=== PATIENT | male | born 1950 | race Caucasian/White ===

== ENCOUNTER 2021-06-16 17:54 | Outpatient (CLI) | payer MEDICARE | END 2021-06-16 17:55 | disposition EMS.NT | LOC: EMS 17:54 | DX: Z03.89 Encounter for observation for other suspected diseases and conditions ruled out (principal) ==

== ENCOUNTER 2021-06-17 11:49 | Outpatient (CLI) | payer MEDICARE | END 2021-06-17 11:50 | disposition critical access hospital (66) | LOC: EMS 11:49 | DX: R29.898 Other symptoms and signs involving the musculoskeletal system (principal); R60.0 Localized edema | CPT/HCPCS: A0425; A0429 ==

== ENCOUNTER 2021-06-17 12:15 | Inpatient (IN) | payer MEDICARE ==
--- NOTE | 2021-06-17 12:27 | ED Physician Documentation ---
History of Present Illness - Stated complaint Stated Complaint: UNABLE TO WALK/WEAKNESS - History obtained from History obtained from: Patient, EMS - History of Present Illness Timing: Today - Additonal information Additional information: Patient is a 70-year-old male who presents to the emergency department with EMS. He reportedly lives at home and was unable to get up off the toilet for the last 15 hours. Has chronic deformities to both of his feet and ankles. Chronic swelling and skin changes to both of his lower legs. No fevers. Has not seen a doctor for the last 17 years. He states he has no medical problems and no medical history. Does not take any medications at home. Nothing makes it better or worse. He normally walks with a cane. No recent cough, congestion, fevers, chills, nausea, vomiting. No chest pain. Review of Systems Constitutional: denies: Fever, Chills GI: denies: Vomiting, Diarrhea Skin: denies: Rash Musculoskeletal: denies: Neck pain, Back pain Neurologic: denies: Headache PD PAST MEDICAL HISTORY - Past Medical History Past Medical History: No - Past Surgical History Past Surgical History: No - Present Medications Home Medications: Ambulatory Orders Medication Instructions Recorded Confirmed Aspirin [Analilia] PRN PRN 06/17/21 - Allergies Allergies/Adverse Reactions: Allergies Allergy/AdvReac Type Severity Reaction Status Date / Time No Known Drug Allergies Allergy Verified 06/17/21 13:22 - Living Situation Living Arrangement: reports: At home - Social History Does the pt have substance abuse?: No - Family History Family history: reports: Non contributory PD ED PE NORMAL - Vitals Vital signs reviewed: Yes - General General: Alert and oriented X 3, No acute distress, Well developed/nourished - HEENT HEENT: Moist mucous membranes, Pharynx benign - Neck Neck: Supple, no meningeal sign - Cardiac Cardiac: Other (Tachycardic) - Respiratory Respiratory: No respiratory distress, Clear bilaterally - Abdomen Abdomen: Soft, Non tender, Non distended - Derm Derm: Warm and dry - Extremities Extremities: Other - Neuro Neuro: Alert and oriented X 3 - Psych Psych: Normal mood, Normal affect - Free text exam Free text exam: Diffuse swelling of the left lower extremity and right lower extremity. Left lower extremity is more swollen than the right. Patient states this is chronic. Has chronic appearing skin changes to both lower legs. There are some open sores on the right lower leg. Both ankles are deformed. He appears to walk on the medial aspect of a severely deformed left foot and ankle. Also has curling of the bilateral toenails. Results - Vitals Vitals: Vital Signs - 24 hr 06/17/21 06/17/21 06/17/21 12:28 12:33 14:00 Temperature 36.6 C Heart Rate 152 H 153 H 151 H Respiratory 20 22 20 Rate Blood Pressure 129/84 H 112/84 H 152/126 H O2 Saturation 100 100 98 06/17/21 06/17/21 06/17/21 14:09 15:16 15:40 Temperature Heart Rate 130 H 147 H 121 H Respiratory 20 20 22 Rate Blood Pressure 111/89 H 111/89 H O2 Saturation 100 100 99 Oxygen O2 Source Room air - EKG (time done) 1254 Rate: Rate (enter#) (152) Rhythm: Other (Tachycardia, unclear underlying rhythm) Trion: Normal Intervals: Wide QRS QRS: Normal Ischemia: Normal ST segments - Labs Labs: Laboratory Tests 06/17/21 06/17/21 06/17/21 12:42 12:42 12:42 WBC 7.9 RBC 5.04 Hgb 13.6 L Hct 42.0 MCV 83.3 MCH 27.0 MCHC 32.4 RDW 15.8 H Plt Count 244 MPV 10.6 Neut # (Auto) 6.7 H Lymph # (Auto) 0.6 L Benzie # (Auto) 0.5 Eos # (Auto) 0.0 Baso # (Auto) 0.0 Absolute Nucleated RBC 0.00 Nucleated RBC % 0.0 VBG pH VBG pCO2 VBG pO2 VBG HCO3 VBG Total CO2 VBG O2 Saturation VBG Base Excess Sodium 143 Potassium 3.5 Chloride 100 L Carbon Dioxide 24 Anion Gap 19.0 H BUN 24 H Creatinine 0.7 Estimated GFR (MDRD) 111 Glucose 94 Lactic Acid Calcium 8.9 Total Bilirubin 1.2 H AST 75 H ALT 56 Alkaline Phosphatase 58 Troponin I High Sens B-Natriuretic Peptide 308 H Total Protein 7.3 Albumin 2.8 L Globulin 4.5 H Albumin/Globulin Ratio 0.6 L Lipase 31 TSH Nasal Adenovirus (PCR) Nasal B. parapertussis DNA (PCR) Nasal Coronavir 229E PCR Nasal Coronavir HKU1 PCR Nasal Coronavir NL63 PCR Nasal Coronavir OC43 PCR Nasal Enterovir/Rhinovir PCR Nasal Influenza B PCR Nasal Influenza A PCR Nasal Parainfluen 1 PCR Nasal Parainfluen 2 PCR Nasal Parainfluen 3 PCR Nasal Parainfluen 4 PCR Nasal RSV (PCR) Nasal B.pertussis DNA PCR Nasal C.pneumoniae (PCR) Tony Human Metapneumo PCR Nasal M.pneumoniae (PCR) Nasal SARS-CoV-2 (PCR) Salicylates Acetaminophen 06/17/21 06/17/21 06/17/21 12:42 13:50 13:50 WBC RBC Hgb Hct MCV MCH MCHC RDW Plt Count MPV Neut # (Auto) Lymph # (Auto) Benzie # (Auto) Eos # (Auto) Baso # (Auto) Absolute Nucleated RBC Nucleated RBC % VBG pH 7.453 H VBG pCO2 36.2 L VBG pO2 29.3 VBG HCO3 24.8 VBG Total CO2 25.9 VBG O2 Saturation 59.8 L VBG Base Excess 1.1 Sodium Potassium Chloride Carbon Dioxide Anion Gap BUN Creatinine Estimated GFR (MDRD) Glucose Lactic Acid Calcium Total Bilirubin AST ALT Alkaline Phosphatase Troponin I High Sens 22.7 H* B-Natriuretic Peptide Total Protein Albumin Globulin Albumin/Globulin Ratio Lipase TSH Nasal Adenovirus (PCR) Nasal B. parapertussis DNA (PCR) Nasal Coronavir 229E PCR Nasal Coronavir HKU1 PCR Nasal Coronavir NL63 PCR Nasal Coronavir OC43 PCR Nasal Enterovir/Rhinovir PCR Nasal Influenza B PCR Nasal Influenza A PCR Nasal Parainfluen 1 PCR Nasal Parainfluen 2 PCR Nasal Parainfluen 3 PCR Nasal Parainfluen 4 PCR Nasal RSV (PCR) Nasal B.pertussis DNA PCR Nasal C.pneumoniae (PCR) Tony Human Metapneumo PCR Nasal M.pneumoniae (PCR) Nasal SARS-CoV-2 (PCR) Salicylates < 6.0 Acetaminophen < 10 L 06/17/21 06/17/21 06/17/21 13:51 14:40 15:38 WBC RBC Hgb Hct MCV MCH MCHC RDW Plt Count MPV Neut # (Auto) Lymph # (Auto) Benzie # (Auto) Eos # (Auto) Baso # (Auto) Absolute Nucleated RBC Nucleated RBC % VBG pH VBG pCO2 VBG pO2 VBG HCO3 VBG Total CO2 VBG O2 Saturation VBG Base Excess Sodium Potassium Chloride Carbon Dioxide Anion Gap BUN Creatinine Estimated GFR (MDRD) Glucose Lactic Acid 2.8 H Calcium Total Bilirubin AST ALT Alkaline Phosphatase Troponin I High Sens 23.1 H* B-Natriuretic Peptide Total Protein Albumin Globulin Albumin/Globulin Ratio Lipase TSH Nasal Adenovirus (PCR) NOT DETECTED Nasal B. parapertussis DNA (PCR) NOT DETECTED Nasal Coronavir 229E PCR NOT DETECTED Nasal Coronavir HKU1 PCR NOT DETECTED Nasal Coronavir NL63 PCR NOT DETECTED Nasal Coronavir OC43 PCR NOT DETECTED Nasal Enterovir/Rhinovir PCR NOT DETECTED Nasal Influenza B PCR NOT DETECTED Nasal Influenza A PCR NOT DETECTED Nasal Parainfluen 1 PCR NOT DETECTED Nasal Parainfluen 2 PCR NOT DETECTED Nasal Parainfluen 3 PCR NOT DETECTED Nasal Parainfluen 4 PCR NOT DETECTED Nasal RSV (PCR) NOT DETECTED Nasal B.pertussis DNA PCR NOT DETECTED Nasal C.pneumoniae (PCR) NOT DETECTED Tony Human Metapneumo PCR NOT DETECTED Nasal M.pneumoniae (PCR) NOT DETECTED Nasal SARS-CoV-2 (PCR) NOT DETECTED Salicylates Acetaminophen 06/17/21 15:38 WBC RBC Hgb Hct MCV MCH MCHC RDW Plt Count MPV Neut # (Auto) Lymph # (Auto) Benzie # (Auto) Eos # (Auto) Baso # (Auto) Absolute Nucleated RBC Nucleated RBC % VBG pH VBG pCO2 VBG pO2 VBG HCO3 VBG Total CO2 VBG O2 Saturation VBG Base Excess Sodium Potassium Chloride Carbon Dioxide Anion Gap BUN Creatinine Estimated GFR (MDRD) Glucose Lactic Acid Calcium Total Bilirubin AST ALT Alkaline Phosphatase Troponin I High Sens B-Natriuretic Peptide Total Protein Albumin Globulin Albumin/Globulin Ratio Lipase TSH 1.27 Nasal Adenovirus (PCR) Nasal B. parapertussis DNA (PCR) Nasal Coronavir 229E PCR Nasal Coronavir HKU1 PCR Nasal Coronavir NL63 PCR Nasal Coronavir OC43 PCR Nasal Enterovir/Rhinovir PCR Nasal Influenza B PCR Nasal Influenza A PCR Nasal Parainfluen 1 PCR Nasal Parainfluen 2 PCR Nasal Parainfluen 3 PCR Nasal Parainfluen 4 PCR Nasal RSV (PCR) Nasal B.pertussis DNA PCR Nasal C.pneumoniae (PCR) Tony Human Metapneumo PCR Nasal M.pneumoniae (PCR) Nasal SARS-CoV-2 (PCR) Salicylates Acetaminophen - Rads (name of study) B ankle xray Radiology: Final report received, EMP read contemporaneously, See rad report (Deformities of the ankles, left greater than right, may be congenital in nature versus Charcot joints. Severe degenerative changes marked soft tissue swelling) chest xray Radiology: Final report received, EMP read contemporaneously, See rad report (no acute abnormality) ct angio chest Radiology: Final report received, EMP read contemporaneously, See rad report (No acute PE) PD MEDICAL DECISION MAKING - ED course Complexity details: reviewed results, re-evaluated patient, considered differential, d/w patient ED course: 70-year-old male presents to the emergency department found to be in atrial fibrillation with rapid ventricular response. This is new for him. 20 mg of diltiazem did not change his heart rate. 5 mg of metoprolol did decrease his heart rate for about 30 seconds. Started on esmolol drip. No chest pain. No shortness of breath. Has severe swelling to the bilateral lower extremities, the right lower extremity has open wounds and does appear cellulitic. Has some mild elevation of his lactic acid. This could be secondary to his high-dose aspirin use daily. He states that he uses up to 10 tablets of 325 mg aspirin daily. Patient will need to be admitted for his new onset atrial fibrillation with rapid ventricular response. We will also start him on antibiotics for the cellulitis. Discussed the case with Dr. Hernandez, hospitalist who accepts This document was made in part using voice recognition software. While efforts are made to proofread this document, sound alike and grammatical errors may o ccur. Departure - Departure Disposition: 66 [facility] DC/Xfer Clinical Impression: New onset a-fib, Elephantiasis, Charcot's joint, Elevated brain natriuretic peptide (BNP) level Cellulitis Qualifiers: Site of cellulitis: extremity Site of cellulitis of extremity: lower extremity Laterality: right Qualified Code(s): L03.115 - Cellulitis of right lower limb Condition: Stable Discharge Date/Time: 06/17/21 17:34
[2021-06-17 13:09] LABS: BASOPHILS % (AUTO) 0.3 %; HGB - HEMOGLOBIN 13.6 g/dL (14.0-18.0); LYMPHOCYTES # (AUTO) 0.6 10^3/uL (1.5-3.5); LYMPHOCYTES % (AUTO) 7.8 %; MEAN CORPUSCULAR HGB CONC 32.4 g/dL (32.0-36.0); MEAN CORPUSCULAR VOLUME 83.3 fL (80.0-94.0); MEAN PLATELET VOLUME 10.6 fL (7.4-11.4); MONOCYTES # (AUTO) 0.5 10^3/uL (0.0-1.0); MONOCYTES % (AUTO) 6.6 %; NEUTROPHILS # (AUTO) 6.7 10^3/uL (1.5-6.6); NEUTROPHILS % (AUTO) 84.7 %; PLT - PLATELET COUNT 244 10^3/uL (130-450); RED BLOOD COUNT 5.04 10^6/uL (4.70-6.10); RED CELL DISTRIBUTION WIDTH 15.8 % (12.0-15.0); WHITE BLOOD COUNT 7.9 x10^3/uL (4.8-10.8)
[2021-06-17] MEDS ORDERED: diltiaZEM INJ 5 MG/ML VIAL IVP STA (13:12)
--- NOTE | 2021-06-17 13:16 | XRAY Report ---
PROCEDURE: Chest 1 View X-Ray INDICATIONS: Chest Pain TECHNIQUE: One view of the chest was acquired. COMPARISON: None FINDINGS: Surgical changes and devices: None. Lungs and pleura: Elevation of the hemidiaphragms. There is bowel noted underneath the right abdomen as well stomach underneath the left abdomen. There is likely adjacent atelectasis. No focal consolida tion, pneumothorax, or pleural effusion. Mediastinum: Mediastinal contours appear normal. Heart size is normal. Bones and chest wall: No suspicious bony lesions. Overlying soft tissues appear unremarkable. IMPRESSION: Elevation of the hemidiaphragms with basilar volume loss. Otherwise no evidence of an acute cardiopul monary abnormality. Reviewed by: Jean Paul Pandya DO on 06/17/2021 12:15 PM [facility] Approved by: Jean Paul Pandya DO on 06/17/2021 12:15 PM [facility] Station ID: [id number]
--- NOTE | 2021-06-17 13:23 | XRAY Report ---
PROCEDURE: Ankle 3 View BILAT INDICATIONS: B ankle deformity, swelling, chronic TECHNIQUE: 8) of the ankles were acquired. COMPARISON: None FINDINGS: Bones: Right ankle there is no acute fracture or dislocation. There is asymmetry of the ankle mortise, likel y chronic given other findings. There is severe pes planus with severe degenerative changes of the an kle and osseous remodeling. The left ankle is diffusely irregular in appearance with a hypoplastic appearance of the calcaneus an d inversion of the ankle. There is severe degenerative changes of the ankle. There is marked pes plan us. Soft tissues: There is diffuse soft tissue swelling/edema noted throughout the lower legs and ankles. Mild vascular calcifications are noted. IMPRESSION: Severe deformities of the ankles, left greater than right which may be congenital in nature versus Ch arcot joints. There is severe degenerative changes. Marked soft tissue swelling of the lower extremities/ankles. Reviewed by: Jean Paul Pandya DO on 06/17/2021 12:22 PM [facility] Approved by: Jean Paul Pandya DO on 06/17/2021 12:22 PM [facility] Station ID: [id number]
[2021-06-17 13:26] LABS: ALBUMIN 2.8 g/dL (3.2-5.5); ALBUMIN/GLOBULIN RATIO 0.6 (1.0-2.2); BILIRUBIN,TOTAL 1.2 mg/dL (0.2-1.0); CALCIUM 8.9 mg/dL (8.5-10.3); CREATININE 0.7 mg/dL (0.6-1.2); POTASSIUM 3.5 mmol/L (3.5-5.0); TOTAL PROTEIN 7.3 g/dL (6.7-8.2)
[2021-06-17] MEDS ORDERED: METOPROLOL 5 MG/5 ML VIAL IVP STA ×2 (13:40→20:33)
[2021-06-17 13:53] LABS: VBG BASE EXCESS 1.1 mmol/L (-2 - +2); VBG HCO3 24.8 mmol/L (23-28); VBG PCO2 36.2 mmHg (41-51); VBG PH 7.453 (7.31-7.41); VBG PO2 29.3 mmHg (25-47); VBG TOTAL CO2 25.9 mmol/L (24-29)
[2021-06-17 13:54] LABS: VBG OXYGEN SATURATION 59.8 % (60-80)
[2021-06-17 14:06] LABS: ACETAMINOPHEN < 10 ug/mL (10-30); SALICYLATE < 6.0 mg/dL
[2021-06-17] MEDS ORDERED: ESMOLOL 2.5 GM/250 ML BAG IV STA (14:10)
[2021-06-17] MEDS ORDERED: PIPERACILLIN/TAZOBACTAM 3.375 GM in SODIUM CHLORIDE 0.9% MINIBAG 100 ML IV STA (14:28)
[2021-06-17] MEDS ORDERED: VANCOMYCIN 1 GM VIAL ONE (14:42)
[2021-06-17] MEDS ORDERED: VANCOMYCIN INJ 1.75 GM in SODIUM CHLORIDE 0.9% 500 ML IV SCH (15:00)
[2021-06-17] MEDS ORDERED: oxyCODONE 5 MG TABLET PO PRN (15:15)
[2021-06-17] MEDS ORDERED: ONDANSETRON 4 MG/2 ML VIAL IVP PRN (15:15)
[2021-06-17] MEDS ORDERED: ONDANSETRON ODT 4 MG TABLET TL PRN (15:15)
[2021-06-17] MEDS ORDERED: MORPHINE 2 MG/ML CARPUJECT IVP PRN (15:15)
[2021-06-17] MEDS ORDERED: iohexoL-300 100 ML VIAL ONE (15:23)
[2021-06-17 15:42] LABS: B. PARAPERTUSSIS- RESP PCR PAN NOT DETECTED; B. PERTUSSIS- RESP PCR PANEL NOT DETECTED; C. PNEUMONIAE- RESP PCR PANEL NOT DETECTED; CORONAVIRUS 229E-RESP PCR NOT DETECTED; CORONAVIRUS HKU1-RESP PCR NOT DETECTED; CORONAVIRUS NL63-RESP PCR NOT DETECTED; CORONAVIRUS OC43-RESP PCR NOT DETECTED; HUMAN METAPNEUMOVIRUS NOT DETECTED; INFLUENZA A- RESP PCR PANEL NOT DETECTED; INFLUENZA B - RESP PCR PANEL NOT DETECTED; M. PNEUMONIAE- RESP PCR PANEL NOT DETECTED; PARAINFLUENZA VIRUS 1 NOT DETECTED; PARAINFLUENZA VIRUS 2 NOT DETECTED; PARAINFLUENZA VIRUS 3 NOT DETECTED; PARAINFLUENZA VIRUS 4 NOT DETECTED; RHINOVIRUS/ENTEROVIRUS NOT DETECTED; RSV- RESP PCR PANEL NOT DETECTED; SARS-CoV-2 -RESP PCR PANEL NOT DETECTED
[2021-06-17] MEDS ORDERED: iohexoL-300 100 ML VIAL IVP ONE (17:13)
[2021-06-17] MEDS: ESMOLOL 2.5 GM/250 ML BAG IV SCH (17:30)
--- NOTE | 2021-06-17 17:40 | CT Report ---
PROCEDURE: ANGIO CHEST W/WO INDICATIONS: tachycardia, new onset afib CONTRAST: IV CONTRAST: Isovue 300 ml: 80 PO CONTRAST: *NO PO CONTRAST TECHNIQUE: After the administration of intravenous contrast, 2 mm axial images were acquired from the pulmonary apices to the posterior costophrenic angles during the arterial phase. In addition, 1 mm lung kernel and 5 mm soft tissue kernel reconstructions were performed. 3-dimensional coronal oblique maximum int ensity projection (MIP) reformats, 8 mm axial MIP, and 5 mm coronal and sagittal MPR reformats were t hen performed through the thorax. For radiation dose reduction, the following was used: automated exp osure control, adjustment of mA and/or kV according to patient size. COMPARISON: Same day chest radiographs. FINDINGS: Image quality: Limited evaluation given patient's inability to appropriately position and arms by his side which causes diffuse beam hardening artifact.. Pulmonary arteries: Pulmonary arteries are normal in size, and demonstrate no intraluminal filling d efects to suggest central pulmonary embolism. There is however some peripheral irregularity of multi ple left lower lobe subsegmental pulmonary vessels which may represent chronic pulmonary embolus. Thi s is adjacent to the volume loss. Lungs and pleura: There is a somewhat hypoplastic appearance of the left lung. There is elevation of the left greater than right hemidiaphragms. There is volume loss of the left lung base as well as wit hin the lingula. Mild volume loss within the right lung base. No focal consolidation or pneumothorax. No large volume pleural effusion. Central and peripheral airways are patent. Mediastinum: Heart size is normal, without pericardial effusion. No mediastinal or hilar adenopathy . Thoracic aorta is normal in caliber and enhancement. Esophagus is normal in caliber, without hiat al hernia. Bones and chest wall: No suspicious bony lesions. Ribs and thoracic spine appear intact throughout. No axillary or supraclavicular adenopathy. Thyroid gland is unremarkable. Abdomen: Visualized upper abdominal solid organs appear normal in the early arterial phase of enhanc ement. Limited evaluation demonstrates colon interposed between the liver and right hemidiaphragm. IMPRESSION: Limited study. No acute pulmonary embolus within the limits of this examination.. Subtle peripheral i rregularities of a few left lower lobe subsegmental vessels adjacent to the volume loss may represent chronic pulmonary embolus. Likely chronic elevation of the left hemidiaphragm with volume loss of the left lower lobe and lingul a greater than the right lower lobe. No focal consolidation. Reviewed by: Jean Paul Pandya DO on 06/17/2021 4:39 PM [facility] Approved by: Jean Paul Pandya DO on 06/17/2021 4:39 PM [facility] Station ID: [id number]
[2021-06-17] MEDS: ceFAZolin 1 GM VIAL IVP SCH ×2 (18:01→20:55)
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
[2021-06-17] MEDS: PANTOPRAZOLE 40 MG TABLET PO SCH (18:56)
[2021-06-17] MEDS: DIGOXIN 500 MCG/2 ML AMP IVP SCH (18:58)
[2021-06-17] MEDS: SODIUM CHLORIDE FLUSH 0.9% 10 ML SYRINGE IVP SCH (20:55)
[2021-06-18] MEDS ORDERED: METOPROLOL 5 MG/5 ML VIAL IVP PRN (01:05)
[2021-06-18] MEDS: ESMOLOL 2.5 GM/250 ML BAG IV SCH ×4 (01:21→20:28)
[2021-06-18] MEDS: SODIUM CHLORIDE FLUSH 0.9% 10 ML SYRINGE IVP SCH ×3 (01:27→17:29)
[2021-06-18] MEDS ORDERED: METOPROLOL SUCCINATE 25 MG TABLET PO SCH (02:00)
[2021-06-18 05:21] LABS: BASOPHILS % (AUTO) 0.3 %; EOSINOPHILS # (AUTO) 0.1 10^3/uL (0.0-0.7); EOSINOPHILS % (AUTO) 1.1 %; HCT - HEMATOCRIT 34.7 % (42.0-52.0); HGB - HEMOGLOBIN 11.1 g/dL (14.0-18.0); LYMPHOCYTES # (AUTO) 1.2 10^3/uL (1.5-3.5); LYMPHOCYTES % (AUTO) 18.9 %; MEAN CORPUSCULAR HEMOGLOBIN 26.8 pg (27.0-31.0); MEAN CORPUSCULAR VOLUME 83.8 fL (80.0-94.0); MEAN PLATELET VOLUME 10.2 fL (7.4-11.4); MONOCYTES # (AUTO) 0.5 10^3/uL (0.0-1.0); MONOCYTES % (AUTO) 8.4 %; NEUTROPHILS # (AUTO) 4.4 10^3/uL (1.5-6.6); NEUTROPHILS % (AUTO) 70.8 %; PLT - PLATELET COUNT 220 10^3/uL (130-450); RED BLOOD COUNT 4.14 10^6/uL (4.70-6.10); RED CELL DISTRIBUTION WIDTH 15.7 % (12.0-15.0); WHITE BLOOD COUNT 6.2 x10^3/uL (4.8-10.8)
[2021-06-18 05:26] LABS: CALCIUM 7.7 mg/dL (8.5-10.3); CREATININE 0.7 mg/dL (0.6-1.2); POTASSIUM 3.2 mmol/L (3.5-5.0)
[2021-06-18 05:30] LABS: CALCIUM, IONIZED 1.08 mmol/L (1.15-1.33); VBG PH 7.411 (7.31-7.41)
[2021-06-18 06:20] LABS: MAGNESIUM 1.8 mg/dL (1.7-2.8); PHOSPHORUS 3.3 mg/dL (2.5-4.6)
[2021-06-18] MEDS: SODIUM CHLORIDE FLUSH 0.9% 10 ML SYRINGE IVP PRN ×2 (06:28→14:49)
[2021-06-18] MEDS: PANTOPRAZOLE 40 MG TABLET PO SCH (06:28)
[2021-06-18] MEDS: ZINC OXIDE 20% OINT 30 GM TUBE TOP PRN (06:35)
[2021-06-18] MEDS: CALCIUM CARBONATE CHEW 500 MG TABLET PO SCH ×4 (06:42→20:37)
[2021-06-18] MEDS: POTASSIUM CHLORIDE 20 MEQ TABLET PO SCH ×2 (08:14→12:31)
[2021-06-18] MEDS: MAGNESIUM OXIDE 400 MG TABLET PO SCH ×2 (08:14→14:43)
[2021-06-18] MEDS: METOPROLOL SUCCINATE 50 MG TABLET PO SCH ×2 (08:15→08:23)
[2021-06-18] MEDS: ceFAZolin 1 GM VIAL IVP SCH (08:54)
[2021-06-18] MEDS: DIGOXIN 500 MCG/2 ML AMP IVP SCH ×3 (09:16→17:25)
[2021-06-18] MEDS ORDERED: VANCOMYCIN INJ 1.75 GM in SODIUM CHLORIDE 0.9% 500 ML IV SCH (12:00)
[2021-06-18] MEDS: VANCOMYCIN INJ 1 GM in SODIUM CHLORIDE 0.9% 250 ML IV SCH ×2 (12:19→15:09)
--- NOTE | 2021-06-18 12:44 | PHARMACY PROGRESS NOTE ---
- Best Possible Medication History Admit Date and Time: 06/17/21 1557 Processed by: Pharmacy Medication History completed: Yes Patient Interview: Completed As the person ultimately responsible for medication therapy, providers are able to order a medication from an existing home medication list in [facility] via the "Reconcile Routine" prior to Confirmation of that medication by operations support manager. Such practice is discouraged except when the physician, in their clinical deisy gment, deems that a medical need exists for a medication without regard to previous use.
[2021-06-18 13:11] LABS: BUN - BLOOD UREA NITROGEN 20 mg/dL (6-20); CALCIUM 7.9 mg/dL (8.5-10.3); CARBON DIOXIDE - CO2 29 mmol/L (21-32); CHLORIDE 99 mmol/L (101-111); CREATININE 0.6 mg/dL (0.6-1.2); GFR - MDRD 133 (>89); GLUCOSE 129 mg/dL (70-100); IONIZED CALCIUM IF INDICATED YES; MAGNESIUM 1.9 mg/dL (1.7-2.8); POTASSIUM 3.7 mmol/L (3.5-5.0); SODIUM 136 mmol/L (135-145)
[2021-06-18 13:20] LABS: CALCIUM, IONIZED 1.08 mmol/L (1.15-1.33); VBG PH 7.425 (7.31-7.41)
[2021-06-18 14:18] LABS: BILIRUBIN,URINE NEGATIVE (NEGATIVE); GLUCOSE, URINE (UA) NEGATIVE (NEGATIVE); KETONES,URINE (UA) NEGATIVE (NEGATIVE); LEUKOCYTE ESTERASE, URINE SMALL (NEGATIVE); NITRITE,URINE NEGATIVE (NEGATIVE); OCCULT BLOOD,URINE NEGATIVE (NEGATIVE); PH,URINE 6.5 PH (5.0-7.5); PROTEIN,URINE NEGATIVE (NEGATIVE); UROBILINOGEN,URINE 2 E.U./dL (NORMAL)
[2021-06-18 14:24] LABS: CLARITY,URINE HAZY (CLEAR)
[2021-06-18 14:31] LABS: BACTERIA,URINE Moderate /HPF (None Seen); RBC,URINE 0-5 /HPF (0-5); SQUAMOUS EPITHELIAL CELL,UR NONE SEEN (<= Few)
[2021-06-18] MEDS: MIN OIL/DIMETHICON/COCONUT OIL 92 GM TUBE TOP PRN ×2 (14:45→21:30)
[2021-06-18] MEDS: MULTIVITAMIN W/MINERALS TABLET PO SCH (14:53)
[2021-06-18] MEDS ORDERED: POTASSIUM CHLORIDE 20 MEQ TABLET PO ONE (15:07)
[2021-06-18 19:11] LABS: MUDS CUTOFF CONCENTRATIONS CUTOFF CONC BELOW:
[2021-06-18 19:25] LABS: AMPHETAMINE SCREEN,URINE NEGATIVE (NEGATIVE); BARBITURATE SCREEN,UR NEGATIVE (NEGATIVE); BENZODIAZEPINES SCREEN, URINE NEGATIVE (NEGATIVE); COCAINE SCREEN URINE NEGATIVE (NEGATIVE); METHADONE SCREEN, URINE NEGATIVE (NEGATIVE); METHAMPHETAMINES SCREEN, URINE NEGATIVE (NEGATIVE); OPIATE SCREEN, URINE NEGATIVE (NEGATIVE); OXYCODONE SCREEN, URINE NEGATIVE (NEGATIVE); PROPOXYPHENE SCREEN, URINE NEGATIVE (NEGATIVE); THC CANNABINOID SCREEN, URINE NEGATIVE (NEGATIVE); TRICYCLIC ANTIDEPRESSANT,URINE NEGATIVE (NEGATIVE)
--- NOTE | 2021-06-18 19:53 | PROVIDER PROGRESS NOTE ---
Progress Note June 18, 2021 6 PM Patient is spent most the day with rapid A. fib. He has not really responded to my measures. We have gone on and off the esmolol but he drops his pressure. By late afternoon he is finally dropped to the low 100s. By 430 he is 105. He is asymptomatic with this. He denies chest pain, palpitations, shortness of breath . When social work sees him he is very evasive about his history and minimizes any problems with depression. Medications: Tylenol, Eliquis, calcium, metoprolol XL 50 daily, off esmolol, metoprolol 5 mg IV push as needed, morphine, zinc oxide, multivitamin, Zofran, Roxicodone as needed, Protonix p.o., vancomycin Temperature 36.5 heart rate is 105 blood pressure 95/73 respirations 23 and he is 96% saturated on 2 L. Today's weight is 111 kg. He continues to be a disheveled, tall, lanky man jet is very malodorous due to his legs. Continues to have halitosis, poor dentition. Love is matted with old food. Neck continues to have shotty adenopathy but no bruits or goiter Lungs are clear to auscultation and percussion diminished at the bases. No respiratory distress, no increased respiratory effort Cardiac exam has a irregular irregular rhythm that is still tachycardic but less in the 140s or 150 that he was last night Abdomen is soft, slightly distended, hypoactive bowel sounds, nontender The legs continue to have the horrendous hyperkeratosis, crusting cracked areas, foul-smelling, but no worse today than they were yesterday. Sodium 138, potassium 3.2, BUN 21, creatinine 0.7. Troponin #1 yesterday was 22.7, and #2 was 23.1 TSH 1.27 CBC with white cell count 6.2, hemoglobin 11.1, hematocrit 34.7, platelets 220 Urine tox screen negative for all substances. Assessment/plan 1. New onset atrial fibrillation. Rate slowly coming down with Toprol and digoxin. Plan on getting a limited echocardiogram tonight with the hospitalist on-call who does echoes. This will help evaluate his ejection fraction and let us know if I need to start diuresing 2. Lactic acidosis. Repeat lactic acid level today. Again I suspect it is from malnutrition, dehydration and not true infection or sepsis. He is not on metformin. 3. Bilateral elephantiasis and cellulitis of the legs with Charcot Jane disease of the ankles. Order wound consult, get nursing to soak his legs and start peeling off the disease, and he still declines orthopedic evaluation. 4. Probable major depressive disorder. I have ordered a telepsych consult. That may take 1 to 2 days to get.
[2021-06-18] MEDS: APIXABAN 5 MG TABLET PO SCH (20:37)
[2021-06-18] MEDS: ACETAMINOPHEN 325 MG TABLET PO PRN (20:42)
[2021-06-19] MEDS: VANCOMYCIN INJ 1.75 GM in SODIUM CHLORIDE 0.9% 500 ML IV SCH ×2 (00:09→12:32)
[2021-06-19] MEDS: SODIUM CHLORIDE FLUSH 0.9% 10 ML SYRINGE IVP SCH ×3 (00:10→20:37)
[2021-06-19 01:19] LABS: CALCIUM, IONIZED 1.07 mmol/L (1.15-1.33); VBG PH 7.419 (7.31-7.41)
[2021-06-19 01:28] LABS: MAGNESIUM 1.8 mg/dL (1.7-2.8); POTASSIUM 3.7 mmol/L (3.5-5.0)
[2021-06-19] MEDS ORDERED: MAGNESIUM SULFATE 2 GRAM 2 GM/50 ML BAG IV ONE (01:30)
[2021-06-19] MEDS ORDERED: CALCIUM GLUCONATE 1,000 MG in SODIUM CHLORIDE 0.9% 50 ML IV ONE ×2 (01:30→08:00)
[2021-06-19] MEDS ORDERED: SODIUM CHLORIDE 0.9% 500 ML IV ONE (01:55)
[2021-06-19] MEDS ORDERED: SODIUM CHLORIDE 0.9% 500 ML IV PRN (02:12)
[2021-06-19] MEDS: POTASSIUM CHLOR 10 MEQ/100 ML 10 MEQ/100 ML BAG IV SCH ×2 (02:24→04:28)
[2021-06-19] MEDS: ESMOLOL 2.5 GM/250 ML BAG IV SCH (02:25)
[2021-06-19 06:05] LABS: BASOPHILS % (AUTO) 0.5 %; EOSINOPHILS # (AUTO) 0.1 10^3/uL (0.0-0.7); EOSINOPHILS % (AUTO) 1.7 %; HGB - HEMOGLOBIN 11.5 g/dL (14.0-18.0); LYMPHOCYTES # (AUTO) 1.2 10^3/uL (1.5-3.5); LYMPHOCYTES % (AUTO) 18.7 %; MEAN CORPUSCULAR HEMOGLOBIN 26.9 pg (27.0-31.0); MEAN CORPUSCULAR HGB CONC 31.9 g/dL (32.0-36.0); MEAN CORPUSCULAR VOLUME 84.1 fL (80.0-94.0); MEAN PLATELET VOLUME 9.7 fL (7.4-11.4); MONOCYTES # (AUTO) 0.6 10^3/uL (0.0-1.0); MONOCYTES % (AUTO) 9.7 %; NEUTROPHILS # (AUTO) 4.4 10^3/uL (1.5-6.6); NEUTROPHILS % (AUTO) 68.2 %; PLT - PLATELET COUNT 179 10^3/uL (130-450); RED BLOOD COUNT 4.28 10^6/uL (4.70-6.10); RED CELL DISTRIBUTION WIDTH 15.5 % (12.0-15.0); WHITE BLOOD COUNT 6.5 x10^3/uL (4.8-10.8)
[2021-06-19 06:07] LABS: CALCIUM, IONIZED 1.1 mmol/L (1.15-1.33); VBG PH 7.425 (7.31-7.41)
[2021-06-19 06:17] LABS: CALCIUM 7.7 mg/dL (8.5-10.3); CREATININE 0.5 mg/dL (0.6-1.2); POTASSIUM 3.9 mmol/L (3.5-5.0)
[2021-06-19] MEDS: PANTOPRAZOLE 40 MG TABLET PO SCH (06:26)
[2021-06-19] MEDS: APIXABAN 5 MG TABLET PO SCH ×2 (08:14→20:38)
[2021-06-19] MEDS: DIGOXIN 125 MCG TABLET PO SCH (08:14)
[2021-06-19] MEDS: MULTIVITAMIN W/MINERALS TABLET PO SCH (08:14)
--- NOTE | 2021-06-19 08:22 | PROVIDER PROGRESS NOTE ---
Assessment/Plan - Problem List (1) New onset a-fib Assessment/Plan: On metoprolol succinate 50 mg p.o. daily and digoxin 125 mcg p.o. daily. Will check digoxin level in the morning. On Eliquis 5 mg p.o. twice daily. Will obtain a 2D echocardiogram when available (2) Cellulitis Qualifiers: Site of cellulitis: extremity Site of cellulitis of extremity: lower extremity Laterality: right Qualified Code(s): L03.115 - Cellulitis of right lower limb Assessment/Plan: Bilateral lower extremities. On vancomycin. Zosyn added today. White blood cell count normal. Patient afebrile. Blood cultures no growth to date. Wound care consult in place. Plan to be taken to the [place] care clinic at the [facility] [place]21 at 8:30 AM for treatment. In the meantime we will apply Xeroform, ABD and Kerlix. Will also elevate extremities. (3) Charcot's joint Assessment/Plan: Patient declined orthopedic consult/ evaluation. (4) Elephantiasis (nonfilarial) Assessment/Plan: On vancomycin. Zosyn added today. White blood cell count normal. Patient afebrile. Blood cultures no growth to date. Wound care consult in place. Plan to be taken to the wound care clinic at the [facility] [place] on 06/20/2021 at 8:30 AM for treatment. In the meantime we will apply Xeroform, ABD and Kerlix. Will also elevate extremities. (5) Major depressive disorder Qualifiers: Major depression recurrence: unspecified whether recurrent Active/Remission status: currently active Major depression episode severity: moderate Qualified Code(s): F32.1 - Major depressive disorder, single episode, moderate Assessment/Plan: Patient declined telepsych consult. - Current Meds Current Meds: Current Medications Generic Name Dose Route Start Last Admin Trade Name Freq PRN Reason Stop Dose Admin Acetaminophen 650 mg 06/17/21 15:15 06/18/21 20:42 Acetaminophen 325 Mg Tablet PO 650 mg Q4HR PRN Administration Pain 1 to 4 Apixaban 5 mg 06/18/21 21:00 06/19/21 08:14 Apixaban 5 Mg Tablet PO 5 mg BID KODY Administration Digoxin 125 mcg 06/19/21 09:00 06/19/21 08:14 Digoxin 125 Mcg Tablet PO 125 mcg DAILY KODY Administration Vancomycin HCl 1.75 gm/ Sodium 500 mls @ 250 mls/hr 06/19/21 00:00 06/19/21 02:30 Chloride IV Infused Q12H KODY Infusion Sodium Chloride 500 mls @ 20 mls/hr 06/19/21 02:12 06/19/21 02:14 Normal Saline 0.9% IV 20 mls/hr Q24H PRN Administration TKO RATE Metoprolol Succinate 50 mg 06/18/21 09:00 06/18/21 08:23 Metoprolol Succinate 50 Mg Tablet PO 50 mg DAILY KODY Administration Mineral Oil 1 applic 06/18/21 01:49 06/18/21 21:30 Min Oil/Dimethicon/Coconut Oil 92 Gm Tube TOP 1 applic PRN PRN Administration Skin Care Multi-Ingredient Ointment 1 applic 06/18/21 01:49 06/18/21 06:35 Zinc Oxide 20% Oint 30 Gm Tube TOP 1 applic PRN PRN Administration Skin Care Multivitamins/Minerals 1 tab 06/18/21 14:00 06/19/21 08:14 Multivitamin W/Minerals Tablet PO 1 tab DAILYWM KODY Administration Pantoprazole Sodium 40 mg 06/17/21 16:00 06/19/21 06:26 Pantoprazole 40 Mg Tablet PO 40 mg QDAC KODY Administration Sodium Chloride 10 ml 06/17/21 17:00 06/19/21 08:15 Sodium Chloride Flush 0.9% 10 Ml Syringe IVP 10 ml 0100,0900,1700 KODY Administration Sodium Chloride 10 ml 06/17/21 15:15 06/18/21 14:49 Sodium Chloride Flush 0.9% 10 Ml Syringe IVP 10 ml PRN PRN Administration NEEDED PER PROVIDER ORDERS - Lab Result Fish Bone Diagrams: 06/19/21 06:02 06/19/21 06:02 - Additional Planning My Orders: My Active Orders 06/18/21 09:00 Metoprolol Succinate [Toprol Xl] 50 mg PO DAILY 06/19/21 09:00 Piperacillin/Tazobactam [Zosyn] 3.375 gm Sodium Chloride 0.9% Minibag [Normal Saline 0.9% Minibag] 100 ml IV Q6H Subjective - Subjective Patient Reports: Other (Patient was resting comfortably in bed at time of exam. He reported not sleeping very well last night. Lower extremities are edematous with chronic skin changes (hardened skin), excuriations, malodorous, weeping.) Objective Vital Signs: Vital Signs - 24 hr 06/18/21 06/18/21 06/18/21 16:23 17:00 17:01 Temperature 36.5 C Heart Rate 107 H 83 Heart Rate [ 105 H Monitoring electrodes] Respiratory 23 19 21 Rate Blood Pressure 107/66 Blood Pressure 95/73 [Right Brachial artery] O2 Saturation 96 06/18/21 06/18/21 06/18/21 17:05 17:10 17:15 Temperature Heart Rate 115 H 117 H 118 H Heart Rate [ Monitoring electrodes] Respiratory 25 H 25 H 24 Rate Blood Pressure Blood Pressure [Right Brachial artery] O2 Saturation 06/18/21 06/18/21 06/18/21 17:20 17:25 17:30 Temperature Heart Rate 120 H 120 H 114 H Heart Rate [ Monitoring electrodes] Respiratory 24 23 23 Rate Blood Pressure Blood Pressure [Right Brachial artery] O2 Saturation 06/18/21 06/18/21 06/18/21 17:35 17:40 17:45 Temperature Heart Rate 119 H 120 H 114 H Heart Rate [ Monitoring electrodes] Respiratory 21 24 26 H Rate Blood Pressure Blood Pressure [Right Brachial artery] O2 Saturation 06/18/21 06/18/21 06/18/21 17:50 17:55 18:00 Temperature Heart Rate 113 H 119 H 113 H Heart Rate [ Monitoring electrodes] Respiratory 27 H 34 H 27 H Rate Blood Pressure Blood Pressure [Right Brachial artery] O2 Saturation 06/18/21 06/18/21 06/18/21 18:01 18:05 18:10 Temperature Heart Rate 112 H 113 H 107 H Heart Rate [ Monitoring electrodes] Respiratory 25 H 28 H 24 Rate Blood Pressure 101/77 Blood Pressure [Right Brachial artery] O2 Saturation 06/18/21 06/18/21 06/18/21 18:15 18:20 18:25 Temperature Heart Rate 108 H 103 H 112 H Heart Rate [ Monitoring electrodes] Respiratory 26 H 24 25 H Rate Blood Pressure Blood Pressure [Right Brachial artery] O2 Saturation 06/18/21 06/18/21 06/18/21 18:30 18:35 18:40 Temperature Heart Rate 106 H 94 99 Heart Rate [ Monitoring electrodes] Respiratory 24 26 H 23 Rate Blood Pressure Blood Pressure [Right Brachial artery] O2 Saturation 06/18/21 06/18/21 06/18/21 18:45 18:50 18:55 Temperature Heart Rate 102 H 103 H 107 H Heart Rate [ Monitoring electrodes] Respiratory 27 H 16 Rate Blood Pressure Blood Pressure [Right Brachial artery] O2 Saturation 06/18/21 06/18/21 06/18/21 19:00 19:01 19:05 Temperature Heart Rate 103 H 104 H 100 Heart Rate [ Monitoring electrodes] Respiratory 30 H 28 H 27 H Rate Blood Pressure 102/61 Blood Pressure [Right Brachial artery] O2 Saturation 06/18/21 06/18/21 06/18/21 19:10 19:15 19:20 Temperature Heart Rate 98 101 H 105 H Heart Rate [ Monitoring electrodes] Respiratory 24 22 Rate Blood Pressure Blood Pressure [Right Brachial artery] O2 Saturation 06/18/21 06/18/21 06/18/21 19:25 19:29 19:30 Temperature 36.6 C Heart Rate 99 96 Heart Rate [ 88 Monitoring electrodes] Respiratory 51 H 23 22 Rate Blood Pressure Blood Pressure 102/61 [Right Brachial artery] O2 Saturation 95 06/18/21 06/18/21 06/18/21 19:35 19:40 19:45 Temperature Heart Rate 106 H 97 105 H Heart Rate [ Monitoring electrodes] Respiratory 20 22 23 Rate Blood Pressure Blood Pressure [Right Brachial artery] O2 Saturation 06/18/21 06/18/21 06/18/21 19:50 19:55 20:00 Temperature Heart Rate 98 98 97 Heart Rate [ Monitoring electrodes] Respiratory 21 21 23 Rate Blood Pressure Blood Pressure [Right Brachial artery] O2 Saturation 06/18/21 06/18/21 06/18/21 20:01 20:05 20:10 Temperature Heart Rate 98 97 107 H Heart Rate [ Monitoring electrodes] Respiratory 21 21 22 Rate Blood Pressure 104/63 Blood Pressure [Right Brachial artery] O2 Saturation 06/18/21 06/18/21 06/18/21 20:15 20:20 20:25 Temperature Heart Rate 101 H 101 H 104 H Heart Rate [ Monitoring electrodes] Respiratory 21 19 22 Rate Blood Pressure Blood Pressure [Right Brachial artery] O2 Saturation 06/18/21 06/18/21 06/18/21 20:30 20:35 20:40 Temperature Heart Rate 114 H 99 111 H Heart Rate [ Monitoring electrodes] Respiratory 23 18 23 Rate Blood Pressure Blood Pressure [Right Brachial artery] O2 Saturation 06/18/21 06/18/21 06/18/21 20:45 20:50 20:55 Temperature Heart Rate 104 H 99 105 H Heart Rate [ Monitoring electrodes] Respiratory 27 H 24 21 Rate Blood Pressure Blood Pressure [Right Brachial artery] O2 Saturation 06/18/21 06/18/21 06/18/21 21:00 21:01 21:05 Temperature Heart Rate 102 H 106 H 99 Heart Rate [ Monitoring electrodes] Respiratory 22 23 23 Rate Blood Pressure 107/71 Blood Pressure [Right Brachial artery] O2 Saturation 06/18/21 06/18/21 06/18/21 21:10 21:15 21:20 Temperature Heart Rate 106 H 102 H 88 Heart Rate [ Monitoring electrodes] Respiratory 24 22 19 Rate Blood Pressure Blood Pressure [Right Brachial artery] O2 Saturation 06/18/21 06/18/21 06/18/21 21:25 21:30 21:35 Temperature Heart Rate 105 H 102 H 108 H Heart Rate [ Monitoring electrodes] Respiratory 22 21 27 H Rate Blood Pressure Blood Pressure [Right Brachial artery] O2 Saturation 06/18/21 06/18/21 06/18/21 21:42 21:45 21:50 Temperature Heart Rate 101 H 96 89 Heart Rate [ Monitoring electrodes] Respiratory 26 H 27 H 24 Rate Blood Pressure Blood Pressure [Right Brachial artery] O2 Saturation 06/18/21 06/18/21 06/18/21 21:55 22:00 22:01 Temperature Heart Rate 98 100 93 Heart Rate [ Monitoring electrodes] Respiratory 23 24 22 Rate Blood Pressure 89/67 L Blood Pressure [Right Brachial artery] O2 Saturation 06/18/21 06/18/21 06/18/21 22:05 22:10 22:15 Temperature Heart Rate 93 96 96 Heart Rate [ Monitoring electrodes] Respiratory 23 25 H 23 Rate Blood Pressure Blood Pressure [Right Brachial artery] O2 Saturation 06/18/21 06/18/21 06/18/21 22:20 22:25 22:27 Temperature Heart Rate 101 H 104 H 87 Heart Rate [ Monitoring electrodes] Respiratory 24 25 H 21 Rate Blood Pressure Blood Pressure [Right Brachial artery] O2 Saturation 06/18/21 06/18/21 06/18/21 22:30 22:35 22:40 Temperature Heart Rate 101 H 93 105 H Heart Rate [ Monitoring electrodes] Respiratory 25 H 23 22 Rate Blood Pressure Blood Pressure [Right Brachial artery] O2 Saturation 06/18/21 06/18/21 06/18/21 22:45 22:50 22:55 Temperature Heart Rate 95 93 94 Heart Rate [ Monitoring electrodes] Respiratory 22 21 19 Rate Blood Pressure Blood Pressure [Right Brachial artery] O2 Saturation 06/18/21 06/18/21 06/18/21 23:00 23:01 23:05 Temperature Heart Rate 86 89 87 Heart Rate [ Monitoring electrodes] Respiratory 22 20 20 Rate Blood Pressure 96/59 L Blood Pressure [Right Brachial artery] O2 Saturation 06/18/21 06/18/21 06/18/21 23:10 23:15 23:20 Temperature Heart Rate 89 95 84 Heart Rate [ Monitoring electrodes] Respiratory 23 20 21 Rate Blood Pressure Blood Pressure [Right Brachial artery] O2 Saturation 06/18/21 06/18/21 06/18/21 23:25 23:30 23:35 Temperature Heart Rate 88 91 97 Heart Rate [ Monitoring electrodes] Respiratory 21 21 21 Rate Blood Pressure Blood Pressure [Right Brachial artery] O2 Saturation 06/18/21 06/18/21 06/18/21 23:40 23:45 23:50 Temperature Heart Rate 86 95 93 Heart Rate [ Monitoring electrodes] Respiratory 23 24 20 Rate Blood Pressure Blood Pressure [Right Brachial artery] O2 Saturation 06/18/21 06/19/21 06/19/21 23:55 00:00 00:01 Temperature Heart Rate 84 76 87 Heart Rate [ 91 Monitoring electrodes] Respiratory 21 23 26 H Rate Blood Pressure 93/72 Blood Pressure 93/72 [Right Brachial artery] O2 Saturation 96 06/19/21 06/19/21 06/19/21 00:05 00:10 00:15 Temperature Heart Rate 91 100 88 Heart Rate [ Monitoring electrodes] Respiratory 21 20 19 Rate Blood Pressure Blood Pressure [Right Brachial artery] O2 Saturation 06/19/21 06/19/21 06/19/21 00:20 00:25 00:30 Temperature Heart Rate 96 95 93 Heart Rate [ Monitoring electrodes] Respiratory 18 21 22 Rate Blood Pressure Blood Pressure [Right Brachial artery] O2 Saturation 06/19/21 06/19/21 06/19/21 00:35 00:40 00:45 Temperature Heart Rate 98 84 87 Heart Rate [ Monitoring electrodes] Respiratory 23 21 19 Rate Blood Pressure Blood Pressure [Right Brachial artery] O2 Saturation 06/19/21 06/19/21 06/19/21 00:50 00:55 01:00 Temperature Heart Rate 86 105 H 86 Heart Rate [ Monitoring electrodes] Respiratory 18 19 19 Rate Blood Pressure Blood Pressure [Right Brachial artery] O2 Saturation 06/19/21 06/19/21 06/19/21 01:01 01:05 01:10 Temperature Heart Rate 91 92 96 Heart Rate [ Monitoring electrodes] Respiratory 20 21 22 Rate Blood Pressure 94/63 Blood Pressure [Right Brachial artery] O2 Saturation 06/19/21 06/19/21 06/19/21 02:00 02:01 02:05 Temperature Heart Rate 88 73 82 Heart Rate [ Monitoring electrodes] Respiratory 20 18 18 Rate Blood Pressure 95/77 Blood Pressure [Right Brachial artery] O2 Saturation 06/19/21 06/19/21 06/19/21 02:10 02:15 02:20 Temperature Heart Rate 99 103 H 92 Heart Rate [ Monitoring electrodes] Respiratory 19 20 23 Rate Blood Pressure Blood Pressure [Right Brachial artery] O2 Saturation 06/19/21 06/19/21 06/19/21 02:25 02:30 02:35 Temperature Heart Rate 96 99 90 Heart Rate [ Monitoring electrodes] Respiratory 22 22 17 Rate Blood Pressure Blood Pressure [Right Brachial artery] O2 Saturation 06/19/21 06/19/21 06/19/21 02:40 02:45 02:50 Temperature Heart Rate 90 96 85 Heart Rate [ Monitoring electrodes] Respiratory 22 22 21 Rate Blood Pressure Blood Pressure [Right Brachial artery] O2 Saturation 06/19/21 06/19/21 06/19/21 02:55 03:00 03:01 Temperature Heart Rate 79 92 81 Heart Rate [ Monitoring electrodes] Respiratory 20 19 20 Rate Blood Pressure 90/57 L Blood Pressure [Right Brachial artery] O2 Saturation 06/19/21 06/19/21 06/19/21 03:05 03:10 03:15 Temperature Heart Rate 82 87 77 Heart Rate [ Monitoring electrodes] Respiratory 21 19 17 Rate Blood Pressure Blood Pressure [Right Brachial artery] O2 Saturation 06/19/21 06/19/21 06/19/21 03:20 03:25 03:30 Temperature Heart Rate 89 87 103 H Heart Rate [ Monitoring electrodes] Respiratory 20 22 21 Rate Blood Pressure Blood Pressure [Right Brachial artery] O2 Saturation 06/19/21 06/19/21 06/19/21 03:35 03:40 03:45 Temperature Heart Rate 91 97 96 Heart Rate [ Monitoring electrodes] Respiratory 21 20 20 Rate Blood Pressure Blood Pressure [Right Brachial artery] O2 Saturation 06/19/21 06/19/21 06/19/21 03:50 03:55 04:00 Temperature Heart Rate 95 87 86 Heart Rate [ 90 Monitoring electrodes] Respiratory 20 19 21 Rate Blood Pressure Blood Pressure 98/69 [Right Brachial artery] O2 Saturation 95 06/19/21 06/19/21 06/19/21 04:01 04:05 04:10 Temperature Heart Rate 90 89 107 H Heart Rate [ Monitoring electrodes] Respiratory 21 22 24 Rate Blood Pressure 98/69 Blood Pressure [Right Brachial artery] O2 Saturation 06/19/21 06/19/21 06/19/21 04:15 04:20 04:25 Temperature Heart Rate 96 93 104 H Heart Rate [ Monitoring electrodes] Respiratory 23 24 24 Rate Blood Pressure Blood Pressure [Right Brachial artery] O2 Saturation 06/19/21 06/19/21 06/19/21 04:30 04:35 04:40 Temperature Heart Rate 93 97 91 Heart Rate [ Monitoring electrodes] Respiratory 20 20 21 Rate Blood Pressure Blood Pressure [Right Brachial artery] O2 Saturation 06/19/21 06/19/21 06/19/21 04:45 04:50 04:55 Temperature Heart Rate 83 92 98 Heart Rate [ Monitoring electrodes] Respiratory 19 19 22 Rate Blood Pressure Blood Pressure [Right Brachial artery] O2 Saturation 06/19/21 06/19/21 06/19/21 05:00 05:01 05:05 Temperature Heart Rate 106 H 105 H 95 Heart Rate [ Monitoring electrodes] Respiratory 20 18 21 Rate Blood Pressure 97/62 Blood Pressure [Right Brachial artery] O2 Saturation 06/19/21 06/19/21 06/19/21 05:10 05:15 05:20 Temperature Heart Rate 89 91 87 Heart Rate [ Monitoring electrodes] Respiratory 17 20 20 Rate Blood Pressure Blood Pressure [Right Brachial artery] O2 Saturation 06/19/21 06/19/21 06/19/21 05:25 05:30 05:35 Temperature Heart Rate 89 91 102 H Heart Rate [ Monitoring electrodes] Respiratory 20 19 22 Rate Blood Pressure Blood Pressure [Right Brachial artery] O2 Saturation 06/19/21 06/19/21 06/19/21 05:40 05:45 08:00 Temperature 36.6 C Heart Rate 73 93 Heart Rate [ 91 Monitoring electrodes] Respiratory 19 17 20 Rate Blood Pressure Blood Pressure 101/62 [Right Brachial artery] O2 Saturation 94 Oxygen O2 Source Nasal cannula I&O (Last 24 Hrs): Intake and Output Totals x24h 06/17/21 06/18/21 06/19/21 23:59 23:59 23:59 Intake Total 2406.925 3040 1110 Output Total 0 845 2800 Balance 2406.925 2195 -1690 General: Alert, Oriented x3, Mild distress, Moderate distress, Other (disheveled) HEENT: PERRLA, EOMI Neck: Supple, No JVD Neuro: Alert, Oriented Times 3 Cardiovascular: Other (Irregularly irregular heart rate, mild tachycardia) Respiratory: Chest non-tender, No respiratory distress, Breath sounds nml Abdomen: Normal bowel sounds, Soft, No tenderness, No masses Extremities: Other (bilateral lower extremities: malodorous, weeping,hardened, peeling, excuriations/wounds.) - Results Results: Laboratory Results WBC 6.5 x10^3/uL (4.8-10.8) 06/19/21 06:02 RBC 4.28 10^6/uL (4.70-6.10) L 06/19/21 06:02 Hgb 11.5 g/dL (14.0-18.0) L 06/19/21 06:02 Hct 36.0 % (42.0-52.0) L 06/19/21 06:02 MCV 84.1 fL (80.0-94.0) 06/19/21 06:02 MCH 26.9 pg (27.0-31.0) L 06/19/21 06:02 MCHC 31.9 g/dL (32.0-36.0) L 06/19/21 06:02 RDW 15.5 % (12.0-15.0) H 06/19/21 06:02 Plt Count 179 10^3/uL (130-450) 06/19/21 06:02 MPV 9.7 fL (7.4-11.4) 06/19/21 06:02 Neut # (Auto) 4.4 10^3/uL (1.5-6.6) 06/19/21 06:02 Lymph # (Auto) 1.2 10^3/uL (1.5-3.5) L 06/19/21 06:02 [place] # (Auto) 0.6 10^3/uL (0.0-1.0) 06/19/21 06:02 Eos # (Auto) 0.1 10^3/uL (0.0-0.7) 06/19/21 06:02 Baso # (Auto) 0.0 10^3/uL (0.0-0.1) 06/19/21 06:02 Absolute Nucleated RBC 0.00 x10^3/uL 06/19/21 06:02 Nucleated RBC % 0.0 /100WBC 06/19/21 06:02 VBG pH 7.425 (7.31-7.41) H 06/19/21 06:02 VBG pCO2 36.2 mmHg (41-51) L 06/17/21 13:50 VBG pO2 29.3 mmHg (25-47) 06/17/21 13:50 VBG HCO3 24.8 mmol/L (23-28) 06/17/21 13:50 VBG Total CO2 25.9 mmol/L (24-29) 06/17/21 13:50 VBG O2 Saturation 59.8 % (60-80) L 06/17/21 13:50 VBG Base Excess 1.1 mmol/L (-2 - +2) 06/17/21 13:50 Ionized Calcium 1.10 mmol/L (1.15-1.33) L 06/19/21 06:02 Sodium 134 mmol/L (135-145) L 06/19/21 06:02 Potassium 3.9 mmol/L (3.5-5.0) 06/19/21 06:02 Chloride 98 mmol/L (101-111) L 06/19/21 06:02 Carbon Dioxide 28 mmol/L (21-32) 06/19/21 06:02 Anion Gap 8.0 (6-13) 06/19/21 06:02 BUN 15 mg/dL (6-20) 06/19/21 06:02 Creatinine 0.5 mg/dL (0.6-1.2) L 06/19/21 06:02 Estimated GFR (MDRD) 164 (>89) 06/19/21 06:02 Glucose 99 mg/dL (70-100) 06/19/21 06:02 Lactic Acid 2.2 mmol/L (0.5-2.2) 06/18/21 20:14 Calcium 7.7 mg/dL (8.5-10.3) L 06/19/21 06:02 Ionized Calcium YES 06/18/21 12:45 Phosphorus 3.3 mg/dL (2.5-4.6) 06/18/21 04:35 Magnesium 1.8 mg/dL (1.7-2.8) 06/19/21 01:04 Total Bilirubin 1.2 mg/dL (0.2-1.0) H 06/17/21 12:42 AST 75 IU/L (10-42) H 06/17/21 12:42 ALT 56 IU/L (10-60) 06/17/21 12:42 Alkaline Phosphatase 58 IU/L (42-121) 06/17/21 12:42 Troponin I High Sens 23.1 ng/L (2.3-19.7) H* 06/17/21 15:38 B-Natriuretic Peptide 308 pg/mL (5-100) H 06/17/21 12:42 Total Protein 7.3 g/dL (6.7-8.2) 06/17/21 12:42 Albumin 2.8 g/dL (3.2-5.5) L 06/17/21 12:42 Globulin 4.5 g/dL (2.1-4.2) H 06/17/21 12:42 Albumin/Globulin Ratio 0.6 (1.0-2.2) L 06/17/21 12:42 Lipase 31 U/L (22-51) 06/17/21 12:42 TSH 1.27 uIU/mL (0.34-5.60) 06/17/21 15:38 Urine Color DARK YELLOW 06/18/21 13:50 Urine Clarity HAZY (CLEAR) 06/18/21 13:50 Urine pH 6.5 PH (5.0-7.5) 06/18/21 13:50 Ur Specific [place] 1.020 (1.002-1.030) 06/18/21 13:50 Urine Protein NEGATIVE mg/dL (NEGATIVE) 06/18/21 13:50 Urine Glucose (UA) NEGATIVE mg/dL (NEGATIVE) 06/18/21 13:50 Urine Ketones NEGATIVE mg/dL (NEGATIVE) 06/18/21 13:50 Urine Occult Blood NEGATIVE (NEGATIVE) 06/18/21 13:50 Urine Nitrite NEGATIVE (NEGATIVE) 06/18/21 13:50 Urine Bilirubin NEGATIVE (NEGATIVE) 06/18/21 13:50 Urine Urobilinogen 2 E.U./dL (NORMAL) H 06/18/21 13:50 Ur Leukocyte Esterase SMALL (NEGATIVE) H 06/18/21 13:50 Urine RBC 0-5 /HPF (0-5) 06/18/21 13:50 Urine WBC 11-25 /HPF (0-3) H 06/18/21 13:50 Ur Squamous Epith Cells NONE SEEN (<= Few) 06/18/21 13:50 Urine Bacteria Moderate /HPF (None Seen) H 06/18/21 13:50 Ur Microscopic Review INDICATED 06/18/21 13:50 Urine Culture Comments INDICATED 06/18/21 13:50 Nasal Adenovirus (PCR) NOT DETECTED 06/17/21 14:40 Nasal B. parapertussis DNA (PCR) NOT DETECTED 06/17/21 14:40 Nasal Coronavir 229E PCR NOT DETECTED 06/17/21 14:40 Nasal Coronavir HKU1 PCR NOT DETECTED 06/17/21 14:40 Nasal Coronavir NL63 PCR NOT DETECTED 06/17/21 14:40 Nasal Coronavir OC43 PCR NOT DETECTED 06/17/21 14:40 Nasal Enterovir/Rhinovir PCR NOT DETECTED 06/17/21 14:40 Nasal Influenza B PCR NOT DETECTED 06/17/21 14:40 Nasal Influenza A PCR NOT DETECTED 06/17/21 14:40 Nasal Parainfluen 1 PCR NOT DETECTED 06/17/21 14:40 Nasal Parainfluen 2 PCR NOT DETECTED 06/17/21 14:40 Nasal Parainfluen 3 PCR NOT DETECTED 06/17/21 14:40 Nasal Parainfluen 4 PCR NOT DETECTED 06/17/21 14:40 Nasal RSV (PCR) NOT DETECTED 06/17/21 14:40 Nasal Screen MRSA (PCR) NEGATIVE (NEGATIVE) 06/17/21 17:15 Nasal B.pertussis DNA PCR NOT DETECTED 06/17/21 14:40 Nasal C.pneumoniae (PCR) NOT DETECTED 06/17/21 14:40 Tony Human Metapneumo PCR NOT DETECTED 06/17/21 14:40 Nasal M.pneumoniae (PCR) NOT DETECTED 06/17/21 14:40 Nasal SARS-CoV-2 (PCR) NOT DETECTED 06/17/21 14:40 Salicylates < 6.0 mg/dL 06/17/21 13:50 Urine Opiates Screen NEGATIVE (NEGATIVE) 06/18/21 17:25 Ur Oxycodone Screen NEGATIVE (NEGATIVE) 06/18/21 17:25 Urine Methadone Screen NEGATIVE (NEGATIVE) 06/18/21 17:25 Ur Propoxyphene Screen NEGATIVE (NEGATIVE) 06/18/21 17:25 Acetaminophen < 10 ug/mL (10-30) L 06/17/21 13:50 Ur Barbiturates Screen NEGATIVE (NEGATIVE) 06/18/21 17:25 Ur Tricyclics Screen NEGATIVE (NEGATIVE) 06/18/21 17:25 Ur Phencyclidine Scrn NEGATIVE (NEGATIVE) 06/18/21 17:25 Ur Amphetamine Screen NEGATIVE (NEGATIVE) 06/18/21 17:25 U Methamphetamines Scrn NEGATIVE (NEGATIVE) 06/18/21 17:25 U Benzodiazepines Scrn NEGATIVE (NEGATIVE) 06/18/21 17:25 Urine Cocaine Screen NEGATIVE (NEGATIVE) 06/18/21 17:25 U Cannabinoids Screen NEGATIVE (NEGATIVE) 06/18/21 17:25 ABX Reporting Has patient been on IV antibiotics over the past 48 hours?: Yes
[2021-06-19] MEDS: METOPROLOL SUCCINATE 50 MG TABLET PO SCH (08:46)
[2021-06-19] MEDS: PIPERACILLIN/TAZOBACTAM 3.375 GM in SODIUM CHLORIDE 0.9% MINIBAG 100 ML IV SCH ×3 (11:28→20:38)
--- NOTE | 2021-06-19 12:54 | PHARMACY PROGRESS NOTE ---
- Therapy Status Vancomycin regimen day #: 2 Therapy status: Awaiting steady state Basis for treatment: Empirical Treatment indication: CELLULITIS Trough goal: 10-15 - NICOL Risk Risk level for Acute Kidney Injury: Moderate Acute Kidney Injury risk factors: Piperacillin/Tozobactam, IV contrast within 72 hrs, Admission to ICU - Monitoring and Recommendation Clinical response to treatment: I&O Previous 24 hours 06/17/21 06/18/21 06/19/21 23:59 23:59 23:59 Intake Total 2406.925 3040 2770 Output Total 0 845 3700 Balance 2406.925 2195 -930 Lab Results 06/19/21 06/18/21 06/18/21 06:02 12:45 04:35 BUN 15 20 21 H Creatinine 0.5 L 0.6 0.7 Estimated GFR (MDRD) 164 133 111 06/17/21 12:42 BUN 24 H Creatinine 0.7 Estimated GFR (MDRD) 111 Cultures 06/18/21 13:50 Urine,Random Urine Culture - Final No growth 06/17/21 15:27 Blood - Right Arm Blood Culture - Preliminary 06/17/21 14:56 Blood - Right Arm Blood Culture - Preliminary NO GROWTH AFTER 1 DAY 06/17/21 15:27 Blood - Right Arm Blood Culture (PCR) - Final Monitoring plan: Daily serum creatinine Next trough due prior to maintenance dose #: 4 Next trough due (date/time): 06/20 @ 1130 Areas for additional monitoring: IV to PO when appropriate, Therapy de- escalation based on culture results
--- NOTE | 2021-06-19 17:57 | TELEPSYCH PHYS NOTE ---
Telepsych Consultation Note Consult: Name: Moe Lopez : 1950 Date: 06/19/2021 Time: 8:30pm EST Location of patient: [facility] Location of doctor: [place] Spoke with: oleg Christine RN HPI: 70 year old male, noted to be out of medical care for many years, current admitted to inpatient medicine for stabilization. Pt refused to be seen by tele psych. No notes mentioning any SI/HI or suicidal actions. Plan: -Can reconsult tele psych if patient is interested List names and roles of persons who participated in consult: Himanshu Carrillo MD
[2021-06-19] MEDS: ACETAMINOPHEN 325 MG TABLET PO PRN (20:37)
[2021-06-20] MEDS: VANCOMYCIN INJ 1.75 GM in SODIUM CHLORIDE 0.9% 500 ML IV SCH ×2 (01:04→13:00)
[2021-06-20] MEDS: SODIUM CHLORIDE FLUSH 0.9% 10 ML SYRINGE IVP SCH ×3 (01:05→16:32)
[2021-06-20] MEDS: PIPERACILLIN/TAZOBACTAM 3.375 GM in SODIUM CHLORIDE 0.9% MINIBAG 100 ML IV SCH ×2 (03:16→09:37)
[2021-06-20] MEDS: ACETAMINOPHEN 325 MG TABLET PO PRN (03:34)
[2021-06-20 05:35] LABS: BASOPHILS % (AUTO) 0.5 %; EOSINOPHILS # (AUTO) 0.1 10^3/uL (0.0-0.7); EOSINOPHILS % (AUTO) 2.3 %; HCT - HEMATOCRIT 36.3 % (42.0-52.0); HGB - HEMOGLOBIN 11.5 g/dL (14.0-18.0); LYMPHOCYTES # (AUTO) 1.3 10^3/uL (1.5-3.5); LYMPHOCYTES % (AUTO) 21.8 %; MEAN CORPUSCULAR HEMOGLOBIN 27.1 pg (27.0-31.0); MEAN CORPUSCULAR HGB CONC 31.7 g/dL (32.0-36.0); MEAN CORPUSCULAR VOLUME 85.4 fL (80.0-94.0); MEAN PLATELET VOLUME 10.2 fL (7.4-11.4); MONOCYTES # (AUTO) 0.5 10^3/uL (0.0-1.0); MONOCYTES % (AUTO) 8.7 %; NEUTROPHILS # (AUTO) 3.8 10^3/uL (1.5-6.6); NEUTROPHILS % (AUTO) 65.1 %; PLT - PLATELET COUNT 160 10^3/uL (130-450); RED BLOOD COUNT 4.25 10^6/uL (4.70-6.10); RED CELL DISTRIBUTION WIDTH 15.4 % (12.0-15.0); WHITE BLOOD COUNT 5.8 x10^3/uL (4.8-10.8)
[2021-06-20 05:42] LABS: CALCIUM, IONIZED 1.07 mmol/L (1.15-1.33); VBG PH 7.456 (7.31-7.41)
[2021-06-20 05:47] LABS: CALCIUM 7.7 mg/dL (8.5-10.3); CREATININE 0.6 mg/dL (0.6-1.2); MAGNESIUM 2.1 mg/dL (1.7-2.8); POTASSIUM 3.8 mmol/L (3.5-5.0)
[2021-06-20 05:51] LABS: DIGOXIN 0.6 ng/mL
--- NOTE | 2021-06-20 07:30 | PROVIDER PROGRESS NOTE ---
Assessment/Plan - Problem List (1) New onset a-fib Assessment/Plan: On metoprolol succinate 50 mg p.o. daily and digoxin 125 mcg p.o. daily. Digoxin level on 05/30 was 0.6. On Eliquis 5 mg p.o. twice daily. Will obtain a 2D echocardiogram when available (2) Cellulitis Qualifiers: Site of cellulitis: extremity Site of cellulitis of extremity: lower extremity Laterality: right Qualified Code(s): L03.115 - Cellulitis of right lower limb Assessment/Plan: Bilateral lower extremities. On vancomycin and Zosyn. Will deescalate accordingly White blood cell count normal. Patient afebrile. Blood cultures grew Staph simulans. Patient could not be seen by wound care at the [facility] [place] 06/20/2021 due to staffing issues. Will consult general surgery regarding patient's lower extremity wounds. In the meantime we will continue with Xeroform, ABD and Kerlix. As well as keep extremities elevated. (3) Charcot's joint Assessment/Plan: Patient reconsidered decision on orthopedic consult/ evaluation. We will consult orthopedic surgery (4) Elephantiasis (nonfilarial) Assessment/Plan: On vancomycin and Zosyn. Will deescalate accordingly White blood cell count normal. Patient afebrile. Blood cultures grew Staph simulans. Patient could not be seen by wound care at the [facility] today 06/20/2021 due to staffing issues. Will consult general surgery regarding patient's lower extremity wounds. In the meantime we will continue with Xeroform, ABD and Kerlix. As well as keep extremities elevated. (5) Major depressive disorder Qualifiers: Major depression recurrence: unspecified whether recurrent Active/Remission status: currently active Major depression episode severity: moderate Qualified Code(s): F32.1 - Major depressive disorder, single episode, moderate Assessment/Plan: Patient declined telepsych consult. - Current Meds Current Meds: Current Medications Generic Name Dose Route Start Last Admin Trade Name Freq PRN Reason Stop Dose Admin Acetaminophen 650 mg 06/17/21 15:15 06/20/21 03:34 Acetaminophen 325 Mg Tablet PO 650 mg Q4HR PRN Administration Pain 1 to 4 Apixaban 5 mg 06/18/21 21:00 06/19/21 20:38 Apixaban 5 Mg Tablet PO 5 mg BID KODY Administration Digoxin 125 mcg 06/19/21 09:00 06/19/21 08:14 Digoxin 125 Mcg Tablet PO 125 mcg DAILY KODY Administration Vancomycin HCl 1.75 gm/ Sodium 500 mls @ 250 mls/hr 06/19/21 00:00 06/20/21 03:57 Chloride IV Infused Q12H KODY Infusion Sodium Chloride 500 mls @ 20 mls/hr 06/19/21 02:12 06/19/21 17:59 Normal Saline 0.9% IV Infused Q24H PRN Infusion TKO RATE Piperacillin Sod/Tazobactam 100 mls @ 200 mls/hr 06/19/21 09:00 06/20/21 03:56 Sod 3.375 gm/ Sodium Chloride IV Infused Q6H KODY Infusion Metoprolol Succinate 50 mg 06/18/21 09:00 06/19/21 08:46 Metoprolol Succinate 50 Mg Tablet PO 50 mg DAILY KODY Administration Mineral Oil 1 applic 06/18/21 01:49 06/18/21 21:30 Min Oil/Dimethicon/Coconut Oil 92 Gm Tube TOP 1 applic PRN PRN Administration Skin Care Multi-Ingredient Ointment 1 applic 06/18/21 01:49 06/18/21 06:35 Zinc Oxide 20% Oint 30 Gm Tube TOP 1 applic PRN PRN Administration Skin Care Multivitamins/Minerals 1 tab 06/18/21 14:00 06/19/21 08:14 Multivitamin W/Minerals Tablet PO 1 tab DAILYWM KODY Administration Pantoprazole Sodium 40 mg 06/17/21 16:00 06/19/21 06:26 Pantoprazole 40 Mg Tablet PO 40 mg QDAC KODY Administration Sodium Chloride 10 ml 06/17/21 17:00 06/20/21 01:05 Sodium Chloride Flush 0.9% 10 Ml Syringe IVP 10 ml 0100,0900,1700 KODY Administration Sodium Chloride 10 ml 06/17/21 15:15 06/18/21 14:49 Sodium Chloride Flush 0.9% 10 Ml Syringe IVP 10 ml PRN PRN Administration NEEDED PER PROVIDER ORDERS - Lab Result Fish Bone Diagrams: 06/21/21 05:48 06/21/21 05:48 - Additional Planning My Orders: My Active Orders 06/19/21 09:00 Piperacillin/Tazobactam [Zosyn] 3.375 gm Sodium Chloride 0.9% Minibag [Normal Saline 0.9% Minibag] 100 ml IV Q6H 06/19/21 11:47 Inpatient - Telepsych Set-up [RC] ONCE Subjective - Subjective Patient Reports: Other (Patient complains of lower back pain.) Objective Vital Signs: Vital Signs - 24 hr 06/19/21 06/19/21 06/19/21 07:30 07:35 07:40 Temperature Heart Rate 101 H 90 98 Heart Rate [ Monitoring electrodes] Respiratory 20 22 23 Rate Blood Pressure Blood Pressure [Right Brachial artery] O2 Saturation 06/19/21 06/19/21 06/19/21 07:45 07:50 07:55 Temperature Heart Rate 98 96 106 H Heart Rate [ Monitoring electrodes] Respiratory 21 23 18 Rate Blood Pressure Blood Pressure [Right Brachial artery] O2 Saturation 06/19/21 06/19/21 06/19/21 08:00 08:01 08:05 Temperature 36.6 C Heart Rate 90 92 98 Heart Rate [ 91 Monitoring electrodes] Respiratory 20 20 19 Rate Blood Pressure 101/62 Blood Pressure 101/62 [Right Brachial artery] O2 Saturation 94 06/19/21 06/19/21 06/19/21 08:10 08:12 08:13 Temperature Heart Rate 103 H 102 H 95 Heart Rate [ Monitoring electrodes] Respiratory 23 15 20 Rate Blood Pressure 102/67 Blood Pressure [Right Brachial artery] O2 Saturation 06/19/21 06/19/21 06/19/21 08:15 08:20 08:25 Temperature Heart Rate 112 H 95 103 H Heart Rate [ Monitoring electrodes] Respiratory 17 23 15 Rate Blood Pressure Blood Pressure [Right Brachial artery] O2 Saturation 06/19/21 06/19/21 06/19/21 08:30 08:35 08:40 Temperature Heart Rate 107 H 100 90 Heart Rate [ Monitoring electrodes] Respiratory 24 23 17 Rate Blood Pressure Blood Pressure [Right Brachial artery] O2 Saturation 06/19/21 06/19/21 06/19/21 08:43 08:44 08:45 Temperature Heart Rate 111 H 94 101 H Heart Rate [ Monitoring electrodes] Respiratory 18 15 18 Rate Blood Pressure 101/68 Blood Pressure [Right Brachial artery] O2 Saturation 06/19/21 06/19/21 06/19/21 08:50 08:55 09:00 Temperature Heart Rate 112 H 108 H 104 H Heart Rate [ Monitoring electrodes] Respiratory 26 H 21 23 Rate Blood Pressure Blood Pressure [Right Brachial artery] O2 Saturation 06/19/21 06/19/21 06/19/21 09:01 09:05 09:10 Temperature Heart Rate 98 107 H 100 Heart Rate [ Monitoring electrodes] Respiratory 20 22 18 Rate Blood Pressure 98/67 Blood Pressure [Right Brachial artery] O2 Saturation 06/19/21 06/19/21 06/19/21 09:15 09:20 09:25 Temperature Heart Rate 98 96 97 Heart Rate [ Monitoring electrodes] Respiratory 22 20 22 Rate Blood Pressure Blood Pressure [Right Brachial artery] O2 Saturation 06/19/21 06/19/21 06/19/21 09:30 09:35 09:40 Temperature Heart Rate 97 107 H 101 H Heart Rate [ Monitoring electrodes] Respiratory 22 23 21 Rate Blood Pressure Blood Pressure [Right Brachial artery] O2 Saturation 06/19/21 06/19/21 06/19/21 09:45 09:50 09:55 Temperature Heart Rate 95 90 107 H Heart Rate [ Monitoring electrodes] Respiratory 20 21 21 Rate Blood Pressure Blood Pressure [Right Brachial artery] O2 Saturation 06/19/21 06/19/21 06/19/21 10:00 10:01 10:05 Temperature Heart Rate 97 86 92 Heart Rate [ Monitoring electrodes] Respiratory 22 23 22 Rate Blood Pressure 96/60 Blood Pressure [Right Brachial artery] O2 Saturation 06/19/21 06/19/21 06/19/21 10:10 10:15 10:20 Temperature Heart Rate 91 92 99 Heart Rate [ Monitoring electrodes] Respiratory 22 22 20 Rate Blood Pressure Blood Pressure [Right Brachial artery] O2 Saturation 06/19/21 06/19/21 06/19/21 10:25 10:30 10:35 Temperature Heart Rate 88 98 89 Heart Rate [ Monitoring electrodes] Respiratory 23 16 17 Rate Blood Pressure Blood Pressure [Right Brachial artery] O2 Saturation 06/19/21 06/19/21 06/19/21 11:01 11:05 11:10 Temperature Heart Rate 87 95 88 Heart Rate [ Monitoring electrodes] Respiratory 23 21 21 Rate Blood Pressure 92/79 Blood Pressure [Right Brachial artery] O2 Saturation 06/19/21 06/19/21 06/19/21 11:15 11:20 11:25 Temperature Heart Rate 83 94 92 Heart Rate [ Monitoring electrodes] Respiratory 21 18 19 Rate Blood Pressure Blood Pressure [Right Brachial artery] O2 Saturation 06/19/21 06/19/21 06/19/21 11:30 11:34 11:35 Temperature Heart Rate 90 78 Heart Rate [ 89 Monitoring electrodes] Respiratory 18 20 21 Rate Blood Pressure Blood Pressure 92/79 [Right Brachial artery] O2 Saturation 95 06/19/21 06/19/21 06/19/21 11:40 11:45 11:50 Temperature Heart Rate 90 90 86 Heart Rate [ Monitoring electrodes] Respiratory 20 21 17 Rate Blood Pressure Blood Pressure [Right Brachial artery] O2 Saturation 06/19/21 06/19/21 06/19/21 11:55 12:00 12:01 Temperature Heart Rate 94 86 86 Heart Rate [ Monitoring electrodes] Respiratory 18 20 21 Rate Blood Pressure 95/72 Blood Pressure [Right Brachial artery] O2 Saturation 06/19/21 06/19/21 06/19/21 12:05 12:10 12:15 Temperature Heart Rate 100 94 100 Heart Rate [ Monitoring electrodes] Respiratory 24 17 25 H Rate Blood Pressure Blood Pressure [Right Brachial artery] O2 Saturation 06/19/21 06/19/21 06/19/21 12:20 12:25 12:30 Temperature Heart Rate 102 H 102 H 102 H Heart Rate [ Monitoring electrodes] Respiratory 22 22 18 Rate Blood Pressure Blood Pressure [Right Brachial artery] O2 Saturation 06/19/21 06/19/21 06/19/21 12:35 12:40 12:45 Temperature Heart Rate 96 106 H 106 H Heart Rate [ Monitoring electrodes] Respiratory 22 26 H 13 Rate Blood Pressure Blood Pressure [Right Brachial artery] O2 Saturation 06/19/21 06/19/21 06/19/21 12:50 12:55 13:00 Temperature Heart Rate 112 H 103 H 94 Heart Rate [ Monitoring electrodes] Respiratory 18 19 22 Rate Blood Pressure Blood Pressure [Right Brachial artery] O2 Saturation 06/19/21 06/19/21 06/19/21 13:01 13:05 13:10 Temperature Heart Rate 99 92 94 Heart Rate [ Monitoring electrodes] Respiratory 21 24 26 H Rate Blood Pressure 108/69 Blood Pressure [Right Brachial artery] O2 Saturation 06/19/21 06/19/21 06/19/21 13:15 13:20 13:25 Temperature Heart Rate 90 83 89 Heart Rate [ Monitoring electrodes] Respiratory 24 22 22 Rate Blood Pressure Blood Pressure [Right Brachial artery] O2 Saturation 06/19/21 06/19/2106/19/22 13:30 13:35 13:40 Temperature Heart Rate 97 92 105 H Heart Rate [ Monitoring electrodes] Respiratory 24 21 27 H Rate Blood Pressure Blood Pressure [Right Brachial artery] O2 Saturation 06/19/21 06/19/21 06/19/21 13:45 13:50 13:55 Temperature Heart Rate 90 97 96 Heart Rate [ Monitoring electrodes] Respiratory 22 22 24 Rate Blood Pressure Blood Pressure [Right Brachial artery] O2 Saturation 06/19/21 06/19/21 06/19/21 14:00 14:01 14:05 Temperature Heart Rate 91 102 H 98 Heart Rate [ Monitoring electrodes] Respiratory 21 23 25 H Rate Blood Pressure 108/67 Blood Pressure [Right Brachial artery] O2 Saturation 06/19/21 06/19/21 06/19/21 14:10 14:15 14:20 Temperature Heart Rate 79 84 88 Heart Rate [ Monitoring electrodes] Respiratory 19 21 17 Rate Blood Pressure Blood Pressure [Right Brachial artery] O2 Saturation 06/19/21 06/19/21 06/19/21 14:25 14:30 14:35 Temperature Heart Rate 77 104 H 94 Heart Rate [ Monitoring electrodes] Respiratory 18 22 24 Rate Blood Pressure Blood Pressure [Right Brachial artery] O2 Saturation 06/19/21 06/19/21 06/19/21 14:40 14:45 14:50 Temperature Heart Rate 96 110 H 107 H Heart Rate [ Monitoring electrodes] Respiratory 23 21 25 H Rate Blood Pressure Blood Pressure [Right Brachial artery] O2 Saturation 06/19/21 06/19/21 06/20/21 16:00 20:00 00:25 Temperature 36.9 C 36.8 C 36.3 C L Heart Rate Heart Rate [ 92 107 H 92 Monitoring electrodes] Respiratory 23 18 20 Rate Blood Pressure Blood Pressure 102/68 102/59 L 103/60 [Right Brachial artery] O2 Saturation 95 96 96 06/20/21 03:43 Temperature 36.5 C Heart Rate Heart Rate [ 97 Monitoring electrodes] Respiratory 18 Rate Blood Pressure Blood Pressure 102/62 [Right Brachial artery] O2 Saturation 95 Oxygen O2 Source Nasal cannula I&O (Last 24 Hrs): Intake and Output Totals x24h 06/18/21 06/19/21 06/20/21 23:59 23:59 23:59 Intake Total 3040 6199.667 1400 Output Total 845 6075 2900 Balance 2195 124.667 -1500 Comments/Notes: General: Alert, Oriented x3, Mild distress, Moderate distress, Other (disheveled) HEENT: PERRLA, EOMI Neck: Supple, No JVD Neuro: Alert, Oriented Times 3 Cardiovascular: Other (Irregularly irregular heart rate, mild tachycardia) Respiratory: Chest non-tender, No respiratory distress, Breath sounds nml Abdomen: Normal bowel sounds, Soft, No tenderness, No masses Extremities: Other (bilateral lower extremities: malodorous, weeping,hardened, peeling, excuriations/wounds.) - Results Results: Laboratory Results WBC 5.8 x10^3/uL (4.8-10.8) 06/20/21 04:55 RBC 4.25 10^6/uL (4.70-6.10) L 06/20/21 04:55 Hgb 11.5 g/dL (14.0-18.0) L 06/20/21 04:55 Hct 36.3 % (42.0-52.0) L 06/20/21 04:55 MCV 85.4 fL (80.0-94.0) 06/20/21 04:55 MCH 27.1 pg (27.0-31.0) 06/20/21 04:55 MCHC 31.7 g/dL (32.0-36.0) L 06/20/21 04:55 RDW 15.4 % (12.0-15.0) H 06/20/21 04:55 Plt Count 160 10^3/uL (130-450) 06/20/21 04:55 MPV 10.2 fL (7.4-11.4) 06/20/21 04:55 Neut # (Auto) 3.8 10^3/uL (1.5-6.6) 06/20/21 04:55 Lymph # (Auto) 1.3 10^3/uL (1.5-3.5) L 06/20/21 04:55 Lamar # (Auto) 0.5 10^3/uL (0.0-1.0) 06/20/21 04:55 Eos # (Auto) 0.1 10^3/uL (0.0-0.7) 06/20/21 04:55 Baso # (Auto) 0.0 10^3/uL (0.0-0.1) 06/20/21 04:55 Absolute Nucleated RBC 0.00 x10^3/uL 06/20/21 04:55 Nucleated RBC % 0.0 /100WBC 06/20/21 04:55 VBG pH 7.456 (7.31-7.41) H 06/20/21 04:55 VBG pCO2 36.2 mmHg (41-51) L 06/17/21 13:50 VBG pO2 29.3 mmHg (25-47) 06/17/21 13:50 VBG HCO3 24.8 mmol/L (23-28) 06/17/21 13:50 VBG Total CO2 25.9 mmol/L (24-29) 06/17/21 13:50 VBG O2 Saturation 59.8 % (60-80) L 06/17/21 13:50 VBG Base Excess 1.1 mmol/L (-2 - +2) 06/17/21 13:50 Ionized Calcium 1.07 mmol/L (1.15-1.33) L 06/20/21 04:55 Sodium 136 mmol/L (135-145) 06/20/21 04:55 Potassium 3.8 mmol/L (3.5-5.0) 06/20/21 04:55 Chloride 97 mmol/L (101-111) L 06/20/21 04:55 Carbon Dioxide 31 mmol/L (21-32) 06/20/21 04:55 Anion Gap 8.0 (6-13) 06/20/21 04:55 BUN 12 mg/dL (6-20) 06/20/21 04:55 Creatinine 0.6 mg/dL (0.6-1.2) 06/20/21 04:55 Estimated GFR (MDRD) 133 (>89) 06/20/21 04:55 Glucose 98 mg/dL (70-100) 06/20/21 04:55 Lactic Acid 2.2 mmol/L (0.5-2.2) 06/18/21 20:14 Calcium 7.7 mg/dL (8.5-10.3) L 06/20/21 04:55 Ionized Calcium YES 06/18/21 12:45 Phosphorus 3.0 mg/dL (2.5-4.6) 06/20/21 04:55 Magnesium 2.1 mg/dL (1.7-2.8) 06/20/21 04:55 Total Bilirubin 1.2 mg/dL (0.2-1.0) H 06/17/21 12:42 AST 75 IU/L (10-42) H 06/17/21 12:42 ALT 56 IU/L (10-60) 06/17/21 12:42 Alkaline Phosphatase 58 IU/L (42-121) 06/17/21 12:42 Troponin I High Sens 23.1 ng/L (2.3-19.7) H* 06/17/21 15:38 B-Natriuretic Peptide 308 pg/mL (5-100) H 06/17/21 12:42 Total Protein 7.3 g/dL (6.7-8.2) 06/17/21 12:42 Albumin 2.8 g/dL (3.2-5.5) L 06/17/21 12:42 Globulin 4.5 g/dL (2.1-4.2) H 06/17/21 12:42 Albumin/Globulin Ratio 0.6 (1.0-2.2) L 06/17/21 12:42 Lipase 31 U/L (22-51) 06/17/21 12:42 TSH 1.27 uIU/mL (0.34-5.60) 06/17/21 15:38 Urine Color DARK YELLOW 06/18/21 13:50 Urine Clarity HAZY (CLEAR) 06/18/21 13:50 Urine pH 6.5 PH (5.0-7.5) 06/18/21 13:50 Ur Specific Godwin 1.020 (1.002-1.030) 06/18/21 13:50 Urine Protein NEGATIVE mg/dL (NEGATIVE) 06/18/21 13:50 Urine Glucose (UA) NEGATIVE mg/dL (NEGATIVE) 06/18/21 13:50 Urine Ketones NEGATIVE mg/dL (NEGATIVE) 06/18/21 13:50 Urine Occult Blood NEGATIVE (NEGATIVE) 06/18/21 13:50 Urine Nitrite NEGATIVE (NEGATIVE) 06/18/21 13:50 Urine Bilirubin NEGATIVE (NEGATIVE) 06/18/21 13:50 Urine Urobilinogen 2 E.U./dL (NORMAL) H 06/18/21 13:50 Ur Leukocyte Esterase SMALL (NEGATIVE) H 06/18/21 13:50 Urine RBC 0-5 /HPF (0-5) 06/18/21 13:50 Urine WBC 11-25 /HPF (0-3) H 06/18/21 13:50 Ur Squamous Epith Cells NONE SEEN (<= Few) 06/18/21 13:50 Urine Bacteria Moderate /HPF (None Seen) H 06/18/21 13:50 Ur Microscopic Review INDICATED 06/18/21 13:50 Urine Culture Comments INDICATED 06/18/21 13:50 Nasal Adenovirus (PCR) NOT DETECTED 06/17/21 14:40 Nasal B. parapertussis DNA (PCR) NOT DETECTED 06/17/21 14:40 Nasal Coronavir 229E PCR NOT DETECTED 06/17/21 14:40 Nasal Coronavir HKU1 PCR NOT DETECTED 06/17/21 14:40 Nasal Coronavir NL63 PCR NOT DETECTED 06/17/21 14:40 Nasal Coronavir OC43 PCR NOT DETECTED 06/17/21 14:40 Nasal Enterovir/Rhinovir PCR NOT DETECTED 06/17/21 14:40 Nasal Influenza B PCR NOT DETECTED 06/17/21 14:40 Nasal Influenza A PCR NOT DETECTED 06/17/21 14:40 Nasal Parainfluen 1 PCR NOT DETECTED 06/17/21 14:40 Nasal Parainfluen 2 PCR NOT DETECTED 06/17/21 14:40 Nasal Parainfluen 3 PCR NOT DETECTED 06/17/21 14:40 Nasal Parainfluen 4 PCR NOT DETECTED 06/17/21 14:40 Nasal RSV (PCR) NOT DETECTED 06/17/21 14:40 Nasal Screen MRSA (PCR) NEGATIVE (NEGATIVE) 06/17/21 17:15 Nasal B.pertussis DNA PCR NOT DETECTED 06/17/21 14:40 Nasal C.pneumoniae (PCR) NOT DETECTED 06/17/21 14:40 Tony Human Metapneumo PCR NOT DETECTED 06/17/21 14:40 Nasal M.pneumoniae (PCR) NOT DETECTED 06/17/21 14:40 Nasal SARS-CoV-2 (PCR) NOT DETECTED 06/17/21 14:40 Last Dose Date 06/30/21 06/20/21 04:55 Last Dose Time 0900 06/20/21 04:55 Digoxin 0.6 ng/mL 06/20/21 04:55 Salicylates < 6.0 mg/dL 06/17/21 13:50 Urine Opiates Screen NEGATIVE (NEGATIVE) 06/18/21 17:25 Ur Oxycodone Screen NEGATIVE (NEGATIVE) 06/18/21 17:25 Urine Methadone Screen NEGATIVE (NEGATIVE) 06/18/21 17:25 Ur Propoxyphene Screen NEGATIVE (NEGATIVE) 06/18/21 17:25 Acetaminophen < 10 ug/mL (10-30) L 06/17/21 13:50 Ur Barbiturates Screen NEGATIVE (NEGATIVE) 06/18/21 17:25 Ur Tricyclics Screen NEGATIVE (NEGATIVE) 06/18/21 17:25 Ur Phencyclidine Scrn NEGATIVE (NEGATIVE) 06/18/21 17:25 Ur Amphetamine Screen NEGATIVE (NEGATIVE) 06/18/21 17:25 U Methamphetamines Scrn NEGATIVE (NEGATIVE) 06/18/21 17:25 U Benzodiazepines Scrn NEGATIVE (NEGATIVE) 06/18/21 17:25 Urine Cocaine Screen NEGATIVE (NEGATIVE) 06/18/21 17:25 U Cannabinoids Screen NEGATIVE (NEGATIVE) 06/18/21 17:25 ABX Reporting Has patient been on IV antibiotics over the past 48 hours?: Yes
[2021-06-20] MEDS: MULTIVITAMIN W/MINERALS TABLET PO SCH (09:37)
[2021-06-20] MEDS: PANTOPRAZOLE 40 MG TABLET PO SCH (09:37)
[2021-06-20] MEDS: DIGOXIN 125 MCG TABLET PO SCH (09:37)
[2021-06-20] MEDS: APIXABAN 5 MG TABLET PO SCH ×2 (09:38→22:05)
[2021-06-20] MEDS: METOPROLOL SUCCINATE 50 MG TABLET PO SCH (09:38)
[2021-06-20 11:48] LABS: VANCOMYCIN,TROUGH 17.9 ug/mL (10.0-20.0)
[2021-06-20] MEDS ORDERED: AMOXICILLIN 250 MG CAPSULE PO SCH (17:00)
[2021-06-20] MEDS: metroNIDAZOLE 250 MG TABLET PO SCH (17:23)
[2021-06-20] MEDS: FLUCONAZOLE 100 MG TABLET PO SCH (17:24)
[2021-06-20] MEDS: CIPROFLOXACIN 250 MG TABLET PO SCH (22:05)
[2021-06-21] MEDS: SODIUM CHLORIDE FLUSH 0.9% 10 ML SYRINGE IVP SCH ×3 (01:03→18:29)
[2021-06-21 06:00] LABS: BASOPHILS % (AUTO) 0.5 %; EOSINOPHILS # (AUTO) 0.1 10^3/uL (0.0-0.7); HCT - HEMATOCRIT 36.5 % (42.0-52.0); HGB - HEMOGLOBIN 11.5 g/dL (14.0-18.0); LYMPHOCYTES # (AUTO) 1.1 10^3/uL (1.5-3.5); LYMPHOCYTES % (AUTO) 17.9 %; MEAN CORPUSCULAR HEMOGLOBIN 26.7 pg (27.0-31.0); MEAN CORPUSCULAR HGB CONC 31.5 g/dL (32.0-36.0); MEAN CORPUSCULAR VOLUME 84.7 fL (80.0-94.0); MEAN PLATELET VOLUME 9.9 fL (7.4-11.4); MONOCYTES # (AUTO) 0.6 10^3/uL (0.0-1.0); MONOCYTES % (AUTO) 10.3 %; NEUTROPHILS # (AUTO) 4.3 10^3/uL (1.5-6.6); PLT - PLATELET COUNT 156 10^3/uL (130-450); RED BLOOD COUNT 4.31 10^6/uL (4.70-6.10); RED CELL DISTRIBUTION WIDTH 15.5 % (12.0-15.0); WHITE BLOOD COUNT 6.2 x10^3/uL (4.8-10.8)
[2021-06-21 06:09] LABS: CREATININE 0.6 mg/dL (0.6-1.2); PHOSPHORUS 3.1 mg/dL (2.5-4.6); POTASSIUM 4.1 mmol/L (3.5-5.0)
[2021-06-21] MEDS: PANTOPRAZOLE 40 MG TABLET PO SCH (06:19)
--- NOTE | 2021-06-21 07:10 | PROVIDER PROGRESS NOTE ---
Assessment/Plan - Problem List (1) New onset a-fib Assessment/Plan: On metoprolol succinate 50 mg p.o. daily and digoxin 125 mcg p.o. daily. Digoxin level on 05/30 was 0.6. On Eliquis 5 mg p.o. twice daily. Will obtain a 2D echocardiogram when available (2) Cellulitis Qualifiers: Site of cellulitis: extremity Site of cellulitis of extremity: lower extremity Laterality: right Qualified Code(s): L03.115 - Cellulitis of right lower limb Assessment/Plan: 06/21/21 IV antibiotics discontinued. Patient is currently on amoxicillin, Flagyl, Cipro and Diflucan. MetroGel also ordered. Patient was seen by Dr. Morenita Monahan with general surgery. She agreed with Xeroform, ABD, Kerlix and keeping extremities elevated. She recommended podiatry consult however this can only be done in the outpatient setting. She also recommended orthopedic input regarding Charcot joint for stabilization versus mobility equipment versus shoes. Further that once cellulitis is improved there could be some benefit to benzyl pyrone's which can help with chronic changes by helping decrease the amount of protein deposited within the abnormal lymphatics I spoke with Dr. David Land (orthopedics) who stated that cellulitis or wounds on the lower extremity would be contraindication to brace or prosthesis. 06/20/21 Bilateral lower extremities. On vancomycin and Zosyn. Will deescalate accordingly White blood cell count normal. Patient afebrile. Blood cultures grew Staph simulans. Patient could not be seen by wound care at the [facility] clinic today 06/20/2021 due to staffing issues. Will consult general surgery regarding patient's lower extremity wounds. In the meantime we will continue with Xeroform, ABD and Kerlix. As well as keep extremities elevated. (3) Charcot's joint Assessment/Plan: IV antibiotics discontinued. Patient is currently on amoxicillin, Flagyl, Cipro and Diflucan. MetroGel also ordered. Patient was seen by Dr. Morenita Monahan with general surgery. She agreed with Xeroform, ABD, Kerlix and keeping extremities elevated. She recommended podiatry consult however this can only be done in the outpatient setting. She also recommended orthopedic input regarding Charcot joint for stabilization versus mobility equipment versus shoes. Further that once cellulitis is improved there could be some benefit to benzyl pyrone's which can help with chronic changes by helping decrease the amount of protein deposited within the abnormal lymphatics I spoke with Dr. David Land (orthopedics) who stated that cellulitis or wounds on the lower extremity would be contraindication to brace or prosthesis. (4) Elephantiasis (nonfilarial) Assessment/Plan: IV antibiotics discontinued. Patient is currently on amoxicillin, Flagyl, Cipro and Diflucan. MetroGel also ordered. Patient was seen by Dr. Morenita Monahan with general surgery. She agreed with Xeroform, ABD, Kerlix and keeping extremities elevated. She recommended podiatry consult however this can only be done in the outpatient setting. She also recommended orthopedic input regarding Charcot joint for stabilization versus mobility equipment versus shoes. Further that once cellulitis is improved there could be some benefit to benzyl pyrone's which can help with chronic changes by helping decrease the amount of protein deposited within the abnormal lymphatics I spoke with Dr. David Land (orthopedics) who stated that cellulitis or wounds on the lower extremity would be contraindication to brace or prosthesis. (5) Major depressive disorder Qualifiers: Major depression recurrence: unspecified whether recurrent Active/Remission status: currently active Major depression episode severity: moderate Qualifi ed Code(s): F32.1 - Major depressive disorder, single episode, moderate Assessment/Plan: Patient declined telepsych consult. - Current Meds Current Meds: Current Medications Generic Name Dose Route Start Last Admin Trade Name Freq PRN Reason Stop Dose Admin Acetaminophen 650 mg 06/17/21 15:15 06/20/21 03:34 Acetaminophen 325 Mg Tablet PO 650 mg Q4HR PRN Administration Pain 1 to 4 Apixaban 5 mg 06/18/21 21:00 06/20/21 22:05 Apixaban 5 Mg Tablet PO 5 mg BID KODY Administration Ciprofloxacin 500 mg 06/20/21 21:00 06/20/21 22:05 Ciprofloxacin 250 Mg Tablet PO 500 mg BID KODY Administration Digoxin 125 mcg 06/19/21 09:00 06/20/21 09:37 Digoxin 125 Mcg Tablet PO 125 mcg DAILY KODY Administration Fluconazole 100 mg 06/20/21 18:00 06/20/21 17:24 Fluconazole 100 Mg Tablet PO 06/26/21 09:01 100 mg DAILY KODY Administration Sodium Chloride 500 mls @ 20 mls/hr 06/19/21 02:12 06/19/21 17:59 Normal Saline 0.9% IV Infused Q24H PRN Infusion TKO RATE Metoprolol Succinate 50 mg 06/18/21 09:00 06/20/21 09:38 Metoprolol Succinate 50 Mg Tablet PO 50 mg DAILY KODY Administration Metronidazole 500 mg 06/20/21 17:00 06/20/21 17:23 Metronidazole 250 Mg Tablet PO 500 mg TIDWM KODY Administration Mineral Oil 1 applic 06/18/21 01:49 06/18/21 21:30 Min Oil/Dimethicon/Coconut Oil 92 Gm Tube TOP 1 applic PRN PRN Administration Skin Care Multi-Ingredient Ointment 1 applic 06/18/21 01:49 06/18/21 06:35 Zinc Oxide 20% Oint 30 Gm Tube TOP 1 applic PRN PRN Administration Skin Care Multivitamins/Minerals 1 tab 06/18/21 14:00 06/20/21 09:37 Multivitamin W/Minerals Tablet PO 1 tab DAILYWM KODY Administration Pantoprazole Sodium 40 mg 06/17/21 16:00 06/21/21 06:19 Pantoprazole 40 Mg Tablet PO 40 mg QDAC KODY Administration Sodium Chloride 10 ml 06/17/21 17:00 06/21/21 01:03 Sodium Chloride Flush 0.9% 10 Ml Syringe IVP 10 ml 0100,0900,1700 KODY Administration Sodium Chloride 10 ml 06/17/21 15:15 06/18/21 14:49 Sodium Chloride Flush 0.9% 10 Ml Syringe IVP 10 ml PRN PRN Administration NEEDED PER PROVIDER ORDERS - Lab Result Fish Bone Diagrams: 06/21/21 05:48 06/21/21 05:48 - Additional Planning My Orders: My Active Orders 06/20/21 14:27 Consult [General Surgery Consult] [CONS] Routine 06/20/21 17:00 metroNIDAZOLE [Flagyl] 500 mg PO TIDWM 06/20/21 18:00 Fluconazole [Diflucan] 100 mg PO DAILY 06/20/21 21:00 Ciprofloxacin [Cipro] 500 mg PO BID 06/21/21 11:00 metroNIDAZOLE 0.75% GEL [Flagyl Gel] 1 applic TOP BID Subjective - Subjective Patient Reports: Other (Complained of headache.) Objective Vital Signs: Vital Signs - 24 hr 06/20/21 06/20/21 06/20/21 08:43 13:40 16:21 Temperature 36.4 C L 36.5 C 36.6 C Heart Rate [ 92 Brachial] Heart Rate [ 101 H 91 Monitoring electrodes] Respiratory 18 18 18 Rate Blood Pressure 112/61 111/57 L 107/70 [Right Brachial artery] O2 Saturation 95 95 94 06/20/21 06/20/21 06/21/21 21:00 23:50 03:15 Temperature 36.7 C 36.6 C 36.7 C Heart Rate [ 101 H 90 98 Brachial] Heart Rate [ Monitoring electrodes] Respiratory 18 18 20 Rate Blood Pressure 124/81 H 111/73 109/80 [Right Brachial artery] O2 Saturation 95 93 92 Oxygen O2 Source Nasal cannula I&O (Last 24 Hrs): Intake and Output Totals x24h 06/19/21 06/20/21 06/21/21 23:59 23:59 23:59 Intake Total 6199.667 4220 950 Output Total 6086 5022 8875 Balance 870.026 -9514 -9605 Comments/Notes: General: Alert, Oriented x3, Mild distress, Moderate distress, Other (disheveled) HEENT: PERRLA, EOMI Neck: Supple, No JVD Neuro: Alert, Oriented Times 3 Cardiovascular: Other (Irregularly irregular rhythm, regular rate) Respiratory: Chest non-tender, No respiratory distress, Breath sounds nml Abdomen: Normal bowel sounds, Soft, No tenderness, No masses Extremities: Other (bilateral lower extremities: malodorous, weeping,hardened, peeling, excuriations/wounds.) - Results Results: Laboratory Results WBC 6.2 x10^3/uL (4.8-10.8) 06/21/21 05:48 RBC 4.31 10^6/uL (4.70-6.10) L 06/21/21 05:48 Hgb 11.5 g/dL (14.0-18.0) L 06/21/21 05:48 Hct 36.5 % (42.0-52.0) L 06/21/21 05:48 MCV 84.7 fL (80.0-94.0) 06/21/21 05:48 MCH 26.7 pg (27.0-31.0) L 06/21/21 05:48 MCHC 31.5 g/dL (32.0-36.0) L 06/21/21 05:48 RDW 15.5 % (12.0-15.0) H 06/21/21 05:48 Plt Count 156 10^3/uL (130-450) 06/21/21 05:48 MPV 9.9 fL (7.4-11.4) 06/21/21 05:48 Neut # (Auto) 4.3 10^3/uL (1.5-6.6) 06/21/21 05:48 Lymph # (Auto) 1.1 10^3/uL (1.5-3.5) L 06/21/21 05:48 [place] # (Auto) 0.6 10^3/uL (0.0-1.0) 06/21/21 05:48 Eos # (Auto) 0.1 10^3/uL (0.0-0.7) 06/21/21 05:48 Baso # (Auto) 0.0 10^3/uL (0.0-0.1) 06/21/21 05:48 Absolute Nucleated RBC 0.00 x10^3/uL 06/21/21 05:48 Nucleated RBC % 0.0 /100WBC 06/21/21 05:48 VBG pH 7.456 (7.31-7.41) H 06/20/21 04:55 VBG pCO2 36.2 mmHg (41-51) L 06/17/21 13:50 VBG pO2 29.3 mmHg (25-47) 06/17/21 13:50 VBG HCO3 24.8 mmol/L (23-28) 06/17/21 13:50 VBG Total CO2 25.9 mmol/L (24-29) 06/17/21 13:50 VBG O2 Saturation 59.8 % (60-80) L 06/17/21 13:50 VBG Base Excess 1.1 mmol/L (-2 - +2) 06/17/21 13:50 Ionized Calcium 1.07 mmol/L (1.15-1.33) L 06/20/21 04:55 Sodium 137 mmol/L (135-145) 06/21/21 05:48 Potassium 4.1 mmol/L (3.5-5.0) 06/21/21 05:48 Chloride 97 mmol/L (101-111) L 06/21/21 05:48 Carbon Dioxide 33 mmol/L (21-32) H 06/21/21 05:48 Anion Gap 7.0 (6-13) 06/21/21 05:48 BUN 13 mg/dL (6-20) 06/21/21 05:48 Creatinine 0.6 mg/dL (0.6-1.2) 06/21/21 05:48 Estimated GFR (MDRD) 133 (>89) 06/21/21 05:48 Glucose 102 mg/dL (70-100) H 06/21/21 05:48 Lactic Acid 2.2 mmol/L (0.5-2.2) 06/18/21 20:14 Calcium 8.0 mg/dL (8.5-10.3) L 06/21/21 05:48 Ionized Calcium YES 06/18/21 12:45 Phosphorus 3.1 mg/dL (2.5-4.6) 06/21/21 05:48 Magnesium 2.0 mg/dL (1.7-2.8) 06/21/21 05:48 Total Bilirubin 1.2 mg/dL (0.2-1.0) H 06/17/21 12:42 AST 75 IU/L (10-42) H 06/17/21 12:42 ALT 56 IU/L (10-60) 06/17/21 12:42 Alkaline Phosphatase 58 IU/L (42-121) 06/17/21 12:42 Troponin I High Sens 23.1 ng/L (2.3-19.7) H* 06/17/21 15:38 B-Natriuretic Peptide 308 pg/mL (5-100) H 06/17/21 12:42 Total Protein 7.3 g/dL (6.7-8.2) 06/17/21 12:42 Albumin 2.8 g/dL (3.2-5.5) L 06/17/21 12:42 Globulin 4.5 g/dL (2.1-4.2) H 06/17/21 12:42 Albumin/Globulin Ratio 0.6 (1.0-2.2) L 06/17/21 12:42 Lipase 31 U/L (22-51) 06/17/21 12:42 TSH 1.27 uIU/mL (0.34-5.60) 06/17/21 15:38 Urine Color DARK YELLOW 06/18/21 13:50 Urine Clarity HAZY (CLEAR) 06/18/21 13:50 Urine pH 6.5 PH (5.0-7.5) 06/18/21 13:50 Ur Specific [place] 1.020 (1.002-1.030) 06/18/21 13:50 Urine Protein NEGATIVE mg/dL (NEGATIVE) 06/18/21 13:50 Urine Glucose (UA) NEGATIVE mg/dL (NEGATIVE) 06/18/21 13:50 Urine Ketones NEGATIVE mg/dL (NEGATIVE) 06/18/21 13:50 Urine Occult Blood NEGATIVE (NEGATIVE) 06/18/21 13:50 Urine Nitrite NEGATIVE (NEGATIVE) 06/18/21 13:50 Urine Bilirubin NEGATIVE (NEGATIVE) 06/18/21 13:50 Urine Urobilinogen 2 E.U./dL (NORMAL) H 06/18/21 13:50 Ur Leukocyte Esterase SMALL (NEGATIVE) H 06/18/21 13:50 Urine RBC 0-5 /HPF (0-5) 06/18/21 13:50 Urine WBC 11-25 /HPF (0-3) H 06/18/21 13:50 Ur Squamous Epith Cells NONE SEEN (<= Few) 06/18/21 13:50 Urine Bacteria Moderate /HPF (None Seen) H 06/18/21 13:50 Ur Microscopic Review INDICATED 06/18/21 13:50 Urine Culture Comments INDICATED 06/18/21 13:50 Nasal Adenovirus (PCR) NOT DETECTED 06/17/21 14:40 Nasal B. parapertussis DNA (PCR) NOT DETECTED 06/17/21 14:40 Nasal Coronavir 229E PCR NOT DETECTED 06/17/21 14:40 Nasal Coronavir HKU1 PCR NOT DETECTED 06/17/21 14:40 Nasal Coronavir NL63 PCR NOT DETECTED 06/17/21 14:40 Nasal Coronavir OC43 PCR NOT DETECTED 06/17/21 14:40 Nasal Enterovir/Rhinovir PCR NOT DETECTED 06/17/21 14:40 Nasal Influenza B PCR NOT DETECTED 06/17/21 14:40 Nasal Influenza A PCR NOT DETECTED 06/17/21 14:40 Nasal Parainfluen 1 PCR NOT DETECTED 06/17/21 14:40 Nasal Parainfluen 2 PCR NOT DETECTED 06/17/21 14:40 Nasal Parainfluen 3 PCR NOT DETECTED 06/17/21 14:40 Nasal Parainfluen 4 PCR NOT DETECTED 06/17/21 14:40 Nasal RSV (PCR) NOT DETECTED 06/17/21 14:40 Nasal Screen MRSA (PCR) NEGATIVE (NEGATIVE) 06/17/21 17:15 Nasal B.pertussis DNA PCR NOT DETECTED 06/17/21 14:40 Nasal C.pneumoniae (PCR) NOT DETECTED 06/17/21 14:40 Tony Human Metapneumo PCR NOT DETECTED 06/17/21 14:40 Nasal M.pneumoniae (PCR) NOT DETECTED 06/17/21 14:40 Nasal SARS-CoV-2 (PCR) NOT DETECTED 06/17/21 14:40 Last Dose Date 06/20/21 06/20/21 11:34 Last Dose Time 03506/20/21 11:34 Vancomycin Trough 17.9 ug/mL (10.0-20.0) 06/20/21 11:34 Digoxin 0.6 ng/mL 06/20/21 04:55 Salicylates < 6.0 mg/dL 06/17/21 13:50 Urine Opiates Screen NEGATIVE (NEGATIVE) 06/18/21 17:25 Ur Oxycodone Screen NEGATIVE (NEGATIVE) 06/18/21 17:25 Urine Methadone Screen NEGATIVE (NEGATIVE) 06/18/21 17:25 Ur Propoxyphene Screen NEGATIVE (NEGATIVE) 06/18/21 17:25 Acetaminophen < 10 ug/mL (10-30) L 06/17/21 13:50 Ur Barbiturates Screen NEGATIVE (NEGATIVE) 06/18/21 17:25 Ur Tricyclics Screen NEGATIVE (NEGATIVE) 06/18/21 17:25 Ur Phencyclidine Scrn NEGATIVE (NEGATIVE) 06/18/21 17:25 Ur Amphetamine Screen NEGATIVE (NEGATIVE) 06/18/21 17:25 U Methamphetamines Scrn NEGATIVE (NEGATIVE) 06/18/21 17:25 U Benzodiazepines Scrn NEGATIVE (NEGATIVE) 06/18/21 17:25 Urine Cocaine Screen NEGATIVE (NEGATIVE) 06/18/21 17:25 U Cannabinoids Screen NEGATIVE (NEGATIVE) 06/18/21 17:25 ABX Reporting Has patient been on IV antibiotics over the past 48 hours?: No
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
[2021-06-21] MEDS: APIXABAN 5 MG TABLET PO SCH ×2 (08:27→20:08)
[2021-06-21] MEDS: CIPROFLOXACIN 250 MG TABLET PO SCH ×2 (08:27→20:08)
[2021-06-21] MEDS: FLUCONAZOLE 100 MG TABLET PO SCH (08:27)
[2021-06-21] MEDS: MULTIVITAMIN W/MINERALS TABLET PO SCH (08:27)
[2021-06-21] MEDS: METOPROLOL SUCCINATE 50 MG TABLET PO SCH (08:27)
[2021-06-21] MEDS: DIGOXIN 125 MCG TABLET PO SCH (08:27)
[2021-06-21] MEDS: metroNIDAZOLE 250 MG TABLET PO SCH ×3 (08:28→18:29)
[2021-06-21] MEDS: ACETAMINOPHEN 325 MG TABLET PO PRN (19:27)
[2021-06-22] MEDS: SODIUM CHLORIDE FLUSH 0.9% 10 ML SYRINGE IVP SCH ×3 (01:13→17:13)
[2021-06-22] MEDS: PANTOPRAZOLE 40 MG TABLET PO SCH (06:23)
[2021-06-22 06:30] LABS: BASOPHILS % (AUTO) 0.5 %; EOSINOPHILS # (AUTO) 0.1 10^3/uL (0.0-0.7); EOSINOPHILS % (AUTO) 2.4 %; HCT - HEMATOCRIT 35.6 % (42.0-52.0); HGB - HEMOGLOBIN 11.3 g/dL (14.0-18.0); LYMPHOCYTES # (AUTO) 1.2 10^3/uL (1.5-3.5); LYMPHOCYTES % (AUTO) 20.2 %; MEAN CORPUSCULAR HGB CONC 31.7 g/dL (32.0-36.0); MEAN CORPUSCULAR VOLUME 85.2 fL (80.0-94.0); MEAN PLATELET VOLUME 10.3 fL (7.4-11.4); MONOCYTES # (AUTO) 0.7 10^3/uL (0.0-1.0); MONOCYTES % (AUTO) 12.4 %; NEUTROPHILS # (AUTO) 3.7 10^3/uL (1.5-6.6); NEUTROPHILS % (AUTO) 63.6 %; PLT - PLATELET COUNT 150 10^3/uL (130-450); RED BLOOD COUNT 4.18 10^6/uL (4.70-6.10); RED CELL DISTRIBUTION WIDTH 15.8 % (12.0-15.0); WHITE BLOOD COUNT 5.8 x10^3/uL (4.8-10.8)
[2021-06-22 06:38] LABS: CALCIUM 8.4 mg/dL (8.5-10.3); CREATININE 0.6 mg/dL (0.6-1.2); MAGNESIUM 2.2 mg/dL (1.7-2.8); PHOSPHORUS 3.7 mg/dL (2.5-4.6); POTASSIUM 4.2 mmol/L (3.5-5.0)
--- NOTE | 2021-06-22 08:02 | PROVIDER PROGRESS NOTE ---
Assessment/Plan - Problem List (1) New onset a-fib Assessment/Plan: On metoprolol succinate 50 mg p.o. daily and digoxin 125 mcg p.o. daily. Digoxin level on 05/30 was 0.6. On Eliquis 5 mg p.o. twice daily. Will obtain a 2D echocardiogram when available (2) Cellulitis Qualifiers: Site of cellulitis: extremity Site of cellulitis of extremity: lower extremity Laterality: right Qualified Code(s): L03.115 - Cellulitis of right lower limb Assessment/Plan: Patient is currently on amoxicillin, Flagyl, Cipro and Diflucan. MetroGel also ordered. Wound care continued on lower extremities with Xeroform, ABD, Kerlix and keeping extremities elevated. Dr. David Land stated that patient deformities in the lower extremity/arches of feet are fixed. Patient would not be able to walk on his feet and will need a wheelchair. He may be a candidate for lower extremity amputations in the future He would not be a candidate for a brace (3) Charcot's joint Assessment/Plan: Patient is currently on amoxicillin, Flagyl, Cipro and Diflucan. MetroGel also ordered. Wound care continued on lower extremities with Xeroform, ABD, Kerlix and keeping extremities elevated. Dr. David Land stated that patient deformities in the lower extremity/arches of feet are fixed. Patient would not be able to walk on his feet and will need a wheelchair. He may be a candidate for lower extremity amputations in the future He would not be a candidate for a brace (4) Elephantiasis (nonfilarial) Assessment/Plan: Patient is currently on amoxicillin, Flagyl, Cipro and Diflucan. MetroGel also ordered. Wound care continued on lower extremities with Xeroform, ABD, Kerlix and keeping extremities elevated. Dr. David Land stated that patient deformities in the lower extremity/arches of feet are fixed. Patient would not be able to walk on his feet and will need a wheelchair. He may be a candidate for lower extremity amputations in the future He would not be a candidate for a brace (5) Major depressive disorder Qualifiers: Major depression recurrence: unspecified whether recurrent Active/Remission status: currently active Major depression episode severity: moderate Herminio lified Code(s): F32.1 - Major depressive disorder, single episode, moderate Assessment/Plan: Patient declined telepsych consult. (6) Increased urine output Assessment/Plan: Patient has a net negative balance of 10 L over the course of his 5-day hospital stay He has significant chronic lymphedema. Diuresis was achieved simply by raising his lower extremities above the level of his heart by altering the settings on his bed. Edema in lower extremities has improved appreciably.We will continue to monitor patient's vitals - Current Meds Current Meds: Current Medications Generic Name Dose Route Start Last Admin Trade Name Freq PRN Reason Stop Dose Admin Acetaminophen 650 mg 06/17/21 15:15 06/21/21 19:27 Acetaminophen 325 Mg Tablet PO 650 mg Q4HR PRN Administration Pain 1 to 4 Apixaban 5 mg 06/18/21 21:00 06/21/21 20:08 Apixaban 5 Mg Tablet PO 5 mg BID KODY Administration Ciprofloxacin 500 mg 06/20/21 21:00 06/21/21 20:08 Ciprofloxacin 250 Mg Tablet PO 500 mg BID KODY Administration Digoxin 125 mcg 06/19/21 09:00 06/21/21 08:27 Digoxin 125 Mcg Tablet PO 125 mcg DAILY KODY Administration Fluconazole 100 mg 06/20/21 18:00 06/21/21 08:27 Fluconazole 100 Mg Tablet PO 06/26/21 09:01 100 mg DAILY KODY Administration Sodium Chloride 500 mls @ 20 mls/hr 06/19/21 02:12 06/19/21 17:59 Normal Saline 0.9% IV Infused Q24H PRN Infusion TKO RATE Metoprolol Succinate 50 mg 06/18/21 09:00 06/21/21 08:27 Metoprolol Succinate 50 Mg Tablet PO 50 mg DAILY KODY Administration Metronidazole 500 mg 06/20/21 17:00 06/21/21 18:29 Metronidazole 250 Mg Tablet PO 500 mg TIDWM KODY Administration Metronidazole 1 applic 06/21/21 11:00 06/21/21 20:08 Metronidazole 0.75% Gel 45 Gm Tube TOP 1 applic BID KODY Administration Mineral Oil 1 applic 06/18/21 01:49 06/18/21 21:30 Min Oil/Dimethicon/Coconut Oil 92 Gm Tube TOP 1 applic PRN PRN Administration Skin Care Multi-Ingredient Ointment 1 applic 06/18/21 01:49 06/18/21 06:35 Zinc Oxide 20% Oint 30 Gm Tube TOP 1 applic PRN PRN Administration Skin Care Multivitamins/Minerals 1 tab 06/18/21 14:00 06/21/21 08:27 Multivitamin W/Minerals Tablet PO 1 tab DAILYWM KODY Administration Pantoprazole Sodium 40 mg 06/17/21 16:00 06/22/21 06:23 Pantoprazole 40 Mg Tablet PO 40 mg QDAC KODY Administration Sodium Chloride 10 ml 06/17/21 17:00 06/22/21 01:13 Sodium Chloride Flush 0.9% 10 Ml Syringe IVP 10 ml 0100,0900,1700 KODY Administration Sodium Chloride 10 ml 06/17/21 15:15 06/18/21 14:49 Sodium Chloride Flush 0.9% 10 Ml Syringe IVP 10 ml PRN PRN Administration NEEDED PER PROVIDER ORDERS - Lab Result Fish Bone Diagrams: 06/22/21 05:06 06/22/21 05:06 - Additional Planning My Orders: My Active Orders 06/21/21 11:00 metroNIDAZOLE 0.75% GEL [Flagyl Gel] 1 applic TOP BID Subjective - Subjective Patient Reports: Other (Resting comfortably in bed. Denied any complaints. Patient has had significant urine output daily for the past 3 days. Has a negative balance of 10 L since admission.) Objective Vital Signs: Vital Signs - 24 hr 06/21/21 06/21/21 06/21/21 08:22 12:00 16:00 Temperature 36.6 C 36.3 C L 36.5 C Heart Rate [ 97 80 Brachial] Heart Rate [ 100 Monitoring electrodes] Respiratory 20 22 22 Rate Blood Pressure 113/68 97/62 132/57 H [Right Brachial artery] O2 Saturation 94 93 96 06/21/21 06/22/21 06/22/21 19:42 00:00 04:00 Temperature 36.7 C 36.7 C Heart Rate [ 89 79 82 Brachial] Heart Rate [ Monitoring electrodes] Respiratory 18 18 18 Rate Blood Pressure 112/69 104/72 116/74 [Right Brachial artery] O2 Saturation 91 L 92 91 L 06/22/21 07:52 Temperature 36.6 C Heart Rate [ 78 Brachial] Heart Rate [ Monitoring electrodes] Respiratory 16 Rate Blood Pressure 114/67 [Right Brachial artery] O2 Saturation 94 Oxygen O2 Source Nasal cannula I&O (Last 24 Hrs): Intake and Output Totals x24h 06/20/21 06/21/21 06/22/21 23:59 23:59 23:59 Intake Total 4220 3630 300 Output Total 8320 9401 3300 Balance -0513 -7520 -1768 General: Alert, Oriented x3, No acute distress HEENT: PERRLA, EOMI Neck: Supple, No JVD Neuro: Alert Cardiovascular: Regular rate, No murmurs Respiratory: Chest non-tender, No respiratory distress, Breath sounds nml Abdomen: Normal bowel sounds, Soft, No tenderness, No masses Extremities: Other (bilateral lower extremities: edema improved, odor reduced. chron lymphedema skin changes noted, weeping, peeling, excuriations/wounds) - Results Results: Laboratory Results WBC 5.8 x10^3/uL (4.8-10.8) 06/22/21 05:06 RBC 4.18 10^6/uL (4.70-6.10) L 06/22/21 05:06 Hgb 11.3 g/dL (14.0-18.0) L 06/22/21 05:06 Hct 35.6 % (42.0-52.0) L 06/22/21 05:06 MCV 85.2 fL (80.0-94.0) 06/22/21 05:06 MCH 27.0 pg (27.0-31.0) 06/22/21 05:06 MCHC 31.7 g/dL (32.0-36.0) L 06/22/21 05:06 RDW 15.8 % (12.0-15.0) H 06/22/21 05:06 Plt Count 150 10^3/uL (130-450) 06/22/21 05:06 MPV 10.3 fL (7.4-11.4) 06/22/21 05:06 Neut # (Auto) 3.7 10^3/uL (1.5-6.6) 06/22/21 05:06 Lymph # (Auto) 1.2 10^3/uL (1.5-3.5) L 06/22/21 05:06 [place] # (Auto) 0.7 10^3/uL (0.0-1.0) 06/22/21 05:06 Eos # (Auto) 0.1 10^3/uL (0.0-0.7) 06/22/21 05:06 Baso # (Auto) 0.0 10^3/uL (0.0-0.1) 06/22/21 05:06 Absolute Nucleated RBC 0.00 x10^3/uL 06/22/21 05:06 Nucleated RBC % 0.0 /100WBC 06/22/21 05:06 VBG pH 7.456 (7.31-7.41) H 06/20/21 04:55 VBG pCO2 36.2 mmHg (41-51) L 06/17/21 13:50 VBG pO2 29.3 mmHg (25-47) 06/17/21 13:50 VBG HCO3 24.8 mmol/L (23-28) 06/17/21 13:50 VBG Total CO2 25.9 mmol/L (24-29) 06/17/21 13:50 VBG O2 Saturation 59.8 % (60-80) L 06/17/21 13:50 VBG Base Excess 1.1 mmol/L (-2 - +2) 06/17/21 13:50 Ionized Calcium 1.07 mmol/L (1.15-1.33) L 06/20/21 04:55 Sodium 138 mmol/L (135-145) 06/22/21 05:06 Potassium 4.2 mmol/L (3.5-5.0) 06/22/21 05:06 Chloride 97 mmol/L (101-111) L 06/22/21 05:06 Carbon Dioxide 35 mmol/L (21-32) H 06/22/21 05:06 Anion Gap 6.0 (6-13) 06/22/21 05:06 BUN 12 mg/dL (6-20) 06/22/21 05:06 Creatinine 0.6 mg/dL (0.6-1.2) 06/22/21 05:06 Estimated GFR (MDRD) 133 (>89) 06/22/21 05:06 Glucose 99 mg/dL (70-100) 06/22/21 05:06 Lactic Acid 2.2 mmol/L (0.5-2.2) 06/18/21 20:14 Calcium 8.4 mg/dL (8.5-10.3) L 06/22/21 05:06 Ionized Calcium YES 06/18/21 12:45 Phosphorus 3.7 mg/dL (2.5-4.6) 06/22/21 05:06 Magnesium 2.2 mg/dL (1.7-2.8) 06/22/21 05:06 Total Bilirubin 1.2 mg/dL (0.2-1.0) H 06/17/21 12:42 AST 75 IU/L (10-42) H 06/17/21 12:42 ALT 56 IU/L (10-60) 06/17/21 12:42 Alkaline Phosphatase 58 IU/L (42-121) 06/17/21 12:42 Troponin I High Sens 23.1 ng/L (2.3-19.7) H* 06/17/21 15:38 B-Natriuretic Peptide 308 pg/mL (5-100) H 06/17/21 12:42 Total Protein 7.3 g/dL (6.7-8.2) 06/17/21 12:42 Albumin 2.2 g/dL (3.2-5.5) L 06/22/21 05:06 Globulin 4.5 g/dL (2.1-4.2) H 06/17/21 12:42 Albumin/Globulin Ratio 0.6 (1.0-2.2) L 06/17/21 12:42 Lipase 31 U/L (22-51) 06/17/21 12:42 TSH 1.27 uIU/mL (0.34-5.60) 06/17/21 15:38 Urine Color DARK YELLOW 06/18/21 13:50 Urine Clarity HAZY (CLEAR) 06/18/21 13:50 Urine pH 6.5 PH (5.0-7.5) 06/18/21 13:50 Ur Specific [place] 1.020 (1.002-1.030) 06/18/21 13:50 Urine Protein NEGATIVE mg/dL (NEGATIVE) 06/18/21 13:50 Urine Glucose (UA) NEGATIVE mg/dL (NEGATIVE) 06/18/21 13:50 Urine Ketones NEGATIVE mg/dL (NEGATIVE) 06/18/21 13:50 Urine Occult Blood NEGATIVE (NEGATIVE) 06/18/21 13:50 Urine Nitrite NEGATIVE (NEGATIVE) 06/18/21 13:50 Urine Bilirubin NEGATIVE (NEGATIVE) 06/18/21 13:50 Urine Urobilinogen 2 E.U./dL (NORMAL) H 06/18/21 13:50 Ur Leukocyte Esterase SMALL (NEGATIVE) H 06/18/21 13:50 Urine RBC 0-5 /HPF (0-5) 06/18/21 13:50 Urine WBC 11-25 /HPF (0-3) H 06/18/21 13:50 Ur Squamous Epith Cells NONE SEEN (<= Few) 06/18/21 13:50 Urine Bacteria Moderate /HPF (None Seen) H 06/18/21 13:50 Ur Microscopic Review INDICATED 06/18/21 13:50 Urine Culture Comments INDICATED 06/18/21 13:50 Nasal Adenovirus (PCR) NOT DETECTED 06/17/21 14:40 Nasal B. parapertussis DNA (PCR) NOT DETECTED 06/17/21 14:40 Nasal Coronavir 229E PCR NOT DETECTED 06/17/21 14:40 Nasal Coronavir HKU1 PCR NOT DETECTED 06/17/21 14:40 Nasal Coronavir NL63 PCR NOT DETECTED 06/17/21 14:40 Nasal Coronavir OC43 PCR NOT DETECTED 06/17/21 14:40 Nasal Enterovir/Rhinovir PCR NOT DETECTED 06/17/21 14:40 Nasal Influenza B PCR NOT DETECTED 06/17/21 14:40 Nasal Influenza A PCR NOT DETECTED 06/17/21 14:40 Nasal Parainfluen 1 PCR NOT DETECTED 06/17/21 14:40 Nasal Parainfluen 2 PCR NOT DETECTED 06/17/21 14:40 Nasal Parainfluen 3 PCR NOT DETECTED 06/17/21 14:40 Nasal Parainfluen 4 PCR NOT DETECTED 06/17/21 14:40 Nasal RSV (PCR) NOT DETECTED 06/17/21 14:40 Nasal Screen MRSA (PCR) NEGATIVE (NEGATIVE) 06/17/21 17:15 Nasal B.pertussis DNA PCR NOT DETECTED 06/17/21 14:40 Nasal C.pneumoniae (PCR) NOT DETECTED 06/17/21 14:40 Tony Human Metapneumo PCR NOT DETECTED 06/17/21 14:40 Nasal M.pneumoniae (PCR) NOT DETECTED 06/17/21 14:40 Nasal SARS-CoV-2 (PCR) NOT DETECTED 06/17/21 14:40 Last Dose Date 06/20/21 06/20/21 11:34 Last Dose Time 0357 12/22 11:34 Vancomycin Trough 17.9 ug/mL (10.0-20.0) 06/20/21 11:34 Digoxin 0.6 ng/mL 06/20/21 04:55 Salicylates < 6.0 mg/dL 06/17/21 13:50 Urine Opiates Screen NEGATIVE (NEGATIVE) 06/18/21 17:25 Ur Oxycodone Screen NEGATIVE (NEGATIVE) 06/18/21 17:25 Urine Methadone Screen NEGATIVE (NEGATIVE) 06/18/21 17:25 Ur Propoxyphene Screen NEGATIVE (NEGATIVE) 06/18/21 17:25 Acetaminophen < 10 ug/mL (10-30) L 06/17/21 13:50 Ur Barbiturates Screen NEGATIVE (NEGATIVE) 06/18/21 17:25 Ur Tricyclics Screen NEGATIVE (NEGATIVE) 06/18/21 17:25 Ur Phencyclidine Scrn NEGATIVE (NEGATIVE) 06/18/21 17:25 Ur Amphetamine Screen NEGATIVE (NEGATIVE) 06/18/21 17:25 U Methamphetamines Scrn NEGATIVE (NEGATIVE) 06/18/21 17:25 U Benzodiazepines Scrn NEGATIVE (NEGATIVE) 06/18/21 17:25 Urine Cocaine Screen NEGATIVE (NEGATIVE) 06/18/21 17:25 U Cannabinoids Screen NEGATIVE (NEGATIVE) 06/18/21 17:25 ABX Reporting Has patient been on IV antibiotics over the past 48 hours?: No
[2021-06-22] MEDS: FLUCONAZOLE 100 MG TABLET PO SCH (08:29)
[2021-06-22] MEDS: CIPROFLOXACIN 250 MG TABLET PO SCH ×2 (08:29→20:36)
[2021-06-22] MEDS: metroNIDAZOLE 250 MG TABLET PO SCH ×3 (08:30→17:11)
[2021-06-22] MEDS: DIGOXIN 125 MCG TABLET PO SCH (08:30)
[2021-06-22] MEDS: MULTIVITAMIN W/MINERALS TABLET PO SCH (08:30)
[2021-06-22] MEDS: APIXABAN 5 MG TABLET PO SCH ×2 (08:30→20:36)
[2021-06-22] MEDS: METOPROLOL SUCCINATE 50 MG TABLET PO SCH (08:30)
--- NOTE | 2021-06-22 16:26 | PROVIDER PROGRESS NOTE ---
Subjective - Subjective Pt reports feeling: Improved (states swelling much improved and he has sensation in his feet) Objective - Vital Signs/Intake & Output Reviewed Vital Signs: Yes Vital Signs: Vital Signs x48h Temp Pulse Pulse Pulse Resp BP BP 06/22/21 16:09 36.6 C 105 H 22 106/75 06/22/21 13:50 84 79 119/76 06/22/21 13:05 36.5 C 81 14 111/60 BP Pulse Ox 06/22/21 16:09 94 06/22/21 13:50 130/70 06/22/21 13:05 94 Intake & Output: Intake & Output 06/19/21 06/20/21 06/21/21 06/22/21 23:59 23:59 23:59 23:59 Intake Total 6199.667 4220 3630 2230 Output Total 6075 8300 9475 6991 Balance 124.667 -4080 -5845 -4695 - Objective General Appearance: positive: Alert Eyes Bilateral: positive: PERRL, EOMI Respiratory: positive: No respiratory distress, Other (he is tachypnic) Abdomen: positive: Non-tender, No distention Extremities: positive: Other (edema much improved superficial epidermolysis right anterior lower leg) - Lab Results Fish Bones: 06/22/21 05:06 06/22/21 05:06 Other Labs: Lab Results x24hrs 06/22/21 06/22/21 06/22/21 Range/Units 05:06 05:06 05:06 WBC 5.8 (4.8-10.8) x10^3/uL RBC 4.18 L (4.70-6.10) 10^6/uL Hgb 11.3 L (14.0-18.0) g/dL Hct 35.6 L (42.0-52.0) % MCV 85.2 (80.0-94.0) fL MCH 27.0 (27.0-31.0) pg MCHC 31.7 L (32.0-36.0) g/dL RDW 15.8 H (12.0-15.0) % Plt Count 150 (130-450) 10^3/uL MPV 10.3 (7.4-11.4) fL Neut # (Auto) 3.7 (1.5-6.6) 10^3/uL Lymph # (Auto) 1.2 L (1.5-3.5) 10^3/uL [place] # (Auto) 0.7 (0.0-1.0) 10^3/uL Eos # (Auto) 0.1 (0.0-0.7) 10^3/uL Baso # (Auto) 0.0 (0.0-0.1) 10^3/uL Absolute Nucleated RBC 0.00 x10^3/uL Nucleated RBC % 0.0 /100WBC Sodium 138 (135-145) mmol/L Potassium 4.2 (3.5-5.0) mmol/L Chloride 97 L (101-111) mmol/L Carbon Dioxide 35 H (21-32) mmol/L Anion Gap 6.0 (6-13) BUN 12 (6-20) mg/dL Creatinine 0.6 (0.6-1.2) mg/dL Estimated GFR (MDRD) 133 (>89) Glucose 99 (70-100) mg/dL Calcium 8.4 L (8.5-10.3) mg/dL Phosphorus 3.7 (2.5-4.6) mg/dL Magnesium 2.2 (1.7-2.8) mg/dL Albumin 2.2 L (3.2-5.5) g/dL Assessment/Plan - Problem List (1) Bilateral cellulitis of lower leg Impression: much improved swelling superficial epidermolysis anterior right lower leg. no tissue to debride no abscess to drain agree with current care
[2021-06-23] MEDS: SODIUM CHLORIDE FLUSH 0.9% 10 ML SYRINGE IVP SCH ×3 (03:15→17:24)
[2021-06-23 05:35] LABS: BASOPHILS % (AUTO) 0.6 %; EOSINOPHILS # (AUTO) 0.1 10^3/uL (0.0-0.7); EOSINOPHILS % (AUTO) 1.8 %; HCT - HEMATOCRIT 40.3 % (42.0-52.0); HGB - HEMOGLOBIN 12.4 g/dL (14.0-18.0); LYMPHOCYTES # (AUTO) 1.6 10^3/uL (1.5-3.5); LYMPHOCYTES % (AUTO) 24.3 %; MEAN CORPUSCULAR HEMOGLOBIN 26.8 pg (27.0-31.0); MEAN CORPUSCULAR HGB CONC 30.8 g/dL (32.0-36.0); MEAN CORPUSCULAR VOLUME 87.2 fL (80.0-94.0); MEAN PLATELET VOLUME 10.3 fL (7.4-11.4); MONOCYTES # (AUTO) 0.7 10^3/uL (0.0-1.0); MONOCYTES % (AUTO) 10.6 %; NEUTROPHILS # (AUTO) 4.1 10^3/uL (1.5-6.6); NEUTROPHILS % (AUTO) 61.9 %; PLT - PLATELET COUNT 161 10^3/uL (130-450); RED BLOOD COUNT 4.62 10^6/uL (4.70-6.10); RED CELL DISTRIBUTION WIDTH 15.9 % (12.0-15.0); WHITE BLOOD COUNT 6.6 x10^3/uL (4.8-10.8)
[2021-06-23 05:45] LABS: CALCIUM 8.3 mg/dL (8.5-10.3); CREATININE 0.6 mg/dL (0.6-1.2); POTASSIUM 4.5 mmol/L (3.5-5.0)
[2021-06-23] MEDS: ACETAMINOPHEN 325 MG TABLET PO PRN ×2 (05:52→11:56)
[2021-06-23] MEDS: PANTOPRAZOLE 40 MG TABLET PO SCH (05:52)
--- NOTE | 2021-06-23 08:09 | PROVIDER PROGRESS NOTE ---
Assessment/Plan - Problem List (1) New onset a-fib Assessment/Plan: On metoprolol succinate 50 mg p.o. daily and digoxin 125 mcg p.o. daily. Digoxin level on 05/30 was 0.6. On Eliquis 5 mg p.o. twice daily. Will obtain a 2D echocardiogram when available (2) Cellulitis Qualifiers: Site of cellulitis: extremity Site of cellulitis of extremity: lower extremity Laterality: right Qualified Code(s): L03.115 - Cellulitis of right lower limb Assessment/Plan: Patient is currently on amoxicillin, Flagyl, Cipro and Diflucan. MetroGel also ordered. Wound care continued on lower extremities with Xeroform, ABD, Kerlix and keeping extremities elevated. Dr. David Land stated that patient deformities in the lower extremity/arches of feet are fixed. Patient would not be able to walk on his feet and will need a wheelchair. He may be a candidate for lower extremity amputations in the future He would not be a candidate for a brace (3) Charcot's joint Assessment/Plan: Patient is currently on amoxicillin, Flagyl, Cipro and Diflucan. MetroGel also ordered. Wound care continued on lower extremities with Xeroform, ABD, Kerlix and keeping extremities elevated. Dr. David Land stated that patient deformities in the lower extremity/arches of feet are fixed. Patient would not be able to walk on his feet and will need a wheelchair. He may be a candidate for lower extremity amputations in the future He would not be a candidate for a brace (4) Elephantiasis (nonfilarial) Assessment/Plan: Patient is currently on amoxicillin, Flagyl, Cipro and Diflucan. MetroGel also ordered. Wound care continued on lower extremities with Xeroform, ABD, Kerlix and keeping extremities elevated. Dr. David Land stated that patient deformities in the lower extremity/arches of feet are fixed. Patient would not be able to walk on his feet and will need a wheelchair. He may be a candidate for lower extremity amputations in the future He would not be a candidate for a brace (5) Major depressive disorder Qualifiers: Major depression recurrence: unspecified whether recurrent Active/Remission status: currently active Major depression episode severity: moderate Herminio lified Code(s): F32.1 - Major depressive disorder, single episode, moderate Assessment/Plan: Patient declined telepsych consult. (6) Increased urine output Assessment/Plan: Patient has a net negative balance of 11 L over the course of his 6-days He has significant chronic lymphedema. Diuresis was achieved simply by raising his lower extremities above the level of his heart by altering the settings on his bed. Edema in lower extremities continues to improve appreciably.We will continue to monitor patient's vitals (2) Cellulitis Qualifiers: Site of cellulitis: extremity Site of cellulitis of extremity: lower extremity Laterality: right Qualified Code(s): L03.115 - Cellulitis of right lower limb (5) Major depressive disorder Qualifiers: Major depression recurrence: unspecified whether recurrent Active/Remission status: currently active Major depression episode severity: moderate Qualified Code(s): F32.1 - Major depressive disorder, single episode, moderate - Current Meds Current Meds: Current Medications Generic Name Dose Route Start Last Admin Trade Name Freq PRN Reason Stop Dose Admin Acetaminophen 650 mg 06/17/21 15:15 06/23/21 05:52 Acetaminophen 325 Mg Tablet PO 650 mg Q4HR PRN Administration Pain 1 to 4 Apixaban 5 mg 06/18/21 21:00 06/22/21 20:36 Apixaban 5 Mg Tablet PO 5 mg BID KODY Administration Ciprofloxacin 500 mg 06/20/21 21:00 06/22/21 20:36 Ciprofloxacin 250 Mg Tablet PO 500 mg BID KODY Administration Digoxin 125 mcg 06/19/21 09:00 06/22/21 08:30 Digoxin 125 Mcg Tablet PO 125 mcg DAILY KODY Administration Fluconazole 100 mg 06/20/21 18:00 06/22/21 08:29 Fluconazole 100 Mg Tablet PO 06/26/21 09:01 100 mg DAILY KODY Administration Sodium Chloride 500 mls @ 20 mls/hr 06/19/21 02:12 06/19/21 17:59 Normal Saline 0.9% IV Infused Q24H PRN Infusion TKO RATE Metoprolol Succinate 50 mg 06/18/21 09:00 06/22/21 08:30 Metoprolol Succinate 50 Mg Tablet PO 50 mg DAILY KODY Administration Metronidazole 500 mg 06/20/21 17:00 06/22/21 17:11 Metronidazole 250 Mg Tablet PO 500 mg TIDWM KODY Administration Metronidazole 1 applic 06/21/21 11:00 06/22/21 20:37 Metronidazole 0.75% Gel 45 Gm Tube TOP 1 applic BID KODY Administration Mineral Oil 1 applic 06/18/21 01:49 06/18/21 21:30 Min Oil/Dimethicon/Coconut Oil 92 Gm Tube TOP 1 applic PRN PRN Administration Skin Care Multi-Ingredient Ointment 1 applic 06/18/21 01:49 06/18/21 06:35 Zinc Oxide 20% Oint 30 Gm Tube TOP 1 applic PRN PRN Administration Skin Care Multivitamins/Minerals 1 tab 06/18/21 14:00 06/22/21 08:30 Multivitamin W/Minerals Tablet PO 1 tab DAILYWM KODY Administration Pantoprazole Sodium 40 mg 06/17/21 16:00 06/23/21 05:52 Pantoprazole 40 Mg Tablet PO 40 mg QDAC KODY Administration Sodium Chloride 10 ml 06/17/21 17:00 06/23/21 03:15 Sodium Chloride Flush 0.9% 10 Ml Syringe IVP 10 ml 0100,0900,1700 KODY Administration Sodium Chloride 10 ml 06/17/21 15:15 06/18/21 14:49 Sodium Chloride Flush 0.9% 10 Ml Syringe IVP 10 ml PRN PRN Administration NEEDED PER PROVIDER ORDERS - Lab Result Fish Bone Diagrams: 06/23/21 04:56 06/23/21 04:56 - Additional Planning My Orders: My Active Orders 06/22/21 Dinner Regular Diet [DIET] 06/24/21 05:00 BMP - BASIC METABOLIC PANEL [CHEM] DAILYLAB CBC - COMP BLD CT W/AUTO DIFF [HEME] DAILYLAB 06/25/21 05:00 BMP - BASIC METABOLIC PANEL [CHEM] DAILYLAB CBC - COMP BLD CT W/AUTO DIFF [HEME] DAILYLAB 06/26/21 05:00 BMP - BASIC METABOLIC PANEL [CHEM] DAILYLAB CBC - COMP BLD CT W/AUTO DIFF [HEME] DAILYLAB 06/27/21 05:00 BMP - BASIC METABOLIC PANEL [CHEM] DAILYLAB CBC - COMP BLD CT W/AUTO DIFF [HEME] DAILYLAB Subjective - Subjective Patient Reports: Other (Resting comfortably in bed. Complains of feeling cold reported a mild headache.) Objective Vital Signs: Vital Signs - 24 hr 06/22/21 06/22/21 06/22/21 13:05 13:50 16:09 Temperature 36.5 C 36.6 C Heart Rate [ 84 Activity] Heart Rate [ 81 105 H Brachial] Heart Rate [ Monitoring electrodes] Heart Rate [ 79 Supine] Respiratory 14 22 Rate Blood Pressure 119/76 [Activity] Blood Pressure 111/60 106/75 [Right Brachial artery] Blood Pressure 130/70 [Supine] O2 Saturation 94 94 06/22/21 06/22/21 06/23/21 20:36 23:59 05:00 Temperature 36.7 C 36.4 C L 36.3 C L Heart Rate [ Activity] Heart Rate [ 80 86 70 Brachial] Heart Rate [ 20 L Monitoring electrodes] Heart Rate [ Supine] Respiratory 20 20 96 H Rate Blood Pressure [Activity] Blood Pressure 123/69 129/76 126/76 [Right Brachial artery] Blood Pressure [Supine] O2 Saturation 90 L 90 L 2 L Oxygen O2 Source Nasal cannula I&O (Last 24 Hrs): Intake and Output Totals x24h 06/21/21 06/22/21 06/23/21 23:59 23:59 23:59 Intake Total 3630 3020 Output Total 9475 8275 1500 [id number] [phone] Comments/Notes: General: Alert, Oriented x3, No acute distress HEENT: PERRLA, EOMI Neck: Supple, No JVD Neuro: Alert Cardiovascular: Regular rate, No murmurs Respiratory: Chest non-tender, No respiratory distress, Breath sounds nml Abdomen: Normal bowel sounds, Soft, No tenderness, No masses Extremities: Other (bilateral lower extremities: edema improved, odor reduced. chron lymphedema skin changes noted, weeping, peeling, excuriations/wounds) - Results Results: Laboratory Results WBC 6.6 x10^3/uL (4.8-10.8) 06/23/21 04:56 RBC 4.62 10^6/uL (4.70-6.10) L 06/23/21 04:56 Hgb 12.4 g/dL (14.0-18.0) L 06/23/21 04:56 Hct 40.3 % (42.0-52.0) L 06/23/21 04:56 MCV 87.2 fL (80.0-94.0) 06/23/21 04:56 MCH 26.8 pg (27.0-31.0) L 06/23/21 04:56 MCHC 30.8 g/dL (32.0-36.0) L 06/23/21 04:56 RDW 15.9 % (12.0-15.0) H 06/23/21 04:56 Plt Count 161 10^3/uL (130-450) 06/23/21 04:56 MPV 10.3 fL (7.4-11.4) 06/23/21 04:56 Neut # (Auto) 4.1 10^3/uL (1.5-6.6) 06/23/21 04:56 Lymph # (Auto) 1.6 10^3/uL (1.5-3.5) 06/23/21 04:56 [place] # (Auto) 0.7 10^3/uL (0.0-1.0) 06/23/21 04:56 Eos # (Auto) 0.1 10^3/uL (0.0-0.7) 06/23/21 04:56 Baso # (Auto) 0.0 10^3/uL (0.0-0.1) 06/23/21 04:56 Absolute Nucleated RBC 0.00 x10^3/uL 06/23/21 04:56 Nucleated RBC % 0.0 /100WBC 06/23/21 04:56 VBG pH 7.456 (7.31-7.41) H 06/20/21 04:55 VBG pCO2 36.2 mmHg (41-51) L 06/17/21 13:50 VBG pO2 29.3 mmHg (25-47) 06/17/21 13:50 VBG HCO3 24.8 mmol/L (23-28) 06/17/21 13:50 VBG Total CO2 25.9 mmol/L (24-29) 06/17/21 13:50 VBG O2 Saturation 59.8 % (60-80) L 06/17/21 13:50 VBG Base Excess 1.1 mmol/L (-2 - +2) 06/17/21 13:50 Ionized Calcium 1.07 mmol/L (1.15-1.33) L 06/20/21 04:55 Sodium 136 mmol/L (135-145) 06/23/21 04:56 Potassium 4.5 mmol/L (3.5-5.0) 06/23/21 04:56 Chloride 94 mmol/L (101-111) L 06/23/21 04:56 Carbon Dioxide 36 mmol/L (21-32) H 06/23/21 04:56 Anion Gap 6.0 (6-13) 06/23/21 04:56 BUN 15 mg/dL (6-20) 06/23/21 04:56 Creatinine 0.6 mg/dL (0.6-1.2) 06/23/21 04:56 Estimated GFR (MDRD) 133 (>89) 06/23/21 04:56 Glucose 104 mg/dL (70-100) H 06/23/21 04:56 Lactic Acid 2.2 mmol/L (0.5-2.2) 06/18/21 20:14 Calcium 8.3 mg/dL (8.5-10.3) L 06/23/21 04:56 Ionized Calcium YES 06/18/21 12:45 Phosphorus 3.7 mg/dL (2.5-4.6) 06/22/21 05:06 Magnesium 2.2 mg/dL (1.7-2.8) 06/22/21 05:06 Total Bilirubin 1.2 mg/dL (0.2-1.0) H 06/17/21 12:42 AST 75 IU/L (10-42) H 06/17/21 12:42 ALT 56 IU/L (10-60) 06/17/21 12:42 Alkaline Phosphatase 58 IU/L (42-121) 06/17/21 12:42 Troponin I High Sens 23.1 ng/L (2.3-19.7) H* 06/17/21 15:38 B-Natriuretic Peptide 308 pg/mL (5-100) H 06/17/21 12:42 Total Protein 7.3 g/dL (6.7-8.2) 06/17/21 12:42 Albumin 2.2 g/dL (3.2-5.5) L 06/22/21 05:06 Globulin 4.5 g/dL (2.1-4.2) H 06/17/21 12:42 Albumin/Globulin Ratio 0.6 (1.0-2.2) L 06/17/21 12:42 Lipase 31 U/L (22-51) 06/17/21 12:42 TSH 1.27 uIU/mL (0.34-5.60) 06/17/21 15:38 Urine Color DARK YELLOW 06/18/21 13:50 Urine Clarity HAZY (CLEAR) 06/18/21 13:50 Urine pH 6.5 PH (5.0-7.5) 06/18/21 13:50 Ur Specific [place] 1.020 (1.002-1.030) 06/18/21 13:50 Urine Protein NEGATIVE mg/dL (NEGATIVE) 06/18/21 13:50 Urine Glucose (UA) NEGATIVE mg/dL (NEGATIVE) 06/18/21 13:50 Urine Ketones NEGATIVE mg/dL (NEGATIVE) 06/18/21 13:50 Urine Occult Blood NEGATIVE (NEGATIVE) 06/18/21 13:50 Urine Nitrite NEGATIVE (NEGATIVE) 06/18/21 13:50 Urine Bilirubin NEGATIVE (NEGATIVE) 06/18/21 13:50 Urine Urobilinogen 2 E.U./dL (NORMAL) H 06/18/21 13:50 Ur Leukocyte Esterase SMALL (NEGATIVE) H 06/18/21 13:50 Urine RBC 0-5 /HPF (0-5) 06/18/21 13:50 Urine WBC 11-25 /HPF (0-3) H 06/18/21 13:50 Ur Squamous Epith Cells NONE SEEN (<= Few) 06/18/21 13:50 Urine Bacteria Moderate /HPF (None Seen) H 06/18/21 13:50 Ur Microscopic Review INDICATED 06/18/21 13:50 Urine Culture Comments INDICATED 06/18/21 13:50 Nasal Adenovirus (PCR) NOT DETECTED 06/17/21 14:40 Nasal B. parapertussis DNA (PCR) NOT DETECTED 06/17/21 14:40 Nasal Coronavir 229E PCR NOT DETECTED 06/17/21 14:40 Nasal Coronavir HKU1 PCR NOT DETECTED 06/17/21 14:40 Nasal Coronavir NL63 PCR NOT DETECTED 06/17/21 14:40 Nasal Coronavir OC43 PCR NOT DETECTED 06/17/21 14:40 Nasal Enterovir/Rhinovir PCR NOT DETECTED 06/17/21 14:40 Nasal Influenza B PCR NOT DETECTED 06/17/21 14:40 Nasal Influenza A PCR NOT DETECTED 06/17/21 14:40 Nasal Parainfluen 1 PCR NOT DETECTED 06/17/21 14:40 Nasal Parainfluen 2 PCR NOT DETECTED 06/17/21 14:40 Nasal Parainfluen 3 PCR NOT DETECTED 06/17/21 14:40 Nasal Parainfluen 4 PCR NOT DETECTED 06/17/21 14:40 Nasal RSV (PCR) NOT DETECTED 06/17/21 14:40 Nasal Screen MRSA (PCR) NEGATIVE (NEGATIVE) 06/17/21 17:15 Nasal B.pertussis DNA PCR NOT DETECTED 06/17/21 14:40 Nasal C.pneumoniae (PCR) NOT DETECTED 06/17/21 14:40 Tony Human Metapneumo PCR NOT DETECTED 06/17/21 14:40 Nasal M.pneumoniae (PCR) NOT DETECTED 06/17/21 14:40 Nasal SARS-CoV-2 (PCR) NOT DETECTED 06/17/21 14:40 Last Dose Date 06/20/21 06/20/21 11:34 Last Dose Time 03506/20/21 11:34 Vancomycin Trough 17.9 ug/mL (10.0-20.0) 06/20/21 11:34 Digoxin 0.6 ng/mL 06/20/21 04:55 Salicylates < 6.0 mg/dL 06/17/21 13:50 Urine Opiates Screen NEGATIVE (NEGATIVE) 06/18/21 17:25 Ur Oxycodone Screen NEGATIVE (NEGATIVE) 06/18/21 17:25 Urine Methadone Screen NEGATIVE (NEGATIVE) 06/18/21 17:25 Ur Propoxyphene Screen NEGATIVE (NEGATIVE) 06/18/21 17:25 Acetaminophen < 10 ug/mL (10-30) L 06/17/21 13:50 Ur Barbiturates Screen NEGATIVE (NEGATIVE) 06/18/21 17:25 Ur Tricyclics Screen NEGATIVE (NEGATIVE) 06/18/21 17:25 Ur Phencyclidine Scrn NEGATIVE (NEGATIVE) 06/18/21 17:25 Ur Amphetamine Screen NEGATIVE (NEGATIVE) 06/18/21 17:25 U Methamphetamines Scrn NEGATIVE (NEGATIVE) 06/18/21 17:25 U Benzodiazepines Scrn NEGATIVE (NEGATIVE) 06/18/21 17:25 Urine Cocaine Screen NEGATIVE (NEGATIVE) 06/18/21 17:25 U Cannabinoids Screen NEGATIVE (NEGATIVE) 06/18/21 17:25 ABX Reporting Has patient been on IV antibiotics over the past 48 hours?: No
[2021-06-23] MEDS: CIPROFLOXACIN 250 MG TABLET PO SCH ×2 (09:31→20:22)
[2021-06-23] MEDS: metroNIDAZOLE 250 MG TABLET PO SCH ×3 (09:31→17:24)
[2021-06-23] MEDS: FLUCONAZOLE 100 MG TABLET PO SCH (09:32)
[2021-06-23] MEDS: MULTIVITAMIN W/MINERALS TABLET PO SCH (09:32)
[2021-06-23] MEDS: DIGOXIN 125 MCG TABLET PO SCH (09:32)
[2021-06-23] MEDS: METOPROLOL SUCCINATE 50 MG TABLET PO SCH (09:32)
[2021-06-23] MEDS: APIXABAN 5 MG TABLET PO SCH ×2 (09:32→20:22)
--- NOTE | 2021-06-23 13:06 | PROVIDER PROGRESS NOTE ---
Subjective - General Admit Date: 06/17/21 - Other Other Information/Narrative: Spirits improved and he is talking about his family and experiences. Has many questions about amputation and the need for a wheel chair. Pain is minimal. Objective - Patient Data Vital Signs: Vital Signs x48h Temp Pulse Resp BP Pulse Ox 06/23/21 08:30 36.3 C L 59 L 16 110/61 90 L Weight: Weight 06/21/21 06/22/21 06/23/21 23:59 23:59 23:59 Weight (kg) 115 kg 99.5 kg 100 kg Intake & Output: Intake and Output Totals x24h 06/21/21 06/22/21 06/23/21 23:59 23:59 23:59 Intake Total 3630 3020 320 Output Total 0989 8270 1500 Balance -5845 -5255 -1180 - Lab Results Lab Results: 06/23/21 04:56 06/23/21 04:56 Other Lab Results: Lab Results x24hrs 06/23/21 06/23/21 Range/Units 04:56 04:56 WBC 6.6 (4.8-10.8) x10^3/uL RBC 4.62 L (4.70-6.10) 10^6/uL Hgb 12.4 L (14.0-18.0) g/dL Hct 40.3 L (42.0-52.0) % MCV 87.2 (80.0-94.0) fL MCH 26.8 L (27.0-31.0) pg MCHC 30.8 L (32.0-36.0) g/dL RDW 15.9 H (12.0-15.0) % Plt Count 161 (130-450) 10^3/uL MPV 10.3 (7.4-11.4) fL Neut # (Auto) 4.1 (1.5-6.6) 10^3/uL Lymph # (Auto) 1.6 (1.5-3.5) 10^3/uL [place] # (Auto) 0.7 (0.0-1.0) 10^3/uL Eos # (Auto) 0.1 (0.0-0.7) 10^3/uL Baso # (Auto) 0.0 (0.0-0.1) 10^3/uL Absolute Nucleated RBC 0.00 x10^3/uL Nucleated RBC % 0.0 /100WBC Sodium 136 (135-145) mmol/L Potassium 4.5 (3.5-5.0) mmol/L Chloride 94 L (101-111) mmol/L Carbon Dioxide 36 H (21-32) mmol/L Anion Gap 6.0 (6-13) BUN 15 (6-20) mg/dL Creatinine 0.6 (0.6-1.2) mg/dL Estimated GFR (MDRD) 133 (>89) Glucose 104 H (70-100) mg/dL Calcium 8.3 L (8.5-10.3) mg/dL - Current Medications Current Medications: Current Medications Generic Name Dose Route Start Last Admin Trade Name Freq PRN Reason Stop Dose Admin Acetaminophen 650 mg 06/17/21 15:15 06/23/21 11:56 Acetaminophen 325 Mg Tablet PO 650 mg Q4HR PRN Administration Pain 1 to 4 Apixaban 5 mg 06/18/21 21:00 06/23/21 09:32 Apixaban 5 Mg Tablet PO 5 mg BID KODY Administration Ciprofloxacin 500 mg 06/20/21 21:00 06/23/21 09:31 Ciprofloxacin 250 Mg Tablet PO 500 mg BID KODY Administration Digoxin 125 mcg 06/19/21 09:00 06/23/21 09:32 Digoxin 125 Mcg Tablet PO 125 mcg DAILY KODY Administration Fluconazole 100 mg 06/20/21 18:00 06/23/21 09:32 Fluconazole 100 Mg Tablet PO 06/26/21 09:01 100 mg DAILY KODY Administration Sodium Chloride 500 mls @ 20 mls/hr 06/19/21 02:12 06/19/21 17:59 Normal Saline 0.9% IV Infused Q24H PRN Infusion TKO RATE Metoprolol Succinate 50 mg 06/18/21 09:00 06/23/21 09:32 Metoprolol Succinate 50 Mg Tablet PO 50 mg DAILY KODY Administration Metronidazole 500 mg 06/20/21 17:00 06/23/21 11:56 Metronidazole 250 Mg Tablet PO 500 mg TIDWM KODY Administration Metronidazole 1 applic 06/21/21 11:00 06/23/21 09:32 Metronidazole 0.75% Gel 45 Gm Tube TOP 1 applic BID KODY Administration Mineral Oil 1 applic 06/18/21 01:49 06/18/21 21:30 Min Oil/Dimethicon/Coconut Oil 92 Gm Tube TOP 1 applic PRN PRN Administration Skin Care Multi-Ingredient Ointment 1 applic 06/18/21 01:49 06/18/21 06:35 Zinc Oxide 20% Oint 30 Gm Tube TOP 1 applic PRN PRN Administration Skin Care Multivitamins/Minerals 1 tab 06/18/21 14:00 06/23/21 09:32 Multivitamin W/Minerals Tablet PO 1 tab DAILYWM KODY Administration Pantoprazole Sodium 40 mg 06/17/21 16:00 06/23/21 05:52 Pantoprazole 40 Mg Tablet PO 40 mg QDAC KODY Administration Sodium Chloride 10 ml 06/17/21 17:00 06/23/21 09:33 Sodium Chloride Flush 0.9% 10 Ml Syringe IVP 10 ml 0100,0900,1700 KODY Administration Sodium Chloride 10 ml 06/17/21 15:15 06/18/21 14:49 Sodium Chloride Flush 0.9% 10 Ml Syringe IVP 10 ml PRN PRN Administration NEEDED PER PROVIDER ORDERS - Physical Exam Comments/Other: Left leg edema is much improved. Chronic changes are stable. No evidence of cellulites on the left now. Right leg edema is greatly improved. Cellulitis is resolving and odor is much better. ABX Reporting Has patient been on IV antibiotics over the past 48 hours?: Yes Impression/Plan - Problem List Problem List: 1. Chronic changes of charcot joint on the left. The foot no longer articulates with the heel and it is not passively correctable, ie a fixed defect. We will not be able to brace this leg and he should not bear weight on it. Amputation is possible but high risk and would only be beneficial if he were interested in a prosthesis for walking. Very poor prognosis for both of these options. At present, it is not infected and does not require treatment beyond skin care, elevation and protection. 2. Right leg is improving and edema is much better. It is possible that this leg and foot could be fitted for a supportive brace to allow for transfer and pivot. That could be evaluated after skin improved. Would be and outpatient evaluation with the rate reviewer and a custom made brace. Should be seen by orthopedics in the outpatient setting for recommendations 3. Outpatient referral to podiatry for management of nails and help with prosthesis. 4. Stable to go to group home with continued skin care, oral antibiotic, and elevation
[2021-06-24] MEDS: SODIUM CHLORIDE FLUSH 0.9% 10 ML SYRINGE IVP SCH ×3 (02:21→17:23)
[2021-06-24 05:18] LABS: BASOPHILS # (AUTO) 0.1 10^3/uL (0.0-0.1); BASOPHILS % (AUTO) 0.8 %; EOSINOPHILS # (AUTO) 0.2 10^3/uL (0.0-0.7); EOSINOPHILS % (AUTO) 2.5 %; HCT - HEMATOCRIT 40.5 % (42.0-52.0); HGB - HEMOGLOBIN 12.4 g/dL (14.0-18.0); LYMPHOCYTES # (AUTO) 1.6 10^3/uL (1.5-3.5); LYMPHOCYTES % (AUTO) 24.5 %; MEAN CORPUSCULAR HGB CONC 30.6 g/dL (32.0-36.0); MEAN CORPUSCULAR VOLUME 88.2 fL (80.0-94.0); MEAN PLATELET VOLUME 10.2 fL (7.4-11.4); MONOCYTES # (AUTO) 0.8 10^3/uL (0.0-1.0); MONOCYTES % (AUTO) 12.4 %; NEUTROPHILS # (AUTO) 3.8 10^3/uL (1.5-6.6); PLT - PLATELET COUNT 161 10^3/uL (130-450); RED BLOOD COUNT 4.59 10^6/uL (4.70-6.10); RED CELL DISTRIBUTION WIDTH 15.9 % (12.0-15.0); WHITE BLOOD COUNT 6.4 x10^3/uL (4.8-10.8)
[2021-06-24 05:24] LABS: CREATININE 0.7 mg/dL (0.6-1.2); POTASSIUM 4.3 mmol/L (3.5-5.0)
[2021-06-24] MEDS: PANTOPRAZOLE 40 MG TABLET PO SCH (06:09)
--- NOTE | 2021-06-24 07:55 | PROVIDER PROGRESS NOTE ---
Assessment/Plan - Problem List (1) New onset a-fib Assessment/Plan: Patient is currently on amoxicillin, Flagyl, Cipro and Diflucan. MetroGel also ordered. Wound care continued on lower extremities with Xeroform, ABD, Kerlix and keeping extremities elevated. Dr. David Land stated that patient deformities in the lower extremity/arches of feet are fixed. Patient would not be able to walk on his feet and will need a wheelchair. He may be a candidate for lower extremity amputations in the future He would not be a candidate for a brace (3) Charcot's joint Assessment/Plan: Patient is currently on amoxicillin, Flagyl, Cipro and Diflucan. MetroGel also ordered. Wound care continued on lower extremities with Xeroform, ABD, Kerlix and keeping extremities elevated. Dr. David Land stated that patient deformities in the lower extremity/arches of feet are fixed. Patient would not be able to walk on his feet and will need a wheelchair. He may be a candidate for lower extremity amputations in the future He would not be a candidate for a brace (4) Elephantiasis (nonfilarial) Assessment/Plan: Patient is currently on amoxicillin, Flagyl, Cipro and Diflucan. MetroGel also ordered. Wound care continued on lower extremities with Xeroform, ABD, Kerlix and keeping extremities elevated. Dr. David Land stated that patient deformities in the lower extremity/arches of feet are fixed. Patient would not be able to walk on his feet and will need a wheelchair. He may be a candidate for lower extremity amputations in the future He would not be a candidate for a brace (5) Major depressive disorder Qualifiers: Major depression recurrence: unspecified whether recurrent Active/Remission status: currently active Major depression episode severity: moderate Qualified Code(s): F32.1 - Major depressive disorder, single episode, moderate Assessment/Plan: Patient declined telepsych consult. (6) Increased urine output Assessment/Plan: Patient has a net negative balance of 11 L over the course of his 6-days He has significant chronic lymphedema. Diuresis was achieved simply by raising his lower extremities above the level of his heart by altering the settings on his bed. Edema in lower extremities continues to improve appreciably.We will continue to monitor patient's vitals (2) Cellulitis Qualifiers: Site of cellulitis: extremity Site of cellulitis of extremity: lower extremity Laterality: right Qualified Code(s): L03.115 - Cellulitis of right lower limb (5) Major depressive disorder Qualifiers: Major depression recurrence: unspecified whether recurrent Active/Remission status: currently active Major depression episode severity: moderate Qualified Code(s): F32.1 - Major depressive disorder, single episode, moderate - Current Meds Current Meds: Current Medications Generic Name Dose Route Start Last Admin Trade Name Freq PRN Reason Stop Dose Admin Acetaminophen 650 mg 06/17/21 15:15 06/23/21 11:56 Acetaminophen 325 Mg Tablet PO 650 mg Q4HR PRN Administration Pain 1 to 4 Apixaban 5 mg 06/18/21 21:00 06/23/21 20:22 Apixaban 5 Mg Tablet PO 5 mg BID KODY Administration Ciprofloxacin 500 mg 06/20/21 21:00 06/23/21 20:22 Ciprofloxacin 250 Mg Tablet PO 500 mg BID KODY Administration Digoxin 125 mcg 06/19/21 09:00 06/23/21 09:32 Digoxin 125 Mcg Tablet PO 125 mcg DAILY KODY Administration Fluconazole 100 mg 06/20/21 18:00 06/23/21 09:32 Fluconazole 100 Mg Tablet PO 06/26/21 09:01 100 mg DAILY KODY Administration Sodium Chloride 500 mls @ 20 mls/hr 06/19/21 02:12 06/19/21 17:59 Normal Saline 0.9% IV Infused Q24H PRN Infusion TKO RATE Metoprolol Succinate 50 mg 06/18/21 09:00 06/23/21 09:32 Metoprolol Succinate 50 Mg Tablet PO 50 mg DAILY KODY Administration Metronidazole 500 mg 06/20/21 17:00 06/23/21 17:24 Metronidazole 250 Mg Tablet PO 500 mg TIDWM KODY Administration Metronidazole 1 applic 06/21/21 11:00 06/23/21 20:22 Metronidazole 0.75% Gel 45 Gm Tube TOP 1 applic BID KODY Administration Mineral Oil 1 applic 06/18/21 01:49 06/18/21 21:30 Min Oil/Dimethicon/Coconut Oil 92 Gm Tube TOP 1 applic PRN PRN Administration Skin Care Multi-Ingredient Ointment 1 applic 06/18/21 01:49 06/18/21 06:35 Zinc Oxide 20% Oint 30 Gm Tube TOP 1 applic PRN PRN Administration Skin Care Multivitamins/Minerals 1 tab 06/18/21 14:00 06/23/21 09:32 Multivitamin W/Minerals Tablet PO 1 tab DAILYWM KODY Administration Pantoprazole Sodium 40 mg 06/17/21 16:00 06/24/21 06:09 Pantoprazole 40 Mg Tablet PO 40 mg QDAC KODY Administration Sodium Chloride 10 ml 06/17/21 17:00 06/24/21 02:21 Sodium Chloride Flush 0.9% 10 Ml Syringe IVP Not Given 0100,0900,1700 KODY Sodium Chloride 10 ml 06/17/21 15:15 06/18/21 14:49 Sodium Chloride Flush 0.9% 10 Ml Syringe IVP 10 ml PRN PRN Administration NEEDED PER PROVIDER ORDERS - Lab Result Fish Bone Diagrams: 06/24/21 04:30 06/24/21 04:30 - Additional Planning My Orders: My Active Orders 06/23/21 15:44 Telemetry-Discontinue [RC] .ONCE 06/25/21 05:00 BMP - BASIC METABOLIC PANEL [CHEM] DAILYLAB CBC - COMP BLD CT W/AUTO DIFF [HEME] DAILYLAB 06/26/21 05:00 BMP - BASIC METABOLIC PANEL [CHEM] DAILYLAB CBC - COMP BLD CT W/AUTO DIFF [HEME] DAILYLAB 06/27/21 05:00 BMP - BASIC METABOLIC PANEL [CHEM] DAILYLAB CBC - COMP BLD CT W/AUTO DIFF [HEME] DAILYLAB Subjective - Subjective Patient Reports: Other (Resting comfortably in bed.) Objective Vital Signs: Vital Signs - 24 hr 06/23/21 06/23/21 06/23/21 08:30 13:17 16:32 Temperature 36.3 C L 36.9 C 36.4 C L Heart Rate [ 59 L 145 H 93 Brachial] Heart Rate [ 125 H Monitoring electrodes] Respiratory 16 24 24 Rate Blood Pressure 110/61 116/69 107/60 [Right Brachial artery] O2 Saturation 90 L 95 97 06/23/21 06/24/21 06/24/21 21:00 00:50 06:48 Temperature 36.2 C L 36.3 C L 36.3 C L Heart Rate [ 80 77 69 Brachial] Heart Rate [ Monitoring electrodes] Respiratory 18 24 22 Rate Blood Pressure 93/60 99/58 L 111/65 [Right Brachial artery] O2 Saturation 98 97 94 Oxygen O2 Source Room air I&O (Last 24 Hrs): Intake and Output Totals x24h 06/22/21 06/23/21 06/24/21 23:59 23:59 23:59 Intake Total 3020 2560 500 Output Total 8223 2520 1300 [facility]5255 -790 [phone] Comments/Notes: General: Alert, Oriented x3, No acute distress HEENT: PERRLA, EOMI Neck: Supple, No JVD Neuro: Alert Cardiovascular: Regular rate, No murmurs Respiratory: Chest non-tender, No respiratory distress, Breath sounds nml Abdomen: Normal bowel sounds, Soft, No tenderness, No masses Extremities: Other (bilateral lower extremities: edema improved, odor reduced. chron lymphedema skin changes noted, weeping, peeling, excuriations/wounds) - Results Results: Laboratory Results WBC 6.4 x10^3/uL (4.8-10.8) 06/24/21 04:30 RBC 4.59 10^6/uL (4.70-6.10) L 06/24/21 04:30 Hgb 12.4 g/dL (14.0-18.0) L 06/24/21 04:30 Hct 40.5 % (42.0-52.0) L 06/24/21 04:30 MCV 88.2 fL (80.0-94.0) 06/24/21 04:30 MCH 27.0 pg (27.0-31.0) 06/24/21 04:30 MCHC 30.6 g/dL (32.0-36.0) L 06/24/21 04:30 RDW 15.9 % (12.0-15.0) H 06/24/21 04:30 Plt Count 161 10^3/uL (130-450) 06/24/21 04:30 MPV 10.2 fL (7.4-11.4) 06/24/21 04:30 Neut # (Auto) 3.8 10^3/uL (1.5-6.6) 06/24/21 04:30 Lymph # (Auto) 1.6 10^3/uL (1.5-3.5) 06/24/21 04:30 [place] # (Auto) 0.8 10^3/uL (0.0-1.0) 06/24/21 04:30 Eos # (Auto) 0.2 10^3/uL (0.0-0.7) 06/24/21 04:30 Baso # (Auto) 0.1 10^3/uL (0.0-0.1) 06/24/21 04:30 Absolute Nucleated RBC 0.00 x10^3/uL 06/24/21 04:30 Nucleated RBC % 0.0 /100WBC 06/24/21 04:30 VBG pH 7.456 (7.31-7.41) H 06/20/21 04:55 VBG pCO2 36.2 mmHg (41-51) L 06/17/21 13:50 VBG pO2 29.3 mmHg (25-47) 06/17/21 13:50 VBG HCO3 24.8 mmol/L (23-28) 06/17/21 13:50 VBG Total CO2 25.9 mmol/L (24-29) 06/17/21 13:50 VBG O2 Saturation 59.8 % (60-80) L 06/17/21 13:50 VBG Base Excess 1.1 mmol/L (-2 - +2) 06/17/21 13:50 Ionized Calcium 1.07 mmol/L (1.15-1.33) L 06/20/21 04:55 Sodium 134 mmol/L (135-145) L 06/24/21 04:30 Potassium 4.3 mmol/L (3.5-5.0) 06/24/21 04:30 Chloride 92 mmol/L (101-111) L 06/24/21 04:30 Carbon Dioxide 36 mmol/L (21-32) H 06/24/21 04:30 Anion Gap 6.0 (6-13) 06/24/21 04:30 BUN 17 mg/dL (6-20) 06/24/21 04:30 Creatinine 0.7 mg/dL (0.6-1.2) 06/24/21 04:30 Estimated GFR (MDRD) 111 (>89) 06/24/21 04:30 Glucose 101 mg/dL (70-100) H 06/24/21 04:30 Lactic Acid 2.2 mmol/L (0.5-2.2) 06/18/21 20:14 Calcium 8.0 mg/dL (8.5-10.3) L 06/24/21 04:30 Ionized Calcium YES 06/18/21 12:45 Phosphorus 3.7 mg/dL (2.5-4.6) 06/22/21 05:06 Magnesium 2.2 mg/dL (1.7-2.8) 06/22/21 05:06 Total Bilirubin 1.2 mg/dL (0.2-1.0) H 06/17/21 12:42 AST 75 IU/L (10-42) H 06/17/21 12:42 ALT 56 IU/L (10-60) 06/17/21 12:42 Alkaline Phosphatase 58 IU/L (42-121) 06/17/21 12:42 Troponin I High Sens 23.1 ng/L (2.3-19.7) H* 06/17/21 15:38 B-Natriuretic Peptide 308 pg/mL (5-100) H 06/17/21 12:42 Total Protein 7.3 g/dL (6.7-8.2) 06/17/21 12:42 Albumin 2.2 g/dL (3.2-5.5) L 06/22/21 05:06 Globulin 4.5 g/dL (2.1-4.2) H 06/17/21 12:42 Albumin/Globulin Ratio 0.6 (1.0-2.2) L 06/17/21 12:42 Lipase 31 U/L (22-51) 06/17/21 12:42 TSH 1.27 uIU/mL (0.34-5.60) 06/17/21 15:38 Urine Color DARK YELLOW 06/18/21 13:50 Urine Clarity HAZY (CLEAR) 06/18/21 13:50 Urine pH 6.5 PH (5.0-7.5) 06/18/21 13:50 Ur Specific [place] 1.020 (1.002-1.030) 06/18/21 13:50 Urine Protein NEGATIVE mg/dL (NEGATIVE) 06/18/21 13:50 Urine Glucose (UA) NEGATIVE mg/dL (NEGATIVE) 06/18/21 13:50 Urine Ketones NEGATIVE mg/dL (NEGATIVE) 06/18/21 13:50 Urine Occult Blood NEGATIVE (NEGATIVE) 06/18/21 13:50 Urine Nitrite NEGATIVE (NEGATIVE) 06/18/21 13:50 Urine Bilirubin NEGATIVE (NEGATIVE) 06/18/21 13:50 Urine Urobilinogen 2 E.U./dL (NORMAL) H 06/18/21 13:50 Ur Leukocyte Esterase SMALL (NEGATIVE) H 06/18/21 13:50 Urine RBC 0-5 /HPF (0-5) 06/18/21 13:50 Urine WBC 11-25 /HPF (0-3) H 06/18/21 13:50 Ur Squamous Epith Cells NONE SEEN (<= Few) 06/18/21 13:50 Urine Bacteria Moderate /HPF (None Seen) H 06/18/21 13:50 Ur Microscopic Review INDICATED 06/18/21 13:50 Urine Culture Comments INDICATED 06/18/21 13:50 Nasal Adenovirus (PCR) NOT DETECTED 06/17/21 14:40 Nasal B. parapertussis DNA (PCR) NOT DETECTED 06/17/21 14:40 Nasal Coronavir 229E PCR NOT DETECTED 06/17/21 14:40 Nasal Coronavir HKU1 PCR NOT DETECTED 06/17/21 14:40 Nasal Coronavir NL63 PCR NOT DETECTED 06/17/21 14:40 Nasal Coronavir OC43 PCR NOT DETECTED 06/17/21 14:40 Nasal Enterovir/Rhinovir PCR NOT DETECTED 06/17/21 14:40 Nasal Influenza B PCR NOT DETECTED 06/17/21 14:40 Nasal Influenza A PCR NOT DETECTED 06/17/21 14:40 Nasal Parainfluen 1 PCR NOT DETECTED 06/17/21 14:40 Nasal Parainfluen 2 PCR NOT DETECTED 06/17/21 14:40 Nasal Parainfluen 3 PCR NOT DETECTED 06/17/21 14:40 Nasal Parainfluen 4 PCR NOT DETECTED 06/17/21 14:40 Nasal RSV (PCR) NOT DETECTED 06/17/21 14:40 Nasal Screen MRSA (PCR) NEGATIVE (NEGATIVE) 06/17/21 17:15 Nasal B.pertussis DNA PCR NOT DETECTED 06/17/21 14:40 Nasal C.pneumoniae (PCR) NOT DETECTED 06/17/21 14:40 Tony Human Metapneumo PCR NOT DETECTED 06/17/21 14:40 Nasal M.pneumoniae (PCR) NOT DETECTED 06/17/21 14:40 Nasal SARS-CoV-2 (PCR) NOT DETECTED 06/17/21 14:40 Last Dose Date 06/20/21 06/20/21 11:34 Last Dose Time 03506/20/21 11:34 Vancomycin Trough 17.9 ug/mL (10.0-20.0) 06/20/21 11:34 Digoxin 0.6 ng/mL 06/20/21 04:55 Salicylates < 6.0 mg/dL 06/17/21 13:50 Urine Opiates Screen NEGATIVE (NEGATIVE) 06/18/21 17:25 Ur Oxycodone Screen NEGATIVE (NEGATIVE) 06/18/21 17:25 Urine Methadone Screen NEGATIVE (NEGATIVE) 06/18/21 17:25 Ur Propoxyphene Screen NEGATIVE (NEGATIVE) 06/18/21 17:25 Acetaminophen < 10 ug/mL (10-30) L 06/17/21 13:50 Ur Barbiturates Screen NEGATIVE (NEGATIVE) 06/18/21 17:25 Ur Tricyclics Screen NEGATIVE (NEGATIVE) 06/18/21 17:25 Ur Phencyclidine Scrn NEGATIVE (NEGATIVE) 06/18/21 17:25 Ur Amphetamine Screen NEGATIVE (NEGATIVE) 06/18/21 17:25 U Methamphetamines Scrn NEGATIVE (NEGATIVE) 06/18/21 17:25 U Benzodiazepines Scrn NEGATIVE (NEGATIVE) 06/18/21 17:25 Urine Cocaine Screen NEGATIVE (NEGATIVE) 06/18/21 17:25 U Cannabinoids Screen NEGATIVE (NEGATIVE) 06/18/21 17:25 ABX Reporting Has patient been on IV antibiotics over the past 48 hours?: No
[2021-06-24] MEDS: metroNIDAZOLE 250 MG TABLET PO SCH ×3 (08:47→17:23)
[2021-06-24] MEDS: CIPROFLOXACIN 250 MG TABLET PO SCH ×2 (08:47→21:36)
[2021-06-24] MEDS: METOPROLOL SUCCINATE 50 MG TABLET PO SCH (08:48)
[2021-06-24] MEDS: MULTIVITAMIN W/MINERALS TABLET PO SCH (08:48)
[2021-06-24] MEDS: DIGOXIN 125 MCG TABLET PO SCH (08:48)
[2021-06-24] MEDS: FLUCONAZOLE 100 MG TABLET PO SCH (08:48)
[2021-06-24] MEDS: APIXABAN 5 MG TABLET PO SCH ×2 (08:48→21:36)
[2021-06-25 05:39] LABS: BASOPHILS # (AUTO) 0.1 10^3/uL (0.0-0.1); BASOPHILS % (AUTO) 0.7 %; EOSINOPHILS # (AUTO) 0.2 10^3/uL (0.0-0.7); HCT - HEMATOCRIT 37.7 % (42.0-52.0); HGB - HEMOGLOBIN 11.4 g/dL (14.0-18.0); LYMPHOCYTES # (AUTO) 1.6 10^3/uL (1.5-3.5); LYMPHOCYTES % (AUTO) 21.9 %; MEAN CORPUSCULAR HEMOGLOBIN 26.3 pg (27.0-31.0); MEAN CORPUSCULAR HGB CONC 30.2 g/dL (32.0-36.0); MEAN CORPUSCULAR VOLUME 87.1 fL (80.0-94.0); MEAN PLATELET VOLUME 10.2 fL (7.4-11.4); MONOCYTES # (AUTO) 0.8 10^3/uL (0.0-1.0); MONOCYTES % (AUTO) 10.4 %; NEUTROPHILS # (AUTO) 4.8 10^3/uL (1.5-6.6); NEUTROPHILS % (AUTO) 64.6 %; PLT - PLATELET COUNT 169 10^3/uL (130-450); RED BLOOD COUNT 4.33 10^6/uL (4.70-6.10); WHITE BLOOD COUNT 7.4 x10^3/uL (4.8-10.8)
[2021-06-25 05:45] LABS: CALCIUM 8.2 mg/dL (8.5-10.3); CREATININE 0.7 mg/dL (0.6-1.2); POTASSIUM 4.1 mmol/L (3.5-5.0)
--- NOTE | 2021-06-25 05:46 | PROVIDER PROGRESS NOTE ---
Assessment/Plan - Problem List (1) Bilateral cellulitis of lower leg Assessment/Plan: Patient is currently on amoxicillin, Flagyl, Cipro and Diflucan, all are oral. MetroGel also ordered. Wound care continued on lower extremities with Xeroform, ABD, Kerlix and keeping extremities elevated. He cannot perform PT, is bedbound (2) New onset a-fib Assessment/Plan: He has been in and out of Afib this admission. A limited bedside Echo showed normal chamber sizes and normal LV and RV function, done several days ago. Continue w/ Dig and Metoprolol for rate control and Eliquis 5 bid for stroke prophylaxis, he has a normal creat. Will recheck a Dig level in a.m, the last one was on 06/20/21 (3) Charcot's joint Assessment/Plan: Dr. David Land (Ortho) stated that patient deformities in the lower extremity/arches of feet are fixed. Patient would not be able to walk on his feet and will need a wheelchair. He may be a candidate for lower extremity amputations in the future He would not be a candidate for a brace (4) Elephantiasis (nonfilarial) Assessment/Plan: Patient has chronic lymphedema and cellulitis currently, he is on amoxicillin, Flagyl, Cipro and Diflucan. MetroGel also ordered. Wound care continued on lower extremities with Xeroform, ABD, Kerlix and keeping extremities elevated. Dr. David Land stated that patient deformities in the lower extremity/arches of feet are fixed. Patient would not be able to walk on his feet and will need a wheelchair. He may be a candidate for lower extremity amputations in the future He would not be a candidate for a brace Edema in lower extremities continues to improve appreciably with leg elevation alone. (5) Major depressive disorder Assessment/Plan: The admitting provider felt he was depressed. Patient declined telepsych consult. (6) Increased urine output Assessment/Plan: Patient has a net negative balance of 12 L since being admitted. He has significant chronic lymphedema. Diuresis was achieved simply by raising his lower extremities above the level of his heart (as ordered by Gen Surg production support consultant) by altering the settings on his bed. Edema in lower extremities continues to improve appreciably. We will continue to monitor patient's vitals - Current Meds Current Meds: Current Medications Generic Name Dose Route Start Last Admin Trade Name Bianca PRN Reason Stop Dose Admin Acetaminophen 650 mg 06/17/21 15:15 06/23/21 11:56 Acetaminophen 325 Mg Tablet PO 650 mg Q4HR PRN Administration Pain 1 to 4 Apixaban 5 mg 06/18/21 21:00 06/24/21 21:36 Apixaban 5 Mg Tablet PO 5 mg BID KODY Administration Ciprofloxacin 500 mg 06/20/21 21:00 06/24/21 21:36 Ciprofloxacin 250 Mg Tablet PO 500 mg BID KODY Administration Digoxin 125 mcg 06/19/21 09:00 06/24/21 08:48 Digoxin 125 Mcg Tablet PO 125 mcg DAILY KODY Administration Fluconazole 100 mg 06/20/21 18:00 06/24/21 08:48 Fluconazole 100 Mg Tablet PO 06/26/21 09:01 100 mg DAILY KODY Administration Sodium Chloride 500 mls @ 20 mls/hr 06/19/21 02:12 06/19/21 17:59 Normal Saline 0.9% IV Infused Q24H PRN Infusion TKO RATE Metoprolol Succinate 50 mg 06/18/21 09:00 06/24/21 08:48 Metoprolol Succinate 50 Mg Tablet PO 50 mg DAILY KODY Administration Metronidazole 500 mg 06/20/21 17:00 06/24/21 17:23 Metronidazole 250 Mg Tablet PO 500 mg TIDWM KODY Administration Metronidazole 1 applic 06/21/21 11:00 06/24/21 21:02 Metronidazole 0.75% Gel 45 Gm Tube TOP Not Given BID [facility] Mineral Oil 1 applic 06/18/21 01:49 06/18/21 21:30 Min Oil/Dimethicon/Coconut Oil 92 Gm Tube TOP 1 applic PRN PRN Administration Skin Care Multi-Ingredient Ointment 1 applic 06/18/21 01:49 06/18/21 06:35 Zinc Oxide 20% Oint 30 Gm Tube TOP 1 applic PRN PRN Administration Skin Care Multivitamins/Minerals 1 tab 06/18/21 14:00 06/24/21 08:48 Multivitamin W/Minerals Tablet PO 1 tab DAILYWM KODY Administration Pantoprazole Sodium 40 mg 06/17/21 16:00 06/24/21 06:09 Pantoprazole 40 Mg Tablet PO 40 mg QDAC KODY Administration Sodium Chloride 10 ml 06/17/21 17:00 06/24/21 17:23 Sodium Chloride Flush 0.9% 10 Ml Syringe IVP 10 ml 0100,0900,1700 KODY Administration Sodium Chloride 10 ml 06/17/21 15:15 06/18/21 14:49 Sodium Chloride Flush 0.9% 10 Ml Syringe IVP 10 ml PRN PRN Administration NEEDED PER PROVIDER ORDERS - Lab Result Fish Bone Diagrams: 06/25/21 04:45 06/25/21 04:45 Subjective - Subjective Patient Reports: Resting Comfortably, Other (curremtly on the bedpan) Objective Vital Signs: Vital Signs - 24 hr 06/24/21 06/24/21 06/24/21 06:48 08:50 11:45 Temperature 36.3 C L 36.3 C L 36.3 C L Heart Rate [ 69 116 H 75 Brachial] Heart Rate [ Monitoring electrodes] Respiratory 22 16 22 Rate Blood Pressure 111/65 108/59 L 102/64 [Right Brachial artery] O2 Saturation 94 97 87 L 06/24/21 06/24/21 16:00 23:59 Temperature 36.3 C L 36.4 C L Heart Rate [ 81 101 H Brachial] Heart Rate [ 20 L Monitoring electrodes] Respiratory 24 94 H Rate Blood Pressure 105/61 127/61 [Right Brachial artery] O2 Saturation 96 Oxygen O2 Source Room air I&O (Last 24 Hrs): Intake and Output Totals x24h 06/23/21 06/24/21 06/25/21 23:59 23:59 23:59 Intake Total 2560 3840 550 Output Total 3350 5050 850 Balance -790 -1210 -300 General: Alert, Oriented x3 HEENT: Mucous membr. moist/pink, Other (poor dentition, missing and black teeth) Neck: Supple, Other (Large cervantes, cannot eval JVP) Neuro: Alert, Other (Marked bilateral leg weakness) Cardiovascular: Regular rate Respiratory: No respiratory distress Abdomen: Soft Extremities: Other (R garcia bandaged and 1+ edema, L garcia open and has bullous lesions and venous stasis and 3+ edema) - Results Results: Laboratory Results WBC 6.4 x10^3/uL (4.8-10.8) 06/24/21 04:30 RBC 4.59 10^6/uL (4.70-6.10) L 06/24/21 04:30 Hgb 12.4 g/dL (14.0-18.0) L 06/24/21 04:30 Hct 40.5 % (42.0-52.0) L 06/24/21 04:30 MCV 88.2 fL (80.0-94.0) 06/24/21 04:30 MCH 27.0 pg (27.0-31.0) 06/24/21 04:30 MCHC 30.6 g/dL (32.0-36.0) L 06/24/21 04:30 RDW 15.9 % (12.0-15.0) H 06/24/21 04:30 Plt Count 161 10^3/uL (130-450) 06/24/21 04:30 MPV 10.2 fL (7.4-11.4) 06/24/21 04:30 Neut # (Auto) 3.8 10^3/uL (1.5-6.6) 06/24/21 04:30 Lymph # (Auto) 1.6 10^3/uL (1.5-3.5) 06/24/21 04:30 [place] # (Auto) 0.8 10^3/uL (0.0-1.0) 06/24/21 04:30 Eos # (Auto) 0.2 10^3/uL (0.0-0.7) 06/24/21 04:30 Baso # (Auto) 0.1 10^3/uL (0.0-0.1) 06/24/21 04:30 Absolute Nucleated RBC 0.00 x10^3/uL 06/24/21 04:30 Nucleated RBC % 0.0 /100WBC 06/24/21 04:30 VBG pH 7.456 (7.31-7.41) H 06/20/21 04:55 VBG pCO2 36.2 mmHg (41-51) L 06/17/21 13:50 VBG pO2 29.3 mmHg (25-47) 06/17/21 13:50 VBG HCO3 24.8 mmol/L (23-28) 06/17/21 13:50 VBG Total CO2 25.9 mmol/L (24-29) 06/17/21 13:50 VBG O2 Saturation 59.8 % (60-80) L 06/17/21 13:50 VBG Base Excess 1.1 mmol/L (-2 - +2) 06/17/21 13:50 Ionized Calcium 1.07 mmol/L (1.15-1.33) L 06/20/21 04:55 Sodium 134 mmol/L (135-145) L 06/24/21 04:30 Potassium 4.3 mmol/L (3.5-5.0) 06/24/21 04:30 Chloride 92 mmol/L (101-111) L 06/24/21 04:30 Carbon Dioxide 36 mmol/L (21-32) H 06/24/21 04:30 Anion Gap 6.0 (6-13) 06/24/21 04:30 BUN 17 mg/dL (6-20) 06/24/21 04:30 Creatinine 0.7 mg/dL (0.6-1.2) 06/24/21 04:30 Estimated GFR (MDRD) 111 (>89) 06/24/21 04:30 Glucose 101 mg/dL (70-100) H 06/24/21 04:30 Lactic Acid 2.2 mmol/L (0.5-2.2) 06/18/21 20:14 Calcium 8.0 mg/dL (8.5-10.3) L 06/24/21 04:30 Ionized Calcium YES 06/18/21 12:45 Phosphorus 3.7 mg/dL (2.5-4.6) 06/22/21 05:06 Magnesium 2.2 mg/dL (1.7-2.8) 06/22/21 05:06 Total Bilirubin 1.2 mg/dL (0.2-1.0) H 06/17/21 12:42 AST 75 IU/L (10-42) H 06/17/21 12:42 ALT 56 IU/L (10-60) 06/17/21 12:42 Alkaline Phosphatase 58 IU/L (42-121) 06/17/21 12:42 Troponin I High Sens 23.1 ng/L (2.3-19.7) H* 06/17/21 15:38 B-Natriuretic Peptide 308 pg/mL (5-100) H 06/17/21 12:42 Total Protein 7.3 g/dL (6.7-8.2) 06/17/21 12:42 Albumin 2.2 g/dL (3.2-5.5) L 06/22/21 05:06 Globulin 4.5 g/dL (2.1-4.2) H 06/17/21 12:42 Albumin/Globulin Ratio 0.6 (1.0-2.2) L 06/17/21 12:42 Lipase 31 U/L (22-51) 06/17/21 12:42 TSH 1.27 uIU/mL (0.34-5.60) 06/17/21 15:38 Urine Color DARK YELLOW 06/18/21 13:50 Urine Clarity HAZY (CLEAR) 06/18/21 13:50 Urine pH 6.5 PH (5.0-7.5) 06/18/21 13:50 Ur Specific [place] 1.020 (1.002-1.030) 06/18/21 13:50 Urine Protein NEGATIVE mg/dL (NEGATIVE) 06/18/21 13:50 Urine Glucose (UA) NEGATIVE mg/dL (NEGATIVE) 06/18/21 13:50 Urine Ketones NEGATIVE mg/dL (NEGATIVE) 06/18/21 13:50 Urine Occult Blood NEGATIVE (NEGATIVE) 06/18/21 13:50 Urine Nitrite NEGATIVE (NEGATIVE) 06/18/21 13:50 Urine Bilirubin NEGATIVE (NEGATIVE) 06/18/21 13:50 Urine Urobilinogen 2 E.U./dL (NORMAL) H 06/18/21 13:50 Ur Leukocyte Esterase SMALL (NEGATIVE) H 06/18/21 13:50 Urine RBC 0-5 /HPF (0-5) 06/18/21 13:50 Urine WBC 11-25 /HPF (0-3) H 06/18/21 13:50 Ur Squamous Epith Cells NONE SEEN (<= Few) 06/18/21 13:50 Urine Bacteria Moderate /HPF (None Seen) H 06/18/21 13:50 Ur Microscopic Review INDICATED 06/18/21 13:50 Urine Culture Comments INDICATED 06/18/21 13:50 Nasal Adenovirus (PCR) NOT DETECTED 06/17/21 14:40 Nasal B. parapertussis DNA (PCR) NOT DETECTED 06/17/21 14:40 Nasal Coronavir 229E PCR NOT DETECTED 06/17/21 14:40 Nasal Coronavir HKU1 PCR NOT DETECTED 06/17/21 14:40 Nasal Coronavir NL63 PCR NOT DETECTED 06/17/21 14:40 Nasal Coronavir OC43 PCR NOT DETECTED 06/17/21 14:40 Nasal Enterovir/Rhinovir PCR NOT DETECTED 06/17/21 14:40 Nasal Influenza B PCR NOT DETECTED 06/17/21 14:40 Nasal Influenza A PCR NOT DETECTED 06/17/21 14:40 Nasal Parainfluen 1 PCR NOT DETECTED 06/17/21 14:40 Nasal Parainfluen 2 PCR NOT DETECTED 06/17/21 14:40 Nasal Parainfluen 3 PCR NOT DETECTED 06/17/21 14:40 Nasal Parainfluen 4 PCR NOT DETECTED 06/17/21 14:40 Nasal RSV (PCR) NOT DETECTED 06/17/21 14:40 Nasal Screen MRSA (PCR) NEGATIVE (NEGATIVE) 06/17/21 17:15 Nasal B.pertussis DNA PCR NOT DETECTED 06/17/21 14:40 Nasal C.pneumoniae (PCR) NOT DETECTED 06/17/21 14:40 Tony Human Metapneumo PCR NOT DETECTED 06/17/21 14:40 Nasal M.pneumoniae (PCR) NOT DETECTED 06/17/21 14:40 Nasal SARS-CoV-2 (PCR) NOT DETECTED 06/17/21 14:40 Last Dose Date 06/20/21 06/20/21 11:34 Last Dose Time 03506/20/21 11:34 Vancomycin Trough 17.9 ug/mL (10.0-20.0) 06/20/21 11:34 Digoxin 0.6 ng/mL 06/20/21 04:55 Salicylates < 6.0 mg/dL 06/17/21 13:50 Urine Opiates Screen NEGATIVE (NEGATIVE) 06/18/21 17:25 Ur Oxycodone Screen NEGATIVE (NEGATIVE) 06/18/21 17:25 Urine Methadone Screen NEGATIVE (NEGATIVE) 06/18/21 17:25 Ur Propoxyphene Screen NEGATIVE (NEGATIVE) 06/18/21 17:25 Acetaminophen < 10 ug/mL (10-30) L 06/17/21 13:50 Ur Barbiturates Screen NEGATIVE (NEGATIVE) 06/18/21 17:25 Ur Tricyclics Screen NEGATIVE (NEGATIVE) 06/18/21 17:25 Ur Phencyclidine Scrn NEGATIVE (NEGATIVE) 06/18/21 17:25 Ur Amphetamine Screen NEGATIVE (NEGATIVE) 06/18/21 17:25 U Methamphetamines Scrn NEGATIVE (NEGATIVE) 06/18/21 17:25 U Benzodiazepines Scrn NEGATIVE (NEGATIVE) 06/18/21 17:25 Urine Cocaine Screen NEGATIVE (NEGATIVE) 06/18/21 17:25 U Cannabinoids Screen NEGATIVE (NEGATIVE) 06/18/21 17:25
[2021-06-25] MEDS: SODIUM CHLORIDE FLUSH 0.9% 10 ML SYRINGE IVP SCH ×2 (06:18→11:10)
[2021-06-25] MEDS: PANTOPRAZOLE 40 MG TABLET PO SCH (06:18)
[2021-06-25] MEDS: APIXABAN 5 MG TABLET PO SCH ×2 (09:54→21:58)
[2021-06-25] MEDS: METOPROLOL SUCCINATE 50 MG TABLET PO SCH (09:54)
[2021-06-25] MEDS: CIPROFLOXACIN 250 MG TABLET PO SCH (09:54)
[2021-06-25] MEDS: FLUCONAZOLE 100 MG TABLET PO SCH (09:54)
[2021-06-25] MEDS: DIGOXIN 125 MCG TABLET PO SCH (09:54)
[2021-06-25] MEDS: metroNIDAZOLE 250 MG TABLET PO SCH (09:55)
[2021-06-25] MEDS: MULTIVITAMIN W/MINERALS TABLET PO SCH (09:55)
[2021-06-25] MEDS: ZINC SULFATE 220 MG CAPSULE PO SCH (12:58)
[2021-06-25] MEDS: SACCHAROMYCES BOULARDII 250 MG CAPSULE PO SCH (18:18)
[2021-06-25] MEDS: ACETAMINOPHEN 325 MG TABLET PO PRN (21:58)
[2021-06-26 05:29] LABS: BASOPHILS % (AUTO) 0.6 %; EOSINOPHILS # (AUTO) 0.2 10^3/uL (0.0-0.7); EOSINOPHILS % (AUTO) 2.6 %; HCT - HEMATOCRIT 37.8 % (42.0-52.0); HGB - HEMOGLOBIN 11.8 g/dL (14.0-18.0); LYMPHOCYTES # (AUTO) 1.7 10^3/uL (1.5-3.5); LYMPHOCYTES % (AUTO) 24.6 %; MEAN CORPUSCULAR HGB CONC 31.2 g/dL (32.0-36.0); MEAN CORPUSCULAR VOLUME 86.5 fL (80.0-94.0); MEAN PLATELET VOLUME 9.7 fL (7.4-11.4); MONOCYTES # (AUTO) 0.7 10^3/uL (0.0-1.0); NEUTROPHILS # (AUTO) 4.2 10^3/uL (1.5-6.6); NEUTROPHILS % (AUTO) 61.9 %; PLT - PLATELET COUNT 190 10^3/uL (130-450); RED BLOOD COUNT 4.37 10^6/uL (4.70-6.10); RED CELL DISTRIBUTION WIDTH 16.1 % (12.0-15.0); WHITE BLOOD COUNT 6.8 x10^3/uL (4.8-10.8)
[2021-06-26 05:36] LABS: CALCIUM 8.2 mg/dL (8.5-10.3); CREATININE 0.7 mg/dL (0.6-1.2); POTASSIUM 4.2 mmol/L (3.5-5.0)
[2021-06-26 05:44] LABS: DIGOXIN 0.5 ng/mL
[2021-06-26] MEDS: PANTOPRAZOLE 40 MG TABLET PO SCH (06:49)
[2021-06-26] MEDS: ZINC SULFATE 220 MG CAPSULE PO SCH (08:56)
[2021-06-26] MEDS: FLUCONAZOLE 100 MG TABLET PO SCH (08:56)
[2021-06-26] MEDS: MULTIVITAMIN W/MINERALS TABLET PO SCH (08:56)
[2021-06-26] MEDS: APIXABAN 5 MG TABLET PO SCH ×2 (08:56→21:45)
[2021-06-26] MEDS: SACCHAROMYCES BOULARDII 250 MG CAPSULE PO SCH ×2 (08:56→17:28)
[2021-06-26] MEDS: DIGOXIN 125 MCG TABLET PO SCH (08:57)
[2021-06-26] MEDS: METOPROLOL SUCCINATE 50 MG TABLET PO SCH (08:57)
--- NOTE | 2021-06-26 09:18 | PROVIDER PROGRESS NOTE ---
Progress Note June 26, 2021 9:02 AM Mr. Lopez is comfortable in bed. Says they have gotten him to get a bed bath but he has not gotten up to the shower yet. Feels much better than when he came in. States that he was just quite deteriorated and "going downhill" when he got here for only 2 months. When I queried what is been going on in the years be fore when he was described as never leaving his room or his house, he said that he does not remember that. He is not happy about having to go to snf facility for rehab. He has plans to leave the rehab facility and moved to another state with "some money I have in the bank". I was curious about these plans. Asked him what the physical/factual details were of that. How was he going to pack up his things? once he packed them up how was he planning on moving them? Was he planning on driving to his new apartment or was he planning on a taxi/Uber/family? With his disabilities of inability to walk on his feet that he have a practical plan for grocery shopping? Housekeeping? Self-care?. He states that these are all just details and he will get to them when it is time. Medications: Tylenol p.o. as needed, Eliquis 5 twice daily, Lanoxin 0.125 daily, metoprolol XL 50 daily, Flagyl gel to legs, Mineral Oil Topically, Zinc Oxide Topically, Multivite Daily, Zofran As Needed, Roxicodone 5 Mg As Needed Not Used since June 17, Protonix Daily, Florastor Daily, Zinc Sulfate Topically. He Has Completed Cipro, Diflucan, Flagyl IV/P.O. Temperature Is 36.5. Heart Rate 71. Blood Pressure Is below. He Varies between 98 Systolic 212 Systolic. This Morning He Is 106/54. Respirations Are 18. He Is 94% on 1 L. On Physical Examination He Is a Older Looking Than Stated Age, Disheveled, White Male. His Body Odor since I First Admitted and His Much Improved. He Is Sitting up in Bed, Watching TV. Has Glasses on. Mildly Deaf. Speech Is Lucid, Sequential, Intact. Thought Process As in History of Present Illness. Teeth Have Been Brushed, and the Severe Dental Caries Are Still Present. Neck Has Shotty Adenopathy and Is Flexible. Lungs Are Clear and He Is without Increased Respiratory Effort. PMI Is Normally Placed, Irregular Rate and Rhythm. Abdomen Is Soft, Nontender, No Masses. Legs Have Elephantiasis, Lay Flat on the Bed with External Rotation from the Knees on down. Ankles Leg Flat on the Bed with Charcot Deformity. The Smell, Redness, and Swelling Have Much Improved. BMP with Chloride 94. Consistently Low. Carbon Dioxide Consistently High. He Is 36. BUN 21, Creatinine 0.7. Random Glucose 106. White Cell Count 6.8. Hemoglobin 811.8. Hematocrit 37.8. June 17 Blood Cultures Had Staph Stimulants. Urine Culture Was Negative. Assessment/Plan Major Depressive Disorder with thought process slightly delusional. Also probable social phobia disorder or agoraphobia. Patient refused telepsych evaluation. This problem, unfortunately, is most likely the reason most of his other medical problems have worsened over the years due to lack of judgment, and inability for self-care. However he is alert, oriented, cooperative. New onset atrial fibrillation. Present on admission. He is now well controlled with metoprolol, digoxin. Dig level on the May 30 is 0.6. Anticoagulated with Eliquis. We have not been able to get an echocardiogram due to lack of staffing. He will need that in the outpatient setting. 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 There is a suggestion that the venous stasis and elephantiasis may be familial. his brother and mother Both had problems with leg infections due to chronic leg swelling. Mom of multisystem organ failure due to sepsis from cellulitis. Brother was admitted last fall with sepsis from leg infection. His, by far, is the most deformed extremities in the family. The elephantiasis is also present only in him. He has received wound care, completed antibiotics, and been seen by orthopedics and general surgery. He is not a candidate for debridement. The legs have been shrinking, and the cracks in his skin of been healing, and he would be a candidate for lower extremity amputations in the future. Inability to ambulate. He really should be in a wheelchair. I will asked nursing to please place him in the shower. We are waiting placement they have diligently documented all of the snf facilities they have contacted. They will keep on plugging in to see where he can go. He is not happy about placement. Increased urine output. Most likely attributed to recruitment intravascularly of third spacing. His legs were usually edematous on admission and they have shrunken down considerably. He has up to 2900 cc or 3800 cc of intake. But output is brisk. Yesterday he put out [id number].
[2021-06-26] MEDS: ACETAMINOPHEN 325 MG TABLET PO PRN (21:45)
[2021-06-27 05:31] LABS: BASOPHILS # (AUTO) 0.1 10^3/uL (0.0-0.1); EOSINOPHILS # (AUTO) 0.2 10^3/uL (0.0-0.7); EOSINOPHILS % (AUTO) 2.9 %; HCT - HEMATOCRIT 39.6 % (42.0-52.0); HGB - HEMOGLOBIN 12.2 g/dL (14.0-18.0); LYMPHOCYTES # (AUTO) 1.7 10^3/uL (1.5-3.5); LYMPHOCYTES % (AUTO) 26.8 %; MEAN CORPUSCULAR HGB CONC 30.8 g/dL (32.0-36.0); MEAN CORPUSCULAR VOLUME 87.6 fL (80.0-94.0); MEAN PLATELET VOLUME 9.8 fL (7.4-11.4); MONOCYTES # (AUTO) 0.5 10^3/uL (0.0-1.0); MONOCYTES % (AUTO) 8.4 %; NEUTROPHILS # (AUTO) 3.8 10^3/uL (1.5-6.6); NEUTROPHILS % (AUTO) 60.6 %; PLT - PLATELET COUNT 203 10^3/uL (130-450); RED BLOOD COUNT 4.52 10^6/uL (4.70-6.10); RED CELL DISTRIBUTION WIDTH 16.4 % (12.0-15.0); WHITE BLOOD COUNT 6.3 x10^3/uL (4.8-10.8)
[2021-06-27 05:38] LABS: CALCIUM 8.5 mg/dL (8.5-10.3); CREATININE 0.6 mg/dL (0.6-1.2); POTASSIUM 4.4 mmol/L (3.5-5.0)
[2021-06-27] MEDS: PANTOPRAZOLE 40 MG TABLET PO SCH (06:21)
[2021-06-27] MEDS: ACETAMINOPHEN 325 MG TABLET PO PRN (06:24)
[2021-06-27] MEDS: DIGOXIN 125 MCG TABLET PO SCH (09:06)
[2021-06-27] MEDS: MULTIVITAMIN W/MINERALS TABLET PO SCH (09:06)
[2021-06-27] MEDS: SACCHAROMYCES BOULARDII 250 MG CAPSULE PO SCH ×2 (09:06→17:51)
[2021-06-27] MEDS: APIXABAN 5 MG TABLET PO SCH ×2 (09:06→20:34)
[2021-06-27] MEDS: ZINC SULFATE 220 MG CAPSULE PO SCH (09:06)
[2021-06-27] MEDS: METOPROLOL SUCCINATE 50 MG TABLET PO SCH (09:09)
--- NOTE | 2021-06-27 10:52 | XRAY Report ---
PROCEDURE: Chest 1 View X-Ray INDICATIONS: Increased shortness of breath. TECHNIQUE: One view of the chest was acquired. COMPARISON: June 17, 2021 FINDINGS: SUPPORT DEVICES: None. LUNGS/PLEURA: Reduced lung volumes with prominence of the bronchovascular markings. Persistent elevat ion of the left diaphragm. Bibasilar streaky densities. No large pleural effusion or space-occupying pneumothorax. MEDIASTINUM: The cardiac silhouette is obscured. BONES/SOFT TISSUES: No acute abnormality. Advanced arthrosis of the left shoulder. IMPRESSION: 1.Bibasilar atelectasis. Pulmonary edema cannot be excluded. Reviewed by: Mariusz Lakhani MD on 06/27/2021 10:51 AM [facility] Approved by: Mariusz Lakhani MD on 06/27/2021 10:51 AM [facility] Station ID: [id number]
--- NOTE | 2021-06-27 14:49 | PROVIDER PROGRESS NOTE ---
Assessment/Plan - Problem List (1) Bilateral cellulitis of lower leg Assessment/Plan: improved significantly, swelling and erythema were significantly improved. pt present Cellulitis in both legs in the admission with hx of Charcot deformity, elephantiasis. Both pt's mother and his brother had hx of venous stasis and elephantiasis, suggested to be familial. pt finished antibiotics treatment course in the hospital. He has received wound care, and been seen by orthopedics and general surgery. He is not a candidate for debridement per surgeon. The legs have been shrinking, and the cracks in his skin of been healing, and he would be a candidate for lower extremity amputations in the future. 2. Major Depressive Disorder improved. pt had thought process slightly delusional with probable social phobia disorder or agoraphobia. Patient refused telepsych evaluation. This problem, unfortunately, is most likely the reason most of his other medical problems have worsened over the years due to lack of judgment, and inability for self-care. However he is alert, oriented, cooperative. 3. New onset atrial fibrillation. stable, his HR is well controlled with digoxin and metoprolol. Dig level on the May 30 is 0.6. Anticoagulated with Eliquis. echocardiogram show normal ER without regional wall abnormality. 4. Inability to ambulate. pt has hx of Charcot deformity, and he can not walk, really should be in a wheelchair. We are waiting placement for pt, social sciences professor was consulted for. 5. Increased urine output. pt's bilateral lower extremeity edema were significantly improved. Most likely attributed to recruitment intravascularly of third spacing. pt's creatinine is at normal arrange, pt is Hemodynamic stable now. - Current Meds Current Meds: Current Medications Generic Name Dose Route Start Last Admin Trade Name Freq PRN Reason Stop Dose Admin Acetaminophen 650 mg 06/17/21 15:15 06/27/21 06:24 Acetaminophen 325 Mg Tablet PO 650 mg Q4HR PRN Administration Pain 1 to 4 Apixaban 5 mg 06/18/21 21:00 06/27/21 09:06 Apixaban 5 Mg Tablet PO 5 mg BID KODY Administration Digoxin 125 mcg 06/19/21 09:00 06/27/21 09:06 Digoxin 125 Mcg Tablet PO 125 mcg DAILY KODY Administration Metoprolol Succinate 50 mg 06/18/21 09:00 06/27/21 09:09 Metoprolol Succinate 50 Mg Tablet PO 50 mg DAILY KODY Administration Metronidazole 1 applic 06/21/21 11:00 06/27/21 09:09 Metronidazole 0.75% Gel 45 Gm Tube TOP 1 applic BID KODY Administration Mineral Oil 1 applic 06/18/21 01:49 06/18/21 21:30 Min Oil/Dimethicon/Coconut Oil 92 Gm Tube TOP 1 applic PRN PRN Administration Skin Care Multi-Ingredient Ointment 1 applic 06/18/21 01:49 06/18/21 06:35 Zinc Oxide 20% Oint 30 Gm Tube TOP 1 applic PRN PRN Administration Skin Care Multivitamins/Minerals 1 tab 06/18/21 14:00 06/27/21 09:06 Multivitamin W/Minerals Tablet PO 1 tab DAILYWM KODY Administration Pantoprazole Sodium 40 mg 06/17/21 16:00 06/27/21 06:21 Pantoprazole 40 Mg Tablet PO 40 mg QDAC KODY Administration Saccharomyces Boulardii 250 mg 06/25/21 17:00 06/27/21 09:06 Saccharomyces Boulardii 250 Mg Capsule PO 250 mg BIDWM KODY Administration Zinc Sulfate 220 mg 06/25/21 11:00 06/27/21 09:06 Zinc Sulfate 220 Mg Capsule PO 06/29/21 12:00 220 mg DAILY KODY Administration - Lab Result Fish Bone Diagrams: 06/27/21 04:41 06/27/21 04:41 - Additional Planning My Orders: My Active Orders 06/27/21 04:41 BNP - B-NATRIURETIC PEPTIDE [IAI] Urgent 06/27/21 10:20 Echo Transthoracic Complete [ECHO] Routine Subjective - Subjective Patient Reports: Resting Comfortably Objective Vital Signs: Vital Signs - 24 hr 06/26/21 06/27/21 15:49 00:33 Temperature 36.5 C 36.3 C L Heart Rate [ 65 66 Brachial] Respiratory 24 20 Rate Blood Pressure 107/49 L 110/58 L [Right Brachial artery] O2 Saturation 96 95 Oxygen O2 Source Nasal cannula I&O (Last 24 Hrs): Intake and Output Totals x24h 06/25/21 06/26/21 06/27/21 23:59 23:59 23:59 Intake Total 2900 4320 1966 Output Total 5686 4925 2950 Balance -1601 -491 -286 General: Alert, No acute distress HEENT: Atraumatic Neck: Supple Lymphatic: no adenopathy Neuro: Alert, Non Focal Cardiovascular: Regular rate, Normal S1, Normal S2 Respiratory: Chest non-tender, No respiratory distress Abdomen: Normal bowel sounds, Soft Extremities: Other (both Legs Have Elephantiasis, Ankles Leg Flat on the Bed with Charcot Deformity. The Smell, Redness, and Swelling Have Much Improved in both legs.) - Results Results: Laboratory Results WBC 6.3 x10^3/uL (4.8-10.8) 06/27/21 04:41 RBC 4.52 10^6/uL (4.70-6.10) L 06/27/21 04:41 Hgb 12.2 g/dL (14.0-18.0) L 06/27/21 04:41 Hct 39.6 % (42.0-52.0) L 06/27/21 04:41 MCV 87.6 fL (80.0-94.0) 06/27/21 04:41 MCH 27.0 pg (27.0-31.0) 06/27/21 04:41 MCHC 30.8 g/dL (32.0-36.0) L 06/27/21 04:41 RDW 16.4 % (12.0-15.0) H 06/27/21 04:41 Plt Count 203 10^3/uL (130-450) 06/27/21 04:41 MPV 9.8 fL (7.4-11.4) 06/27/21 04:41 Neut # (Auto) 3.8 10^3/uL (1.5-6.6) 06/27/21 04:41 Lymph # (Auto) 1.7 10^3/uL (1.5-3.5) 06/27/21 04:41 [place] # (Auto) 0.5 10^3/uL (0.0-1.0) 06/27/21 04:41 Eos # (Auto) 0.2 10^3/uL (0.0-0.7) 06/27/21 04:41 Baso # (Auto) 0.1 10^3/uL (0.0-0.1) 06/27/21 04:41 Absolute Nucleated RBC 0.00 x10^3/uL 06/27/21 04:41 Nucleated RBC % 0.0 /100WBC 06/27/21 04:41 VBG pH 7.456 (7.31-7.41) H 06/20/21 04:55 VBG pCO2 36.2 mmHg (41-51) L 06/17/21 13:50 VBG pO2 29.3 mmHg (25-47) 06/17/21 13:50 VBG HCO3 24.8 mmol/L (23-28) 06/17/21 13:50 VBG Total CO2 25.9 mmol/L (24-29) 06/17/21 13:50 VBG O2 Saturation 59.8 % (60-80) L 06/17/21 13:50 VBG Base Excess 1.1 mmol/L (-2 - +2) 06/17/21 13:50 Ionized Calcium 1.07 mmol/L (1.15-1.33) L 06/20/21 04:55 Sodium 137 mmol/L (135-145) 06/27/21 04:41 Potassium 4.4 mmol/L (3.5-5.0) 06/27/21 04:41 Chloride 94 mmol/L (101-111) L 06/27/21 04:41 Carbon Dioxide 36 mmol/L (21-32) H 06/27/21 04:41 Anion Gap 7.0 (6-13) 06/27/21 04:41 BUN 17 mg/dL (6-20) 06/27/21 04:41 Creatinine 0.6 mg/dL (0.6-1.2) 06/27/21 04:41 Estimated GFR (MDRD) 133 (>89) 06/27/21 04:41 Glucose 102 mg/dL (70-100) H 06/27/21 04:41 Lactic Acid 2.2 mmol/L (0.5-2.2) 06/18/21 20:14 Calcium 8.5 mg/dL (8.5-10.3) 06/27/21 04:41 Ionized Calcium YES 06/18/21 12:45 Phosphorus 3.7 mg/dL (2.5-4.6) 06/22/21 05:06 Magnesium 2.2 mg/dL (1.7-2.8) 06/22/21 05:06 Total Bilirubin 1.2 mg/dL (0.2-1.0) H 06/17/21 12:42 AST 75 IU/L (10-42) H 06/17/21 12:42 ALT 56 IU/L (10-60) 06/17/21 12:42 Alkaline Phosphatase 58 IU/L (42-121) 06/17/21 12:42 Troponin I High Sens 23.1 ng/L (2.3-19.7) H* 06/17/21 15:38 B-Natriuretic Peptide 308 pg/mL (5-100) H 06/17/21 12:42 Total Protein 7.3 g/dL (6.7-8.2) 06/17/21 12:42 Albumin 2.2 g/dL (3.2-5.5) L 06/22/21 05:06 Globulin 4.5 g/dL (2.1-4.2) H 06/17/21 12:42 Albumin/Globulin Ratio 0.6 (1.0-2.2) L 06/17/21 12:42 Lipase 31 U/L (22-51) 06/17/21 12:42 TSH 1.27 uIU/mL (0.34-5.60) 06/17/21 15:38 Urine Color DARK YELLOW 06/18/21 13:50 Urine Clarity HAZY (CLEAR) 06/18/21 13:50 Urine pH 6.5 PH (5.0-7.5) 06/18/21 13:50 Ur Specific [place] 1.020 (1.002-1.030) 06/18/21 13:50 Urine Protein NEGATIVE mg/dL (NEGATIVE) 06/18/21 13:50 Urine Glucose (UA) NEGATIVE mg/dL (NEGATIVE) 06/18/21 13:50 Urine Ketones NEGATIVE mg/dL (NEGATIVE) 06/18/21 13:50 Urine Occult Blood NEGATIVE (NEGATIVE) 06/18/21 13:50 Urine Nitrite NEGATIVE (NEGATIVE) 06/18/21 13:50 Urine Bilirubin NEGATIVE (NEGATIVE) 06/18/21 13:50 Urine Urobilinogen 2 E.U./dL (NORMAL) H 06/18/21 13:50 Ur Leukocyte Esterase SMALL (NEGATIVE) H 06/18/21 13:50 Urine RBC 0-5 /HPF (0-5) 06/18/21 13:50 Urine WBC 11-25 /HPF (0-3) H 06/18/21 13:50 Ur Squamous Epith Cells NONE SEEN (<= Few) 06/18/21 13:50 Urine Bacteria Moderate /HPF (None Seen) H 06/18/21 13:50 Ur Microscopic Review INDICATED 06/18/21 13:50 Urine Culture Comments INDICATED 06/18/21 13:50 Nasal Adenovirus (PCR) NOT DETECTED 06/17/21 14:40 Nasal B. parapertussis DNA (PCR) NOT DETECTED 06/17/21 14:40 Nasal Coronavir 229E PCR NOT DETECTED 06/17/21 14:40 Nasal Coronavir HKU1 PCR NOT DETECTED 06/17/21 14:40 Nasal Coronavir NL63 PCR NOT DETECTED 06/17/21 14:40 Nasal Coronavir OC43 PCR NOT DETECTED 06/17/21 14:40 Nasal Enterovir/Rhinovir PCR NOT DETECTED 06/17/21 14:40 Nasal Influenza B PCR NOT DETECTED 06/17/21 14:40 Nasal Influenza A PCR NOT DETECTED 06/17/21 14:40 Nasal Parainfluen 1 PCR NOT DETECTED 06/17/21 14:40 Nasal Parainfluen 2 PCR NOT DETECTED 06/17/21 14:40 Nasal Parainfluen 3 PCR NOT DETECTED 06/17/21 14:40 Nasal Parainfluen 4 PCR NOT DETECTED 06/17/21 14:40 Nasal RSV (PCR) NOT DETECTED 06/17/21 14:40 Nasal Screen MRSA (PCR) NEGATIVE (NEGATIVE) 06/17/21 17:15 Nasal B.pertussis DNA PCR NOT DETECTED 06/17/21 14:40 Nasal C.pneumoniae (PCR) NOT DETECTED 06/17/21 14:40 Tony Human Metapneumo PCR NOT DETECTED 06/17/21 14:40 Nasal M.pneumoniae (PCR) NOT DETECTED 06/17/21 14:40 Nasal SARS-CoV-2 (PCR) NOT DETECTED 06/17/21 14:40 Last Dose Date UNKNOWN 06/26/21 05:15 Last Dose Time UNKNOWN 06/26/21 05:15 Vancomycin Trough 17.9 ug/mL (10.0-20.0) 06/20/21 11:34 Digoxin 0.5 ng/mL 06/26/21 05:15 Salicylates < 6.0 mg/dL 06/17/21 13:50 Urine Opiates Screen NEGATIVE (NEGATIVE) 06/18/21 17:25 Ur Oxycodone Screen NEGATIVE (NEGATIVE) 06/18/21 17:25 Urine Methadone Screen NEGATIVE (NEGATIVE) 06/18/21 17:25 Ur Propoxyphene Screen NEGATIVE (NEGATIVE) 06/18/21 17:25 Acetaminophen < 10 ug/mL (10-30) L 06/17/21 13:50 Ur Barbiturates Screen NEGATIVE (NEGATIVE) 06/18/21 17:25 Ur Tricyclics Screen NEGATIVE (NEGATIVE) 06/18/21 17:25 Ur Phencyclidine Scrn NEGATIVE (NEGATIVE) 06/18/21 17:25 Ur Amphetamine Screen NEGATIVE (NEGATIVE) 06/18/21 17:25 U Methamphetamines Scrn NEGATIVE (NEGATIVE) 06/18/21 17:25 U Benzodiazepines Scrn NEGATIVE (NEGATIVE) 06/18/21 17:25 Urine Cocaine Screen NEGATIVE (NEGATIVE) 06/18/21 17:25 U Cannabinoids Screen NEGATIVE (NEGATIVE) 06/18/21 17:25 ABX Reporting Has patient been on IV antibiotics over the past 48 hours?: No Current Medications - Current Medications Current Medications: Active Medications Acetaminophen (Acetaminophen 325 Mg Tablet) 650 mg PO Q4HR PRN PRN Reason: Pain 1 to 4 Last Admin: 06/27/21 06:24 Dose: 650 mg Apixaban (Apixaban 5 Mg Tablet) 5 mg PO BID [facility] Last Admin: 06/27/21 09:06 Dose: 5 mg Digoxin (Digoxin 125 Mcg Tablet) 125 mcg PO DAILY [facility] Last Admin: 06/27/21 09:06 Dose: 125 mcg Metoprolol Succinate (Metoprolol Succinate 50 Mg Tablet) 50 mg PO DAILY [facility] Last Admin: 06/27/21 09:09 Dose: 50 mg Metoprolol Tartrate (Metoprolol 5 Mg/5 Ml Vial) 5 mg IVP Q6H PRN PRN Reason: PER PHYSICIAN ORDER Metronidazole (Metronidazole 0.75% Gel 45 Gm Tube) 1 applic TOP BID [facility] Last Admin: 06/27/21 09:09 Dose: 1 applic Mineral Oil (Min Oil/Dimethicon/Coconut Oil 92 Gm Tube) 1 applic TOP PRN PRN PRN Reason: Skin Care Last Admin: 06/18/21 21:30 Dose: 1 applic Morphine Sulfate (Morphine 2 Mg/Ml Carpuject) 2 mg IVP Q2HR PRN PRN Reason: Pain 8 to 10 Multi-Ingredient Ointment (Zinc Oxide 20% Oint 30 Gm Tube) 1 applic TOP PRN PRN PRN Reason: Skin Care Last Admin: 06/18/21 06:35 Dose: 1 applic Multivitamins/Minerals (Multivitamin W/Minerals Tablet) 1 tab PO DAILYWM [facility] Last Admin: 06/27/21 09:06 Dose: 1 tab Ondansetron HCl (Ondansetron Odt 4 Mg Tablet) 4 mg TL Q6HR PRN PRN Reason: Nausea / Vomiting Ondansetron HCl (Ondansetron 4 Mg/2 Ml Vial) 4 mg IVP Q6HR PRN PRN Reason: Nausea / Vomiting Oxycodone HCl (Oxycodone 5 Mg Tablet) 5 mg PO Q4HR PRN PRN Reason: Pain 5 to 7 Pantoprazole Sodium (Pantoprazole 40 Mg Tablet) 40 mg PO QDAC [facility] Last Admin: 06/27/21 06:21 Dose: 40 mg Saccharomyces Boulardii (Saccharomyces Boulardii 250 Mg Capsule) 250 mg PO BIDWM [facility] Last Admin: 06/27/21 09:06 Dose: 250 mg Zinc Sulfate (Zinc Sulfate 220 Mg Capsule) 220 mg PO DAILY [facility] Stop: 06/29/21 12:00 Last Admin: 06/27/21 09:06 Dose: 220 mg Aspirin [Analilia] 650 mg PO Q4H PRN 06/18/21
[2021-06-28] MEDS: PANTOPRAZOLE 40 MG TABLET PO SCH (06:10)
[2021-06-28] MEDS: FUROSEMIDE 20 MG TABLET PO SCH (09:22)
[2021-06-28] MEDS: ZINC SULFATE 220 MG CAPSULE PO SCH (09:22)
[2021-06-28] MEDS: SACCHAROMYCES BOULARDII 250 MG CAPSULE PO SCH ×2 (09:22→18:55)
[2021-06-28] MEDS: METOPROLOL SUCCINATE 50 MG TABLET PO SCH (09:22)
[2021-06-28] MEDS: DIGOXIN 125 MCG TABLET PO SCH (09:22)
[2021-06-28] MEDS: MULTIVITAMIN W/MINERALS TABLET PO SCH (09:22)
[2021-06-28] MEDS: APIXABAN 5 MG TABLET PO SCH ×2 (09:22→22:52)
[2021-06-28 09:39] LABS: BASOPHILS % (AUTO) 0.7 %; EOSINOPHILS # (AUTO) 0.1 10^3/uL (0.0-0.7); EOSINOPHILS % (AUTO) 2.1 %; HCT - HEMATOCRIT 39.6 % (42.0-52.0); HGB - HEMOGLOBIN 12.3 g/dL (14.0-18.0); LYMPHOCYTES # (AUTO) 1.5 10^3/uL (1.5-3.5); LYMPHOCYTES % (AUTO) 26.9 %; MEAN CORPUSCULAR HEMOGLOBIN 27.3 pg (27.0-31.0); MEAN CORPUSCULAR HGB CONC 31.1 g/dL (32.0-36.0); MEAN CORPUSCULAR VOLUME 87.8 fL (80.0-94.0); MEAN PLATELET VOLUME 9.9 fL (7.4-11.4); MONOCYTES # (AUTO) 0.4 10^3/uL (0.0-1.0); MONOCYTES % (AUTO) 7.8 %; NEUTROPHILS # (AUTO) 3.5 10^3/uL (1.5-6.6); NEUTROPHILS % (AUTO) 62.3 %; PLT - PLATELET COUNT 245 10^3/uL (130-450); RED BLOOD COUNT 4.51 10^6/uL (4.70-6.10); RED CELL DISTRIBUTION WIDTH 16.9 % (12.0-15.0); WHITE BLOOD COUNT 5.6 x10^3/uL (4.8-10.8)
[2021-06-28 09:43] LABS: CALCIUM 8.4 mg/dL (8.5-10.3); CREATININE 0.7 mg/dL (0.6-1.2); POTASSIUM 4.2 mmol/L (3.5-5.0)
--- NOTE | 2021-06-28 12:32 | PROVIDER PROGRESS NOTE ---
Assessment/Plan - Problem List (1) Bilateral cellulitis of lower leg Assessment/Plan: 06/28 pt report he feel better on today, he report his breath is better. He remember me to take care of his mother, he did appreciate our help. continue skin care in hospital. pt may continue skin care as out-pt. consult social sciences lecturer for placement. improved significantly, swelling and erythema were significantly improved. pt present Cellulitis in both legs in the admission with hx of Charcot deformity, elephantiasis. Both pt's mother and his brother had hx of venous stasis and elephantiasis, suggested to be familial. pt finished antibiotics treatment course in the hospital. He has received wound care, and been seen by orthopedics and general surgery. He is not a candidate for debridement per surgeon. The l egs have been shrinking, and the cracks in his skin of been healing, and he would be a candidate for lower extremity amputations in the future. 2. Major Depressive Disorder improved. pt had thought process slightly delusional with probable social phobia disorder or agoraphobia. Patient refused telepsych evaluation. This problem, unfortunately, is most likely the reason most of his other medical problems have worsened over the years due to lack of judgment, and inability for self-care. However he is alert, oriented, cooperative. 3. New onset atrial fibrillation. 06/28 stable, HR is controlled. pt denies chest pain, palpitations. continue eliquis stable, his HR is well controlled with digoxin and metoprolol. Dig level on the May 30 is 0.6. Anticoagulated with Eliquis. echocardiogram show normal ER without regional wall abnormality. 4. Inability to ambulate. pt has hx of Charcot deformity, and he can not walk, really should be in a wheelchair. We are waiting placement for pt, social sciences lecturer was consulted for. 5. Increased urine output. pt's bilateral lower extremeity edema were significantly improved. Most likely attributed to recruitment intravascularly of third spacing. pt's creatinine is at normal arrange, pt is Hemodynamic stable now. - Current Meds Current Meds: Current Medications Generic Name Dose Route Start Last Admin Trade Name Freq PRN Reason Stop Dose Admin Acetaminophen 650 mg 06/17/21 15:15 06/27/21 06:24 Acetaminophen 325 Mg Tablet PO 650 mg Q4HR PRN Administration Pain 1 to 4 Apixaban 5 mg 06/18/21 21:00 06/28/21 09:22 Apixaban 5 Mg Tablet PO 5 mg BID KODY Administration Digoxin 125 mcg 06/19/21 09:00 06/28/21 09:22 Digoxin 125 Mcg Tablet PO 125 mcg DAILY KODY Administration Furosemide 20 mg 06/28/21 09:00 06/28/21 09:22 Furosemide 20 Mg Tablet PO 20 mg DAILY KODY Administration Metoprolol Succinate 50 mg 06/18/21 09:00 06/28/21 09:22 Metoprolol Succinate 50 Mg Tablet PO 50 mg DAILY KODY Administration Metronidazole 1 applic 06/21/21 11:00 06/28/21 09:23 Metronidazole 0.75% Gel 45 Gm Tube TOP 1 applic BID KODY Administration Mineral Oil 1 applic 06/18/21 01:49 06/18/21 21:30 Min Oil/Dimethicon/Coconut Oil 92 Gm Tube TOP 1 applic PRN PRN Administration Skin Care Multi-Ingredient Ointment 1 applic 06/18/21 01:49 06/18/21 06:35 Zinc Oxide 20% Oint 30 Gm Tube TOP 1 applic PRN PRN Administration Skin Care Multivitamins/Minerals 1 tab 06/18/21 14:00 06/28/21 09:22 Multivitamin W/Minerals Tablet PO 1 tab DAILYWM KODY Administration Pantoprazole Sodium 40 mg 06/17/21 16:00 06/28/21 06:10 Pantoprazole 40 Mg Tablet PO 40 mg QDAC KODY Administration Saccharomyces Boulardii 250 mg 06/25/21 17:00 06/28/21 09:22 Saccharomyces Boulardii 250 Mg Capsule PO 250 mg BIDWM KODY Administration Zinc Sulfate 220 mg 06/25/21 11:00 06/28/21 09:22 Zinc Sulfate 220 Mg Capsule PO 06/29/21 12:00 220 mg DAILY KODY Administration - Lab Result Fish Bone Diagrams: 06/28/21 09:16 06/28/21 09:16 - Additional Planning My Orders: My Active Orders 06/27/21 15:50 Miscellaenous Nursing Order [RC] ONCE 06/28/21 09:00 Furosemide [Lasix] 20 mg PO DAILY 06/28/21 09:16 Blood Culture [CULTURE, BLOOD #1] [RM] Urgent Blood Culture [CULTURE, BLOOD #2] [RM] Urgent 06/28/21 14:00 Covid-19 Vac,Ad26([employer])/Pf [Krista Covid-19 Vaccine (Eua)] 0.5 ml IM .ONCE ONE 06/29/21 05:00 BMP - BASIC METABOLIC PANEL [CHEM] DAILYLAB CBC - COMP BLD CT W/AUTO DIFF [HEME] DAILYLAB 06/30/21 05:00 BMP - BASIC METABOLIC PANEL [CHEM] DAILYLAB CBC - COMP BLD CT W/AUTO DIFF [HEME] DAILYLAB 07/01/21 05:00 BMP - BASIC METABOLIC PANEL [CHEM] DAILYLAB CBC - COMP BLD CT W/AUTO DIFF [HEME] DAILYLAB 07/02/21 05:00 BMP - BASIC METABOLIC PANEL [CHEM] DAILYLAB CBC - COMP BLD CT W/AUTO DIFF [HEME] DAILYLAB 07/03/21 05:00 BMP - BASIC METABOLIC PANEL [CHEM] DAILYLAB Subjective - Subjective Patient Reports: Feeling Better, Resting Comfortably Objective Vital Signs: Vital Signs - 24 hr 06/27/21 06/28/21 06/28/21 15:33 01:35 07:47 Temperature 36.5 C 36.3 C L 36.3 C L Heart Rate [ 71 66 60 Brachial] Respiratory 24 24 18 Rate Blood Pressure 104/59 L 116/65 101/56 L [Right Brachial artery] O2 Saturation 95 94 94 06/28/21 09:20 Temperature Heart Rate [ 69 Brachial] Respiratory Rate Blood Pressure 111/60 [Right Brachial artery] O2 Saturation Oxygen O2 Source Nasal cannula I&O (Last 24 Hrs): Intake and Output Totals x24h 06/26/21 06/27/21 06/28/21 23:59 23:59 23:59 Intake Total 4320 2716 1160 Output Total 5168 4621 1450 Balance -565 -1862 -564 General: Alert, No acute distress HEENT: Atraumatic Neck: Supple Lymphatic: no adenopathy Neuro: Alert, Non Focal Cardiovascular: Regular rate, Normal S1, Normal S2 Respiratory: Chest non-tender, No respiratory distress Abdomen: Normal bowel sounds, Soft Extremities: Other (erythema and swelling are stable and improved signficantly.) - Results Results: Laboratory Results WBC 5.6 x10^3/uL (4.8-10.8) 06/28/21 09:16 RBC 4.51 10^6/uL (4.70-6.10) L 06/28/21 09:16 Hgb 12.3 g/dL (14.0-18.0) L 06/28/21 09:16 Hct 39.6 % (42.0-52.0) L 06/28/21 09:16 MCV 87.8 fL (80.0-94.0) 06/28/21 09:16 MCH 27.3 pg (27.0-31.0) 06/28/21 09:16 MCHC 31.1 g/dL (32.0-36.0) L 06/28/21 09:16 RDW 16.9 % (12.0-15.0) H 06/28/21 09:16 Plt Count 245 10^3/uL (130-450) 06/28/21 09:16 MPV 9.9 fL (7.4-11.4) 06/28/21 09:16 Neut # (Auto) 3.5 10^3/uL (1.5-6.6) 06/28/21 09:16 Lymph # (Auto) 1.5 10^3/uL (1.5-3.5) 06/28/21 09:16 Gordon # (Auto) 0.4 10^3/uL (0.0-1.0) 06/28/21 09:16 Eos # (Auto) 0.1 10^3/uL (0.0-0.7) 06/28/21 09:16 Baso # (Auto) 0.0 10^3/uL (0.0-0.1) 06/28/21 09:16 Absolute Nucleated RBC 0.00 x10^3/uL 06/28/21 09:16 Nucleated RBC % 0.0 /100WBC 06/28/21 09:16 VBG pH 7.456 (7.31-7.41) H 06/20/21 04:55 VBG pCO2 36.2 mmHg (41-51) L 06/17/21 13:50 VBG pO2 29.3 mmHg (25-47) 06/17/21 13:50 VBG HCO3 24.8 mmol/L (23-28) 06/17/21 13:50 VBG Total CO2 25.9 mmol/L (24-29) 06/17/21 13:50 VBG O2 Saturation 59.8 % (60-80) L 06/17/21 13:50 VBG Base Excess 1.1 mmol/L (-2 - +2) 06/17/21 13:50 Ionized Calcium 1.07 mmol/L (1.15-1.33) L 06/20/21 04:55 Sodium 136 mmol/L (135-145) 06/28/21 09:16 Potassium 4.2 mmol/L (3.5-5.0) 06/28/21 09:16 Chloride 94 mmol/L (101-111) L 06/28/21 09:16 Carbon Dioxide 35 mmol/L (21-32) H 06/28/21 09:16 Anion Gap 7.0 (6-13) 06/28/21 09:16 BUN 17 mg/dL (6-20) 06/28/21 09:16 Creatinine 0.7 mg/dL (0.6-1.2) 06/28/21 09:16 Estimated GFR (MDRD) 111 (>89) 06/28/21 09:16 Glucose 126 mg/dL (70-100) H 06/28/21 09:16 Lactic Acid 2.2 mmol/L (0.5-2.2) 06/18/21 20:14 Calcium 8.4 mg/dL (8.5-10.3) L 06/28/21 09:16 Ionized Calcium YES 06/18/21 12:45 Phosphorus 3.7 mg/dL (2.5-4.6) 06/22/21 05:06 Magnesium 2.2 mg/dL (1.7-2.8) 06/22/21 05:06 Total Bilirubin 1.2 mg/dL (0.2-1.0) H 06/17/21 12:42 AST 75 IU/L (10-42) H 06/17/21 12:42 ALT 56 IU/L (10-60) 06/17/21 12:42 Alkaline Phosphatase 58 IU/L (42-121) 06/17/21 12:42 Troponin I High Sens 23.1 ng/L (2.3-19.7) H* 06/17/21 15:38 B-Natriuretic Peptide 136 pg/mL (5-100) H 06/27/21 04:41 Total Protein 7.3 g/dL (6.7-8.2) 06/17/21 12:42 Albumin 2.2 g/dL (3.2-5.5) L 06/22/21 05:06 Globulin 4.5 g/dL (2.1-4.2) H 06/17/21 12:42 Albumin/Globulin Ratio 0.6 (1.0-2.2) L 06/17/21 12:42 Lipase 31 U/L (22-51) 06/17/21 12:42 TSH 1.27 uIU/mL (0.34-5.60) 06/17/21 15:38 Urine Color DARK YELLOW 06/18/21 13:50 Urine Clarity HAZY (CLEAR) 06/18/21 13:50 Urine pH 6.5 PH (5.0-7.5) 06/18/21 13:50 Ur Specific [place] 1.020 (1.002-1.030) 06/18/21 13:50 Urine Protein NEGATIVE mg/dL (NEGATIVE) 06/18/21 13:50 Urine Glucose (UA) NEGATIVE mg/dL (NEGATIVE) 06/18/21 13:50 Urine Ketones NEGATIVE mg/dL (NEGATIVE) 06/18/21 13:50 Urine Occult Blood NEGATIVE (NEGATIVE) 06/18/21 13:50 Urine Nitrite NEGATIVE (NEGATIVE) 06/18/21 13:50 Urine Bilirubin NEGATIVE (NEGATIVE) 06/18/21 13:50 Urine Urobilinogen 2 E.U./dL (NORMAL) H 06/18/21 13:50 Ur Leukocyte Esterase SMALL (NEGATIVE) H 06/18/21 13:50 Urine RBC 0-5 /HPF (0-5) 06/18/21 13:50 Urine WBC 11-25 /HPF (0-3) H 06/18/21 13:50 Ur Squamous Epith Cells NONE SEEN (<= Few) 06/18/21 13:50 Urine Bacteria Moderate /HPF (None Seen) H 06/18/21 13:50 Ur Microscopic Review INDICATED 06/18/21 13:50 Urine Culture Comments INDICATED 06/18/21 13:50 Nasal Adenovirus (PCR) NOT DETECTED 06/17/21 14:40 Nasal B. parapertussis DNA (PCR) NOT DETECTED 06/17/21 14:40 Nasal Coronavir 229E PCR NOT DETECTED 06/17/21 14:40 Nasal Coronavir HKU1 PCR NOT DETECTED 06/17/21 14:40 Nasal Coronavir NL63 PCR NOT DETECTED 06/17/21 14:40 Nasal Coronavir OC43 PCR NOT DETECTED 06/17/21 14:40 Nasal Enterovir/Rhinovir PCR NOT DETECTED 06/17/21 14:40 Nasal Influenza B PCR NOT DETECTED 06/17/21 14:40 Nasal Influenza A PCR NOT DETECTED 06/17/21 14:40 Nasal Parainfluen 1 PCR NOT DETECTED 06/17/21 14:40 Nasal Parainfluen 2 PCR NOT DETECTED 06/17/21 14:40 Nasal Parainfluen 3 PCR NOT DETECTED 06/17/21 14:40 Nasal Parainfluen 4 PCR NOT DETECTED 06/17/21 14:40 Nasal RSV (PCR) NOT DETECTED 06/17/21 14:40 Nasal Screen MRSA (PCR) NEGATIVE (NEGATIVE) 06/17/21 17:15 Nasal B.pertussis DNA PCR NOT DETECTED 06/17/21 14:40 Nasal C.pneumoniae (PCR) NOT DETECTED 06/17/21 14:40 Tony Human Metapneumo PCR NOT DETECTED 06/17/21 14:40 Nasal M.pneumoniae (PCR) NOT DETECTED 06/17/21 14:40 Nasal SARS-CoV-2 (PCR) NOT DETECTED 06/17/21 14:40 Last Dose Date UNKNOWN 06/26/21 05:15 Last Dose Time UNKNOWN 06/26/21 05:15 Vancomycin Trough 17.9 ug/mL (10.0-20.0) 06/20/21 11:34 Digoxin 0.5 ng/mL 06/26/21 05:15 Salicylates < 6.0 mg/dL 06/17/21 13:50 Urine Opiates Screen NEGATIVE (NEGATIVE) 06/18/21 17:25 Ur Oxycodone Screen NEGATIVE (NEGATIVE) 06/18/21 17:25 Urine Methadone Screen NEGATIVE (NEGATIVE) 06/18/21 17:25 Ur Propoxyphene Screen NEGATIVE (NEGATIVE) 06/18/21 17:25 Acetaminophen < 10 ug/mL (10-30) L 06/17/21 13:50 Ur Barbiturates Screen NEGATIVE (NEGATIVE) 06/18/21 17:25 Ur Tricyclics Screen NEGATIVE (NEGATIVE) 06/18/21 17:25 Ur Phencyclidine Scrn NEGATIVE (NEGATIVE) 06/18/21 17:25 Ur Amphetamine Screen NEGATIVE (NEGATIVE) 06/18/21 17:25 U Methamphetamines Scrn NEGATIVE (NEGATIVE) 06/18/21 17:25 U Benzodiazepines Scrn NEGATIVE (NEGATIVE) 06/18/21 17:25 Urine Cocaine Screen NEGATIVE (NEGATIVE) 06/18/21 17:25 U Cannabinoids Screen NEGATIVE (NEGATIVE) 06/18/21 17:25 ABX Reporting Has patient been on IV antibiotics over the past 48 hours?: No Current Medications - Current Medications Current Medications: Active Medications Acetaminophen (Acetaminophen 325 Mg Tablet) 650 mg PO Q4HR PRN PRN Reason: Pain 1 to 4 Last Admin: 06/27/21 06:24 Dose: 650 mg Apixaban (Apixaban 5 Mg Tablet) 5 mg PO BID [facility] Last Admin: 06/28/21 09:22 Dose: 5 mg COVID-19 Vacc Ad26-S Recombinant (JSN) (PF) (Covid-19 Vac,Ad26([employer]rista)/Pf 0.5 Ml Syringe) 0.5 ml IM .ONCE ONE Stop: 06/28/21 14:01 Digoxin (Digoxin 125 Mcg Tablet) 125 mcg PO DAILY [facility] Last Admin: 06/28/21 09:22 Dose: 125 mcg Furosemide (Furosemide 20 Mg Tablet) 20 mg PO DAILY [facility] Last Admin: 06/28/21 09:22 Dose: 20 mg Metoprolol Succinate (Metoprolol Succinate 50 Mg Tablet) 50 mg PO DAILY [facility] Last Admin: 06/28/21 09:22 Dose: 50 mg Metoprolol Tartrate (Metoprolol 5 Mg/5 Ml Vial) 5 mg IVP Q6H PRN PRN Reason: PER PHYSICIAN ORDER Metronidazole (Metronidazole 0.75% Gel 45 Gm Tube) 1 applic TOP BID [facility] Last Admin: 06/28/21 09:23 Dose: 1 applic Mineral Oil (Min Oil/Dimethicon/Coconut Oil 92 Gm Tube) 1 applic TOP PRN PRN PRN Reason: Skin Care Last Admin: 06/18/21 21:30 Dose: 1 applic Morphine Sulfate (Morphine 2 Mg/Ml Carpuject) 2 mg IVP Q2HR PRN PRN Reason: Pain 8 to 10 Multi-Ingredient Ointment (Zinc Oxide 20% Oint 30 Gm Tube) 1 applic TOP PRN PRN PRN Reason: Skin Care Last Admin: 06/18/21 06:35 Dose: 1 applic Multivitamins/Minerals (Multivitamin W/Minerals Tablet) 1 tab PO DAILYWM [facility] Last Admin: 06/28/21 09:22 Dose: 1 tab Ondansetron HCl (Ondansetron Odt 4 Mg Tablet) 4 mg TL Q6HR PRN PRN Reason: Nausea / Vomiting Ondansetron HCl (Ondansetron 4 Mg/2 Ml Vial) 4 mg IVP Q6HR PRN PRN Reason: Nausea / Vomiting Oxycodone HCl (Oxycodone 5 Mg Tablet) 5 mg PO Q4HR PRN PRN Reason: Pain 5 to 7 Pantoprazole Sodium (Pantoprazole 40 Mg Tablet) 40 mg PO QDAC [facility] Last Admin: 06/28/21 06:10 Dose: 40 mg Saccharomyces Boulardii (Saccharomyces Boulardii 250 Mg Capsule) 250 mg PO BIDWM [facility] Last Admin: 06/28/21 09:22 Dose: 250 mg Zinc Sulfate (Zinc Sulfate 220 Mg Capsule) 220 mg PO DAILY [facility] Stop: 06/29/21 12:00 Last Admin: 06/28/21 09:22 Dose: 220 mg Aspirin [Analilia] 650 mg PO Q4H PRN 06/18/21
[2021-06-28] MEDS ORDERED: COVID-19 VAC,AD26(JANSSEN)/PF 0.5 ML SYRINGE IM ONE (14:00)
[2021-06-28] MEDS: ACETAMINOPHEN 325 MG TABLET PO PRN (22:28)
[2021-06-29 05:19] LABS: BASOPHILS # (AUTO) 0.1 10^3/uL (0.0-0.1); BASOPHILS % (AUTO) 0.9 %; EOSINOPHILS # (AUTO) 0.2 10^3/uL (0.0-0.7); EOSINOPHILS % (AUTO) 2.3 %; HCT - HEMATOCRIT 39.4 % (42.0-52.0); HGB - HEMOGLOBIN 12.2 g/dL (14.0-18.0); LYMPHOCYTES # (AUTO) 1.8 10^3/uL (1.5-3.5); MEAN CORPUSCULAR HEMOGLOBIN 26.9 pg (27.0-31.0); MEAN CORPUSCULAR VOLUME 86.8 fL (80.0-94.0); MEAN PLATELET VOLUME 9.8 fL (7.4-11.4); MONOCYTES # (AUTO) 0.6 10^3/uL (0.0-1.0); MONOCYTES % (AUTO) 8.9 %; NEUTROPHILS # (AUTO) 4.4 10^3/uL (1.5-6.6); NEUTROPHILS % (AUTO) 62.6 %; PLT - PLATELET COUNT 233 10^3/uL (130-450); RED BLOOD COUNT 4.54 10^6/uL (4.70-6.10); RED CELL DISTRIBUTION WIDTH 16.6 % (12.0-15.0)
[2021-06-29 05:32] LABS: CALCIUM 8.5 mg/dL (8.5-10.3); CREATININE 0.5 mg/dL (0.6-1.2); POTASSIUM 4.1 mmol/L (3.5-5.0)
[2021-06-29] MEDS: PANTOPRAZOLE 40 MG TABLET PO SCH (06:47)
[2021-06-29] MEDS: SACCHAROMYCES BOULARDII 250 MG CAPSULE PO SCH ×2 (09:24→18:02)
[2021-06-29] MEDS: FUROSEMIDE 20 MG TABLET PO SCH (09:25)
[2021-06-29] MEDS: METOPROLOL SUCCINATE 50 MG TABLET PO SCH (09:25)
[2021-06-29] MEDS: APIXABAN 5 MG TABLET PO SCH ×2 (09:25→21:48)
[2021-06-29] MEDS: DIGOXIN 125 MCG TABLET PO SCH (09:25)
[2021-06-29] MEDS: MULTIVITAMIN W/MINERALS TABLET PO SCH (09:25)
[2021-06-29] MEDS: ZINC SULFATE 220 MG CAPSULE PO SCH (09:25)
--- NOTE | 2021-06-29 15:30 | PROVIDER PROGRESS NOTE ---
Assessment/Plan - Problem List (1) Bilateral cellulitis of lower leg Assessment/Plan: 06/29 pt's lower extremities swelling and erythema were significantly improved, continue skin care per nurse protocol. pt report he feel better for his breathing, now pt has no need of O2 supplement, he has 94% O2 sat on room air. pt is pending for placement, consulted with director of social media marketing for placement. 06/28 pt report he feel better on today, he report his breath is better. He remember me to take care of his mother, he did appreciate our help. continue skin care in hospital. pt may continue skin care as out-pt. consult director of social media marketing for placement. improved significantly, swelling and erythema were significantly improved. pt present Cellulitis in both legs in the admission with hx of Charcot deformity, elephantiasis. Both pt's mother and his brother had hx of venous stasis and elephantiasis, suggested to be familial. pt finished antibiotics treatment course in the hospital. He has received wound care, and been seen by orthopedics and general surgery. He is not a candidate for debridement per surgeon. The legs have been shrinking, and the cracks in his skin of been healing, and he would be a candidate for lower extremity amputations in the future. 2. Major Depressive Disorder improved. pt had thought process slightly delusional with probable social phobia disorder or agoraphobia. Patient refused telepsych evaluation. This problem, unfortunately, is most likely the reason most of his other medical problems have worsened over the years due to lack of judgment, and inability for self-care. However he is alert, oriented, cooperative. 3. New onset atrial fibrillation. 06/28 stable, HR is controlled. pt denies chest pain, palpitations. continue eliquis stable, his HR is well controlled with digoxin and metoprolol. Dig level on the May 30 is 0.6. Anticoagulated with Eliquis. echocardiogram show normal ER without regional wall abnormality. 4. Inability to ambulate. pt has hx of Charcot deformity, and he can not walk, really should be in a wheelchair. We are waiting placement for pt, director of social media marketing was consulted for. 5. Increased urine output. pt's bilateral lower extremeity edema were significantly improved. Most likely attributed to recruitment intravascularly of third spacing. pt's creatinine is at normal arrange, pt is Hemodynamic stable now. - Current Meds Current Meds: Current Medications Generic Name Dose Route Start Last Admin Trade Name Bianca PRN Reason Stop Dose Admin Acetaminophen 650 mg 06/17/21 15:15 06/28/21 22:28 Acetaminophen 325 Mg Tablet PO 650 mg Q4HR PRN Administration Pain 1 to 4 Apixaban 5 mg 06/18/21 21:00 06/29/21 09:25 Apixaban 5 Mg Tablet PO 5 mg BID KODY Administration Digoxin 125 mcg 06/19/21 09:00 06/29/21 09:25 Digoxin 125 Mcg Tablet PO 125 mcg DAILY KODY Administration Furosemide 20 mg 06/28/21 09:00 06/29/21 09:25 Furosemide 20 Mg Tablet PO 20 mg DAILY KODY Administration Metoprolol Succinate 50 mg 06/18/21 09:00 06/29/21 09:25 Metoprolol Succinate 50 Mg Tablet PO 50 mg DAILY KODY Administration Metronidazole 1 applic 06/21/21 11:00 06/29/21 12:33 Metronidazole 0.75% Gel 45 Gm Tube TOP 1 applic BID KODY Administration Mineral Oil 1 applic 06/18/21 01:49 06/18/21 21:30 Min Oil/Dimethicon/Coconut Oil 92 Gm Tube TOP 1 applic PRN PRN Administration Skin Care Multi-Ingredient Ointment 1 applic 06/18/21 01:49 06/18/21 06:35 Zinc Oxide 20% Oint 30 Gm Tube TOP 1 applic PRN PRN Administration Skin Care Multivitamins/Minerals 1 tab 06/18/21 14:00 06/29/21 09:25 Multivitamin W/Minerals Tablet PO 1 tab DAILYWM KODY Administration Pantoprazole Sodium 40 mg 06/17/21 16:00 06/29/21 06:47 Pantoprazole 40 Mg Tablet PO 40 mg QDAC KODY Administration Saccharomyces Boulardii 250 mg 06/25/21 17:00 06/29/21 09:24 Saccharomyces Boulardii 250 Mg Capsule PO 250 mg BIDWM KODY Administration - Lab Result Fish Bone Diagrams: 06/29/21 04:56 06/29/21 04:56 - Additional Planning My Orders: My Active Orders 06/30/21 05:00 BMP - BASIC METABOLIC PANEL [CHEM] DAILYLAB CBC - COMP BLD CT W/AUTO DIFF [HEME] DAILYLAB 07/01/21 05:00 BMP - BASIC METABOLIC PANEL [CHEM] DAILYLAB CBC - COMP BLD CT W/AUTO DIFF [HEME] DAILYLAB 07/02/21 05:00 BMP - BASIC METABOLIC PANEL [CHEM] DAILYLAB CBC - COMP BLD CT W/AUTO DIFF [HEME] DAILYLAB 07/03/21 05:00 BMP - BASIC METABOLIC PANEL [CHEM] DAILYLAB Subjective - Subjective Patient Reports: Feeling Better, Resting Comfortably Objective Vital Signs: Vital Signs - 24 hr 06/28/21 06/28/21 06/29/21 16:56 23:40 06:50 Temperature 36.6 C 36.5 C 36.4 C L Heart Rate [ 66 67 64 Brachial] Respiratory 21 16 19 Rate Blood Pressure 98/53 L 108/63 117/63 [Right Brachial artery] O2 Saturation 93 93 94 06/29/21 06/29/21 09:26 12:11 Temperature 36.3 C L Heart Rate [ 65 Brachial] Respiratory 19 20 Rate Blood Pressure 104/62 [Right Brachial artery] O2 Saturation 92 94 Oxygen O2 Source Room air I&O (Last 24 Hrs): Intake and Output Totals x24h 06/27/21 06/28/21 06/29/21 23:59 23:59 23:59 Intake Total 2716 2820 1860 Output Total 4673 5150 2950 Balance -1909 -2330 -1090 General: Alert, Cooperative, No acute distress HEENT: Atraumatic Neck: Supple Lymphatic: no adenopathy Neuro: Alert, Non Focal Cardiovascular: Regular rate, Normal S1, Normal S2 Respiratory: Chest non-tender, No respiratory distress Abdomen: Normal bowel sounds, Soft Extremities: Other (erythema and swelling are stable and improved signficantly) - Results Results: Laboratory Results WBC 7.0 x10^3/uL (4.8-10.8) 06/29/21 04:56 RBC 4.54 10^6/uL (4.70-6.10) L 06/29/21 04:56 Hgb 12.2 g/dL (14.0-18.0) L 06/29/21 04:56 Hct 39.4 % (42.0-52.0) L 06/29/21 04:56 MCV 86.8 fL (80.0-94.0) 06/29/21 04:56 MCH 26.9 pg (27.0-31.0) L 06/29/21 04:56 MCHC 31.0 g/dL (32.0-36.0) L 06/29/21 04:56 RDW 16.6 % (12.0-15.0) H 06/29/21 04:56 Plt Count 233 10^3/uL (130-450) 06/29/21 04:56 MPV 9.8 fL (7.4-11.4) 06/29/21 04:56 Neut # (Auto) 4.4 10^3/uL (1.5-6.6) 06/29/21 04:56 Lymph # (Auto) 1.8 10^3/uL (1.5-3.5) 06/29/21 04:56 [place] # (Auto) 0.6 10^3/uL (0.0-1.0) 06/29/21 04:56 Eos # (Auto) 0.2 10^3/uL (0.0-0.7) 06/29/21 04:56 Baso # (Auto) 0.1 10^3/uL (0.0-0.1) 06/29/21 04:56 Absolute Nucleated RBC 0.00 x10^3/uL 06/29/21 04:56 Nucleated RBC % 0.0 /100WBC 06/29/21 04:56 VBG pH 7.456 (7.31-7.41) H 06/20/21 04:55 VBG pCO2 36.2 mmHg (41-51) L 06/17/21 13:50 VBG pO2 29.3 mmHg (25-47) 06/17/21 13:50 VBG HCO3 24.8 mmol/L (23-28) 06/17/21 13:50 VBG Total CO2 25.9 mmol/L (24-29) 06/17/21 13:50 VBG O2 Saturation 59.8 % (60-80) L 06/17/21 13:50 VBG Base Excess 1.1 mmol/L (-2 - +2) 06/17/21 13:50 Ionized Calcium 1.07 mmol/L (1.15-1.33) L 06/20/21 04:55 Sodium 135 mmol/L (135-145) 06/29/21 04:56 Potassium 4.1 mmol/L (3.5-5.0) 06/29/21 04:56 Chloride 93 mmol/L (101-111) L 06/29/21 04:56 Carbon Dioxide 35 mmol/L (21-32) H 06/29/21 04:56 Anion Gap 7.0 (6-13) 06/29/21 04:56 BUN 19 mg/dL (6-20) 06/29/21 04:56 Creatinine 0.5 mg/dL (0.6-1.2) L 06/29/21 04:56 Estimated GFR (MDRD) 164 (>89) 06/29/21 04:56 Glucose 101 mg/dL (70-100) H 06/29/21 04:56 Lactic Acid 2.2 mmol/L (0.5-2.2) 06/18/21 20:14 Calcium 8.5 mg/dL (8.5-10.3) 06/29/21 04:56 Ionized Calcium YES 06/18/21 12:45 Phosphorus 3.7 mg/dL (2.5-4.6) 06/22/21 05:06 Magnesium 2.2 mg/dL (1.7-2.8) 06/22/21 05:06 Total Bilirubin 1.2 mg/dL (0.2-1.0) H 06/17/21 12:42 AST 75 IU/L (10-42) H 06/17/21 12:42 ALT 56 IU/L (10-60) 06/17/21 12:42 Alkaline Phosphatase 58 IU/L (42-121) 06/17/21 12:42 Troponin I High Sens 23.1 ng/L (2.3-19.7) H* 06/17/21 15:38 B-Natriuretic Peptide 136 pg/mL (5-100) H 06/27/21 04:41 Total Protein 7.3 g/dL (6.7-8.2) 06/17/21 12:42 Albumin 2.2 g/dL (3.2-5.5) L 06/22/21 05:06 Globulin 4.5 g/dL (2.1-4.2) H 06/17/21 12:42 Albumin/Globulin Ratio 0.6 (1.0-2.2) L 06/17/21 12:42 Lipase 31 U/L (22-51) 06/17/21 12:42 TSH 1.27 uIU/mL (0.34-5.60) 06/17/21 15:38 Urine Color DARK YELLOW 06/18/21 13:50 Urine Clarity HAZY (CLEAR) 06/18/21 13:50 Urine pH 6.5 PH (5.0-7.5) 06/18/21 13:50 Ur Specific [place] 1.020 (1.002-1.030) 06/18/21 13:50 Urine Protein NEGATIVE mg/dL (NEGATIVE) 06/18/21 13:50 Urine Glucose (UA) NEGATIVE mg/dL (NEGATIVE) 06/18/21 13:50 Urine Ketones NEGATIVE mg/dL (NEGATIVE) 06/18/21 13:50 Urine Occult Blood NEGATIVE (NEGATIVE) 06/18/21 13:50 Urine Nitrite NEGATIVE (NEGATIVE) 06/18/21 13:50 Urine Bilirubin NEGATIVE (NEGATIVE) 06/18/21 13:50 Urine Urobilinogen 2 E.U./dL (NORMAL) H 06/18/21 13:50 Ur Leukocyte Esterase SMALL (NEGATIVE) H 06/18/21 13:50 Urine RBC 0-5 /HPF (0-5) 06/18/21 13:50 Urine WBC 11-25 /HPF (0-3) H 06/18/21 13:50 Ur Squamous Epith Cells NONE SEEN (<= Few) 06/18/21 13:50 Urine Bacteria Moderate /HPF (None Seen) H 06/18/21 13:50 Ur Microscopic Review INDICATED 06/18/21 13:50 Urine Culture Comments INDICATED 06/18/21 13:50 Nasal Adenovirus (PCR) NOT DETECTED 06/17/21 14:40 Nasal B. parapertussis DNA (PCR) NOT DETECTED 06/17/21 14:40 Nasal Coronavir 229E PCR NOT DETECTED 06/17/21 14:40 Nasal Coronavir HKU1 PCR NOT DETECTED 06/17/21 14:40 Nasal Coronavir NL63 PCR NOT DETECTED 06/17/21 14:40 Nasal Coronavir OC43 PCR NOT DETECTED 06/17/21 14:40 Nasal Enterovir/Rhinovir PCR NOT DETECTED 06/17/21 14:40 Nasal Influenza B PCR NOT DETECTED 06/17/21 14:40 Nasal Influenza A PCR NOT DETECTED 06/17/21 14:40 Nasal Parainfluen 1 PCR NOT DETECTED 06/17/21 14:40 Nasal Parainfluen 2 PCR NOT DETECTED 06/17/21 14:40 Nasal Parainfluen 3 PCR NOT DETECTED 06/17/21 14:40 Nasal Parainfluen 4 PCR NOT DETECTED 06/17/21 14:40 Nasal RSV (PCR) NOT DETECTED 06/17/21 14:40 Nasal Screen MRSA (PCR) NEGATIVE (NEGATIVE) 06/17/21 17:15 Nasal B.pertussis DNA PCR NOT DETECTED 06/17/21 14:40 Nasal C.pneumoniae (PCR) NOT DETECTED 06/17/21 14:40 Tony Human Metapneumo PCR NOT DETECTED 06/17/21 14:40 Nasal M.pneumoniae (PCR) NOT DETECTED 06/17/21 14:40 Nasal SARS-CoV-2 (PCR) NOT DETECTED 06/17/21 14:40 Last Dose Date UNKNOWN 06/26/21 05:15 Last Dose Time UNKNOWN 06/26/21 05:15 Vancomycin Trough 17.9 ug/mL (10.0-20.0) 06/20/21 11:34 Digoxin 0.5 ng/mL 06/26/21 05:15 Salicylates < 6.0 mg/dL 06/17/21 13:50 Urine Opiates Screen NEGATIVE (NEGATIVE) 06/18/21 17:25 Ur Oxycodone Screen NEGATIVE (NEGATIVE) 06/18/21 17:25 Urine Methadone Screen NEGATIVE (NEGATIVE) 06/18/21 17:25 Ur Propoxyphene Screen NEGATIVE (NEGATIVE) 06/18/21 17:25 Acetaminophen < 10 ug/mL (10-30) L 06/17/21 13:50 Ur Barbiturates Screen NEGATIVE (NEGATIVE) 06/18/21 17:25 Ur Tricyclics Screen NEGATIVE (NEGATIVE) 06/18/21 17:25 Ur Phencyclidine Scrn NEGATIVE (NEGATIVE) 06/18/21 17:25 Ur Amphetamine Screen NEGATIVE (NEGATIVE) 06/18/21 17:25 U Methamphetamines Scrn NEGATIVE (NEGATIVE) 06/18/21 17:25 U Benzodiazepines Scrn NEGATIVE (NEGATIVE) 06/18/21 17:25 Urine Cocaine Screen NEGATIVE (NEGATIVE) 06/18/21 17:25 U Cannabinoids Screen NEGATIVE (NEGATIVE) 06/18/21 17:25 ABX Reporting Has patient been on IV antibiotics over the past 48 hours?: No Current Medications - Current Medications Current Medications: Active Medications Acetaminophen (Acetaminophen 325 Mg Tablet) 650 mg PO Q4HR PRN PRN Reason: Pain 1 to 4 Last Admin: 06/28/21 22:28 Dose: 650 mg Apixaban (Apixaban 5 Mg Tablet) 5 mg PO BID [facility] Last Admin: 06/29/21 09:25 Dose: 5 mg Digoxin (Digoxin 125 Mcg Tablet) 125 mcg PO DAILY [facility] Last Admin: 06/29/21 09:25 Dose: 125 mcg Furosemide (Furosemide 20 Mg Tablet) 20 mg PO DAILY [facility] Last Admin: 06/29/21 09:25 Dose: 20 mg Metoprolol Succinate (Metoprolol Succinate 50 Mg Tablet) 50 mg PO DAILY [facility] Last Admin: 06/29/21 09:25 Dose: 50 mg Metoprolol Tartrate (Metoprolol 5 Mg/5 Ml Vial) 5 mg IVP Q6H PRN PRN Reason: PER PHYSICIAN ORDER Metronidazole (Metronidazole 0.75% Gel 45 Gm Tube) 1 applic TOP BID [facility] Last Admin: 06/29/21 12:33 Dose: 1 applic Mineral Oil (Min Oil/Dimethicon/Coconut Oil 92 Gm Tube) 1 applic TOP PRN PRN PRN Reason: Skin Care Last Admin: 06/18/21 21:30 Dose: 1 applic Morphine Sulfate (Morphine 2 Mg/Ml Carpuject) 2 mg IVP Q2HR PRN PRN Reason: Pain 8 to 10 Multi-Ingredient Ointment (Zinc Oxide 20% Oint 30 Gm Tube) 1 applic TOP PRN PRN PRN Reason: Skin Care Last Admin: 06/18/21 06:35 Dose: 1 applic Multivitamins/Minerals (Multivitamin W/Minerals Tablet) 1 tab PO DAILYWM [facility] Last Admin: 06/29/21 09:25 Dose: 1 tab Ondansetron HCl (Ondansetron Odt 4 Mg Tablet) 4 mg TL Q6HR PRN PRN Reason: Nausea / Vomiting Ondansetron HCl (Ondansetron 4 Mg/2 Ml Vial) 4 mg IVP Q6HR PRN PRN Reason: Nausea / Vomiting Oxycodone HCl (Oxycodone 5 Mg Tablet) 5 mg PO Q4HR PRN PRN Reason: Pain 5 to 7 Pantoprazole Sodium (Pantoprazole 40 Mg Tablet) 40 mg PO QDAC [facility] Last Admin: 06/29/21 06:47 Dose: 40 mg Saccharomyces Boulardii (Saccharomyces Boulardii 250 Mg Capsule) 250 mg PO BIDWM [facility] Last Admin: 06/29/21 09:24 Dose: 250 mg Aspirin [Analilia] 650 mg PO Q4H PRN 06/18/21
[2021-06-30 05:52] LABS: BASOPHILS # (AUTO) 0.1 10^3/uL (0.0-0.1); BASOPHILS % (AUTO) 0.7 %; EOSINOPHILS # (AUTO) 0.1 10^3/uL (0.0-0.7); EOSINOPHILS % (AUTO) 1.8 %; HCT - HEMATOCRIT 39.8 % (42.0-52.0); LYMPHOCYTES # (AUTO) 2.2 10^3/uL (1.5-3.5); LYMPHOCYTES % (AUTO) 33.1 %; MEAN CORPUSCULAR HEMOGLOBIN 27.3 pg (27.0-31.0); MEAN CORPUSCULAR HGB CONC 32.7 g/dL (32.0-36.0); MEAN CORPUSCULAR VOLUME 83.6 fL (80.0-94.0); MONOCYTES # (AUTO) 0.7 10^3/uL (0.0-1.0); MONOCYTES % (AUTO) 9.9 %; NEUTROPHILS # (AUTO) 3.7 10^3/uL (1.5-6.6); NEUTROPHILS % (AUTO) 54.2 %; PLT - PLATELET COUNT 261 10^3/uL (130-450); RED BLOOD COUNT 4.76 10^6/uL (4.70-6.10); RED CELL DISTRIBUTION WIDTH 16.7 % (12.0-15.0); WHITE BLOOD COUNT 6.7 x10^3/uL (4.8-10.8)
[2021-06-30 05:57] LABS: CALCIUM 8.6 mg/dL (8.5-10.3); CREATININE 0.6 mg/dL (0.6-1.2)
[2021-06-30] MEDS: PANTOPRAZOLE 40 MG TABLET PO SCH (06:44)
[2021-06-30] MEDS: APIXABAN 5 MG TABLET PO SCH ×2 (09:01→20:00)
[2021-06-30] MEDS: METOPROLOL SUCCINATE 50 MG TABLET PO SCH (09:01)
[2021-06-30] MEDS: MULTIVITAMIN W/MINERALS TABLET PO SCH (09:01)
[2021-06-30] MEDS: DIGOXIN 125 MCG TABLET PO SCH (09:01)
[2021-06-30] MEDS: SACCHAROMYCES BOULARDII 250 MG CAPSULE PO SCH ×2 (09:01→16:48)
[2021-06-30] MEDS: ACETAMINOPHEN 325 MG TABLET PO PRN (10:58)
--- NOTE | 2021-06-30 12:14 | PROVIDER PROGRESS NOTE ---
Assessment/Plan - Problem List (1) Stasis dermatitis Assessment/Plan: 06/30 pt just had dressing change, improved. erythema and swelling has significant reduced. pt has hx of Charcot deformity, elephantiasis. pt report he feel better and his breath improved. pt finished antibiotics, pt had surgeon consultation for his Charcot deformity and infection. continue dressing change, skin care, turn and reposition to prevention of ulcer. pt is pending for placement, social media executive was consulted. 06/29 pt's lower extremities swelling and erythema were significantly improved, continue skin care per nurse protocol. pt report he feel better for his breathing, now pt has no need of O2 supplement, he has 94% O2 sat on room air. pt is pending for placement, consulted with social media executive for placement. 06/28 pt report he feel better on today, he report his breath is better. He remember me to take care of his mother, he did appreciate our help. continue skin care in hospital. pt may continue skin care as out-pt. consult social media executive for placement. improved significantly, swelling and erythema were significantly improved. pt present Cellulitis in both legs in the admission with hx of Charcot deformity, elephantiasis. Both pt's mother and his brother had hx of venous stasis and elephantiasis, suggested to be familial. pt finished antibiotics treatment course in the hospital. He has received wound care, and been seen by orthopedics and general surgery. He is not a candidate for debridement per surgeon. The legs have been shrinking, and the cracks in his skin of been healing, and he would be a candidate for lower extremity amputations in the future. 2. Major Depressive Disorder improved. pt had thought process slightly delusional with probable social phobia disorder or agoraphobia. Patient refused telepsych evaluation. This problem, unfortunately, is most likely the reason most of his other medical problems have worsened over the years due to lack of judgment, and inability for self-care. However he is alert, oriented, cooperative. 3. New onset atrial fibrillation. 06/28 stable, HR is controlled. pt denies chest pain, palpitations. continue eliquis stable, his HR is well controlled with digoxin and metoprolol. Dig level on the May 30 is 0.6. Anticoagulated with Eliquis. echocardiogram show normal ER without regional wall abnormality. 4. Inability to ambulate. pt has hx of Charcot deformity, and he can not walk, really should be in a wheelchair. We are waiting placement for pt, social media executive was consulted for. 5. Increased urine output. pt's bilateral lower extremeity edema were significantly improved. Most likely attributed to recruitment intravascularly of third spacing. pt's creatinine is at normal arrange, pt is Hemodynamic stable now. - Current Meds Current Meds: Current Medications Generic Name Dose Route Start Last Admin Trade Name Freq PRN Reason Stop Dose Admin Acetaminophen 650 mg 06/17/21 15:15 06/30/21 10:58 Acetaminophen 325 Mg Tablet PO 650 mg Q4HR PRN Administration Pain 1 to 4 Apixaban 5 mg 06/18/21 21:00 06/30/21 09:01 Apixaban 5 Mg Tablet PO 5 mg BID KODY Administration Digoxin 125 mcg 06/19/21 09:00 06/30/21 09:01 Digoxin 125 Mcg Tablet PO 125 mcg DAILY KODY Administration Metoprolol Succinate 50 mg 06/18/21 09:00 06/30/21 09:01 Metoprolol Succinate 50 Mg Tablet PO 50 mg DAILY KODY Administration Metronidazole 1 applic 06/21/21 11:00 06/30/21 09:01 Metronidazole 0.75% Gel 45 Gm Tube TOP 1 applic BID KODY Administration Mineral Oil 1 applic 06/18/21 01:49 06/18/21 21:30 Min Oil/Dimethicon/Coconut Oil 92 Gm Tube TOP 1 applic PRN PRN Administration Skin Care Multi-Ingredient Ointment 1 applic 06/18/21 01:49 06/18/21 06:35 Zinc Oxide 20% Oint 30 Gm Tube TOP 1 applic PRN PRN Administration Skin Care Multivitamins/Minerals 1 tab 06/18/21 14:00 06/30/21 09:01 Multivitamin W/Minerals Tablet PO 1 tab DAILYWM KODY Administration Pantoprazole Sodium 40 mg 06/17/21 16:00 06/30/21 06:44 Pantoprazole 40 Mg Tablet PO 40 mg QDAC KODY Administration Saccharomyces Boulardii 250 mg 06/25/21 17:00 06/30/21 09:01 Saccharomyces Boulardii 250 Mg Capsule PO 250 mg BIDWM KODY Administration - Lab Result Fish Bone Diagrams: 06/30/21 04:11 06/30/21 04:11 - Additional Planning My Orders: My Active Orders 07/01/21 05:00 BMP - BASIC METABOLIC PANEL [CHEM] DAILYLAB CBC - COMP BLD CT W/AUTO DIFF [HEME] DAILYLAB 07/02/21 05:00 BMP - BASIC METABOLIC PANEL [CHEM] DAILYLAB CBC - COMP BLD CT W/AUTO DIFF [HEME] DAILYLAB 07/03/21 05:00 BMP - BASIC METABOLIC PANEL [CHEM] DAILYLAB Subjective - Subjective Patient Reports: Feeling Better, Resting Comfortably Objective Vital Signs: Vital Signs - 24 hr 06/29/21 06/30/21 06/30/21 16:48 01:00 08:47 Temperature 36.5 C 36.5 C 36.7 C Heart Rate [ 86 93 92 Brachial] Respiratory 18 16 18 Rate Blood Pressure 102/56 L 99/64 104/65 [Right Brachial artery] O2 Saturation 94 94 93 Oxygen O2 Source Room air I&O (Last 24 Hrs): Intake and Output Totals x24h 06/28/21 06/29/21 06/30/21 23:59 23:59 23:59 Intake Total 2820 3050 740 Output Total 5150 4950 1600 Balance -2330 -1900 -860 General: Alert, Cooperative, No acute distress HEENT: Atraumatic Neck: Supple Lymphatic: no adenopathy Neuro: Alert, Non Focal Cardiovascular: Regular rate, Normal S1, Normal S2 Respiratory: Chest non-tender, No respiratory distress Abdomen: Normal bowel sounds, Soft Extremities: Other (bilateral lower extremities's erythema and swelling are improved signficantly) - Results Results: Laboratory Results WBC 6.7 x10^3/uL (4.8-10.8) 06/30/21 04:11 RBC 4.76 10^6/uL (4.70-6.10) 06/30/21 04:11 Hgb 13.0 g/dL (14.0-18.0) L 06/30/21 04:11 Hct 39.8 % (42.0-52.0) L 06/30/21 04:11 MCV 83.6 fL (80.0-94.0) 06/30/21 04:11 MCH 27.3 pg (27.0-31.0) 06/30/21 04:11 MCHC 32.7 g/dL (32.0-36.0) 06/30/21 04:11 RDW 16.7 % (12.0-15.0) H 06/30/21 04:11 Plt Count 261 10^3/uL (130-450) 06/30/21 04:11 MPV 10.0 fL (7.4-11.4) 06/30/21 04:11 Neut # (Auto) 3.7 10^3/uL (1.5-6.6) 06/30/21 04:11 Lymph # (Auto) 2.2 10^3/uL (1.5-3.5) 06/30/21 04:11 Davison # (Auto) 0.7 10^3/uL (0.0-1.0) 06/30/21 04:11 Eos # (Auto) 0.1 10^3/uL (0.0-0.7) 06/30/21 04:11 Baso # (Auto) 0.1 10^3/uL (0.0-0.1) 06/30/21 04:11 Absolute Nucleated RBC 0.00 x10^3/uL 06/30/21 04:11 Nucleated RBC % 0.0 /100WBC 06/30/21 04:11 VBG pH 7.456 (7.31-7.41) H 06/20/21 04:55 VBG pCO2 36.2 mmHg (41-51) L 06/17/21 13:50 VBG pO2 29.3 mmHg (25-47) 06/17/21 13:50 VBG HCO3 24.8 mmol/L (23-28) 06/17/21 13:50 VBG Total CO2 25.9 mmol/L (24-29) 06/17/21 13:50 VBG O2 Saturation 59.8 % (60-80) L 06/17/21 13:50 VBG Base Excess 1.1 mmol/L (-2 - +2) 06/17/21 13:50 Ionized Calcium 1.07 mmol/L (1.15-1.33) L 06/20/21 04:55 Sodium 135 mmol/L (135-145) 06/30/21 04:11 Potassium 4.0 mmol/L (3.5-5.0) 06/30/21 04:11 Chloride 95 mmol/L (101-111) L 06/30/21 04:11 Carbon Dioxide 32 mmol/L (21-32) 06/30/21 04:11 Anion Gap 8.0 (6-13) 06/30/21 04:11 BUN 21 mg/dL (6-20) H 06/30/21 04:11 Creatinine 0.6 mg/dL (0.6-1.2) 06/30/21 04:11 Estimated GFR (MDRD) 133 (>89) 06/30/21 04:11 Glucose 99 mg/dL (70-100) 06/30/21 04:11 Lactic Acid 2.2 mmol/L (0.5-2.2) 06/18/21 20:14 Calcium 8.6 mg/dL (8.5-10.3) 06/30/21 04:11 Ionized Calcium YES 06/18/21 12:45 Phosphorus 3.7 mg/dL (2.5-4.6) 06/22/21 05:06 Magnesium 2.2 mg/dL (1.7-2.8) 06/22/21 05:06 Total Bilirubin 1.2 mg/dL (0.2-1.0) H 06/17/21 12:42 AST 75 IU/L (10-42) H 06/17/21 12:42 ALT 56 IU/L (10-60) 06/17/21 12:42 Alkaline Phosphatase 58 IU/L (42-121) 06/17/21 12:42 Troponin I High Sens 23.1 ng/L (2.3-19.7) H* 06/17/21 15:38 B-Natriuretic Peptide 136 pg/mL (5-100) H 06/27/21 04:41 Total Protein 7.3 g/dL (6.7-8.2) 06/17/21 12:42 Albumin 2.2 g/dL (3.2-5.5) L 06/22/21 05:06 Globulin 4.5 g/dL (2.1-4.2) H 06/17/21 12:42 Albumin/Globulin Ratio 0.6 (1.0-2.2) L 06/17/21 12:42 Lipase 31 U/L (22-51) 06/17/21 12:42 TSH 1.27 uIU/mL (0.34-5.60) 06/17/21 15:38 Urine Color DARK YELLOW 06/18/21 13:50 Urine Clarity HAZY (CLEAR) 06/18/21 13:50 Urine pH 6.5 PH (5.0-7.5) 06/18/21 13:50 Ur Specific [place] 1.020 (1.002-1.030) 06/18/21 13:50 Urine Protein NEGATIVE mg/dL (NEGATIVE) 06/18/21 13:50 Urine Glucose (UA) NEGATIVE mg/dL (NEGATIVE) 06/18/21 13:50 Urine Ketones NEGATIVE mg/dL (NEGATIVE) 06/18/21 13:50 Urine Occult Blood NEGATIVE (NEGATIVE) 06/18/21 13:50 Urine Nitrite NEGATIVE (NEGATIVE) 06/18/21 13:50 Urine Bilirubin NEGATIVE (NEGATIVE) 06/18/21 13:50 Urine Urobilinogen 2 E.U./dL (NORMAL) H 06/18/21 13:50 Ur Leukocyte Esterase SMALL (NEGATIVE) H 06/18/21 13:50 Urine RBC 0-5 /HPF (0-5) 06/18/21 13:50 Urine WBC 11-25 /HPF (0-3) H 06/18/21 13:50 Ur Squamous Epith Cells NONE SEEN (<= Few) 06/18/21 13:50 Urine Bacteria Moderate /HPF (None Seen) H 06/18/21 13:50 Ur Microscopic Review INDICATED 06/18/21 13:50 Urine Culture Comments INDICATED 06/18/21 13:50 Nasal Adenovirus (PCR) NOT DETECTED 06/17/21 14:40 Nasal B. parapertussis DNA (PCR) NOT DETECTED 06/17/21 14:40 Nasal Coronavir 229E PCR NOT DETECTED 06/17/21 14:40 Nasal Coronavir HKU1 PCR NOT DETECTED 06/17/21 14:40 Nasal Coronavir NL63 PCR NOT DETECTED 06/17/21 14:40 Nasal Coronavir OC43 PCR NOT DETECTED 06/17/21 14:40 Nasal Enterovir/Rhinovir PCR NOT DETECTED 06/17/21 14:40 Nasal Influenza B PCR NOT DETECTED 06/17/21 14:40 Nasal Influenza A PCR NOT DETECTED 06/17/21 14:40 Nasal Parainfluen 1 PCR NOT DETECTED 06/17/21 14:40 Nasal Parainfluen 2 PCR NOT DETECTED 06/17/21 14:40 Nasal Parainfluen 3 PCR NOT DETECTED 06/17/21 14:40 Nasal Parainfluen 4 PCR NOT DETECTED 06/17/21 14:40 Nasal RSV (PCR) NOT DETECTED 06/17/21 14:40 Nasal Screen MRSA (PCR) NEGATIVE (NEGATIVE) 06/17/21 17:15 Nasal B.pertussis DNA PCR NOT DETECTED 06/17/21 14:40 Nasal C.pneumoniae (PCR) NOT DETECTED 06/17/21 14:40 Tony Human Metapneumo PCR NOT DETECTED 06/17/21 14:40 Nasal M.pneumoniae (PCR) NOT DETECTED 06/17/21 14:40 Nasal SARS-CoV-2 (PCR) NOT DETECTED 06/17/21 14:40 Last Dose Date UNKNOWN 06/26/21 05:15 Last Dose Time UNKNOWN 06/26/21 05:15 Vancomycin Trough 17.9 ug/mL (10.0-20.0) 06/20/21 11:34 Digoxin 0.5 ng/mL 06/26/21 05:15 Salicylates < 6.0 mg/dL 06/17/21 13:50 Urine Opiates Screen NEGATIVE (NEGATIVE) 06/18/21 17:25 Ur Oxycodone Screen NEGATIVE (NEGATIVE) 06/18/21 17:25 Urine Methadone Screen NEGATIVE (NEGATIVE) 06/18/21 17:25 Ur Propoxyphene Screen NEGATIVE (NEGATIVE) 06/18/21 17:25 Acetaminophen < 10 ug/mL (10-30) L 06/17/21 13:50 Ur Barbiturates Screen NEGATIVE (NEGATIVE) 06/18/21 17:25 Ur Tricyclics Screen NEGATIVE (NEGATIVE) 06/18/21 17:25 Ur Phencyclidine Scrn NEGATIVE (NEGATIVE) 06/18/21 17:25 Ur Amphetamine Screen NEGATIVE (NEGATIVE) 06/18/21 17:25 U Methamphetamines Scrn NEGATIVE (NEGATIVE) 06/18/21 17:25 U Benzodiazepines Scrn NEGATIVE (NEGATIVE) 06/18/21 17:25 Urine Cocaine Screen NEGATIVE (NEGATIVE) 06/18/21 17:25 U Cannabinoids Screen NEGATIVE (NEGATIVE) 06/18/21 17:25 ABX Reporting Has patient been on IV antibiotics over the past 48 hours?: No Current Medications - Current Medications Current Medications: Active Medications Acetaminophen (Acetaminophen 325 Mg Tablet) 650 mg PO Q4HR PRN PRN Reason: Pain 1 to 4 Last Admin: 06/30/21 10:58 Dose: 650 mg Apixaban (Apixaban 5 Mg Tablet) 5 mg PO BID [facility] Last Admin: 06/30/21 09:01 Dose: 5 mg Digoxin (Digoxin 125 Mcg Tablet) 125 mcg PO DAILY [facility] Last Admin: 06/30/21 09:01 Dose: 125 mcg Metoprolol Succinate (Metoprolol Succinate 50 Mg Tablet) 50 mg PO DAILY [facility] Last Admin: 06/30/21 09:01 Dose: 50 mg Metoprolol Tartrate (Metoprolol 5 Mg/5 Ml Vial) 5 mg IVP Q6H PRN PRN Reason: PER PHYSICIAN ORDER Metronidazole (Metronidazole 0.75% Gel 45 Gm Tube) 1 applic TOP BID [facility] Last Admin: 06/30/21 09:01 Dose: 1 applic Mineral Oil (Min Oil/Dimethicon/Coconut Oil 92 Gm Tube) 1 applic TOP PRN PRN PRN Reason: Skin Care Last Admin: 06/18/21 21:30 Dose: 1 applic Morphine Sulfate (Morphine 2 Mg/Ml Carpuject) 2 mg IVP Q2HR PRN PRN Reason: Pain 8 to 10 Multi-Ingredient Ointment (Zinc Oxide 20% Oint 30 Gm Tube) 1 applic TOP PRN PRN PRN Reason: Skin Care Last Admin: 06/18/21 06:35 Dose: 1 applic Multivitamins/Minerals (Multivitamin W/Minerals Tablet) 1 tab PO DAILYWM [facility] Last Admin: 06/30/21 09:01 Dose: 1 tab Ondansetron HCl (Ondansetron Odt 4 Mg Tablet) 4 mg TL Q6HR PRN PRN Reason: Nausea / Vomiting Ondansetron HCl (Ondansetron 4 Mg/2 Ml Vial) 4 mg IVP Q6HR PRN PRN Reason: Nausea / Vomiting Oxycodone HCl (Oxycodone 5 Mg Tablet) 5 mg PO Q4HR PRN PRN Reason: Pain 5 to 7 Pantoprazole Sodium (Pantoprazole 40 Mg Tablet) 40 mg PO QDAC [facility] Last Admin: 06/30/21 06:44 Dose: 40 mg Saccharomyces Boulardii (Saccharomyces Boulardii 250 Mg Capsule) 250 mg PO BIDWM [facility] Last Admin: 06/30/21 09:01 Dose: 250 mg Aspirin [Analilia] 650 mg PO Q4H PRN 06/18/21
[2021-06-30] MEDS: ZINC OXIDE 20% OINT 30 GM TUBE TOP PRN (21:20)
[2021-07-01 05:45] LABS: BASOPHILS # (AUTO) 0.1 10^3/uL (0.0-0.1); EOSINOPHILS # (AUTO) 0.2 10^3/uL (0.0-0.7); EOSINOPHILS % (AUTO) 2.8 %; HCT - HEMATOCRIT 42.6 % (42.0-52.0); HGB - HEMOGLOBIN 13.3 g/dL (14.0-18.0); LYMPHOCYTES # (AUTO) 2.3 10^3/uL (1.5-3.5); MEAN CORPUSCULAR HEMOGLOBIN 26.7 pg (27.0-31.0); MEAN CORPUSCULAR HGB CONC 31.2 g/dL (32.0-36.0); MEAN CORPUSCULAR VOLUME 85.4 fL (80.0-94.0); MEAN PLATELET VOLUME 10.4 fL (7.4-11.4); MONOCYTES # (AUTO) 0.6 10^3/uL (0.0-1.0); MONOCYTES % (AUTO) 10.6 %; NEUTROPHILS # (AUTO) 2.9 10^3/uL (1.5-6.6); NEUTROPHILS % (AUTO) 47.4 %; PLT - PLATELET COUNT 284 10^3/uL (130-450); RED BLOOD COUNT 4.99 10^6/uL (4.70-6.10); RED CELL DISTRIBUTION WIDTH 17.4 % (12.0-15.0)
[2021-07-01 05:52] LABS: CALCIUM 8.6 mg/dL (8.5-10.3); CREATININE 0.7 mg/dL (0.6-1.2)
[2021-07-01] MEDS: PANTOPRAZOLE 40 MG TABLET PO SCH (06:39)
[2021-07-01] MEDS: SACCHAROMYCES BOULARDII 250 MG CAPSULE PO SCH ×2 (08:30→17:00)
[2021-07-01] MEDS: APIXABAN 5 MG TABLET PO SCH ×2 (09:41→22:29)
[2021-07-01] MEDS: DIGOXIN 125 MCG TABLET PO SCH (09:41)
[2021-07-01] MEDS: METOPROLOL SUCCINATE 50 MG TABLET PO SCH (09:41)
[2021-07-01] MEDS: MULTIVITAMIN W/MINERALS TABLET PO SCH (09:41)
[2021-07-01] MEDS: ACETAMINOPHEN 325 MG TABLET PO PRN (10:40)
--- NOTE | 2021-07-01 20:25 | PROVIDER PROGRESS NOTE ---
Progress Note July 01, 2021 8 2:22 PM Patient has been here 15 days. Admitted with cellulitis, severe self-neglect, Charcot joints that have made it now prohibitive for him to walk and stand. Probable psychiatric disorder but he refuses telepsych consult. He has been treated for his cellulitis, wound care done for his legs, had a bed bath or 2, and is doing much better than on admission. We are awaiting placement. Temperature 36.5. Heart rate 88. Blood pressure 105/58. 93% on room air. 6 feet 1 inches tall, 104 kg Alert, oriented white male with poor insight on his status, older than stated age, disheveled. Neck is shotty adenopathy but is supple Lungs are clear without increased respiratory effort Irregular rate and rhythm, rate is controlled Abdomen is soft, nontender Legs have elephantiasis below the knees. Charcot joint deformities of the ankles. Severe hyperkeratosis. On admission there were cracks in the hyperkeratosis with cellulitis in between and oozing. That has significantly improved. Assessment/plan 70-year-old gentleman who is no longer able to ambulate, has some type of major depressive disorder with delusional thought process and social phobia that had severe self-neglect and was grave danger to self. Presented with cellulitis. All of the acute medical issues have improved. Patient is now awaiting transfer to long-term facility.
[2021-07-02] MEDS: PANTOPRAZOLE 40 MG TABLET PO SCH (05:22)
[2021-07-02 05:45] LABS: BASOPHILS # (AUTO) 0.1 10^3/uL (0.0-0.1); BASOPHILS % (AUTO) 0.9 %; EOSINOPHILS # (AUTO) 0.2 10^3/uL (0.0-0.7); EOSINOPHILS % (AUTO) 3.4 %; HCT - HEMATOCRIT 41.5 % (42.0-52.0); HGB - HEMOGLOBIN 12.8 g/dL (14.0-18.0); LYMPHOCYTES # (AUTO) 2.2 10^3/uL (1.5-3.5); LYMPHOCYTES % (AUTO) 41.5 %; MEAN CORPUSCULAR HEMOGLOBIN 26.7 pg (27.0-31.0); MEAN CORPUSCULAR HGB CONC 30.8 g/dL (32.0-36.0); MEAN CORPUSCULAR VOLUME 86.6 fL (80.0-94.0); MEAN PLATELET VOLUME 10.3 fL (7.4-11.4); MONOCYTES # (AUTO) 0.5 10^3/uL (0.0-1.0); MONOCYTES % (AUTO) 9.6 %; NEUTROPHILS # (AUTO) 2.4 10^3/uL (1.5-6.6); NEUTROPHILS % (AUTO) 44.4 %; PLT - PLATELET COUNT 279 10^3/uL (130-450); RED BLOOD COUNT 4.79 10^6/uL (4.70-6.10); RED CELL DISTRIBUTION WIDTH 17.3 % (12.0-15.0); WHITE BLOOD COUNT 5.3 x10^3/uL (4.8-10.8)
[2021-07-02 05:50] LABS: CALCIUM 8.6 mg/dL (8.5-10.3); CREATININE 0.8 mg/dL (0.6-1.2); POTASSIUM 4.1 mmol/L (3.5-5.0)
[2021-07-02] MEDS: MULTIVITAMIN W/MINERALS TABLET PO SCH (08:32)
[2021-07-02] MEDS: SACCHAROMYCES BOULARDII 250 MG CAPSULE PO SCH ×2 (08:32→16:45)
[2021-07-02] MEDS: METOPROLOL SUCCINATE 50 MG TABLET PO SCH (08:32)
[2021-07-02] MEDS: APIXABAN 5 MG TABLET PO SCH ×2 (08:32→20:30)
[2021-07-02] MEDS: DIGOXIN 125 MCG TABLET PO SCH (08:32)
[2021-07-02] MEDS: ACETAMINOPHEN 325 MG TABLET PO PRN (16:45)
--- NOTE | 2021-07-03 01:04 | PROVIDER PROGRESS NOTE ---
Progress Note July 02, 2021 8 PM Patient has had no new events. Continues to get wound care, medications to stabilize his chronic medical problems, and is awaiting placement. Long conversation with social work today about applying for Medicaid, and whether he is going to long-term placement or go back to live with his brother. The patient would prefer to go back to live with his brother but has not broached the topic with his brother. He is willing to go to placement to get stronger and better for the next few months and then return to his brother. But again he has not broach the topic with his brother. Patient denies any chest pain, palpitations, shortness of breath. Feels like his leg pain is stable and has been stable for over 10 days now with the wound care and intermittent pain medicine. He has been eating 100% of his food. Is independent with feeding himself. Seen by physical therapy today and received 30 minutes of skilled PT aiming at increasing his upper and lower extremity strength and his activity tolerance. He did supine and seated exercises and he is not using a trapeze because he does not need to. He is nonweightbearing because of the Charcot joints. Temperature is 36.5. Heart rate 93. Blood pressure 114/54. His respirations are 12. The medical economics consultant put in a respiratory rate of 63 and is a typo err or. He is 93% on room air. 6 foot 1 inch disheveled unkempt male with a weight of 104 kg. Weight on admission with severe leg edema was 122 kg. The next day it was 111 kg so this may have been an error. Patient has slowly gone down and is down to 104 kg. He is lost quite a bit of weight in his legs and edema has caused quite a bit of shrinking of his elephantiasis, hyperkeratotic legs. Neck is supple with shotty adenopathy Lungs are clear to auscultation and percussion but diminished at the bases. Slow, unlabored respiration. Able to have a normal conversation without having to gasp for air. Regular rate and rhythm Abdomen soft, nontender, and last bowel movement today Legs are still enlarged beyond normal with scaling, thickly hyperkeratotic layer of skin. On admission this was cracked and red and oozing with cellulitis. That has resolved, and much of the edema has resolved but still very hyperkeratotic and cracked. Ankles are deformed from Charcot joint. Sodium 138. Potassium 4.1. BUN 22, creatinine 0.8. White cell count 5.3. Hemoglobin 12.8. Hematocrit 41.5 Assessment and plan Patient has now been here 16 days. He presented as cellulitis due to lack of self-care and severe self-neglect that I feel is grave danger to self with poor decision-making capacity. Nevertheless he is alert, oriented, not demented. Appears to have some type of undiagnosed psychiatric disorder but he refuses to see telepsych. He is improved tremendously from a physical exam perspective. He has been awaiting placement to a assisted facility based on finances and facility availability. He is now stating he may want to return to home but has not brought up the topic with his brother. There are no new orders for him today. Status is basically stable. We are just awaiting placement on him.
[2021-07-03 05:34] LABS: CALCIUM 8.8 mg/dL (8.5-10.3); CREATININE 0.5 mg/dL (0.6-1.2)
[2021-07-03] MEDS: PANTOPRAZOLE 40 MG TABLET PO SCH (06:30)
[2021-07-03] MEDS: SACCHAROMYCES BOULARDII 250 MG CAPSULE PO SCH ×2 (08:00→17:06)
[2021-07-03] MEDS: MULTIVITAMIN W/MINERALS TABLET PO SCH (08:00)
[2021-07-03] MEDS: ACETAMINOPHEN 325 MG TABLET PO PRN ×4 (08:03→21:14)
[2021-07-03] MEDS: METOPROLOL SUCCINATE 50 MG TABLET PO SCH (10:31)
[2021-07-03] MEDS: APIXABAN 5 MG TABLET PO SCH ×2 (10:31→21:14)
[2021-07-03] MEDS: DIGOXIN 125 MCG TABLET PO SCH (10:31)
--- NOTE | 2021-07-03 15:12 | PROVIDER PROGRESS NOTE ---
Assessment/Plan - Problem List (1) Bilateral lower leg cellulitis Assessment/Plan: 07/03 improved. it is likely caused by pt's severe self-neglect and pt's hx of Charcot deformity, elephantiasis, continue dressing change and skin care. turn and reposition to prevention of ulcer. pt is pending for placement, social welfare research worker was consulted. 06/30 pt just had dressing change, improved. erythema and swelling has significant reduced. pt has hx of Charcot deformity, elephantiasis. pt report he feel better and his breath improved. pt finished antibiotics, pt had surgeon consultation for his Charcot deformity and infection. continue dressing change, skin care, turn and reposition to prevention of ulcer. pt is pending for placement, social welfare research worker was consulted. 06/29 pt's lower extremities swelling and erythema were significantly improved, continue skin care per nurse protocol. pt report he feel better for his breathing, now pt has no need of O2 supplement, he has 94% O2 sat on room air. pt is pending for placement, consulted with social welfare research worker for placement. 06/28 pt report he feel better on today, he report his breath is better. He remember me to take care of his mother, he did appreciate our help. continue skin care in hospital. pt may continue skin care as out-pt. consult social welfare research worker for placement. improved significantly, swelling and erythema were significantly improved. pt present Cellulitis in both legs in the admission with hx of Charcot deformity, elephantiasis. Both pt's mother and his brother had hx of venous stasis and elephantiasis, suggested to be familial. pt finished antibiotics treatment course in the hospital. He has received wound care, and been seen by orthopedics and general surgery. He is not a candidate for debridement per surgeon. The legs have been shrinking, and the cracks in his skin of been healing, and he would be a candidate for lower extremity amputations in the future. 2. Major Depressive Disorder improved. pt had thought process slightly delusional with probable social phobia disorder or agoraphobia. Patient refused telepsych evaluation. This problem, unfortunately, is most likely the reason most of his other medical problems have worsened over the years due to lack of judgment, and inability for self-care. However he is alert, oriented, cooperative. 3. New onset atrial fibrillation. 06/28 stable, HR is controlled. pt denies chest pain, palpitations. continue eliquis stable, his HR is well controlled with digoxin and metoprolol. Dig level on the May 30 is 0.6. Anticoagulated with Eliquis. echocardiogram show normal ER without regional wall abnormality. 4. Inability to ambulate. pt has hx of Charcot deformity, and he can not walk, really should be in a wheelchair. We are waiting placement for pt, social welfare research worker was consulted for. 5. Increased urine output. pt's bilateral lower extremeity edema were significantly improved. Most likely attributed to recruitment intravascularly of third spacing. pt's creatinine is at normal arrange, pt is Hemodynamic stable now. - Current Meds Current Meds: Current Medications Generic Name Dose Route Start Last Admin Trade Name Freq PRN Reason Stop Dose Admin Acetaminophen 650 mg 06/17/21 15:15 07/03/21 12:49 Acetaminophen 325 Mg Tablet PO 650 mg Q4HR PRN Administration Pain 1 to 4 Apixaban 5 mg 06/18/21 21:00 07/03/21 10:31 Apixaban 5 Mg Tablet PO 5 mg BID KODY Administration Digoxin 125 mcg 06/19/21 09:00 07/03/21 10:31 Digoxin 125 Mcg Tablet PO 125 mcg DAILY KODY Administration Metoprolol Succinate 50 mg 06/18/21 09:00 07/03/21 10:31 Metoprolol Succinate 50 Mg Tablet PO 50 mg DAILY KODY Administration Metronidazole 1 applic 06/21/21 11:00 07/03/21 10:31 Metronidazole 0.75% Gel 45 Gm Tube TOP 1 applic BID KODY Administration Mineral Oil 1 applic 06/18/21 01:49 06/18/21 21:30 Min Oil/Dimethicon/Coconut Oil 92 Gm Tube TOP 1 applic PRN PRN Administration Skin Care Multi-Ingredient Ointment 1 applic 06/18/21 01:49 06/30/21 21:20 Zinc Oxide 20% Oint 30 Gm Tube TOP 1 applic PRN PRN Administration Skin Care Multivitamins/Minerals 1 tab 06/18/21 14:00 07/03/21 08:00 Multivitamin W/Minerals Tablet PO 1 tab DAILYWM KODY Administration Pantoprazole Sodium 40 mg 06/17/21 16:00 07/03/21 06:30 Pantoprazole 40 Mg Tablet PO 40 mg QDAC KODY Administration Saccharomyces Boulardii 250 mg 06/25/21 17:00 07/03/21 08:00 Martha Dos Santos 250 Mg Capsule PO 250 mg BIDWM KODY Administration - Lab Result Fish Bone Diagrams: 07/02/21 04:40 07/03/21 04:30 Subjective - Subjective Patient Reports: Resting Comfortably Objective Vital Signs: Vital Signs - 24 hr 07/02/21 07/02/21 07/03/21 16:00 23:57 08:00 Temperature 36.5 C 36.4 C L Heart Rate [ 93 81 93 Brachial] Respiratory 63 H 12 12 Rate Blood Pressure 114/54 L 108/69 116/57 L [Right Brachial artery] O2 Saturation 93 93 93 Oxygen O2 Source Room air I&O (Last 24 Hrs): Intake and Output Totals x24h 07/01/21 07/02/21 07/03/21 23:59 23:59 23:59 Intake Total 2846 2095 1960 Output Total 2925 2370 900 Balance -79 -275 1060 General: Alert, Cooperative, No acute distress HEENT: Atraumatic Neck: Supple Lymphatic: no adenopathy Neuro: Alert, Non Focal Cardiovascular: Regular rate, Normal S1, Normal S2 Respiratory: Chest non-tender, No respiratory distress Abdomen: Normal bowel sounds, Soft Extremities: Normal pulses, Other (swelling and erythema are reduced on both legs) - Results Results: Laboratory Results WBC 5.3 x10^3/uL (4.8-10.8) 07/02/21 04:40 RBC 4.79 10^6/uL (4.70-6.10) 07/02/21 04:40 Hgb 12.8 g/dL (14.0-18.0) L 07/02/21 04:40 Hct 41.5 % (42.0-52.0) L 07/02/21 04:40 MCV 86.6 fL (80.0-94.0) 07/02/21 04:40 MCH 26.7 pg (27.0-31.0) L 07/02/21 04:40 MCHC 30.8 g/dL (32.0-36.0) L 07/02/21 04:40 RDW 17.3 % (12.0-15.0) H 07/02/21 04:40 Plt Count 279 10^3/uL (130-450) 07/02/21 04:40 MPV 10.3 fL (7.4-11.4) 07/02/21 04:40 Neut # (Auto) 2.4 10^3/uL (1.5-6.6) 07/02/21 04:40 Lymph # (Auto) 2.2 10^3/uL (1.5-3.5) 07/02/21 04:40 [place] # (Auto) 0.5 10^3/uL (0.0-1.0) 07/02/21 04:40 Eos # (Auto) 0.2 10^3/uL (0.0-0.7) 07/02/21 04:40 Baso # (Auto) 0.1 10^3/uL (0.0-0.1) 07/02/21 04:40 Absolute Nucleated RBC 0.00 x10^3/uL 07/02/21 04:40 Nucleated RBC % 0.0 /100WBC 07/02/21 04:40 VBG pH 7.456 (7.31-7.41) H 06/20/21 04:55 VBG pCO2 36.2 mmHg (41-51) L 06/17/21 13:50 VBG pO2 29.3 mmHg (25-47) 06/17/21 13:50 VBG HCO3 24.8 mmol/L (23-28) 06/17/21 13:50 VBG Total CO2 25.9 mmol/L (24-29) 06/17/21 13:50 VBG O2 Saturation 59.8 % (60-80) L 06/17/21 13:50 VBG Base Excess 1.1 mmol/L (-2 - +2) 06/17/21 13:50 Ionized Calcium 1.07 mmol/L (1.15-1.33) L 06/20/21 04:55 Sodium 141 mmol/L (135-145) 07/03/21 04:30 Potassium 4.0 mmol/L (3.5-5.0) 07/03/21 04:30 Chloride 99 mmol/L (101-111) L 07/03/21 04:30 Carbon Dioxide 32 mmol/L (21-32) 07/03/21 04:30 Anion Gap 10.0 (6-13) 07/03/21 04:30 BUN 24 mg/dL (6-20) H 07/03/21 04:30 Creatinine 0.5 mg/dL (0.6-1.2) L 07/03/21 04:30 Estimated GFR (MDRD) 164 (>89) 07/03/21 04:30 Glucose 109 mg/dL (70-100) H 07/03/21 04:30 Lactic Acid 2.2 mmol/L (0.5-2.2) 06/18/21 20:14 Calcium 8.8 mg/dL (8.5-10.3) 07/03/21 04:30 Ionized Calcium YES 06/18/21 12:45 Phosphorus 3.7 mg/dL (2.5-4.6) 06/22/21 05:06 Magnesium 2.2 mg/dL (1.7-2.8) 06/22/21 05:06 Total Bilirubin 1.2 mg/dL (0.2-1.0) H 06/17/21 12:42 AST 75 IU/L (10-42) H 06/17/21 12:42 ALT 56 IU/L (10-60) 06/17/21 12:42 Alkaline Phosphatase 58 IU/L (42-121) 06/17/21 12:42 Troponin I High Sens 23.1 ng/L (2.3-19.7) H* 06/17/21 15:38 B-Natriuretic Peptide 136 pg/mL (5-100) H 06/27/21 04:41 Total Protein 7.3 g/dL (6.7-8.2) 06/17/21 12:42 Albumin 2.2 g/dL (3.2-5.5) L 06/22/21 05:06 Globulin 4.5 g/dL (2.1-4.2) H 06/17/21 12:42 Albumin/Globulin Ratio 0.6 (1.0-2.2) L 06/17/21 12:42 Lipase 31 U/L (22-51) 06/17/21 12:42 TSH 1.27 uIU/mL (0.34-5.60) 06/17/21 15:38 Urine Color DARK YELLOW 06/18/21 13:50 Urine Clarity HAZY (CLEAR) 06/18/21 13:50 Urine pH 6.5 PH (5.0-7.5) 06/18/21 13:50 Ur Specific [place] 1.020 (1.002-1.030) 06/18/21 13:50 Urine Protein NEGATIVE mg/dL (NEGATIVE) 06/18/21 13:50 Urine Glucose (UA) NEGATIVE mg/dL (NEGATIVE) 06/18/21 13:50 Urine Ketones NEGATIVE mg/dL (NEGATIVE) 06/18/21 13:50 Urine Occult Blood NEGATIVE (NEGATIVE) 06/18/21 13:50 Urine Nitrite NEGATIVE (NEGATIVE) 06/18/21 13:50 Urine Bilirubin NEGATIVE (NEGATIVE) 06/18/21 13:50 Urine Urobilinogen 2 E.U./dL (NORMAL) H 06/18/21 13:50 Ur Leukocyte Esterase SMALL (NEGATIVE) H 06/18/21 13:50 Urine RBC 0-5 /HPF (0-5) 06/18/21 13:50 Urine WBC 11-25 /HPF (0-3) H 06/18/21 13:50 Ur Squamous Epith Cells NONE SEEN (<= Few) 06/18/21 13:50 Urine Bacteria Moderate /HPF (None Seen) H 06/18/21 13:50 Ur Microscopic Review INDICATED 06/18/21 13:50 Urine Culture Comments INDICATED 06/18/21 13:50 Nasal Adenovirus (PCR) NOT DETECTED 06/17/21 14:40 Nasal B. parapertussis DNA (PCR) NOT DETECTED 06/17/21 14:40 Nasal Coronavir 229E PCR NOT DETECTED 06/17/21 14:40 Nasal Coronavir HKU1 PCR NOT DETECTED 06/17/21 14:40 Nasal Coronavir NL63 PCR NOT DETECTED 06/17/21 14:40 Nasal Coronavir OC43 PCR NOT DETECTED 06/17/21 14:40 Nasal Enterovir/Rhinovir PCR NOT DETECTED 06/17/21 14:40 Nasal Influenza B PCR NOT DETECTED 06/17/21 14:40 Nasal Influenza A PCR NOT DETECTED 06/17/21 14:40 Nasal Parainfluen 1 PCR NOT DETECTED 06/17/21 14:40 Nasal Parainfluen 2 PCR NOT DETECTED 06/17/21 14:40 Nasal Parainfluen 3 PCR NOT DETECTED 06/17/21 14:40 Nasal Parainfluen 4 PCR NOT DETECTED 06/17/21 14:40 Nasal RSV (PCR) NOT DETECTED 06/17/21 14:40 Nasal Screen MRSA (PCR) NEGATIVE (NEGATIVE) 06/17/21 17:15 Nasal B.pertussis DNA PCR NOT DETECTED 06/17/21 14:40 Nasal C.pneumoniae (PCR) NOT DETECTED 06/17/21 14:40 Tony Human Metapneumo PCR NOT DETECTED 06/17/21 14:40 Nasal M.pneumoniae (PCR) NOT DETECTED 06/17/21 14:40 Nasal SARS-CoV-2 (PCR) NOT DETECTED 06/17/21 14:40 Last Dose Date UNKNOWN 06/26/21 05:15 Last Dose Time UNKNOWN 06/26/21 05:15 Vancomycin Trough 17.9 ug/mL (10.0-20.0) 06/20/21 11:34 Digoxin 0.5 ng/mL 06/26/21 05:15 Salicylates < 6.0 mg/dL 06/17/21 13:50 Urine Opiates Screen NEGATIVE (NEGATIVE) 06/18/21 17:25 Ur Oxycodone Screen NEGATIVE (NEGATIVE) 06/18/21 17:25 Urine Methadone Screen NEGATIVE (NEGATIVE) 06/18/21 17:25 Ur Propoxyphene Screen NEGATIVE (NEGATIVE) 06/18/21 17:25 Acetaminophen < 10 ug/mL (10-30) L 06/17/21 13:50 Ur Barbiturates Screen NEGATIVE (NEGATIVE) 06/18/21 17:25 Ur Tricyclics Screen NEGATIVE (NEGATIVE) 06/18/21 17:25 Ur Phencyclidine Scrn NEGATIVE (NEGATIVE) 06/18/21 17:25 Ur Amphetamine Screen NEGATIVE (NEGATIVE) 06/18/21 17:25 U Methamphetamines Scrn NEGATIVE (NEGATIVE) 06/18/21 17:25 U Benzodiazepines Scrn NEGATIVE (NEGATIVE) 06/18/21 17:25 Urine Cocaine Screen NEGATIVE (NEGATIVE) 06/18/21 17:25 U Cannabinoids Screen NEGATIVE (NEGATIVE) 06/18/21 17:25 ABX Reporting Has patient been on IV antibiotics over the past 48 hours?: No Current Medications - Current Medications Current Medications: Active Medications Acetaminophen (Acetaminophen 325 Mg Tablet) 650 mg PO Q4HR PRN PRN Reason: Pain 1 to 4 Last Admin: 07/03/21 12:49 Dose: 650 mg Apixaban (Apixaban 5 Mg Tablet) 5 mg PO BID KODY Last Admin: 07/03/21 10:31 Dose: 5 mg Digoxin (Digoxin 125 Mcg Tablet) 125 mcg PO DAILY [facility] Last Admin: 07/03/21 10:31 Dose: 125 mcg Metoprolol Succinate (Metoprolol Succinate 50 Mg Tablet) 50 mg PO DAILY [facility] Last Admin: 07/03/21 10:31 Dose: 50 mg Metoprolol Tartrate (Metoprolol 5 Mg/5 Ml Vial) 5 mg IVP Q6H PRN PRN Reason: PER PHYSICIAN ORDER Metronidazole (Metronidazole 0.75% Gel 45 Gm Tube) 1 applic TOP BID [facility] Last Admin: 07/03/21 10:31 Dose: 1 applic Mineral Oil (Min Oil/Dimethicon/Coconut Oil 92 Gm Tube) 1 applic TOP PRN PRN PRN Reason: Skin Care Last Admin: 06/18/21 21:30 Dose: 1 applic Morphine Sulfate (Morphine 2 Mg/Ml Carpuject) 2 mg IVP Q2HR PRN PRN Reason: Pain 8 to 10 Multi-Ingredient Ointment (Zinc Oxide 20% Oint 30 Gm Tube) 1 applic TOP PRN PRN PRN Reason: Skin Care Last Admin: 06/30/21 21:20 Dose: 1 applic Multivitamins/Minerals (Multivitamin W/Minerals Tablet) 1 tab PO DAILYWM [facility] Last Admin: 07/03/21 08:00 Dose: 1 tab Ondansetron HCl (Ondansetron Odt 4 Mg Tablet) 4 mg TL Q6HR PRN PRN Reason: Nausea / Vomiting Ondansetron HCl (Ondansetron 4 Mg/2 Ml Vial) 4 mg IVP Q6HR PRN PRN Reason: Nausea / Vomiting Oxycodone HCl (Oxycodone 5 Mg Tablet) 5 mg PO Q4HR PRN PRN Reason: Pain 5 to 7 Pantoprazole Sodium (Pantoprazole 40 Mg Tablet) 40 mg PO QDAC [facility] Last Admin: 07/03/21 06:30 Dose: 40 mg Saccharomyces Boulardii (Saccharomyces Boulardii 250 Mg Capsule) 250 mg PO BIDWM [facility] Last Admin: 07/03/21 08:00 Dose: 250 mg Aspirin [Analilia] 650 mg PO Q4H PRN 06/18/21
[2021-07-04] MEDS: PANTOPRAZOLE 40 MG TABLET PO SCH (06:48)
[2021-07-04] MEDS: METOPROLOL SUCCINATE 50 MG TABLET PO SCH (09:15)
[2021-07-04] MEDS: APIXABAN 5 MG TABLET PO SCH ×2 (09:16→20:14)
[2021-07-04] MEDS: DIGOXIN 125 MCG TABLET PO SCH (09:16)
[2021-07-04] MEDS: MULTIVITAMIN W/MINERALS TABLET PO SCH (09:16)
[2021-07-04] MEDS: SACCHAROMYCES BOULARDII 250 MG CAPSULE PO SCH ×2 (09:16→16:55)
[2021-07-04] MEDS: ACETAMINOPHEN 325 MG TABLET PO PRN (09:54)
--- NOTE | 2021-07-04 13:54 | PROVIDER PROGRESS NOTE ---
Assessment/Plan - Problem List (1) Bilateral lower leg cellulitis Assessment/Plan: 07/04 pt is comfortable resting at the bed, and stable. consulted with forensic social worker and PT/OT, per their recommendation for d/c plan, order home health PT/OT/RN/Aide/forensic social worker service. 07/03 improved. it is likely caused by pt's severe self-neglect and pt's hx of Charcot deformity, elephantiasis, continue dressing change and skin care. turn and reposition to prevention of ulcer. pt is pending for placement, forensic social worker was consulted. 06/30 pt just had dressing change, improved. erythema and swelling has signi ficant reduced. pt has hx of Charcot deformity, elephantiasis. pt report he feel better and his breath improved. pt finished antibiotics, pt had surgeon consultation for his Charcot deformity and infection. continue dressing change, skin care, turn and reposition to prevention of ulcer. pt is pending for placement, forensic social worker was consulted. 06/29 pt's lower extremities swelling and erythema were significantly improved, continue skin care per nurse protocol. pt report he feel better for his breathing, now pt has no need of O2 supplement, he has 94% O2 sat on room air. pt is pending for placement, consulted with forensic social worker for placement. 06/28 pt report he feel better on today, he report his breath is better. He remember me to take care of his mother, he did appreciate our help. continue skin care in hospital. pt may continue skin care as out-pt. consult forensic social worker for placement. improved significantly, swelling and erythema were significantly improved. pt present Cellulitis in both legs in the admission with hx of Charcot deformity, elephantiasis. Both pt's mother and his brother had hx of venous stasis and elephantiasis, suggested to be familial. pt finished antibiotics treatment course in the hospital. He has received wound care, and been seen by orthopedics and general surgery. He is not a candidate for debridement per surgeon. The legs have been shrinking, and the cracks in his skin of been healing, and he would be a candidate for lower extremity amputations in the future. 2. Major Depressive Disorder improved. pt had thought process slightly delusional with probable social phobia disorder or agoraphobia. Patient refused telepsych evaluation. This problem, unfortunately, is most likely the reason most of his other medical problems have worsened over the years due to lack of judgment, and inability for self-care. However he is alert, oriented, cooperative. 3. New onset atrial fibrillation. 06/28 stable, HR is controlled. pt denies chest pain, palpitations. continue eliquis stable, his HR is well controlled with digoxin and metoprolol. Dig level on the May 30 is 0.6. Anticoagulated with Eliquis. echocardiogram show normal ER without regional wall abnormality. 4. Inability to ambulate. pt has hx of Charcot deformity, and he can not walk, really should be in a wheelchair. We are waiting placement for pt, forensic social worker was consulted for. 5. Increased urine output. pt's bilateral lower extremeity edema were significantly improved. Most likely attributed to recruitment intravascularly of third spacing. pt's creatinine is at normal arrange, pt is Hemodynamic stable now. - Current Meds Current Meds: Current Medications Generic Name Dose Route Start Last Admin Trade Name Freq PRN Reason Stop Dose Admin Acetaminophen 650 mg 06/17/21 15:15 07/04/21 09:54 Acetaminophen 325 Mg Tablet PO 650 mg Q4HR PRN Administration Pain 1 to 4 Apixaban 5 mg 06/18/21 21:00 07/04/21 09:16 Apixaban 5 Mg Tablet PO 5 mg BID KODY Administration Digoxin 125 mcg 06/19/21 09:00 07/04/21 09:16 Digoxin 125 Mcg Tablet PO 125 mcg DAILY KODY Administration Metoprolol Succinate 50 mg 06/18/21 09:00 07/04/21 09:15 Metoprolol Succinate 50 Mg Tablet PO 50 mg DAILY KODY Administration Metronidazole 1 applic 06/21/21 11:00 07/04/21 09:16 Metronidazole 0.75% Gel 45 Gm Tube TOP 1 applic BID KODY Administration Mineral Oil 1 applic 06/18/21 01:49 06/18/21 21:30 Min Oil/Dimethicon/Coconut Oil 92 Gm Tube TOP 1 applic PRN PRN Administration Skin Care Multi-Ingredient Ointment 1 applic 06/18/21 01:49 06/30/21 21:20 Zinc Oxide 20% Oint 30 Gm Tube TOP 1 applic PRN PRN Administration Skin Care Multivitamins/Minerals 1 tab 06/18/21 14:00 07/04/21 09:16 Multivitamin W/Minerals Tablet PO 1 tab DAILYWM KODY Administration Pantoprazole Sodium 40 mg 06/17/21 16:00 07/04/21 06:48 Pantoprazole 40 Mg Tablet PO 40 mg QDAC KODY Administration Saccharomyces Boulardii 250 mg 06/25/21 17:00 07/04/21 09:16 Saccharomyces Boulardii 250 Mg Capsule PO 250 mg BIDWM KODY Administration - Lab Result Fish Bone Diagrams: 07/02/21 04:40 07/03/21 04:30 - Additional Planning My Orders: My Active Orders 07/04/21 Home Health Referral [CONS] Routine Social Work Consult [CONS] Routine 07/04/21 11:48 [facility] E&M Levels [RC] .ONCE Subjective - Subjective Patient Reports: Resting Comfortably Objective Vital Signs: Vital Signs - 24 hr 07/03/21 07/04/21 07/04/21 15:20 00:00 08:00 Temperature 36.4 C L 36.4 C L 36.3 C L Heart Rate [ 69 63 62 Brachial] Respiratory 12 12 20 Rate Blood Pressure 111/73 116/65 109/55 L [Right Brachial artery] O2 Saturation 96 96 94 Oxygen O2 Source Room air I&O (Last 24 Hrs): Intake and Output Totals x24h 07/02/21 07/03/21 07/04/21 23:59 23:59 23:59 Intake Total 2095 3215 1280 Output Total 2370 1650 1340 Balance -275 1565 -60 General: Alert, No acute distress HEENT: Atraumatic Neck: Supple Lymphatic: no adenopathy Neuro: Alert, Non Focal Cardiovascular: Regular rate, Normal S1, Normal S2 Respiratory: Chest non-tender, No respiratory distress Abdomen: Normal bowel sounds, Soft Extremities: Normal pulses - Results Results: Laboratory Results WBC 5.3 x10^3/uL (4.8-10.8) 07/02/21 04:40 RBC 4.79 10^6/uL (4.70-6.10) 07/02/21 04:40 Hgb 12.8 g/dL (14.0-18.0) L 07/02/21 04:40 Hct 41.5 % (42.0-52.0) L 07/02/21 04:40 MCV 86.6 fL (80.0-94.0) 07/02/21 04:40 MCH 26.7 pg (27.0-31.0) L 07/02/21 04:40 MCHC 30.8 g/dL (32.0-36.0) L 07/02/21 04:40 RDW 17.3 % (12.0-15.0) H 07/02/21 04:40 Plt Count 279 10^3/uL (130-450) 07/02/21 04:40 MPV 10.3 fL (7.4-11.4) 07/02/21 04:40 Neut # (Auto) 2.4 10^3/uL (1.5-6.6) 07/02/21 04:40 Lymph # (Auto) 2.2 10^3/uL (1.5-3.5) 07/02/21 04:40 Falls # (Auto) 0.5 10^3/uL (0.0-1.0) 07/02/21 04:40 Eos # (Auto) 0.2 10^3/uL (0.0-0.7) 07/02/21 04:40 Baso # (Auto) 0.1 10^3/uL (0.0-0.1) 07/02/21 04:40 Absolute Nucleated RBC 0.00 x10^3/uL 07/02/21 04:40 Nucleated RBC % 0.0 /100WBC 07/02/21 04:40 VBG pH 7.456 (7.31-7.41) H 06/20/21 04:55 VBG pCO2 36.2 mmHg (41-51) L 06/17/21 13:50 VBG pO2 29.3 mmHg (25-47) 06/17/21 13:50 VBG HCO3 24.8 mmol/L (23-28) 06/17/21 13:50 VBG Total CO2 25.9 mmol/L (24-29) 06/17/21 13:50 VBG O2 Saturation 59.8 % (60-80) L 06/17/21 13:50 VBG Base Excess 1.1 mmol/L (-2 - +2) 06/17/21 13:50 Ionized Calcium 1.07 mmol/L (1.15-1.33) L 06/20/21 04:55 Sodium 141 mmol/L (135-145) 07/03/21 04:30 Potassium 4.0 mmol/L (3.5-5.0) 07/03/21 04:30 Chloride 99 mmol/L (101-111) L 07/03/21 04:30 Carbon Dioxide 32 mmol/L (21-32) 07/03/21 04:30 Anion Gap 10.0 (6-13) 07/03/21 04:30 BUN 24 mg/dL (6-20) H 07/03/21 04:30 Creatinine 0.5 mg/dL (0.6-1.2) L 07/03/21 04:30 Estimated GFR (MDRD) 164 (>89) 07/03/21 04:30 Glucose 109 mg/dL (70-100) H 07/03/21 04:30 Lactic Acid 2.2 mmol/L (0.5-2.2) 06/18/21 20:14 Calcium 8.8 mg/dL (8.5-10.3) 07/03/21 04:30 Ionized Calcium YES 06/18/21 12:45 Phosphorus 3.7 mg/dL (2.5-4.6) 06/22/21 05:06 Magnesium 2.2 mg/dL (1.7-2.8) 06/22/21 05:06 Total Bilirubin 1.2 mg/dL (0.2-1.0) H 06/17/21 12:42 AST 75 IU/L (10-42) H 06/17/21 12:42 ALT 56 IU/L (10-60) 06/17/21 12:42 Alkaline Phosphatase 58 IU/L (42-121) 06/17/21 12:42 Troponin I High Sens 23.1 ng/L (2.3-19.7) H* 06/17/21 15:38 B-Natriuretic Peptide 136 pg/mL (5-100) H 06/27/21 04:41 Total Protein 7.3 g/dL (6.7-8.2) 06/17/21 12:42 Albumin 2.2 g/dL (3.2-5.5) L 06/22/21 05:06 Globulin 4.5 g/dL (2.1-4.2) H 06/17/21 12:42 Albumin/Globulin Ratio 0.6 (1.0-2.2) L 06/17/21 12:42 Lipase 31 U/L (22-51) 06/17/21 12:42 TSH 1.27 uIU/mL (0.34-5.60) 06/17/21 15:38 Urine Color DARK YELLOW 06/18/21 13:50 Urine Clarity HAZY (CLEAR) 06/18/21 13:50 Urine pH 6.5 PH (5.0-7.5) 06/18/21 13:50 Ur Specific [place] 1.020 (1.002-1.030) 06/18/21 13:50 Urine Protein NEGATIVE mg/dL (NEGATIVE) 06/18/21 13:50 Urine Glucose (UA) NEGATIVE mg/dL (NEGATIVE) 06/18/21 13:50 Urine Ketones NEGATIVE mg/dL (NEGATIVE) 06/18/21 13:50 Urine Occult Blood NEGATIVE (NEGATIVE) 06/18/21 13:50 Urine Nitrite NEGATIVE (NEGATIVE) 06/18/21 13:50 Urine Bilirubin NEGATIVE (NEGATIVE) 06/18/21 13:50 Urine Urobilinogen 2 E.U./dL (NORMAL) H 06/18/21 13:50 Ur Leukocyte Esterase SMALL (NEGATIVE) H 06/18/21 13:50 Urine RBC 0-5 /HPF (0-5) 06/18/21 13:50 Urine WBC 11-25 /HPF (0-3) H 06/18/21 13:50 Ur Squamous Epith Cells NONE SEEN (<= Few) 06/18/21 13:50 Urine Bacteria Moderate /HPF (None Seen) H 06/18/21 13:50 Ur Microscopic Review INDICATED 06/18/21 13:50 Urine Culture Comments INDICATED 06/18/21 13:50 Nasal Adenovirus (PCR) NOT DETECTED 06/17/21 14:40 Nasal B. parapertussis DNA (PCR) NOT DETECTED 06/17/21 14:40 Nasal Coronavir 229E PCR NOT DETECTED 06/17/21 14:40 Nasal Coronavir HKU1 PCR NOT DETECTED 06/17/21 14:40 Nasal Coronavir NL63 PCR NOT DETECTED 06/17/21 14:40 Nasal Coronavir OC43 PCR NOT DETECTED 06/17/21 14:40 Nasal Enterovir/Rhinovir PCR NOT DETECTED 06/17/21 14:40 Nasal Influenza B PCR NOT DETECTED 06/17/21 14:40 Nasal Influenza A PCR NOT DETECTED 06/17/21 14:40 Nasal Parainfluen 1 PCR NOT DETECTED 06/17/21 14:40 Nasal Parainfluen 2 PCR NOT DETECTED 06/17/21 14:40 Nasal Parainfluen 3 PCR NOT DETECTED 06/17/21 14:40 Nasal Parainfluen 4 PCR NOT DETECTED 06/17/21 14:40 Nasal RSV (PCR) NOT DETECTED 06/17/21 14:40 Nasal Screen MRSA (PCR) NEGATIVE (NEGATIVE) 06/17/21 17:15 Nasal B.pertussis DNA PCR NOT DETECTED 06/17/21 14:40 Nasal C.pneumoniae (PCR) NOT DETECTED 06/17/21 14:40 Tony Human Metapneumo PCR NOT DETECTED 06/17/21 14:40 Nasal M.pneumoniae (PCR) NOT DETECTED 06/17/21 14:40 Nasal SARS-CoV-2 (PCR) NOT DETECTED 06/17/21 14:40 Last Dose Date UNKNOWN 06/26/21 05:15 Last Dose Time UNKNOWN 06/26/21 05:15 Vancomycin Trough 17.9 ug/mL (10.0-20.0) 06/20/21 11:34 Digoxin 0.5 ng/mL 06/26/21 05:15 Salicylates < 6.0 mg/dL 06/17/21 13:50 Urine Opiates Screen NEGATIVE (NEGATIVE) 06/18/21 17:25 Ur Oxycodone Screen NEGATIVE (NEGATIVE) 06/18/21 17:25 Urine Methadone Screen NEGATIVE (NEGATIVE) 06/18/21 17:25 Ur Propoxyphene Screen NEGATIVE (NEGATIVE) 06/18/21 17:25 Acetaminophen < 10 ug/mL (10-30) L 06/17/21 13:50 Ur Barbiturates Screen NEGATIVE (NEGATIVE) 06/18/21 17:25 Ur Tricyclics Screen NEGATIVE (NEGATIVE) 06/18/21 17:25 Ur Phencyclidine Scrn NEGATIVE (NEGATIVE) 06/18/21 17:25 Ur Amphetamine Screen NEGATIVE (NEGATIVE) 06/18/21 17:25 U Methamphetamines Scrn NEGATIVE (NEGATIVE) 06/18/21 17:25 U Benzodiazepines Scrn NEGATIVE (NEGATIVE) 06/18/21 17:25 Urine Cocaine Screen NEGATIVE (NEGATIVE) 06/18/21 17:25 U Cannabinoids Screen NEGATIVE (NEGATIVE) 06/18/21 17:25 ABX Reporting Has patient been on IV antibiotics over the past 48 hours?: No Current Medications - Current Medications Current Medications: Active Medications Acetaminophen (Acetaminophen 325 Mg Tablet) 650 mg PO Q4HR PRN PRN Reason: Pain 1 to 4 Last Admin: 07/04/21 09:54 Dose: 650 mg Apixaban (Apixaban 5 Mg Tablet) 5 mg PO BID [facility] Last Admin: 07/04/21 09:16 Dose: 5 mg Digoxin (Digoxin 125 Mcg Tablet) 125 mcg PO DAILY [facility] Last Admin: 07/04/21 09:16 Dose: 125 mcg Metoprolol Succinate (Metoprolol Succinate 50 Mg Tablet) 50 mg PO DAILY [facility] Last Admin: 07/04/21 09:15 Dose: 50 mg Metoprolol Tartrate (Metoprolol 5 Mg/5 Ml Vial) 5 mg IVP Q6H PRN PRN Reason: PER PHYSICIAN ORDER Metronidazole (Metronidazole 0.75% Gel 45 Gm Tube) 1 applic TOP BID [facility] Last Admin: 07/04/21 09:16 Dose: 1 applic Mineral Oil (Min Oil/Dimethicon/Coconut Oil 92 Gm Tube) 1 applic TOP PRN PRN PRN Reason: Skin Care Last Admin: 06/18/21 21:30 Dose: 1 applic Morphine Sulfate (Morphine 2 Mg/Ml Carpuject) 2 mg IVP Q2HR PRN PRN Reason: Pain 8 to 10 Multi-Ingredient Ointment (Zinc Oxide 20% Oint 30 Gm Tube) 1 applic TOP PRN PRN PRN Reason: Skin Care Last Admin: 06/30/21 21:20 Dose: 1 applic Multivitamins/Minerals (Multivitamin W/Minerals Tablet) 1 tab PO DAILYWM [facility] Last Admin: 07/04/21 09:16 Dose: 1 tab Ondansetron HCl (Ondansetron Odt 4 Mg Tablet) 4 mg TL Q6HR PRN PRN Reason: Nausea / Vomiting Ondansetron HCl (Ondansetron 4 Mg/2 Ml Vial) 4 mg IVP Q6HR PRN PRN Reason: Nausea / Vomiting Oxycodone HCl (Oxycodone 5 Mg Tablet) 5 mg PO Q4HR PRN PRN Reason: Pain 5 to 7 Pantoprazole Sodium (Pantoprazole 40 Mg Tablet) 40 mg PO QDAC [facility] Last Admin: 07/04/21 06:48 Dose: 40 mg Saccharomyces Boulardii (Saccharomyces Boulardii 250 Mg Capsule) 250 mg PO BIDWM [facility] Last Admin: 07/04/21 09:16 Dose: 250 mg Aspirin [Analilia] 650 mg PO Q4H PRN 06/18/21
[2021-07-05 05:17] LABS: BASOPHILS # (AUTO) 0.1 10^3/uL (0.0-0.1); EOSINOPHILS # (AUTO) 0.2 10^3/uL (0.0-0.7); EOSINOPHILS % (AUTO) 3.3 %; HCT - HEMATOCRIT 38.8 % (42.0-52.0); HGB - HEMOGLOBIN 12.1 g/dL (14.0-18.0); LYMPHOCYTES # (AUTO) 2.3 10^3/uL (1.5-3.5); LYMPHOCYTES % (AUTO) 46.5 %; MEAN CORPUSCULAR HEMOGLOBIN 26.8 pg (27.0-31.0); MEAN CORPUSCULAR HGB CONC 31.2 g/dL (32.0-36.0); MEAN CORPUSCULAR VOLUME 85.8 fL (80.0-94.0); MEAN PLATELET VOLUME 10.3 fL (7.4-11.4); MONOCYTES # (AUTO) 0.5 10^3/uL (0.0-1.0); MONOCYTES % (AUTO) 9.6 %; NEUTROPHILS # (AUTO) 1.9 10^3/uL (1.5-6.6); NEUTROPHILS % (AUTO) 39.4 %; PLT - PLATELET COUNT 238 10^3/uL (130-450); RED BLOOD COUNT 4.52 10^6/uL (4.70-6.10); RED CELL DISTRIBUTION WIDTH 17.9 % (12.0-15.0); WHITE BLOOD COUNT 4.9 x10^3/uL (4.8-10.8)
[2021-07-05 05:31] LABS: CALCIUM 8.8 mg/dL (8.5-10.3); CREATININE 0.7 mg/dL (0.6-1.2); POTASSIUM 4.1 mmol/L (3.5-5.0)
[2021-07-05] MEDS: PANTOPRAZOLE 40 MG TABLET PO SCH (05:54)
[2021-07-05] MEDS: APIXABAN 5 MG TABLET PO SCH (08:25)
[2021-07-05] MEDS: METOPROLOL SUCCINATE 50 MG TABLET PO SCH (08:25)
[2021-07-05] MEDS: DIGOXIN 125 MCG TABLET PO SCH (08:25)
[2021-07-05] MEDS: ACETAMINOPHEN 325 MG TABLET PO PRN (08:25)
[2021-07-05] MEDS: MULTIVITAMIN W/MINERALS TABLET PO SCH (08:25)
[2021-07-05] MEDS: SACCHAROMYCES BOULARDII 250 MG CAPSULE PO SCH (08:26)
--- NOTE | 2021-07-05 13:24 | Discharge Plan ---
Discharge Plan Problem Reviewed?: Yes Disposition: Home Health Service Condition: Stable Prescriptions: Apixaban [Eliquis] 5 mg PO BID #60 tablet metroNIDAZOLE 0.75% GEL [Flagyl Gel] 1 applic TOP DAILY #1 tub Digoxin [Lanoxin] 125 mcg PO DAILY #30 tablet Multivitamin W/Minerals [Theragran M] 1 tab PO DAILYWM #30 tablet Metoprolol Succinate [Toprol Xl] 50 mg PO DAILY #30 tablet Diet: Regular Activity Restrictions: Activity as Tolerated Shower Restrictions: No (fall precaution) Instruction Topics: AFL/Afib, Digoxin, Metoprolol tablets, Apixaban oral tablets, Wound Dressing Steps Health Concerns: wound dressing change, new atrial fibrillation Plan of Treatment: For your lower extremity dressing change 1. Remove old dressing. 2. Cleanse the leg with normal saline and pat dry with gauze. 3. Apply Flagyl gel. 4. Cover with xeroform dressing and ABD pads. 4. Wrap with soft roll bandage. please Do wound care daily. Home health care with PT/OT/RN/Aide/outreach and education social worker are arranged for you. You were found to have new onset of atrial fibrillation. Medications: digoxin, metoprolol, and Eliquis are prescribed for you. You may followup with your PCP in one week continue the management. Care Goals: Stabilization and improvement/resolve of your medical conditions Assessment: Discussed the care plan in detail with you, answered your concerns and questions, you understood Additional Instructions or Follow Up instructions: You may follow-up with your PCP in 1 week. should your symptoms return or worse, you may present to ER or call 911 for help Follow-Up Care: Home Health - RN, Home Health - PT, Home Health - OT, [facility] [place] [facility] - Wound/Ostomy No Smoking: If you smoke, Please STOP! Call for help.
--- NOTE | 2021-07-05 14:03 | DISCHARGE SUMMARY ---
Discharge Summary Admit Date: 06/17/21 Discharge Date: 07/05/21 Discharging Provider: Tristin Varghese Condition at Discharge: Stable Discharge Disposition: Home Health Service Discharge Facility Name: home - DIAGNOSES Discharge Diagnoses with Status of Each Condition: 1. 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 pt is willing to be d/c to home and let his brother help to do dressing change. film processing utility worker assessed, and considered safety d/c. Nurse called pt's brother and sister in law and educated both how to help do dressing change for pt. home health RN/PT/OT/Aide/social professionals are arra nged for pt. home health RN will see pt on next Friday07/09/21. pt has detail dressing change instruction as well. 2. Depression stable, pt may followup with psychiatrist as out-pt. 3. New onset atrial fibrillation. stable, HR is controlled. pt is prescribed Digoxin, Metoprolol, Eliquis. pt may followup with PCP continue management. 4. ambulate difficult due to Charcot deformity pt has hx of Charcot deformity. Patient had PT and OT evaluation and treatment in hospital, patient is arranged home health PT and OT, Aide and Home health social professionals. pt is prescribed walker. - [facility] History of Present Illness: refer from 's HPI on 06/17/21 This is a 70-year-old man [place] 6 years. He moved in with his brother after being homeless and on the street in the [facility]. He states that he has no other medical problems. He used to have high blood pressure when he worked. But when he lost his job, his blood pressure went down on its own as far as he knows. He denies any history of diabetes, cancer, heart, or kidneys. He says that he is "felt all right" over the years and has not seen a doctor in probably 17 to 20 years. He did briefly see his brother's MD a few years ago while accompanying his brother to his visit and that doctor told him there was something wrong w his ankle and it needed to be replaced. About 2 years ago he noticed that his left leg had a "scratch" on it. Ever since then the leg has gotten slowly deformed, swollen, and then his right leg started doing the same thing. It has not been painful. Just slightly achy. Years ago, on the job, a friend of his use Lotrimin to make his skin feel better. So his treatment of his legs has been Lotrimin cream. He does not recall when the ankles and feet started getting deformed. As far as he is concerned it was just "a rash" on his legs that got out of control. His toenails have become thick, curly, and very painful. He stopped trying to take care of them when he could no longer cut them due to their thickness. He really feels that this is "not a problem" and that is why he felt he did not need to see a doctor. That and the fact that seeing a doctor is very expensive. Anytime he got "ahead on his expenses, he would lose all of that by having to pay Dr. Pinto. For some unknown reason, he just started "not eating right" 2 to 3 months ago. He was not taking care of himself and started having tremendous insomnia. He has been getting weaker, and weaker. On June 15 he tripped and fell. Lay on the floor for a long time. He would not let his brother call EMS to come help him. His brother finally called for lift assist. Last night, he managed to get to the bathroom and sat on the toilet. But then he realized he could not get off the toilet and sat on the toilet for 15 hours. He finally let his brother called EMS. He denies fever, chills, cough, urgency, frequency, dysuria. He is having less and less bowel movements but he figures as because he is not eating. He really, truly, cannot say why he stopped taking care of himself and why he does not have an appetite. I spoke to his brother at length. Moe lives with his brother Miguel. Miguel describes Moe as being a loner and not quite right for decades. 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 But as he was getting older and older he was forced to r etire because of his age. By then a natural tendency for apathy had destroyed his marriage and his wanted nothing more to do with him. He just wouldn't take care of things like bills, outside production inspector, etc. He ended up living in a hotel and his other brother, who lives in [facility], was paying for the [employer] bill. He had to leave the hotel when the bill was no longer being paid and he was destroying the room. The patient then ended up living in a nursing home but could not stand it when they told him he had to have better hygeine and ended up living on the streets for 2 weeks before he finally came to live here. He was already having difficulties walking. The left leg was "twisted" at the ankle for a very long time. The deformity of the left leg just got progressively as did the right leg. The patient would go to his room and stay there for weeks at a time. If you mentioned that he was smelling or not looking too good, his feelings were hurt and he would disappear into his room for days at a time. He does not take care of himself. He has gone as far as a year without a bath. His last bath was in January 2021. He was sharing a bathroom with his mom during these years and mom of cellulitis of the legs and had the skin condition that he has. His brother was also admitted for lymphedema and cellulitis with bacteremia in February of this year. As far as brother Miguel is concerned, the patient has definite mental illness. 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 The last time he left the house was in 2018 when he left to do his mother's memorial service after she in May 2018. The last time he was in a car of his own volition to drive was in 2016. 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 Both brother Miguel and [id number] state that it is very difficult to get him to do things. If it has to do with a thing about taking care of himself, he just does not do it. His room has become increasingly foul-smelling. Laundry has not been done. The bathroom is a "biohazard" and they are terrified of even going anywhere near the toilet to clean it. For the last 2 to 3 weeks the patient has been subsisting on crackers, beef jerky, and occasionally some water or soda. They do not know what set him off. Or if something new is wrong. EMS brought him to the emergency room where temperature was 36.6, heart rate 152, blood pressure 129/84, 100% on room air. He rated his pain a 2 out of a 10. He weighs 122.4 kg stated. He is alert and oriented, described as well- developed and well-nourished which I disagree with. No respiratory distress and he is tachycardic. Lungs are clear. He has elephantiasis of both legs, the right leg worse than the left. EKG showed him to have atrial fibrillation with RVR. Initial troponin was 22.7. BNP 308. TSH 1.27. Electrolytes normal. White cell count normal. Chest x-ray without infiltrate. To make sure he was not having a pulmonary embolus, I did ask Dr. Vidal to please order a CT pulmonary angiogram. There are no intraluminal filling defects to suggest central pulmonary embolism. However there is some peripheral irregularity of the multiple left lower lobe segmental pulmonary vessels which may represent chronic pulmonary embolus. This is adjacent to volume loss. Somewhat hypoplastic appearance of the left lung with elevation of the left diaphragm. Loss of volume of the left lung base. No consolidation. Heart is normal in size without effusion. The bones are without suspicious bony lesions. Solid organs look acceptable. Dr. smith started him on an esmolol drip after 5mg metoprolol, 20 mg diltiazem and no sucess in controlling the rate. I am now admitting the patient. He will be transferred to the ICU. Because he is on an esmolol drip - CONSULTS | PROCEDURES Consultations: Dr. Hernandez and Dr. Monahan Procedures: no surgery - ALLERGIES Allergies/Adverse Reactions: Allergies Allergy/AdvReac Type Severity Reaction Status Date / Time No Known Drug Allergies Allergy Verified 06/17/21 13:22 - MEDICATIONS Home Medications: Ambulatory Orders Medication Instructions Recorded Confirmed Apixaban [Eliquis] 5 mg PO BID #60 tablet 07/05/21 Digoxin [Lanoxin] 125 mcg PO DAILY #30 tablet 07/05/21 Metoprolol Succinate [Toprol Xl] 50 mg PO DAILY #30 tablet 07/05/21 Multivitamin W/Minerals [Theragran 1 tab PO DAILYWM #30 tablet 07/05/21 M] metroNIDAZOLE 0.75% GEL [Flagyl 1 applic TOP DAILY #1 tub 07/05/21 Gel] - PHYSICAL EXAM AT DISCHARGE General Appearance: positive: No acute distress, Alert. negative: Lethargic Eyes Bilateral: positive: Normal inspection, No lid inflammation ENT: positive: ENT inspection nml, No signs of dehydration. negative: Purulent nasal drainage Neck: positive: Nml inspection, Trachea midline. negative: Tracheal deviation Respiratory: positive: Chest non-tender, No respiratory distress. negative: Wheezes Cardiovascular: positive: Regular rate & rhythm. negative: Tachycardia, Bradycardia, Systolic murmur Peripheral Pulses: positive: 2+ Abdomen: positive: Non-tender, Nml bowel sounds, No distention. negative: Tenderness Back: positive: Nml inspection Skin: positive: Warm, Dry, Other (Left lower extremity is nearly healed, erythema and swelling on right lower extremity is significantly improved). negative: Cyanosis Extremities: positive: Non-tender Neurologic/Psychiatric: positive: Oriented x3, Sensation nml. negative: Weakness, Sensory loss, Facial droop, Slurred/abnml speech, Depressed mood/affect - LABS Result Diagrams: 07/05/21 04:28 07/05/21 04:28 - FOLLOW UP Follow Up: For your lower extremity dressing change 1. Remove old dressing. 2. Cleanse the leg with normal saline and pat dry with gauze. 3. Apply Flagyl gel. 4. Cover with xeroform dressing and ABD pads. 4. Wrap with soft roll bandage. please Do wound care daily. Home health care with PT/OT/RN/Aide/social professionals are arranged for you. You were found to have new onset of atrial fibrillation. Medications: digoxin, metoprolol, and Eliquis are prescribed for you. You may followup with your PCP in one week continue the management. You may follow-up with your PCP in 1 week. should your symptoms return or worse, you may present to ER or call 911 for help - TIME SPENT Time Spent in Discharge (Minutes): 30
[2021-07-05 14:06] VITALS: BP 114/80
== END 2021-07-05 15:21 | disposition home health service (06) | DRG 603 ==
LOC: ED 12:15 → ICU 15:57 → MS3 06-19 16:21
PROVIDERS: ADMIT Specialist; ATTEND Nurse Practitioner Gerontology
PROC: 3E0234Z Introduction of Serum, Toxoid and Vaccine into Muscle, Percutaneous Approach (ICD-10-PCS; principal; 2021-06-28)
DX: L03.115 Cellulitis of right lower limb (principal); A52.16 Charcot's arthropathy (tabetic); S81.801A Unspecified open wound, right lower leg, initial encounter; X58.XXXA Exposure to other specified factors, initial encounter; E87.2 Acidosis; F32.1 Major depressive disorder, single episode, moderate; R79.89 Other specified abnormal findings of blood chemistry; Z20.822 Contact with and (suspected) exposure to COVID-19; Z79.82 Long term (current) use of aspirin; F40.00 Agoraphobia, unspecified; I10 Essential (primary) hypertension; I48.91 Unspecified atrial fibrillation; I89.0 Lymphedema, not elsewhere classified; L03.116 Cellulitis of left lower limb; L60.2 Onychogryphosis; L85.9 Epidermal thickening, unspecified; G47.00 Insomnia, unspecified; I87.2 Venous insufficiency (chronic) (peripheral); R26.2 Difficulty in walking, not elsewhere classified; Z23 Encounter for immunization; Z53.20 Procedure and treatment not carried out because of patient's decision for unspecified reasons; Z66 Do not resuscitate; Z81.1 Family history of alcohol abuse and dependence; Z82.49 Family history of ischemic heart disease and other diseases of the circulatory system; Z83.1 Family history of other infectious and parasitic diseases; Z83.3 Family history of diabetes mellitus; Z84.0 Family history of diseases of the skin and subcutaneous tissue; Z91.81 History of falling
CPT/HCPCS: 36415; 71045; 71275; 73610; 80048; 80053; 80162; 80202; 80306; 80307; 81001; 82040; 82330; 82803; 83605; 83690; 83735; 83880; 84100; 84132; 84443; 84484; 85025; 87040; 87077; 87086; 87150; 87181; 87631; 91303; 93005; 93306; 96374; 96375; 97110; 97162; 97530; 99284; 99285; A6250; A9270; G0480; J3370; J7040; Q9967; 0202U; 80329; 81003

== ENCOUNTER 2021-10-01 08:00 | Outpatient (CLI) | payer MEDICARE ==
[2021-10-01 20:10] LABS: CALCIUM 9.2 mg/dL (8.5-10.3); CREATININE 0.6 mg/dL (0.6-1.2); POTASSIUM 4.1 mmol/L (3.5-5.0)
== END 2021-10-01 08:01 | disposition home or self-care (01) ==
LOC: LAB.R 08:00
PROVIDERS: ATTEND Internal Medicine
DX: R60.9 Edema, unspecified (principal); Z79.899 Other long term (current) drug therapy
CPT/HCPCS: 80048

== ENCOUNTER 2022-03-27 00:02 | Outpatient (CLI) | payer MEDICARE | END 2022-03-27 00:03 | disposition EMS.NT | LOC: EMS 00:02 | DX: Z03.89 Encounter for observation for other suspected diseases and conditions ruled out (principal) ==

== ENCOUNTER 2022-07-25 17:09 | Outpatient (CLI) | payer MEDICARE | END 2022-07-25 23:59 | disposition left against medical advice (07) | LOC: EMS 17:09 | DX: Z03.89 Encounter for observation for other suspected diseases and conditions ruled out (principal); Z79.01 Long term (current) use of anticoagulants ==

== ENCOUNTER 2022-08-20 12:16 | Outpatient (CLI) | payer MEDICARE | END 2022-08-20 23:59 | disposition critical access hospital (66) | LOC: EMS 12:16 | DX: R53.1 Weakness (principal); M79.89 Other specified soft tissue disorders | CPT/HCPCS: A0425; A0429 ==

== ENCOUNTER 2022-08-20 12:43 | Inpatient (IN) | payer MEDICARE ==
[2022-08-20 13:20] LABS: BASOPHILS % (AUTO) 0.6 %; EOSINOPHILS # (AUTO) 0.1 10^3/uL (0.0-0.7); EOSINOPHILS % (AUTO) 1.4 %; HGB - HEMOGLOBIN 12.7 g/dL (14.0-18.0); LYMPHOCYTES # (AUTO) 1.4 10^3/uL (1.5-3.5); LYMPHOCYTES % (AUTO) 28.3 %; MEAN CORPUSCULAR HEMOGLOBIN 27.3 pg (27.0-31.0); MEAN PLATELET VOLUME 10.8 fL (7.4-11.4); MONOCYTES # (AUTO) 0.5 10^3/uL (0.0-1.0); MONOCYTES % (AUTO) 9.5 %; PLT - PLATELET COUNT 137 10^3/uL (130-450); RED BLOOD COUNT 4.66 10^6/uL (4.70-6.10); RED CELL DISTRIBUTION WIDTH 17.2 % (12.0-15.0); WHITE BLOOD COUNT 5.1 x10^3/uL (4.8-10.8)
[2022-08-20 13:21] LABS: VBG BASE EXCESS 4.1 mmol/L (-2 - +2); VBG HCO3 32.1 mmol/L (23-28); VBG OXYGEN SATURATION 82.4 % (60-80); VBG PCO2 63.8 mmHg (41-51); VBG PH 7.32 (7.31-7.41); VBG PO2 46.9 mmHg (25-47); VBG TOTAL CO2 34.1 mmol/L (24-29)
[2022-08-20 13:35] LABS: ALBUMIN 3.4 g/dL (3.2-5.5); ALBUMIN/GLOBULIN RATIO 0.7 (1.0-2.2); ALKALINE PHOSPHATASE 86 IU/L (42-121); ALT ALANINE AMINOTRANSFERASE 24 IU/L (10-60); AST ASPARTATE AMINOTRANSFERASE 33 IU/L (10-42); BILIRUBIN,TOTAL 0.3 mg/dL (0.2-1.0); BUN - BLOOD UREA NITROGEN 25 mg/dL (6-20); CALCIUM 8.9 mg/dL (8.5-10.3); CARBON DIOXIDE - CO2 30 mmol/L (21-32); CHLORIDE 99 mmol/L (101-111); CREATININE 0.7 mg/dL (0.6-1.2); ETOH - ETHANOL < 5.0 mg/dL; GFR - MDRD 111 (>89); GLUCOSE 96 mg/dL (70-100); LIPASE 46 U/L (22-51); MAGNESIUM 2.1 mg/dL (1.7-2.8); POTASSIUM 4.2 mmol/L (3.5-5.0); SODIUM 137 mmol/L (135-145); TOTAL PROTEIN 8.5 g/dL (6.7-8.2)
--- NOTE | 2022-08-20 13:47 | XRAY Report ---
PROCEDURE: Chest 1 View X-Ray INDICATIONS: chest pain TECHNIQUE: One view of the chest was acquired. COMPARISON: Chest x-ray 06/27/2021 FINDINGS: Surgical changes and devices: None. Lungs and pleura: No pleural effusions or pneumothorax. Lungs are clear. Unchanged elevation of t he left hemidiaphragm. Mediastinum: Mediastinal contours appear normal. Heart size is normal. Bones and chest wall: No suspicious bony lesions. Overlying soft tissues appear unremarkable. IMPRESSION: Poor inspiratory effort but grossly unremarkable. Reviewed by: Valerie Little MD on 08/20/2022 1:45 PM PDT Approved by: Valerie Little MD on 08/20/2022 1:45 PM PDT Station ID: [id number]
[2022-08-20 14:49] LABS: B. PARAPERTUSSIS- RESP PCR PAN NOT DETECTED; B. PERTUSSIS- RESP PCR PANEL NOT DETECTED; C. PNEUMONIAE- RESP PCR PANEL NOT DETECTED; CORONAVIRUS 229E-RESP PCR NOT DETECTED; CORONAVIRUS HKU1-RESP PCR NOT DETECTED; CORONAVIRUS NL63-RESP PCR NOT DETECTED; CORONAVIRUS OC43-RESP PCR NOT DETECTED; HUMAN METAPNEUMOVIRUS NOT DETECTED; INFLUENZA A- RESP PCR PANEL NOT DETECTED; INFLUENZA B - RESP PCR PANEL NOT DETECTED; M. PNEUMONIAE- RESP PCR PANEL NOT DETECTED; PARAINFLUENZA VIRUS 1 NOT DETECTED; PARAINFLUENZA VIRUS 2 NOT DETECTED; PARAINFLUENZA VIRUS 3 NOT DETECTED; PARAINFLUENZA VIRUS 4 NOT DETECTED; RHINOVIRUS/ENTEROVIRUS NOT DETECTED; RSV- RESP PCR PANEL NOT DETECTED; SARS-CoV-2 -RESP PCR PANEL NOT DETECTED
[2022-08-20] MEDS ORDERED: iohexoL-300 100 ML VIAL ONE (15:25)
[2022-08-20 16:14] LABS: MUDS CUTOFF CONCENTRATIONS CUTOFF CONC BELOW:
[2022-08-20 16:15] LABS: BILIRUBIN,URINE NEGATIVE (NEGATIVE); GLUCOSE, URINE (UA) NEGATIVE (NEGATIVE); KETONES,URINE (UA) NEGATIVE (NEGATIVE); LEUKOCYTE ESTERASE, URINE NEGATIVE (NEGATIVE); NITRITE,URINE NEGATIVE (NEGATIVE); OCCULT BLOOD,URINE NEGATIVE (NEGATIVE); PH,URINE 5.5 PH (5.0-7.5); PROTEIN,URINE NEGATIVE (NEGATIVE); UROBILINOGEN,URINE 0.2 (NORMAL) E.U./dL (NORMAL)
[2022-08-20 16:18] LABS: CLARITY,URINE CLEAR (CLEAR)
--- NOTE | 2022-08-20 16:27 | Ultrasound Report ---
PROCEDURE: Duplex Ext Veins Bilateral INDICATIONS: Deep venous thrombosis TECHNIQUE: Real-time imaging, as well as color and pulse Doppler interrogation, were performed of the deep veins of both legs from the inguinal ligament to the popliteal fossa. COMPARISON: None FINDINGS: There is limited evaluation bilaterally secondary to soft tissue edema. The left side was n ot evaluated below the knee. The deep veins are normally compressible, and free of intraluminal throm bus. Color and pulse Doppler demonstrate normal phasic intravascular flow. There is normal augmenta tion response to distal compression maneuver. IMPRESSION: Limited exam without deep venous thrombosis. Reviewed by: Valerie Little MD on 08/20/2022 4:25 PM PDT Approved by: Valerie Little MD on 08/20/2022 4:25 PM PDT Station ID: [id number]
[2022-08-20 16:34] LABS: AMPHETAMINE SCREEN,URINE NEGATIVE (NEGATIVE); BARBITURATE SCREEN,UR NEGATIVE (NEGATIVE); BENZODIAZEPINES SCREEN, URINE NEGATIVE (NEGATIVE); COCAINE SCREEN URINE NEGATIVE (NEGATIVE); METHADONE SCREEN, URINE NEGATIVE (NEGATIVE); METHAMPHETAMINES SCREEN, URINE NEGATIVE (NEGATIVE); OPIATE SCREEN, URINE NEGATIVE (NEGATIVE); OXYCODONE SCREEN, URINE NEGATIVE (NEGATIVE); PROPOXYPHENE SCREEN, URINE NEGATIVE (NEGATIVE); THC CANNABINOID SCREEN, URINE NEGATIVE (NEGATIVE); TRICYCLIC ANTIDEPRESSANT,URINE NEGATIVE (NEGATIVE)
--- NOTE | 2022-08-20 16:45 | CT Report ---
PROCEDURE: HEAD WO INDICATIONS: AMS TECHNIQUE: Noncontrast 4.5 mm thick angled axial sections acquired from the foramen magnum to the vertex. For r adiation dose reduction, the following was used: automated exposure control, adjustment of mA and/or kV according to patient size. COMPARISON: None. FINDINGS: Image quality: Images are mildly degraded by patient motion despite repeat sequence being acquired. Diagnostic information is obtained. CSF spaces: Basal cisterns are patent. No extra-axial fluid collections. Ventricles are normal in size and shape. Brain: No midline shift. No acute intracranial hemorrhage or mass effect. Mild age-related cerebral and cerebellar cortical volume loss. Scattered mild hypodensities in the subcortical and periventricu lar white matter most commonly seen in setting of chronic microvascular ischemic changes. Skull and face: Calvarium and visualized facial bones are intact, without suspicious lesions. Sinuses: Visualized sinuses and mastoids are clear. IMPRESSION: Motion degraded exam demonstrates no definite acute intracranial abnormality. Reviewed by: Tiago Banegas MD on 08/20/2022 4:44 PM PDT Approved by: Tiago Banegas MD on 08/20/2022 4:44 PM PDT Station ID: [id number]
--- NOTE | 2022-08-20 17:08 | CT Report ---
PROCEDURE: ANGIO CHEST W/WO INDICATIONS: Rule out PE CONTRAST: 80mL Omni 300 TECHNIQUE: After the administration of intravenous contrast, 2 mm axial images were acquired from the pulmonary apices to the posterior costophrenic angles during the arterial phase. In addition, 1 mm lung kernel and 5 mm soft tissue kernel reconstructions were performed. 3-dimensional coronal oblique maximum int ensity projection (MIP) reformats, 8 mm axial MIP, and 5 mm coronal and sagittal MPR reformats were t hen performed through the thorax. For radiation dose reduction, the following was used: automated exp osure control, adjustment of mA and/or kV according to patient size. COMPARISON: 06/17/2021 FINDINGS: Image quality: Excellent. Pulmonary arteries: Pulmonary arteries demonstrate no intraluminal filling defects to suggest centra l pulmonary embolism. The main pulmonary arteries are enlarged, likely due to chronic pulmonary hype rtension. Lungs and pleura: Lung volumes are low and there is elevation of the left hemidiaphragm. No pleural e ffusions or pneumothorax. Central and peripheral airways are patent. Mediastinum: Heart size is normal, without pericardial effusion. No mediastinal or hilar adenopathy . Thoracic aorta is normal in caliber and enhancement. Esophagus is normal in caliber, without hiat al hernia. Bones and chest wall: No suspicious bony lesions. Ribs and thoracic spine appear intact throughout. No axillary or supraclavicular adenopathy. The thyroid is normal in size and there are no incident al findings. Abdomen: Visualized upper abdominal solid organs appear normal in the early arterial phase of enhanc ement. IMPRESSION: 1. No pulmonary embolism. 2. Chronic elevation of the left hemidiaphragm. 3. The main pulmonary arteries appear enlarged, consistent with chronic pulmonary artery hypertension . Reviewed by: Dominic Tee on 08/20/2022 5:07 PM PDT Approved by: Dominic Tee on 08/20/2022 5:07 PM PDT Station ID: [id number]
[2022-08-20] MEDS ORDERED: ONDANSETRON 4 MG/2 ML VIAL IVP PRN (17:43)
[2022-08-20] MEDS ORDERED: ONDANSETRON ODT 4 MG TABLET TL PRN (17:43)
[2022-08-20] MEDS ORDERED: oxyCODONE 5 MG TABLET PO PRN (17:43)
--- NOTE | 2022-08-20 17:43 | ED Physician Documentation ---
History of Present Illness - Stated complaint Stated Complaint: WEAK/BLE EDEMA - Chief complaint Chief Complaint: General - Additonal information Additional information: Patient is 71-year-old male presenting to the emergency department with report of generalized weakness, lower extremity edema, Shortness of breath and hallucinations. Reports that for the last few days he has been having visual hallucinations, seeing cats that are not there or house plants in his bathroom which are not present. Reports some shortness of breath at home. Also reports increasing swelling in his lower extremities. Is uncertain whether or not he has had fever. Denies any headache, chest or abdominal pain. He denies nausea, vomiting, diarrhea, constipation, new rash, new weakness/numbness/tingling in any extremity., Review of Systems Constitutional: denies: Fever, Chills Eyes: denies: Loss of vision Ears: denies: Loss of hearing Nose: denies: Rhinorrhea / runny nose Throat: denies: Dental pain / toothache Cardiac: denies: Chest pain / pressure Respiratory: reports: Dyspnea GI: denies: Abdominal Pain : denies: Dysuria Musculoskeletal: reports: Extremity swelling Neurologic: denies: Generalized weakness PD PAST MEDICAL HISTORY - Past Medical History Cardiovascular: Hypertension Respiratory: None Neuro: None Endocrine/Autoimmune: None GI: None : None HEENT: Chronic vision loss (wears glasses) Psych: None Musculoskeletal: Other Derm: Other (Legs with thick, creeping rash for 2 years) - Past Surgical History Past Surgical History: No - Present Medications Home Medications: Ambulatory Orders Medication Instructions Recorded Confirmed Apixaban [Eliquis] 5 mg PO BID #60 tablet 07/05/21 08/21/22 Digoxin [Lanoxin] 125 mcg PO DAILY #30 tablet 07/05/21 08/21/22 Metoprolol Succinate [Toprol Xl] 50 mg PO DAILY #30 tablet 07/05/21 08/21/22 Multivitamin W/Minerals [Theragran 1 tab PO DAILYWM #30 tablet 07/05/21 08/21/22 M] Furosemide [Lasix] 1 tab PO DAILY PRN 08/21/22 08/21/22 metroNIDAZOLE 0.75% GEL [Flagyl 1 applic TOP Q7D 08/21/22 08/21/22 Gel] - Allergies Allergies/Adverse Reactions: Allergies Allergy/AdvReac Type Severity Reaction Status Date / Time No Known Drug Allergies Allergy Verified 08/20/22 12:50 - Social History Smoking Status: Never smoker Does the pt have substance abuse?: No - POLST Patient has POLST: No POLST Status: DNR PD ED PE NORMAL - Vitals Vital signs reviewed: Yes (Hypoxic on arrival. Tachycardic) - General General: Alert and oriented X 3, No acute distress - HEENT HEENT: Atraumatic, PERRL, EOMI, Ears normal - Neck Neck: Supple, no meningeal sign, No bony TTP, No adenopathy - Cardiac Cardiac: RRR - Respiratory Respiratory: No respiratory distress, Other (Tachypnea) - Abdomen Abdomen: Normal bowel sounds, Non tender - Male Male : Deferred - Extremities Extremities: Other (Severe lower extremity edema bilaterally. Muscle wasting to the feet. Prominent erythema to the right lower extremity.) Results - Vitals Vitals: Oxygen O2 Source Nasal cannula Oxygen Flow Rate 2 - Labs Labs: Microbiology 08/20/22 13:45 Blood Culture - Preliminary Blood NO GROWTH AFTER 1 DAY 08/20/22 13:10 Blood Culture - Preliminary Blood NO GROWTH AFTER 1 DAY Laboratory Tests 08/20/22 08/20/22 08/20/22 13:10 13:10 13:10 WBC 5.1 RBC 4.66 L Hgb 12.7 L Hct 41.0 L MCV 88.0 MCH 27.3 MCHC 31.0 L RDW 17.2 H Plt Count 137 MPV 10.8 Neut # (Auto) 3.0 Lymph # (Auto) 1.4 L Carson # (Auto) 0.5 Eos # (Auto) 0.1 Baso # (Auto) 0.0 Absolute Nucleated RBC 0.00 Nucleated RBC % 0.0 D-Dimer VBG pH VBG pCO2 VBG pO2 VBG HCO3 VBG Total CO2 VBG O2 Saturation VBG Base Excess Sodium 137 Potassium 4.2 Chloride 99 L Carbon Dioxide 30 Anion Gap 8.0 BUN 25 H Creatinine 0.7 Estimated GFR (MDRD) 111 Glucose 96 Lactic Acid Calcium 8.9 Magnesium 2.1 Total Bilirubin 0.3 AST 33 ALT 24 Alkaline Phosphatase 86 Troponin I High Sens 8.8 B-Natriuretic Peptide Total Protein 8.5 H Albumin 3.4 Globulin 5.1 H Albumin/Globulin Ratio 0.7 L Lipase 46 Urine Color Urine Clarity Urine pH Ur Specific Wakeman Urine Protein Urine Glucose (UA) Urine Ketones Urine Occult Blood Urine Nitrite Urine Bilirubin Urine Urobilinogen Ur Leukocyte Esterase Ur Microscopic Review Urine Culture Comments Nasal Adenovirus (PCR) Nasal B. parapertussis DNA (PCR) Nasal Coronavir 229E PCR Nasal Coronavir HKU1 PCR Nasal Coronavir NL63 PCR Nasal Coronavir OC43 PCR Nasal Enterovir/Rhinovir PCR Nasal Influenza B PCR Nasal Influenza A PCR Nasal Parainfluen 1 PCR Nasal Parainfluen 2 PCR Nasal Parainfluen 3 PCR Nasal Parainfluen 4 PCR Nasal RSV (PCR) Nasal B.pertussis DNA PCR Nasal C.pneumoniae (PCR) Tony Human Metapneumo PCR Nasal M.pneumoniae (PCR) Nasal SARS-CoV-2 (PCR) Urine Opiates Screen Ur Oxycodone Screen Urine Methadone Screen Ur Propoxyphene Screen Ur Barbiturates Screen Ur Tricyclics Screen Ur Phencyclidine Scrn Ur Amphetamine Screen U Methamphetamines Scrn U Benzodiazepines Scrn Urine Cocaine Screen U Cannabinoids Screen Ethyl Alcohol < 5.0 08/20/22 08/20/22 08/20/22 13:10 13:10 13:10 WBC RBC Hgb Hct MCV MCH MCHC RDW Plt Count MPV Neut # (Auto) Lymph # (Auto) Carson # (Auto) Eos # (Auto) Baso # (Auto) Absolute Nucleated RBC Nucleated RBC % D-Dimer 393.7 H VBG pH 7.320 VBG pCO2 63.8 H VBG pO2 46.9 VBG HCO3 32.1 H VBG Total CO2 34.1 H VBG O2 Saturation 82.4 H VBG Base Excess 4.1 H Sodium Potassium Chloride Carbon Dioxide Anion Gap BUN Creatinine Estimated GFR (MDRD) Glucose Lactic Acid Calcium Magnesium Total Bilirubin AST ALT Alkaline Phosphatase Troponin I High Sens B-Natriuretic Peptide 154 H Total Protein Albumin Globulin Albumin/Globulin Ratio Lipase Urine Color Urine Clarity Urine pH Ur Specific Wakeman Urine Protein Urine Glucose (UA) Urine Ketones Urine Occult Blood Urine Nitrite Urine Bilirubin Urine Urobilinogen Ur Leukocyte Esterase Ur Microscopic Review Urine Culture Comments Nasal Adenovirus (PCR) Nasal B. parapertussis DNA (PCR) Nasal Coronavir 229E PCR Nasal Coronavir HKU1 PCR Nasal Coronavir NL63 PCR Nasal Coronavir OC43 PCR Nasal Enterovir/Rhinovir PCR Nasal Influenza B PCR Nasal Influenza A PCR Nasal Parainfluen 1 PCR Nasal Parainfluen 2 PCR Nasal Parainfluen 3 PCR Nasal Parainfluen 4 PCR Nasal RSV (PCR) Nasal B.pertussis DNA PCR Nasal C.pneumoniae (PCR) Tony Human Metapneumo PCR Nasal M.pneumoniae (PCR) Nasal SARS-CoV-2 (PCR) Urine Opiates Screen Ur Oxycodone Screen Urine Methadone Screen Ur Propoxyphene Screen Ur Barbiturates Screen Ur Tricyclics Screen Ur Phencyclidine Scrn Ur Amphetamine Screen U Methamphetamines Scrn U Benzodiazepines Scrn Urine Cocaine Screen U Cannabinoids Screen Ethyl Alcohol 08/20/22 08/20/22 08/20/22 13:10 13:52 16:10 WBC RBC Hgb Hct MCV MCH MCHC RDW Plt Count MPV Neut # (Auto) Lymph # (Auto) Carson # (Auto) Eos # (Auto) Baso # (Auto) Absolute Nucleated RBC Nucleated RBC % D-Dimer VBG pH VBG pCO2 VBG pO2 VBG HCO3 VBG Total CO2 VBG O2 Saturation VBG Base Excess Sodium Potassium Chloride Carbon Dioxide Anion Gap BUN Creatinine Estimated GFR (MDRD) Glucose Lactic Acid 1.3 Calcium Magnesium Total Bilirubin AST ALT Alkaline Phosphatase Troponin I High Sens B-Natriuretic Peptide Total Protein Albumin Globulin Albumin/Globulin Ratio Lipase Urine Color YELLOW Urine Clarity CLEAR Urine pH 5.5 Ur Specific Wakeman >=1.030 H Urine Protein NEGATIVE Urine Glucose (UA) NEGATIVE Urine Ketones NEGATIVE Urine Occult Blood NEGATIVE Urine Nitrite NEGATIVE Urine Bilirubin NEGATIVE Urine Urobilinogen 0.2 (NORMAL) Ur Leukocyte Esterase NEGATIVE Ur Microscopic Review NOT INDICATED Urine Culture Comments NOT INDICATED Nasal Adenovirus (PCR) NOT DETECTED Nasal B. parapertussis DNA (PCR) NOT DETECTED Nasal Coronavir 229E PCR NOT DETECTED Nasal Coronavir HKU1 PCR NOT DETECTED Nasal Coronavir NL63 PCR NOT DETECTED Nasal Coronavir OC43 PCR NOT DETECTED Nasal Enterovir/Rhinovir PCR NOT DETECTED Nasal Influenza B PCR NOT DETECTED Nasal Influenza A PCR NOT DETECTED Nasal Parainfluen 1 PCR NOT DETECTED Nasal Parainfluen 2 PCR NOT DETECTED Nasal Parainfluen 3 PCR NOT DETECTED Nasal Parainfluen 4 PCR NOT DETECTED Nasal RSV (PCR) NOT DETECTED Nasal B.pertussis DNA PCR NOT DETECTED Nasal C.pneumoniae (PCR) NOT DETECTED Tony Human Metapneumo PCR NOT DETECTED Nasal M.pneumoniae (PCR) NOT DETECTED Nasal SARS-CoV-2 (PCR) NOT DETECTED Urine Opiates Screen NEGATIVE Ur Oxycodone Screen NEGATIVE Urine Methadone Screen NEGATIVE Ur Propoxyphene Screen NEGATIVE Ur Barbiturates Screen NEGATIVE Ur Tricyclics Screen NEGATIVE Ur Phencyclidine Scrn NEGATIVE Ur Amphetamine Screen NEGATIVE U Methamphetamines Scrn NEGATIVE U Benzodiazepines Scrn NEGATIVE Urine Cocaine Screen NEGATIVE U Cannabinoids Screen NEGATIVE Ethyl Alcohol PD Medical Decision Making - ED course Complexity details: reviewed old records, reviewed results, d/w patient, d/w client relationship consultant ED course: Patient 71-year-old male with past medical significant for chronic lower ext remity edema and stasis dermatitis presenting to the emergency department with chief complaints of shortness of breath and hallucinations at home. Hypoxic on arrival and placed on supplemental oxygen, 2 to 4 L nasal cannula. Tachycardic but with a stable unchanged EKG. Some tachypnea but clear aeration in all lung zhang. Lower extremity demonstrates severe chronic edema with stasis dermatitis changes. There is some persistent erythema and rubor to the right lower extremity that appears greater than left. Chest x-ray nonacute. CT head, CTA chest obtained. No acute abnormalities to the head CT however CTA chest does demonstrate indications of possible pulmonary hypertension. No edema noted per radiology report. Did review patient's echocardiogram from approximately 1 year ago which was grossly normal. At this time certain etiology for his hypoxia and respiratory failure is unsure. I did order blood cultures and I have treated with antibiotics for possible lower extremity cellulitis. His care was discussed with the hospitalist service who graciously agreed to hospitalize the patient for further evaluation and treatment. Departure - Departure Disposition: [facility] DC/Xfer Clinical Impression: Lower extremity edema Respiratory failure Qualifiers: Chronicity: acute Respiratory failure complication: hypoxia Qualified Code(s): J96.01 - Acute respiratory failure with hypoxia Lower extremity cellulitis Qualifiers: Laterality: unspecified laterality Qualified Code(s): L03.119 - Cellulitis of unspecified part of limb Discharge Date/Time: 08/20/22 19:32
[2022-08-20] MEDS ORDERED: SODIUM CHLORIDE 0.9% IV SCH (18:00)
[2022-08-20] MEDS ORDERED: VANCOMYCIN IV SCH (18:00)
[2022-08-20] MEDS ORDERED: VANCOMYCIN IV ONE (18:00)
[2022-08-20] MEDS ORDERED: SODIUM CHLORIDE 0.9% IV ONE (18:00)
[2022-08-20] MEDS ORDERED: VANCOMYCIN INJ 1,500 GM in SODIUM CHLORIDE 0.9% 500 ML IV SCH (18:00)
[2022-08-20] MEDS: VANCOMYCIN INJ 1,500 GM in SODIUM CHLORIDE 0.9% 500 ML IV SCH ×2 (18:09→18:10)
[2022-08-20] MEDS ORDERED: iohexoL-300 100 ML VIAL IVP ONE (19:15)
--- NOTE | 2022-08-20 23:29 | HISTORY & PHYSICAL EXAMINATION ---
Chief Complaint - Chief Complaint Chief Complaint: Swollen and hot and infected leg History of Present Illness - Admitted From Admitted From:: Home via EMS - History Obtained From Records Reviewed: [facility] History obtained from: Patient, ER provider, and patient's brother Miguel Exam Limitations: None - History of Present Illness HPI Comment/Other: Patient is a loner, prefers to spend time in his room. He comes out about twice a day to go to the bathroom, and about once a day to get his food prep. He has a caregiver that comes once a week and the caregiver forces him to take a bath, washes laundry, and change the sheets on his bed. Otherwise he can get quite smelly. He has chronic venous stasis dermatitis probably from lymphedema and has already been previously admitted for cellulitis in the past. Has been home about a year with his brother. Brother states that the patient is noncompliant with meds, follow-up care. Again he has to be forced to be clean. The brother noticed that the patient has been less and less mobile, even more than usual, for the last month or so. Unclear why. No new events. In the last week there have been times and then went to go check up on him in his bedroom because he wa s not coming out and they were afraid what was going on in there. He seemed to be okay. He has fallen a few times and they have had to have a lift assist to get him up. Today when he fell again, they realize that his legs were severely infected and they had him brought to the emergency room by ambulance. At the scene EMS said that his O2 sats were in the 80s and needed to be put on 2 L nasal cannula. In our emergency room the ER provider feels that there is an element of hypoxemia from either congestive heart failure or lung disease. Patient is responding to diuretics. Previous echo showed some mild pulmonary hypertension. Ejection fraction was intact. After discussion with the ER provider, I am admitting the patient for recurrent cellulitis of the legs, and treatment of his hypoxemia from presumed CHF. In discussing the case with Miguel, the patient's brother, Imguel states states that he really does not want the patient to come home. He really feels it is in the patient's best interest to be permanently placed. History - Past Medical History Cardiovascular: reports: Hypertension Respiratory: reports: None Neuro: reports: None Endocrine/Autoimmune: reports: None GI: reports: None : reports: None HEENT: reports: Chronic vision loss (wears glasses) Psych: reports: None Musculoskeletal: reports: Other Derm: reports: Other MRSA Hx?: No - Family & Social History Family History Comment/Other: Mom at age 90. Multisystem organ failure after sepsis of leg infection.. HTN, DM and MS present before. Dad at age 79. of congestive heart failure but had diabetes as well as chronic alcoholism before his . 2 brothers. One has diabetes. One has mild chronic alcohol abuse. 1 daughter. He is estranged from her ever since he her mother. He only knows about her is that she had a gallbladder attack in the last year. Living Situation: With family Social History Notes: Born in [place]. At the age of 13 he was moved to [place] by his dad who had a new job there. He has lived and worked in [place] in the [facility]) for 39 years. 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 He ended up losing his job, lost his house, and was living in a homeless chcf and eventually on the streets. Did not have any money. In speaking to his brother, who lives here in the [place], his brother took him in and has been living at his brother's house for 6 years. He was for 20 years and he and his drifted apart especially when she had an affair. He never really drank. Never had a problem with alcohol abuse. Has never done any substance abuse. He smoked until last week. - Substance History Use: Uses substance without health or social issues: NONE - POLST Patient has POLST: No POLST Status: DNR Meds/Allgy - Home Medications Home Medications: Ambulatory Orders Medication Instructions Recorded Confirmed Apixaban [Eliquis] 5 mg PO BID #60 tablet 07/05/21 08/21/22 Digoxin [Lanoxin] 125 mcg PO DAILY #30 tablet 07/05/21 08/21/22 Metoprolol Succinate [Toprol Xl] 50 mg PO DAILY #30 tablet 07/05/21 08/21/22 Multivitamin W/Minerals [Theragran 1 tab PO DAILYWM #30 tablet 07/05/21 08/21/22 M] Furosemide [Lasix] 1 tab PO DAILY PRN 08/21/22 08/21/22 metroNIDAZOLE 0.75% GEL [Flagyl 1 applic TOP Q7D 08/21/22 08/21/22 Gel] - Allergies Allergies/Adverse Reactions: Allergies Allergy/AdvReac Type Severity Reaction Status Date / Time No Known Drug Allergies Allergy Verified 08/20/22 12:50 Exam - Vital Signs Vital Signs: Vital Signs x48h Temp Pulse Pulse Resp BP BP Pulse Ox 08/20/22 20:00 35.9 C L 96 20 132/82 H 94 08/20/22 17:41 86 22 130/78 98 O2 Flow Rate 08/20/22 20:00 2 08/20/22 17:41 2 Conclusion/Plan - Problem List (1) Acute respiratory failure with hypoxia Conclusion/Plan: This gentleman is usually not on long-term oxygen. And he does have a history of hypertension but he does not have a history of reduced ejection fraction congestive heart failure, or COPD. He does smoke so he could have a new diagnosis of COPD that has been missed. The COPD could lead to pulmonary hypertension and right-sided heart failure. He also has very swollen legs, and although this is chronic, he is a sedentary gentleman. PE is in the differential. Plan: Inpatient admission Oxygen supplementation to obtain an O2 sats of 92% or greater Work-up for causes of was causing his hypoxia. Is that his heart rate is at his lungs. I will need to order echo, and CT of the chest. ER provider states they have already ordered a CT of chest and I will review that once he gets to the floor. (2) Lower extremity cellulitis Conclusion/Plan: He has chronic skin changes from lymphedema/venous stasis of his legs. The left leg is densely red and hot when I touch the skin. He has numerous scaling's that are yellowish-brown that cover the leg and the redness is underlying. And then he also has vertical and horizontal cracking of the skin from severe edema with there is serous drainage. He also has 3 small open ulcers. The right leg appears to have chronic lymphedema changes and none are acute. While the right leg is red, there is no open areas of oozing or bleeding and it is not hot. Plan: In the ER he did receive vancomycin. He does not have a history of MRSA. I would rather start him on Ancef. Qualifiers: Laterality: unspecified laterality Qualified Code(s): L03.119 - Cellulitis of unspecified part of limb (3) Cor pulmonale Conclusion/Plan: Because he has a history of smoking, and swollen legs, I will treat as possible cor pulmonale with Lasix. Check echo when tech available (4) Chronic atrial fibrillation Conclusion/Plan: This patient is on Lanoxin for rate control, and Eliquis for DOAC. He does not have any rapid ventricular response. I do not think this is contributing to left-sided heart failure. Plan: Resume home medications. And again check echo (5) Generalized weakness Conclusion/Plan: His brother describes a gradual decreased mobility over the last few weeks. The gentleman is already relatively sedentary. Requires a lot of coaxing and prompting to get out of his room at least once a week. Caregiver has to force him to take a bath, and to change his sheets, and to do the laundry. But that only happens once a week. But this is been a sharp deterioration. My assumption is that he is feeling poorly because of left leg cellulitis, and his shortness of breath. Plan: PT eval and treatment - Lab Results Lab results reviewed: Yes Fish Bones: 08/24/22 04:37 08/24/22 04:37 - Diagnostic Imaging Results Diagnostic Imaging Results: positive: Final report reviewed Diagnostic Imaging Results Comments: Chest x-ray has poor inspiratory effort but is grossly unremarkable. Venous duplex study of left leg is limited but without any DVT Head CT is with no definite acute intracranial abnormality but is limited by motion artifact Chest CT and thorax with angiogram report is pending
[2022-08-21] MEDS: SODIUM CHLORIDE FLUSH 0.9% 10 ML SYRINGE IVP SCH ×4 (00:49→22:18)
[2022-08-21] MEDS: NYSTATIN POWDER 15 GM TOP SCH ×3 (00:50→22:14)
[2022-08-21] MEDS: NYSTATIN CREAM 15 GM TUBE TOP SCH ×3 (00:50→22:14)
[2022-08-21] MEDS ORDERED: VANCOMYCIN 1 GM VIAL ONE (05:49)
[2022-08-21] MEDS ORDERED: SODIUM CHLORIDE 0.9% IV SCH (06:00)
[2022-08-21] MEDS ORDERED: VANCOMYCIN IV SCH (06:00)
[2022-08-21 06:25] LABS: BASOPHILS % (AUTO) 0.4 %; EOSINOPHILS % (AUTO) 0.4 %; HCT - HEMATOCRIT 40.9 % (42.0-52.0); HGB - HEMOGLOBIN 12.2 g/dL (14.0-18.0); LYMPHOCYTES # (AUTO) 0.8 10^3/uL (1.5-3.5); LYMPHOCYTES % (AUTO) 15.4 %; MEAN CORPUSCULAR HEMOGLOBIN 27.4 pg (27.0-31.0); MEAN CORPUSCULAR HGB CONC 29.8 g/dL (32.0-36.0); MEAN CORPUSCULAR VOLUME 91.9 fL (80.0-94.0); MEAN PLATELET VOLUME 11.4 fL (7.4-11.4); MONOCYTES # (AUTO) 0.5 10^3/uL (0.0-1.0); MONOCYTES % (AUTO) 9.3 %; NEUTROPHILS # (AUTO) 3.8 10^3/uL (1.5-6.6); NEUTROPHILS % (AUTO) 74.3 %; PLT - PLATELET COUNT 125 10^3/uL (130-450); RED BLOOD COUNT 4.45 10^6/uL (4.70-6.10); RED CELL DISTRIBUTION WIDTH 17.5 % (12.0-15.0); WHITE BLOOD COUNT 5.1 x10^3/uL (4.8-10.8)
[2022-08-21 06:27] LABS: CALCIUM 8.5 mg/dL (8.5-10.3); CREATININE 0.6 mg/dL (0.6-1.2); POTASSIUM 4.6 mmol/L (3.5-5.0)
[2022-08-21] MEDS ORDERED: ENOXAPARIN 40 MG/0.4 ML SYRINGE SUBQ SCH (09:00)
[2022-08-21] MEDS: ACETAMINOPHEN 325 MG TABLET PO PRN ×3 (09:11→23:41)
--- NOTE | 2022-08-21 11:25 | PROVIDER PROGRESS NOTE ---
<David Haines - Last Filed: 08/21/22 13:33> Subjective - Prog Note Date Prog Note Date: 08/21/22 Prog Note Time: 11:23 - Subjective Pt reports feeling: No change Subjective: Pt states he feels "about the same" from yesterday in regards to his weakness, edema, and SOB. No hallucinations. Current Medications - Current Medications Current Medications: Active Medications Generic Name Dose Route Start Last Admin Trade Name Freq PRN Reason Stop Dose Admin Acetaminophen 650 mg 08/20/22 17:43 08/21/22 09:11 Acetaminophen 325 Mg Tablet PO 650 mg Q4HR PRN Administration Pain 1 to 4, or Fever Enoxaparin Sodium 40 mg 08/21/22 09:00 08/21/22 09:12 Enoxaparin 40 Mg/0.4 Ml Syringe SUBQ 40 mg DAILY KODY Administration Vancomycin HCl 1,500 gm/ 250 mls @ 167 mls/hr 08/21/22 06:00 08/21/22 07:45 Sodium Chloride IV Infused Q12H KODY Infusion Nystatin 1 applic 08/20/22 23:45 08/21/22 09:11 Nystatin Cream 15 Gm Tube TOP 1 applic BID KODY Administration Nystatin 1 applic 08/20/22 23:45 08/21/22 09:12 Nystatin Powder 15 Gm TOP 1 applic BID KODY Administration Ondansetron HCl 4 mg 08/20/22 17:43 Ondansetron Odt 4 Mg Tablet TL Q6HR PRN Nausea / Vomiting Ondansetron HCl 4 mg 08/20/22 17:43 Ondansetron 4 Mg/2 Ml Vial IVP Q6HR PRN Nausea / Vomiting Oxycodone HCl 5 mg 08/20/22 17:43 Oxycodone 5 Mg Tablet PO Q4HR PRN Pain 5 to 7 Sodium Chloride 10 ml 08/20/22 17:43 Sodium Chloride Flush 0.9% 10 Ml Syringe IVP PRN PRN NEEDED PER PROVIDER ORDERS Sodium Chloride 10 ml 08/21/22 01:00 08/21/22 09:12 Sodium Chloride Flush 0.9% 10 Ml Syringe IVP 10 ml 0100,0900,1700 KODY Administration Objective - Vital Signs/Intake & Output Vital Signs: Vital Signs x48h Temp Pulse Resp BP Pulse Ox O2 Flow Rate 08/21/22 09:07 35 08/21/22 09:02 36.6 C 97 20 121/64 94 35 08/21/22 08:50 22 80 L 2 08/21/22 08:17 36.0 C L 94 18 108/81 H 95 2 Intake & Output: Intake & Output 08/18/22 08/19/22 08/20/22 08/21/22 23:59 23:59 23:59 23:59 Intake Total 500 610 Output Total 175 200 Balance 325 410 - Objective General Appearance: positive: No acute distress (On high flow O2) Eyes Bilateral: positive: Normal inspection Neck: positive: Nml inspection, No JVD Respiratory: positive: No respiratory distress (On high flow O2) Cardiovascular: positive: Regular rate & rhythm Peripheral Pulses: 2+ Radial (R), 2+ Radial (L) Abdomen: positive: Non-tender, No organomegaly, Nml bowel sounds Skin: positive: Other (Bilateral edema in legs) Extremities: positive: Calf tenderness (Not truly tender, but soreness in both legs) Neurologic/Psychiatric: positive: Oriented x3, Sensation nml - Lab Results Fish Bones: 08/21/22 05:43 08/21/22 05:43 Other Labs: Lab Results x24hrs 08/21/22 08/21/22 08/20/22 Range/Units 05:43 05:43 16:10 WBC 5.1 (4.8-10.8) x10^3/uL RBC 4.45 L (4.70-6.10) 10^6/uL Hgb 12.2 L (14.0-18.0) g/dL Hct 40.9 L (42.0-52.0) % MCV 91.9 (80.0-94.0) fL MCH 27.4 (27.0-31.0) pg MCHC 29.8 L (32.0-36.0) g/dL RDW 17.5 H (12.0-15.0) % Plt Count 125 L (130-450) 10^3/uL MPV 11.4 (7.4-11.4) fL Neut # (Auto) 3.8 (1.5-6.6) 10^3/uL Lymph # (Auto) 0.8 L (1.5-3.5) 10^3/uL [place] # (Auto) 0.5 (0.0-1.0) 10^3/uL Eos # (Auto) 0.0 (0.0-0.7) 10^3/uL Baso # (Auto) 0.0 (0.0-0.1) 10^3/uL Absolute Nucleated RBC 0.00 x10^3/uL Nucleated RBC % 0.0 /100WBC D-Dimer (200.0-255.0) ng/mL VBG pH (7.31-7.41) VBG pCO2 (41-51) mmHg VBG pO2 (25-47) mmHg VBG HCO3 (23-28) mmol/L VBG Total CO2 (24-29) mmol/L VBG O2 Saturation (60-80) % VBG Base Excess (-2 - +2) mmol/L Sodium 140 (135-145) mmol/L Potassium 4.6 (3.5-5.0) mmol/L Chloride 103 (101-111) mmol/L Carbon Dioxide 32 (21-32) mmol/L Anion Gap 5.0 L (6-13) BUN 22 H (6-20) mg/dL Creatinine 0.6 (0.6-1.2) mg/dL Estimated GFR (MDRD) 133 (>89) Glucose 103 H (70-100) mg/dL Lactic Acid (0.5-2.2) mmol/L Calcium 8.5 (8.5-10.3) mg/dL Magnesium (1.7-2.8) mg/dL Total Bilirubin (0.2-1.0) mg/dL AST (10-42) IU/L ALT (10-60) IU/L Alkaline Phosphatase (42-121) IU/L Troponin I High Sens (2.3-19.7) ng/L B-Natriuretic Peptide (5-100) pg/mL Total Protein (6.7-8.2) g/dL Albumin (3.2-5.5) g/dL Globulin (2.1-4.2) g/dL Albumin/Globulin Ratio (1.0-2.2) Lipase (22-51) U/L Urine Color YELLOW Urine Clarity CLEAR (CLEAR) Urine pH 5.5 (5.0-7.5) PH Ur Specific [place] >=1.030 H (1.002-1.030) Urine Protein NEGATIVE (NEGATIVE) mg/dL Urine Glucose (UA) NEGATIVE (NEGATIVE) mg/dL Urine Ketones NEGATIVE (NEGATIVE) mg/dL Urine Occult Blood NEGATIVE (NEGATIVE) Urine Nitrite NEGATIVE (NEGATIVE) Urine Bilirubin NEGATIVE (NEGATIVE) Urine Urobilinogen 0.2 (NORMAL) (NORMAL) E.U./dL Ur Leukocyte Esterase NEGATIVE (NEGATIVE) Ur Microscopic Review NOT INDICATED Urine Culture Comments NOT INDICATED Nasal Adenovirus (PCR) Nasal B. parapertussis DNA (PCR) Nasal Coronavir 229E PCR Nasal Coronavir HKU1 PCR Nasal Coronavir NL63 PCR Nasal Coronavir OC43 PCR Nasal Enterovir/Rhinovir PCR Nasal Influenza B PCR Nasal Influenza A PCR Nasal Parainfluen 1 PCR Nasal Parainfluen 2 PCR Nasal Parainfluen 3 PCR Nasal Parainfluen 4 PCR Nasal RSV (PCR) Nasal B.pertussis DNA PCR Nasal C.pneumoniae (PCR) Tony Human Metapneumo PCR Nasal M.pneumoniae (PCR) Nasal SARS-CoV-2 (PCR) Urine Opiates Screen NEGATIVE (NEGATIVE) Ur Oxycodone Screen NEGATIVE (NEGATIVE) Urine Methadone Screen NEGATIVE (NEGATIVE) Ur Propoxyphene Screen NEGATIVE (NEGATIVE) Ur Barbiturates Screen NEGATIVE (NEGATIVE) Ur Tricyclics Screen NEGATIVE (NEGATIVE) Ur Phencyclidine Scrn NEGATIVE (NEGATIVE) Ur Amphetamine Screen NEGATIVE (NEGATIVE) U Methamphetamines Scrn NEGATIVE (NEGATIVE) U Benzodiazepines Scrn NEGATIVE (NEGATIVE) Urine Cocaine Screen NEGATIVE (NEGATIVE) U Cannabinoids Screen NEGATIVE (NEGATIVE) Ethyl Alcohol mg/dL 08/20/22 08/20/22 08/20/22 Range/Units 13:52 13:10 13:10 WBC (4.8-10.8) x10^3/uL RBC (4.70-6.10) 10^6/uL Hgb (14.0-18.0) g/dL Hct (42.0-52.0) % MCV (80.0-94.0) fL MCH (27.0-31.0) pg MCHC (32.0-36.0) g/dL RDW (12.0-15.0) % Plt Count (130-450) 10^3/uL MPV (7.4-11.4) fL Neut # (Auto) (1.5-6.6) 10^3/uL Lymph # (Auto) (1.5-3.5) 10^3/uL [place] # (Auto) (0.0-1.0) 10^3/uL Eos # (Auto) (0.0-0.7) 10^3/uL Baso # (Auto) (0.0-0.1) 10^3/uL Absolute Nucleated RBC x10^3/uL Nucleated RBC % /100WBC D-Dimer 393.7 H (200.0-255.0) ng/mL VBG pH (7.31-7.41) VBG pCO2 (41-51) mmHg VBG pO2 (25-47) mmHg VBG HCO3 (23-28) mmol/L VBG Total CO2 (24-29) mmol/L VBG O2 Saturation (60-80) % VBG Base Excess (-2 - +2) mmol/L Sodium (135-145) mmol/L Potassium (3.5-5.0) mmol/L Chloride (101-111) mmol/L Carbon Dioxide (21-32) mmol/L Anion Gap (6-13) BUN (6-20) mg/dL Creatinine (0.6-1.2) mg/dL Estimated GFR (MDRD) (>89) Glucose (70-100) mg/dL Lactic Acid 1.3 (0.5-2.2) mmol/L Calcium (8.5-10.3) mg/dL Magnesium (1.7-2.8) mg/dL Total Bilirubin (0.2-1.0) mg/dL AST (10-42) IU/L ALT (10-60) IU/L Alkaline Phosphatase (42-121) IU/L Troponin I High Sens (2.3-19.7) ng/L B-Natriuretic Peptide (5-100) pg/mL Total Protein (6.7-8.2) g/dL Albumin (3.2-5.5) g/dL Globulin (2.1-4.2) g/dL Albumin/Globulin Ratio (1.0-2.2) Lipase (22-51) U/L Urine Color Urine Clarity (CLEAR) Urine pH (5.0-7.5) PH Ur Specific [place] (1.002-1.030) Urine Protein (NEGATIVE) mg/dL Urine Glucose (UA) (NEGATIVE) mg/dL Urine Ketones (NEGATIVE) mg/dL Urine Occult Blood (NEGATIVE) Urine Nitrite (NEGATIVE) Urine Bilirubin (NEGATIVE) Urine Urobilinogen (NORMAL) E.U./dL Ur Leukocyte Esterase (NEGATIVE) Ur Microscopic Review Urine Culture Comments Nasal Adenovirus (PCR) NOT DETECTED Nasal B. parapertussis DNA (PCR) NOT DETECTED Nasal Coronavir 229E PCR NOT DETECTED Nasal Coronavir HKU1 PCR NOT DETECTED Nasal Coronavir NL63 PCR NOT DETECTED Nasal Coronavir OC43 PCR NOT DETECTED Nasal Enterovir/Rhinovir PCR NOT DETECTED Nasal Influenza B PCR NOT DETECTED Nasal Influenza A PCR NOT DETECTED Nasal Parainfluen 1 PCR NOT DETECTED Nasal Parainfluen 2 PCR NOT DETECTED Nasal Parainfluen 3 PCR NOT DETECTED Nasal Parainfluen 4 PCR NOT DETECTED Nasal RSV (PCR) NOT DETECTED Nasal B.pertussis DNA PCR NOT DETECTED Nasal C.pneumoniae (PCR) NOT DETECTED Tony Human Metapneumo PCR NOT DETECTED Nasal M.pneumoniae (PCR) NOT DETECTED Nasal SARS-CoV-2 (PCR) NOT DETECTED Urine Opiates Screen (NEGATIVE) Ur Oxycodone Screen (NEGATIVE) Urine Methadone Screen (NEGATIVE) Ur Propoxyphene Screen (NEGATIVE) Ur Barbiturates Screen (NEGATIVE) Ur Tricyclics Screen (NEGATIVE) Ur Phencyclidine Scrn (NEGATIVE) Ur Amphetamine Screen (NEGATIVE) U Methamphetamines Scrn (NEGATIVE) U Benzodiazepines Scrn (NEGATIVE) Urine Cocaine Screen (NEGATIVE) U Cannabinoids Screen (NEGATIVE) Ethyl Alcohol mg/dL 08/20/22 08/20/22 08/20/22 Range/Units 13:10 13:10 13:10 WBC (4.8-10.8) x10^3/uL RBC (4.70-6.10) 10^6/uL Hgb (14.0-18.0) g/dL Hct (42.0-52.0) % MCV (80.0-94.0) fL MCH (27.0-31.0) pg MCHC (32.0-36.0) g/dL RDW (12.0-15.0) % Plt Count (130-450) 10^3/uL MPV (7.4-11.4) fL Neut # (Auto) (1.5-6.6) 10^3/uL Lymph # (Auto) (1.5-3.5) 10^3/uL [place] # (Auto) (0.0-1.0) 10^3/uL Eos # (Auto) (0.0-0.7) 10^3/uL Baso # (Auto) (0.0-0.1) 10^3/uL Absolute Nucleated RBC x10^3/uL Nucleated RBC % /100WBC D-Dimer (200.0-255.0) ng/mL VBG pH 7.320 (7.31-7.41) VBG pCO2 63.8 H (41-51) mmHg VBG pO2 46.9 (25-47) mmHg VBG HCO3 32.1 H (23-28) mmol/L VBG Total CO2 34.1 H (24-29) mmol/L VBG O2 Saturation 82.4 H (60-80) % VBG Base Excess 4.1 H (-2 - +2) mmol/L Sodium (135-145) mmol/L Potassium (3.5-5.0) mmol/L Chloride (101-111) mmol/L Carbon Dioxide (21-32) mmol/L Anion Gap (6-13) BUN (6-20) mg/dL Creatinine (0.6-1.2) mg/dL Estimated GFR (MDRD) (>89) Glucose (70-100) mg/dL Lactic Acid (0.5-2.2) mmol/L Calcium (8.5-10.3) mg/dL Magnesium (1.7-2.8) mg/dL Total Bilirubin (0.2-1.0) mg/dL AST (10-42) IU/L ALT (10-60) IU/L Alkaline Phosphatase (42-121) IU/L Troponin I High Sens 8.8 (2.3-19.7) ng/L B-Natriuretic Peptide 154 H (5-100) pg/mL Total Protein (6.7-8.2) g/dL Albumin (3.2-5.5) g/dL Globulin (2.1-4.2) g/dL Albumin/Globulin Ratio (1.0-2.2) Lipase (22-51) U/L Urine Color Urine Clarity (CLEAR) Urine pH (5.0-7.5) PH Ur Specific [place] (1.002-1.030) Urine Protein (NEGATIVE) mg/dL Urine Glucose (UA) (NEGATIVE) mg/dL Urine Ketones (NEGATIVE) mg/dL Urine Occult Blood (NEGATIVE) Urine Nitrite (NEGATIVE) Urine Bilirubin (NEGATIVE) Urine Urobilinogen (NORMAL) E.U./dL Ur Leukocyte Esterase (NEGATIVE) Ur Microscopic Review Urine Culture Comments Nasal Adenovirus (PCR) Nasal B. parapertussis DNA (PCR) Nasal Coronavir 229E PCR Nasal Coronavir HKU1 PCR Nasal Coronavir NL63 PCR Nasal Coronavir OC43 PCR Nasal Enterovir/Rhinovir PCR Nasal Influenza B PCR Nasal Influenza A PCR Nasal Parainfluen 1 PCR Nasal Parainfluen 2 PCR Nasal Parainfluen 3 PCR Nasal Parainfluen 4 PCR Nasal RSV (PCR) Nasal B.pertussis DNA PCR Nasal C.pneumoniae (PCR) Tony Human Metapneumo PCR Nasal M.pneumoniae (PCR) Nasal SARS-CoV-2 (PCR) Urine Opiates Screen (NEGATIVE) Ur Oxycodone Screen (NEGATIVE) Urine Methadone Screen (NEGATIVE) Ur Propoxyphene Screen (NEGATIVE) Ur Barbiturates Screen (NEGATIVE) Ur Tricyclics Screen (NEGATIVE) Ur Phencyclidine Scrn (NEGATIVE) Ur Amphetamine Screen (NEGATIVE) U Methamphetamines Scrn (NEGATIVE) U Benzodiazepines Scrn (NEGATIVE) Urine Cocaine Screen (NEGATIVE) U Cannabinoids Screen (NEGATIVE) Ethyl Alcohol mg/dL 08/20/22 08/20/22 Range/Units 13:10 13:10 WBC 5.1 (4.8-10.8) x10^3/uL RBC 4.66 L (4.70-6.10) 10^6/uL Hgb 12.7 L (14.0-18.0) g/dL Hct 41.0 L (42.0-52.0) % MCV 88.0 (80.0-94.0) fL MCH 27.3 (27.0-31.0) pg MCHC 31.0 L (32.0-36.0) g/dL RDW 17.2 H (12.0-15.0) % Plt Count 137 (130-450) 10^3/uL MPV 10.8 (7.4-11.4) fL Neut # (Auto) 3.0 (1.5-6.6) 10^3/uL Lymph # (Auto) 1.4 L (1.5-3.5) 10^3/uL [place] # (Auto) 0.5 (0.0-1.0) 10^3/uL Eos # (Auto) 0.1 (0.0-0.7) 10^3/uL Baso # (Auto) 0.0 (0.0-0.1) 10^3/uL Absolute Nucleated RBC 0.00 x10^3/uL Nucleated RBC % 0.0 /100WBC D-Dimer (200.0-255.0) ng/mL VBG pH (7.31-7.41) VBG pCO2 (41-51) mmHg VBG pO2 (25-47) mmHg VBG HCO3 (23-28) mmol/L VBG Total CO2 (24-29) mmol/L VBG O2 Saturation (60-80) % VBG Base Excess (-2 - +2) mmol/L Sodium 137 (135-145) mmol/L Potassium 4.2 (3.5-5.0) mmol/L Chloride 99 L (101-111) mmol/L Carbon Dioxide 30 (21-32) mmol/L Anion Gap 8.0 (6-13) BUN 25 H (6-20) mg/dL Creatinine 0.7 (0.6-1.2) mg/dL Estimated GFR (MDRD) 111 (>89) Glucose 96 (70-100) mg/dL Lactic Acid (0.5-2.2) mmol/L Calcium 8.9 (8.5-10.3) mg/dL Magnesium 2.1 (1.7-2.8) mg/dL Total Bilirubin 0.3 (0.2-1.0) mg/dL AST 33 (10-42) IU/L ALT 24 (10-60) IU/L Alkaline Phosphatase 86 (42-121) IU/L Troponin I High Sens (2.3-19.7) ng/L B-Natriuretic Peptide (5-100) pg/mL Total Protein 8.5 H (6.7-8.2) g/dL Albumin 3.4 (3.2-5.5) g/dL Globulin 5.1 H (2.1-4.2) g/dL Albumin/Globulin Ratio 0.7 L (1.0-2.2) Lipase 46 (22-51) U/L Urine Color Urine Clarity (CLEAR) Urine pH (5.0-7.5) PH Ur Specific [place] (1.002-1.030) Urine Protein (NEGATIVE) mg/dL Urine Glucose (UA) (NEGATIVE) mg/dL Urine Ketones (NEGATIVE) mg/dL Urine Occult Blood (NEGATIVE) Urine Nitrite (NEGATIVE) Urine Bilirubin (NEGATIVE) Urine Urobilinogen (NORMAL) E.U./dL Ur Leukocyte Esterase (NEGATIVE) Ur Microscopic Review Urine Culture Comments Nasal Adenovirus (PCR) Nasal B. parapertussis DNA (PCR) Nasal Coronavir 229E PCR Nasal Coronavir HKU1 PCR Nasal Coronavir NL63 PCR Nasal Coronavir OC43 PCR Nasal Enterovir/Rhinovir PCR Nasal Influenza B PCR Nasal Influenza A PCR Nasal Parainfluen 1 PCR Nasal Parainfluen 2 PCR Nasal Parainfluen 3 PCR Nasal Parainfluen 4 PCR Nasal RSV (PCR) Nasal B.pertussis DNA PCR Nasal C.pneumoniae (PCR) Tony Human Metapneumo PCR Nasal M.pneumoniae (PCR) Nasal SARS-CoV-2 (PCR) Urine Opiates Screen (NEGATIVE) Ur Oxycodone Screen (NEGATIVE) Urine Methadone Screen (NEGATIVE) Ur Propoxyphene Screen (NEGATIVE) Ur Barbiturates Screen (NEGATIVE) Ur Tricyclics Screen (NEGATIVE) Ur Phencyclidine Scrn (NEGATIVE) Ur Amphetamine Screen (NEGATIVE) U Methamphetamines Scrn (NEGATIVE) U Benzodiazepines Scrn (NEGATIVE) Urine Cocaine Screen (NEGATIVE) U Cannabinoids Screen (NEGATIVE) Ethyl Alcohol < 5.0 mg/dL - Diagnostic Imaging Diagnostic Imaging Results: positive: Final report reviewed (Reviewed with Dr. Marisel Hernandez), See rad report (Reports discussed with Dr. Hernandez) Diagnostic Imaging Comments: Echo- Mild pulm htn, Ejection fraction maintained Chest CT- Pulm arteries enlarged most likely d/t chronic pulm htn. No PE. Head CT- No acute cranial abnormalities U/S- Limited exam w/o DVT. Chest xray- Unchanged elevation in L hemidiaphram. Assessment/Plan - Problem List (1) Cor pulmonale Impression: Based on results of CT and U/S, DVT not highly suspected. Considerig repeat ECHO to evaluate Cor Pulmonale. (2) Lower extremity edema Impression: Consider diuretics as patient has lower extremity edema and Cor Pulmonale. (3) Bilateral cellulitis of lower leg Impression: Blood culture labs were ordered, preliminary results show no growth on one day. Continue patient on vancomycin (4) New onset a-fib Impression: Recent EKG shows afib. Continue Pt's home Digoxin and eliquis. <Marisel Hernandez - Last Filed: 08/21/22 18:47> Objective - Vital Signs/Intake & Output Vital Signs: Vital Signs x48h Temp Pulse Resp BP Pulse Ox O2 Flow Rate 08/21/22 16:00 36.5 C 107 H 24 104/66 94 35 Intake & Output: Intake & Output 08/18/22 08/19/22 08/20/22 08/21/22 23:59 23:59 23:59 23:59 Intake Total 500 970 Output Total 175 1950 Balance 325 -980 - Lab Results Fish Bones: 08/21/22 05:43 08/21/22 05:43 Other Labs: Lab Results x24hrs 08/21/22 08/21/22 Range/Units 05:43 05:43 WBC 5.1 (4.8-10.8) x10^3/uL RBC 4.45 L (4.70-6.10) 10^6/uL Hgb 12.2 L (14.0-18.0) g/dL Hct 40.9 L (42.0-52.0) % MCV 91.9 (80.0-94.0) fL MCH 27.4 (27.0-31.0) pg MCHC 29.8 L (32.0-36.0) g/dL RDW 17.5 H (12.0-15.0) % Plt Count 125 L (130-450) 10^3/uL MPV 11.4 (7.4-11.4) fL Neut # (Auto) 3.8 (1.5-6.6) 10^3/uL Lymph # (Auto) 0.8 L (1.5-3.5) 10^3/uL [place] # (Auto) 0.5 (0.0-1.0) 10^3/uL Eos # (Auto) 0.0 (0.0-0.7) 10^3/uL Baso # (Auto) 0.0 (0.0-0.1) 10^3/uL Absolute Nucleated RBC 0.00 x10^3/uL Nucleated RBC % 0.0 /100WBC Sodium 140 (135-145) mmol/L Potassium 4.6 (3.5-5.0) mmol/L Chloride 103 (101-111) mmol/L Carbon Dioxide 32 (21-32) mmol/L Anion Gap 5.0 L (6-13) BUN 22 H (6-20) mg/dL Creatinine 0.6 (0.6-1.2) mg/dL Estimated GFR (MDRD) 133 (>89) Glucose 103 H (70-100) mg/dL Calcium 8.5 (8.5-10.3) mg/dL Assessment/Plan - Problem List (2) Lower extremity cellulitis Qualifiers: Laterality: unspecified laterality Qualified Code(s): L03.119 - Cellulitis of unspecified part of limb
--- NOTE | 2022-08-21 13:01 | PHARMACY PROGRESS NOTE ---
- Best Possible Medication History Admit Date and Time: 08/20/22 1744 Processed by: Pharmacy Medication History completed: Yes Patient Interview: Completed Secondary Source(s): Pharmacy records As the person ultimately responsible for medication therapy, providers are able to order a medication from an existing home medication list in [facility] via the "Reconcile Routine" prior to Confirmation of that medication by client support representative. Such practice is discouraged except when the physician, in their clinical judgment, deems that a medical need exists for a medication without regard to previous use.
[2022-08-21] MEDS ORDERED: FUROSEMIDE 20 MG TABLET PO PRN (13:40)
[2022-08-21] MEDS: FUROSEMIDE 40 MG/4 ML VIAL IVP SCH (14:04)
[2022-08-21] MEDS: ceFAZolin 1 GM in SODIUM CHLORIDE 0.9% MINIBAG 100 ML IV SCH ×2 (14:05→22:17)
[2022-08-21] MEDS: APIXABAN 5 MG TABLET PO SCH (22:14)
[2022-08-21] MEDS: SODIUM CHLORIDE FLUSH 0.9% 10 ML SYRINGE IVP PRN (23:37)
[2022-08-22] MEDS: ceFAZolin 1 GM in SODIUM CHLORIDE 0.9% MINIBAG 100 ML IV SCH ×3 (05:43→21:37)
[2022-08-22 06:13] LABS: BASOPHILS % (AUTO) 0.5 %; EOSINOPHILS # (AUTO) 0.1 10^3/uL (0.0-0.7); EOSINOPHILS % (AUTO) 1.7 %; HGB - HEMOGLOBIN 11.7 g/dL (14.0-18.0); LYMPHOCYTES % (AUTO) 24.6 %; MEAN CORPUSCULAR HEMOGLOBIN 27.3 pg (27.0-31.0); MEAN CORPUSCULAR VOLUME 91.1 fL (80.0-94.0); MEAN PLATELET VOLUME 10.6 fL (7.4-11.4); MONOCYTES # (AUTO) 0.5 10^3/uL (0.0-1.0); MONOCYTES % (AUTO) 11.9 %; NEUTROPHILS # (AUTO) 2.6 10^3/uL (1.5-6.6); NEUTROPHILS % (AUTO) 61.1 %; PLT - PLATELET COUNT 110 10^3/uL (130-450); RED BLOOD COUNT 4.28 10^6/uL (4.70-6.10); RED CELL DISTRIBUTION WIDTH 17.1 % (12.0-15.0); WHITE BLOOD COUNT 4.2 x10^3/uL (4.8-10.8)
[2022-08-22 06:23] LABS: CALCIUM 8.3 mg/dL (8.5-10.3); CREATININE 0.7 mg/dL (0.6-1.2); POTASSIUM 4.3 mmol/L (3.5-5.0)
[2022-08-22] MEDS: DIGOXIN 125 MCG TABLET PO SCH (08:36)
[2022-08-22] MEDS: METOPROLOL SUCCINATE 50 MG TABLET PO SCH (08:36)
[2022-08-22] MEDS: APIXABAN 5 MG TABLET PO SCH ×2 (08:36→21:36)
[2022-08-22] MEDS: NYSTATIN CREAM 15 GM TUBE TOP SCH ×2 (08:37→21:37)
[2022-08-22] MEDS: FUROSEMIDE 40 MG/4 ML VIAL IVP SCH (08:37)
[2022-08-22] MEDS: SODIUM CHLORIDE FLUSH 0.9% 10 ML SYRINGE IVP SCH ×2 (08:37→17:14)
[2022-08-22] MEDS: NYSTATIN POWDER 15 GM TOP SCH ×2 (08:37→21:37)
[2022-08-22] MEDS: MULTIVITAMIN W/MINERALS TABLET PO SCH (08:37)
[2022-08-22] MEDS: ACETAMINOPHEN 325 MG TABLET PO PRN (17:12)
[2022-08-22 18:10] LABS: VANCOMYCIN,TROUGH 5.7 ug/mL (10.0-20.0)
--- NOTE | 2022-08-22 18:56 | PROVIDER PROGRESS NOTE ---
Progress Note August 22, 2022 6:50 PM Mr. Lopez continues to be uninterested in getting out of bed. Would prefer to stay there. He denies any new chest pain, cough, shortness of breath. He still continues to feel generally weak. Denies any hallucinations. Denies abdominal pain, and legs do not feel nearly as tight and achy as they did. Exam: Temperature 36.4, heart rate 77, blood pressure 112/75, respirations 24, and 97% saturated high flow nasal cannula at 35 L/min and FiO2 of 40%. When I saw him this morning he was laying at about 20 degrees, mouth open breathing, using his abdominal muscles to have gasping air as he slept. He seems to have fairly significant obstructive sleep apnea. Neck is supple Lungs have diminished breath sounds at the bases without crackles rhonchi wheezing. Regular rate and rhythm Abdomen is soft, nontender, hypoactive bowel sounds Legs are slowly improving. He still has quite a bit of scaling that is browni sh-yellow. But there is less redness underneath the scales, and the cracks in his skin and small ulcers on his skin appear to be drying up and not nearly as angry red. Labs: White cell count 4.2, hemoglobin 11.7 Sodium 139, potassium 4.3, BUN 20, creatinine 0.7 Blood cultures negative after 2 days from August 20 Assessment/plan 1. Acute respiratory failure with hypoxia. On August 21 he has had increasing oxygen needs. I did a CT pulmonary angiogram looking for PE and there is none found. However he does have pulmonary artery enlargement indicating pulmonary hypertension and probable cor pulmonale. I gave him a dose of Lasix 40 mg IV push. Yesterday his urine output was 2800 cc. As of midnight last night he is urine output is 2825 today. So he had a good brisk diuresis and his fluid balance is negative today. He is still on high flow nasal cannula with an FiO2 of 40%. 35 L/min. O2 sats are anywhere from 94 to 97%. Plan: Start weaning off the oxygen. See if he can get down to regular nasal cannula. 2. Cor pulmonale. Lasix 40 mg IV push started yesterday. Hopefully I will be able to get him off oxygen, and also help him with his venous stasis dermatitis/edema. 3. Bilateral cellulitis of the lower leg. Continue Ancef at 1 g every 8 hours. He is having less redness. He did not have any fever or white cell count on admission and none has occurred. I will consider de-escalating to oral antibiotics in the next 48 hours. 4. Yesterday we wrote that he had new onset atrial fibrillation. It is not new onset. He had it with his last admission. He has chronic atrial fibrillation. Currently rate is controlled, and he is on anticoagulation. I had him on DVT prophylaxis with Lovenox. I will stop the Lovenox and continue the Eliquis.
[2022-08-23] MEDS: SODIUM CHLORIDE FLUSH 0.9% 10 ML SYRINGE IVP SCH ×4 (00:17→23:48)
[2022-08-23 05:13] LABS: BASOPHILS % (AUTO) 0.5 %; EOSINOPHILS # (AUTO) 0.1 10^3/uL (0.0-0.7); HCT - HEMATOCRIT 38.4 % (42.0-52.0); HGB - HEMOGLOBIN 11.7 g/dL (14.0-18.0); LYMPHOCYTES % (AUTO) 26.5 %; MEAN CORPUSCULAR HEMOGLOBIN 27.9 pg (27.0-31.0); MEAN CORPUSCULAR HGB CONC 30.5 g/dL (32.0-36.0); MEAN CORPUSCULAR VOLUME 91.4 fL (80.0-94.0); MEAN PLATELET VOLUME 11.2 fL (7.4-11.4); MONOCYTES # (AUTO) 0.5 10^3/uL (0.0-1.0); MONOCYTES % (AUTO) 12.5 %; NEUTROPHILS # (AUTO) 2.3 10^3/uL (1.5-6.6); NEUTROPHILS % (AUTO) 58.2 %; PLT - PLATELET COUNT 101 10^3/uL (130-450); RED CELL DISTRIBUTION WIDTH 16.9 % (12.0-15.0); WHITE BLOOD COUNT 3.9 x10^3/uL (4.8-10.8)
[2022-08-23 05:18] LABS: CALCIUM 8.2 mg/dL (8.5-10.3); CREATININE 0.6 mg/dL (0.6-1.2)
[2022-08-23] MEDS: ceFAZolin 1 GM in SODIUM CHLORIDE 0.9% MINIBAG 100 ML IV SCH ×2 (06:20→13:44)
[2022-08-23] MEDS: FUROSEMIDE 40 MG/4 ML VIAL IVP SCH (08:17)
[2022-08-23] MEDS: MULTIVITAMIN W/MINERALS TABLET PO SCH (08:17)
[2022-08-23] MEDS: APIXABAN 5 MG TABLET PO SCH ×2 (08:17→21:19)
[2022-08-23] MEDS: DIGOXIN 125 MCG TABLET PO SCH (08:20)
[2022-08-23] MEDS: METOPROLOL SUCCINATE 50 MG TABLET PO SCH (08:20)
[2022-08-23] MEDS: NYSTATIN CREAM 15 GM TUBE TOP SCH ×2 (08:25→21:18)
[2022-08-23] MEDS: NYSTATIN POWDER 15 GM TOP SCH ×2 (08:25→21:19)
[2022-08-23] MEDS: ACETAMINOPHEN 325 MG TABLET PO PRN ×2 (08:54→21:29)
[2022-08-23] MEDS: SODIUM CHLORIDE FLUSH 0.9% 10 ML SYRINGE IVP PRN (13:40)
[2022-08-23] MEDS: ZINC OXIDE 20% OINT 30 GM TUBE TOP PRN ×2 (14:47→21:18)
--- NOTE | 2022-08-23 14:58 | PROVIDER PROGRESS NOTE ---
Progress Note August 23, 2022 2:50 PM Patient is much more comfortable today. As the day has progressed I have taking him off heated high flow nasal cannula 35 L. I have transitioned him to Oxymizer, 7 L. He is saturating 96 to 97% with that. The left leg is completely wrapped since his last visit from the wound clinic. Active Medications Acetaminophen (Acetaminophen 325 Mg Tablet) 650 mg PO Q4HR PRN PRN Reason: Pain 1 to 4, or Fever Last Admin: 08/23/22 08:54 Dose: 650 mg Apixaban (Apixaban 5 Mg Tablet) 5 mg PO BID [facility] Last Admin: 08/23/22 08:17 Dose: 5 mg Digoxin (Digoxin 125 Mcg Tablet) 125 mcg PO DAILY [facility] Last Admin: 08/23/22 08:20 Dose: 125 mcg Furosemide (Furosemide 20 Mg Tablet) 20 mg PO DAILY PRN PRN Reason: Swelling Furosemide (Furosemide 40 Mg/4 Ml Vial) 40 mg IVP DAILY [facility] Last Admin: 08/23/22 08:17 Dose: 40 mg Cefazolin Sodium 1 gm/ Sodium (Chloride) 100 mls @ 200 mls/hr IV Q8H [facility] Last Infusion: 08/23/22 14:15 Dose: Infused Metoprolol Succinate (Metoprolol Succinate 50 Mg Tablet) 50 mg PO DAILY [facility] Last Admin: 08/23/22 08:20 Dose: 50 mg Multi-Ingredient Ointment (Zinc Oxide 20% Oint 30 Gm Tube) 1 applic TOP PRN PRN PRN Reason: Skin Care Last Admin: 08/23/22 14:47 Dose: 1 applic Multivitamins/Minerals (Multivitamin W/Minerals Tablet) 1 tab PO DAILYWM [facility] Last Admin: 08/23/22 08:17 Dose: 1 tab Nystatin (Nystatin Cream 15 Gm Tube) 1 applic TOP BID [facility] Last Admin: 08/23/22 08:25 Dose: 1 applic Nystatin (Nystatin Powder 15 Gm) 1 applic TOP BID [facility] Last Admin: 08/23/22 08:25 Dose: 1 applic Ondansetron HCl (Ondansetron Odt 4 Mg Tablet) 4 mg TL Q6HR PRN PRN Reason: Nausea / Vomiting Ondansetron HCl (Ondansetron 4 Mg/2 Ml Vial) 4 mg IVP Q6HR PRN PRN Reason: Nausea / Vomiting Oxycodone HCl (Oxycodone 5 Mg Tablet) 5 mg PO Q4HR PRN PRN Reason: Pain 5 to 7 Sodium Chloride (Sodium Chloride Flush 0.9% 10 Ml Syringe) 10 ml IVP PRN PRN PRN Reason: NEEDED PER PROVIDER ORDERS Last Admin: 08/23/22 13:40 Dose: 10 ml Sodium Chloride (Sodium Chloride Flush 0.9% 10 Ml Syringe) 10 ml IVP 0100,0900,1700 [facility] Last Admin: 08/23/22 08:17 Dose: 10 ml HOme Meds: Furosemide [Lasix] 1 tab PO DAILY PRN 08/21/22 metroNIDAZOLE 0.75% GEL [Flagyl Gel] 1 applic TOP Q7D 08/21/22 Exam: Temperature is 36.4. Heart rate 73. Blood pressure 129/80. Respirations 20. 96% on 7 L Oxymizer. 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 Poor dentition. Moist oral mucosa. Shotty neck adenopathy but supple neck and no bruits Coarse upper airway sounds with sounds of Congestion in his throat and nose but with mild respiratory distress. He uses his abdominal muscles to breathe and when he falls asleep he has obstructive sleep apnea that increases the uses of abdominal muscles. But he is able to speak in full sentences and carry on a full conversation. Regular rate and rhythm Abdomen is obese, soft, protuberant. Normal bowel sounds. Bowel movement was today. The right leg has lymphedema. Chronic redness of the skin over the garcia and calf. All of his chronic changes are below the knee.. Chronic scaling of the skin. No open wounds, no oozing. The left leg is completely encased in dressing done by the wound clinic. He is not to be changed until Friday (today is Friday). Neurologically he is alert, oriented, lucid historian. He worked with physical therapy for 25 minutes today. Patient was already sitting at the edge of the bed and was scooting backwards and forwards without PT assist. He then performed to sit to stands with standby assist and contact-guard assist. He required verbal cues to put his hands down and on the bed for his safety. He was then able to form sit to stand was [address] using a front wheel walker and contact-guard assist. Physical therapy then had him perform a supine to sit. He had to stop once during his session because of pursed lip breathing. He maintained 92 to 96% O2 sat on 4 L. When he stands, he really needs the walker because he is off balance. Would be at fall risk if he did not have a walker. Lab: Sodium 139, potassium 4.0, BUN 17, creatinine 0.6. White cell count 3.9, hemoglobin 11.7, hematocrit 38.4, platelets 101 Since admission his platelets have gone from 137->>101. His white cell count has gone from 5.1->>3.9. Blood cultures from August 20 are negative and without growth after 48 hours Assessment/plan 1. Acute respiratory failure with hypoxia. I have seen scant pneumonia on CT. Mainly groundglass opacities and not truly pneumonia. CT indicates pulmonary artery hypertension. No pulmonary emboli. He is responding to diuretics. I am decreasing oxygen delivery as time goes on. My goal is to have him off oxygen by the time of discharge. 2. Cor pulmonale. Lasix 40 mg IV push daily started August 21. Urine output on the was 2800 cc. Urine output on the was 3250 cc. Urine output today has been 3900 cc. Intake and outtake balance has been negative every day since the start of the Lasix. Plan: Change Lasix to 40 mg p.o. tomorrow. I do not want to over diurese him. 3. Cellulitis of the left leg. I cannot examine the leg to see if he is improving or not. But he is still on Ancef IV. Plan: Since there is no fever, and white cell count is not elevated, changed to Keflex. 4. Deconditioning and weakness due to illness. Plan: Physical therapy is recommending short-term physical rehab. While he is doing well with his transitioning, he still unsteady on his feet and tires easily. Patient agrees to that.
[2022-08-23] MEDS: cephALEXin 250 MG CAPSULE PO SCH ×2 (18:00→23:48)
[2022-08-24 05:00] LABS: BASOPHILS % (AUTO) 0.5 %; EOSINOPHILS # (AUTO) 0.1 10^3/uL (0.0-0.7); EOSINOPHILS % (AUTO) 1.6 %; HCT - HEMATOCRIT 40.3 % (42.0-52.0); HGB - HEMOGLOBIN 11.8 g/dL (14.0-18.0); LYMPHOCYTES # (AUTO) 1.1 10^3/uL (1.5-3.5); LYMPHOCYTES % (AUTO) 29.5 %; MEAN CORPUSCULAR HEMOGLOBIN 27.1 pg (27.0-31.0); MEAN CORPUSCULAR HGB CONC 29.3 g/dL (32.0-36.0); MEAN CORPUSCULAR VOLUME 92.6 fL (80.0-94.0); MEAN PLATELET VOLUME 11.4 fL (7.4-11.4); MONOCYTES # (AUTO) 0.4 10^3/uL (0.0-1.0); MONOCYTES % (AUTO) 9.8 %; NEUTROPHILS # (AUTO) 2.3 10^3/uL (1.5-6.6); NEUTROPHILS % (AUTO) 58.3 %; PLT - PLATELET COUNT 111 10^3/uL (130-450); RED BLOOD COUNT 4.35 10^6/uL (4.70-6.10); RED CELL DISTRIBUTION WIDTH 16.6 % (12.0-15.0); WHITE BLOOD COUNT 3.9 x10^3/uL (4.8-10.8)
[2022-08-24 05:08] LABS: CALCIUM 8.6 mg/dL (8.5-10.3); CREATININE 0.7 mg/dL (0.6-1.2); POTASSIUM 4.2 mmol/L (3.5-5.0)
[2022-08-24] MEDS: cephALEXin 250 MG CAPSULE PO SCH ×4 (05:50→23:48)
[2022-08-24] MEDS: METOPROLOL SUCCINATE 50 MG TABLET PO SCH (08:20)
[2022-08-24] MEDS: MULTIVITAMIN W/MINERALS TABLET PO SCH (08:20)
[2022-08-24] MEDS: DIGOXIN 125 MCG TABLET PO SCH (08:20)
[2022-08-24] MEDS: APIXABAN 5 MG TABLET PO SCH ×2 (08:20→21:08)
[2022-08-24] MEDS: NYSTATIN POWDER 15 GM TOP SCH ×2 (08:21→21:08)
[2022-08-24] MEDS: SODIUM CHLORIDE FLUSH 0.9% 10 ML SYRINGE IVP SCH ×3 (08:21→23:49)
[2022-08-24] MEDS: NYSTATIN CREAM 15 GM TUBE TOP SCH ×2 (08:21→21:08)
[2022-08-24] MEDS ORDERED: FUROSEMIDE 40 MG TABLET PO SCH (09:00)
--- NOTE | 2022-08-24 15:01 | PROVIDER PROGRESS NOTE ---
Progress Note August 24, 2022 2:47 PM I asked how he is doing and he tells me that "I guess I am doing okay". He appears less distressed with regards to breathing. He is down to 4 L Oxymizer. Able to have a conversation with me, and eat his breakfast without respiratory distress. I had switched him over from IV to p.o. Lasix. Yesterday he urinated 4500 cc. As of midnight last night he has urinated 1975. Exam: Alert, oriented, disheveled 71-year-old man who looks much older than stated age, partially edentulous. Low gravelly voice. Temperature is 36.1, heart rate 84, blood pressure 132/87, respirations 19, 95% saturated on 4 L Oxymizer. Neck is supple with shotty adenopathy but no JVD. Lungs are with 1 audible rhonchi. It cleared with a cough. I did not hear it again. No tachypnea, no crackles, no wheezing. Diminished at the bases. Irregular rate and rhythm. Systolic ejection murmur. Abdomen is soft, nontender, normal bowel sounds. As I am seeing him this morning and spending time with him, he is finishing his breakfast. Eating 100% of his food. Last bowel movement was today. Extremities have chronic lymphedema changes. 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 The right leg is particularly folded over, red, minimal scaling from mid garcia down. But no open lesions no open serous drainage. The left leg is completely wrapped since he saw the wound clinic. I have not seen the left leg other than on admission where it was deeply scaled, horizontal and vertical cracks with small ulcers and the skin underneath the scaling was deeply red and hot. Lab: Sodium 139, potassium 4.2. Chloride 96. Carbon dioxide 38. Anion gap 5. BUN 17. Creatinine 0.7. Random glucose 111. White cell count 3.9. Hemoglobin 11.8. Hematocrit 40.3. Platelets 111. As I noted yesterday he has developed some mild neutropenia, and mild th rombocytopenia. The thrombocytopenia appears to have been stable since August 22. Assessment/plan 1. Cor pulmonale. He presented as increasing leg edema, hypoxia on admission, and severe shortness of breath. He was diagnosed with acute respiratory failure with hypoxia and my treatment consisted mainly of diuresis. CT of the chest was done to make sure he did not have any PEs and he did not. He had sketchy groundglass opacities that were not severe. Treatment has consisted of oxygen supplementation and diuresis. He is done very well with diuresis and has had a negative fluid balance since the day I started Lasix. I switched him over to oral Lasix today and he still has a relatively decent diuresis going on. His shortness of breath at rest is gone away. He is now able to sit up in bed, stand and walk in place without severe dyspnea. Oxygen requirement is less and less. I hope to have him off oxygen by discharge. This patient did not require oxygen at home. Plan: Continue 40 mg of Lasix p.o. daily Continue to encourage ambulation and hopefully his oxygen requirement will be no oxygen and only room air by discharge Patient has reluctantly agreed to [facility]. I think he should be diuresed for a couple more days and then ready for discharge. 2. Cellulitis of the left leg. I am not able to see if the leg is improving or not. But by indirect signs of fever or white cell count none are present. Changed to p.o. Keflex today. 3. Deconditioning and weakness due to illness. Physical therapy recommends short-term rehab for strengthening and improving mobility and balance. Patient is agreed to placement and we will start working on that August 26.
[2022-08-25 05:13] LABS: BASOPHILS % (AUTO) 0.5 %; EOSINOPHILS # (AUTO) 0.1 10^3/uL (0.0-0.7); EOSINOPHILS % (AUTO) 2.5 %; HCT - HEMATOCRIT 40.2 % (42.0-52.0); HGB - HEMOGLOBIN 12.1 g/dL (14.0-18.0); LYMPHOCYTES # (AUTO) 0.8 10^3/uL (1.5-3.5); MEAN CORPUSCULAR HEMOGLOBIN 27.6 pg (27.0-31.0); MEAN CORPUSCULAR HGB CONC 30.1 g/dL (32.0-36.0); MEAN CORPUSCULAR VOLUME 91.8 fL (80.0-94.0); MEAN PLATELET VOLUME 10.7 fL (7.4-11.4); MONOCYTES # (AUTO) 0.4 10^3/uL (0.0-1.0); MONOCYTES % (AUTO) 11.5 %; NEUTROPHILS # (AUTO) 2.3 10^3/uL (1.5-6.6); NEUTROPHILS % (AUTO) 63.2 %; PLT - PLATELET COUNT 125 10^3/uL (130-450); RED BLOOD COUNT 4.38 10^6/uL (4.70-6.10); RED CELL DISTRIBUTION WIDTH 16.4 % (12.0-15.0); WHITE BLOOD COUNT 3.6 x10^3/uL (4.8-10.8)
[2022-08-25 05:42] LABS: CALCIUM 8.4 mg/dL (8.5-10.3); CREATININE 0.6 mg/dL (0.6-1.2); POTASSIUM 4.4 mmol/L (3.5-5.0)
[2022-08-25] MEDS: cephALEXin 250 MG CAPSULE PO SCH ×4 (06:09→23:54)
[2022-08-25] MEDS: ACETAMINOPHEN 325 MG TABLET PO PRN (06:11)
[2022-08-25] MEDS: SODIUM CHLORIDE FLUSH 0.9% 10 ML SYRINGE IVP SCH ×3 (08:38→23:55)
[2022-08-25] MEDS: NYSTATIN CREAM 15 GM TUBE TOP SCH ×2 (08:39→20:53)
[2022-08-25] MEDS: MULTIVITAMIN W/MINERALS TABLET PO SCH (08:39)
[2022-08-25] MEDS: APIXABAN 5 MG TABLET PO SCH ×2 (08:39→20:53)
[2022-08-25] MEDS: NYSTATIN POWDER 15 GM TOP SCH ×2 (08:39→20:53)
[2022-08-25] MEDS: METOPROLOL SUCCINATE 50 MG TABLET PO SCH (08:40)
[2022-08-25] MEDS: DIGOXIN 125 MCG TABLET PO SCH (08:40)
[2022-08-25] MEDS: FUROSEMIDE 20 MG TABLET PO SCH (08:40)
[2022-08-25] MEDS: ZINC OXIDE 20% OINT 30 GM TUBE TOP PRN (11:54)
--- NOTE | 2022-08-25 16:51 | PROVIDER PROGRESS NOTE ---
Progress Note August 25 4:40 PM Seen twice today. This morning and this afternoon. This morning he seemed more short of breath than usual. A little bit more labored respiration and use of abdominal muscles and chest wall to breathe. By this afternoon he is sitting up in a chair, still huffing and puffing but not as much as he was this morning. He has had a couple of nosebleeds. He is on Eliquis. On Oxymizer. He denies any chest pain, new cough. No change in phlegm. He has not had any fevers or chills. I switched him to oral Lasix yesterday. Yesterday he urinated 2550 cc. The day before he had 4500 cc out. As of midnight last night he has urinated 1475. I changed him over to oral and reduce the dose because of contraction alkalosis. Carbon dioxide is crept up to 40 today. Other than the shortness of breath he says he feels fine. Exam: Temperature is 36.5. Heart rate 83. Blood pressure 114/82. Respirations 18. He is saturating 98% on 4 L OxyMask. Sitting up in a chair, disheveled male with long hair, long cervantes. Still has some food from breakfast and lunch and is beer this afternoon. Wearing glasses. Low barrel tone voice. Neck is supple no JVD Coarse upper airway sounds. Although he is using his abdominal muscles to move, no use of rib cage for increased effort. Irregular rate and rhythm. Abdomen is obese, soft, nontender. Right leg with lymphedema and is huge, red, scaling skin but it is a chronic change without infection. The left leg is externally rotated, Charcot joint leaves his left foot lying laterally. But has been wrapped since he was admitted and due for wound clinic visit tomorrow. Lab: Sodium 138, potassium 4.4, carbon dioxide 40. He has been steadily climbing since August 21 when it was normal at 32. BUN 18, creatinine 0.6. White cell count is 3.6. When he was admitted he was 5.1 then he went to 4.2, then 3.9, and today 3.6. Hemoglobin is staying stable at 12.1. Platelet count 125. No left shift. Assessment/plan 1. Cor pulmonale. Presented as increasing leg edema, severe shortness of b reath, and hypoxia on admission. This is gentleman who already has chronic lymphedema of his legs and they can get quite large. He had acute respiratory failure with hypoxia and so far my treatment has consisted mainly of diuresis. We did a CT to make sure he did not have a PE and it showed pulmonary artery enlargement, some sketchy groundglass opacities that were not severe. Plan: Skip a dose of Lasix tomorrow. Then resume p.o. Lasix on August 27. I had hoped to send him to alf facility for rehab by tomorrow, but I do not think I am going to achieve my goal. He is still significantly hypoxic at 4 L nasal cannula. We will continue to gently diurese, and he is working with PT to encourage ambulation. I will also check a chest x-ray and a BNP to assess why he may be more short of breath today. 2. Cellulitis of the left leg. On p.o. Keflex since August 24. I am unable to examine the leg at this time. I am hoping that we can take the bandages down tomorrow before you go to the wound clinic and I can examine him myself. Patient has not had any fever, and white cell count has been low not high. 3. Deconditioning and weakness due to sedentary status and illness. Undergoing treatment to improve mobility and strength with PT. We do not have them on Sundays. He will return to therapy tomorrow. Patient is agreed to placement for continued therapy once his hypoxemia has resolved.
--- NOTE | 2022-08-25 17:01 | XRAY Report ---
PROCEDURE: Chest 1 View X-Ray INDICATIONS: short of breath, hypoxia TECHNIQUE: One view of the chest was acquired. COMPARISON: 08/19/2022, CTA 08/20/2022 FINDINGS: Surgical changes and devices: None. Lungs and pleura: Low lung volumes with elevation left hemidiaphragm. Interstitial prominence likely exaggerated by low lung volumes. No pleural effusions or pneumothorax. Lungs are clear. Mediastinum: Mediastinal contours appear normal. Heart size is normal. Bones and chest wall: No suspicious bony lesions. Overlying soft tissues appear unremarkable. IMPRESSION: Low lung volumes with elevation of the left hemidiaphragm. No concerning consolidation. Interstitial prominence is likely exaggerated secondary to poor inspiratory effort. Reviewed by: Wisam Newby MD on 08/25/2022 3:59 PM [facility] Approved by: Wisam Newby MD on 08/25/2022 3:59 PM [facility] Station ID: [id number]
[2022-08-26] MEDS: cephALEXin 250 MG CAPSULE PO SCH ×4 (06:20→23:37)
[2022-08-26] MEDS: MULTIVITAMIN W/MINERALS TABLET PO SCH (08:41)
[2022-08-26] MEDS: NYSTATIN CREAM 15 GM TUBE TOP SCH ×2 (08:41→20:58)
[2022-08-26] MEDS: FUROSEMIDE 20 MG TABLET PO SCH (08:41)
[2022-08-26] MEDS: METOPROLOL SUCCINATE 50 MG TABLET PO SCH (08:41)
[2022-08-26] MEDS: DIGOXIN 125 MCG TABLET PO SCH (08:41)
[2022-08-26] MEDS: NYSTATIN POWDER 15 GM TOP SCH ×2 (08:42→20:58)
[2022-08-26] MEDS: SODIUM CHLORIDE FLUSH 0.9% 10 ML SYRINGE IVP SCH ×3 (08:42→23:42)
[2022-08-26] MEDS: APIXABAN 5 MG TABLET PO SCH ×2 (09:47→20:58)
--- NOTE | 2022-08-26 10:51 | PROVIDER PROGRESS NOTE ---
Subjective - Prog Note Date Prog Note Date: 08/26/22 Prog Note Time: 10:49 - Subjective Pt reports feeling: No change (Pt states that he's feeling about the same compared to the last few days as he would be at home in regards to his SOB.) Current Medications - Current Medications Current Medications: Active Medications Generic Name Dose Route Start Last Admin Trade Name Freq PRN Reason Stop Dose Admin Acetaminophen 650 mg 08/20/22 17:43 08/25/22 06:11 Acetaminophen 325 Mg Tablet PO 650 mg Q4HR PRN Administration Pain 1 to 4, or Fever Apixaban 5 mg 08/21/22 21:00 08/26/22 09:47 Apixaban 5 Mg Tablet PO 5 mg BID KODY Administration Cephalexin 500 mg 08/23/22 18:00 08/26/22 06:20 Cephalexin 250 Mg Capsule PO 500 mg Q6HR KODY Administration Digoxin 125 mcg 08/22/22 09:00 08/26/22 08:41 Digoxin 125 Mcg Tablet PO 125 mcg DAILY [facility] Administration Furosemide 20 mg 08/25/22 09:00 08/26/22 08:41 Furosemide 20 Mg Tablet PO 20 mg DAILY [facility] Administration Metoprolol Succinate 50 mg 08/22/22 09:00 08/26/22 08:41 Metoprolol Succinate 50 Mg Tablet PO 50 mg DAILY [facility] Administration Multi-Ingredient Ointment 1 applic 08/23/22 12:17 08/25/22 11:54 Zinc Oxide 20% Oint 30 Gm Tube TOP 1 applic PRN PRN Administration Skin Care Multivitamins/Minerals 1 tab 08/22/22 08:00 08/26/22 08:41 Multivitamin W/Minerals Tablet PO 1 tab DAILYWM [facility] Administration Nystatin 1 applic 08/20/22 23:45 08/26/22 08:41 Nystatin Cream 15 Gm Tube TOP 1 applic BID [facility] Administration Nystatin 1 applic 08/20/22 23:45 08/26/22 08:42 Nystatin Powder 15 Gm TOP 1 applic BID [facility] Administration Ondansetron HCl 4 mg 08/20/22 17:43 Ondansetron Odt 4 Mg Tablet TL Q6HR PRN Nausea / Vomiting Ondansetron HCl 4 mg 08/20/22 17:43 Ondansetron 4 Mg/2 Ml Vial IVP Q6HR PRN Nausea / Vomiting Oxycodone HCl 5 mg 08/20/22 17:43 Oxycodone 5 Mg Tablet PO Q4HR PRN Pain 5 to 7 Sodium Chloride 10 ml 08/20/22 17:43 08/23/22 13:40 Sodium Chloride Flush 0.9% 10 Ml Syringe IVP 10 ml PRN PRN Administration NEEDED PER PROVIDER ORDERS Sodium Chloride 10 ml 08/21/22 01:00 08/26/22 08:42 Sodium Chloride Flush 0.9% 10 Ml Syringe IVP 10 ml 0100,0900,1700 KODY Administration Furosemide [Lasix] 1 tab PO DAILY PRN 08/21/22 metroNIDAZOLE 0.75% GEL [Flagyl Gel] 1 applic TOP Q7D 08/21/22 Objective - Vital Signs/Intake & Output Vital Signs: Vital Signs x48h Temp Pulse Resp BP Pulse Ox O2 Flow Rate 08/26/22 09:51 18 93 4 08/26/22 08:00 36.4 C L 86 18 123/86 H 97 4 08/26/22 07:29 4 Intake & Output: Intake & Output 08/23/22 08/24/22 08/25/22 08/26/22 23:59 23:59 23:59 23:59 Intake Total 1340 1900 1440 250 Output Total 4500 2550 2075 1025 Balance -3160 -650 -635 -775 - Objective General Appearance: positive: Mild distress (SOB not changed, labored respiration with use of abdominal muscles to breathe.) Neck: positive: No JVD Respiratory: positive: Other (Labored respirations but on mask rebreather.) Cardiovascular: positive: Irregularly irregular, Diastolic murmur Peripheral Pulses: 2+ Radial (R), 2+ Radial (L) Abdomen: positive: Non-tender, No organomegaly, Nml bowel sounds Extremities: positive: Other (Bilateral leg edema, R leg has improved and has started wrinkling. Wound care to check L leg tomorrow.) Neurologic/Psychiatric: positive: Oriented x3 - Lab Results Fish Bones: 08/25/22 04:55 08/25/22 04:55 Other Labs: Lab Results x24hrs 08/25/22 08/25/22 Range/Units 16:37 16:37 Troponin I High Sens 11.7 (2.3-19.7) ng/L B-Natriuretic Peptide 278 H (5-100) pg/mL - Diagnostic Imaging Diagnostic Imaging Results: positive: Final report reviewed (Final report reviewed with Dr. Marisel Hernandez.) Assessment/Plan - Problem List (1) Cor pulmonale Impression: On admission presented with leg edema, severe SOB, and hypoxia on admission with a history of chronic lyphedema in his legs which can get quite large. He continues to have trouble breathing with and is significantly hypoxic at 4 L mask canula (was switched from a nasal canula which was more likely than not causing some nose bleeds). Have been treating his through diuresis. Plan: 1. Ideally was planning on sending patient to SNF by tomorrow but patients' SOB is not improving. 2. Skipping a dose of lasix today then resume p.o. Lasix august 27. Continue to gently diurese and working with PT to encourage ambulation. 3. BNP elevated. Ordering echo to evaluate if heart is causing is constant SOB. (2) Lower extremity edema Impression: Plan: 1. Skipping a dose of lasix today then resume p.o. Lasix august 27. Continue to gently diurese 2. PT to work and encourage ambulation. (3) Bilateral cellulitis of lower leg Impression: Pt has been on p.o keflex since august 24. Unable to examine R leg at this time. Patient is having bandages taken off tomorrow by wound clinic. Should evaluate leg at the time wound clinic comes. Patient has not have any fever and white cell count has been low, not high. (4) New onset a-fib Impression: Patient has chronic afib and is being rate controlled with Digoxin and on anticoagulated on eliquis.
[2022-08-27] MEDS: cephALEXin 250 MG CAPSULE PO SCH ×4 (06:04→23:44)
[2022-08-27 09:10] LABS: BASOPHILS % (AUTO) 0.5 %; EOSINOPHILS # (AUTO) 0.1 10^3/uL (0.0-0.7); EOSINOPHILS % (AUTO) 1.9 %; HCT - HEMATOCRIT 40.5 % (42.0-52.0); HGB - HEMOGLOBIN 11.8 g/dL (14.0-18.0); LYMPHOCYTES # (AUTO) 1.1 10^3/uL (1.5-3.5); LYMPHOCYTES % (AUTO) 28.5 %; MEAN CORPUSCULAR HEMOGLOBIN 27.3 pg (27.0-31.0); MEAN CORPUSCULAR HGB CONC 29.1 g/dL (32.0-36.0); MEAN CORPUSCULAR VOLUME 93.8 fL (80.0-94.0); MEAN PLATELET VOLUME 11.3 fL (7.4-11.4); MONOCYTES # (AUTO) 0.3 10^3/uL (0.0-1.0); MONOCYTES % (AUTO) 8.1 %; NEUTROPHILS # (AUTO) 2.3 10^3/uL (1.5-6.6); NEUTROPHILS % (AUTO) 60.7 %; PLT - PLATELET COUNT 117 10^3/uL (130-450); RED BLOOD COUNT 4.32 10^6/uL (4.70-6.10); RED CELL DISTRIBUTION WIDTH 15.9 % (12.0-15.0); WHITE BLOOD COUNT 3.7 x10^3/uL (4.8-10.8)
[2022-08-27 09:25] LABS: CALCIUM 8.5 mg/dL (8.5-10.3); CREATININE 0.6 mg/dL (0.6-1.2); POTASSIUM 4.4 mmol/L (3.5-5.0)
[2022-08-27] MEDS: DIGOXIN 125 MCG TABLET PO SCH (09:56)
[2022-08-27] MEDS: MULTIVITAMIN W/MINERALS TABLET PO SCH (09:56)
[2022-08-27] MEDS: METOPROLOL SUCCINATE 50 MG TABLET PO SCH (09:56)
[2022-08-27] MEDS: FUROSEMIDE 20 MG TABLET PO SCH (09:56)
[2022-08-27] MEDS: APIXABAN 5 MG TABLET PO SCH ×2 (09:57→20:46)
[2022-08-27] MEDS: NYSTATIN POWDER 15 GM TOP SCH ×2 (09:59→20:47)
[2022-08-27] MEDS: ZINC OXIDE 20% OINT 30 GM TUBE TOP PRN (10:00)
[2022-08-27] MEDS: SODIUM CHLORIDE FLUSH 0.9% 10 ML SYRINGE IVP SCH ×3 (10:00→23:51)
[2022-08-27] MEDS: NYSTATIN CREAM 15 GM TUBE TOP SCH ×2 (10:00→20:47)
[2022-08-27 10:01] LABS: ALBUMIN 2.8 g/dL (3.2-5.5); MAGNESIUM 2.2 mg/dL (1.7-2.8)
--- NOTE | 2022-08-27 19:25 | PROVIDER PROGRESS NOTE ---
Assessment/Plan - Problem List (1) Lower extremity cellulitis Qualifiers: Laterality: unspecified laterality Qualified Code(s): L03.119 - Cellulitis of unspecified part of limb Assessment/Plan: Patient has not had any fever, and white cell count has been low not high. On p.o. Keflex since August 24. Plan: Continue antibx Wound [facility] consult today 2. Wound L leg I viewed this today when the nurse opened his dressing. He has a very large irregular shaped open wound on his left posterior calf that looks like a pressure ulcer. It is partly dry and partly oozing serous vs purulent material Plan: Continue with antibiotics He has an appointment to go to [facility] wound clinic today, we will await their recommendations 3. Cor pulmonale He presented as increasing leg edema, severe shortness of breath, and hypoxia on admission. This is gentleman who already has chronic lymphedema of his legs and they can get quite large. He had acute respiratory failure with hypoxia and so far my treatment has consisted mainly of diuresis. We did a CT to make sure he did not have a PE and it showed pulmonary artery enlargement, some sketchy groundglass opacities that were not severe. Plan: Resume p.o. Lasix on August 27. I had hoped to send him to snf facility for rehab by tomorrow, but I do not think I am going to achieve my goal. He is still significantly hypoxic at 4 L nasal cannula. We will continue to gently diurese, and he is working with PT to encourage ambulation. I will also check a chest x-ray and a BNP to assess why he may be more short of breath today. 4. Acute respiratory failure with hypoxia With diuresis alone, his supplemental O2 needs have decreased. He has no formal diagnosis of COPD and his lung exam is more consistent with CHF but the echo done several days ago showed cor pulmonale however the left side had low normal EF of 50% and LV "diastolic function could not be assessed". Plan: We will continue with supplemental O2 but allow his sats to be 88% or above, try titrating down the O2. If he is not able to come down to room air by the time he is ready for discharge, he will need an oximetry walk test and his diagnosis will probably be diastolic heart failure plus Cor pulmonale. We will continue with daily oral Lasix 5. Physical deconditioning This is likely due to sedentary status and illness. Plan: Resume PT and OT today. Patient has agreed to placement in a SNF for continued therapy once his hypoxemia has resolved. 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 Chronic atrial fibrillation Plan: Continue with his usual heart rate meds and anticoagulants which are keeping him stable 7. Epistaxis recurrent This morning his nose had a tissue and it, by the afternoon that was gone Plan: Continue with his anticoagulant for stroke prophylaxis 8. Poor hygiene As per history, he had not showered in about a year in his past Plan: He will need increased half-way care unless he can rehab to be independant. Will order a shower. - Current Meds Current Meds: Current Medications Generic Name Dose Route Start Last Admin Trade Name Freq PRN Reason Stop Dose Admin Acetaminophen 650 mg 08/20/22 17:43 08/25/22 06:11 Acetaminophen 325 Mg Tablet PO 650 mg Q4HR PRN Administration Pain 1 to 4, or Fever Apixaban 5 mg 08/21/22 21:00 08/27/22 09:57 Apixaban 5 Mg Tablet PO 5 mg BID KODY Administration Cephalexin 500 mg 08/23/22 18:00 08/27/22 17:42 Cephalexin 250 Mg Capsule PO 500 mg Q6HR KODY Administration Digoxin 125 mcg 08/22/22 09:00 08/27/22 09:56 Digoxin 125 Mcg Tablet PO 125 mcg DAILY KODY Administration Furosemide 20 mg 08/25/22 09:00 08/27/22 09:56 Furosemide 20 Mg Tablet PO 20 mg DAILY KODY Administration Metoprolol Succinate 50 mg 08/22/22 09:00 08/27/22 09:56 Metoprolol Succinate 50 Mg Tablet PO 50 mg DAILY KODY Administration Multi-Ingredient Ointment 1 applic 08/23/22 12:17 08/27/22 10:00 Zinc Oxide 20% Oint 30 Gm Tube TOP 1 applic PRN PRN Administration Skin Care Multivitamins/Minerals 1 tab 08/22/22 08:00 08/27/22 09:56 Multivitamin W/Minerals Tablet PO 1 tab DAILYWM KODY Administration Nystatin 1 applic 08/20/22 23:45 08/27/22 10:00 Nystatin Cream 15 Gm Tube TOP 1 applic BID KODY Administration Nystatin 1 applic 08/20/22 23:45 08/27/22 09:59 Nystatin Powder 15 Gm TOP 1 applic BID KODY Administration Sodium Chloride 10 ml 08/20/22 17:43 08/23/22 13:40 Sodium Chloride Flush 0.9% 10 Ml Syringe IVP 10 ml PRN PRN Administration NEEDED PER PROVIDER ORDERS Sodium Chloride 10 ml 08/21/22 01:00 08/27/22 17:42 Sodium Chloride Flush 0.9% 10 Ml Syringe IVP 10 ml 0100,0900,1700 KODY Administration - Lab Result Fish Bone Diagrams: 08/27/22 09:02 08/27/22 09:02 - Additional Planning My Orders: My Active Orders 08/27/22 Evaluate and Treat OT [OT] Routine Subjective - Subjective Patient Reports: Resting Comfortably, Shortness of Breath (when talks or after walking) Objective Vital Signs: Vital Signs - 24 hr 08/26/22 08/26/22 08/27/22 23:00 23:45 07:33 Temperature 36.5 C 36.3 C L Heart Rate [ 84 83 Brachial] Respiratory 18 20 Rate Blood Pressure 129/66 116/69 [Right Brachial artery] O2 Saturation 96 96 If not protocol 4 4 4 : Oxygen Flow, liters/minute 08/27/22 08/27/22 12:30 15:46 Temperature 36.6 C Heart Rate [ 85 Brachial] Respiratory 20 Rate Blood Pressure 122/80 [Right Brachial artery] O2 Saturation 94 94 If not protocol 4 : Oxygen Flow, liters/minute Oxygen O2 Source [With Activity] [facility] O2 Source Oxymask Oxygen Flow Rate 2 I&O (Last 24 Hrs): Intake and Output Totals x24h 08/25/22 08/26/22 08/27/22 23:59 23:59 23:59 Intake Total 1440 1470 1820 Output Total 2493 1839 3130 Balance -635 -2180 -1904 General: Alert, Oriented x3 HEENT: Mucous membr. moist/pink, Other (poor dentition) Neck: Supple, Other ((+) JVD) Cardiovascular: No murmurs, Other (irreg) Respiratory: Rales Abdomen: Soft, No tenderness Extremities: Other (2+ non-pitting edema both legs, L foot deformed, open wound (ulcer) of L calf) - Results Results: Laboratory Results WBC 3.7 x10^3/uL (4.8-10.8) L 08/27/22 09:02 RBC 4.32 10^6/uL (4.70-6.10) L 08/27/22 09:02 Hgb 11.8 g/dL (14.0-18.0) L 08/27/22 09:02 Hct 40.5 % (42.0-52.0) L 08/27/22 09:02 MCV 93.8 fL (80.0-94.0) 08/27/22 09:02 MCH 27.3 pg (27.0-31.0) 08/27/22 09:02 MCHC 29.1 g/dL (32.0-36.0) L 08/27/22 09:02 RDW 15.9 % (12.0-15.0) H 08/27/22 09:02 Plt Count 117 10^3/uL (130-450) L 08/27/22 09:02 MPV 11.3 fL (7.4-11.4) 08/27/22 09:02 Neut # (Auto) 2.3 10^3/uL (1.5-6.6) 08/27/22 09:02 Lymph # (Auto) 1.1 10^3/uL (1.5-3.5) L 08/27/22 09:02 [place] # (Auto) 0.3 10^3/uL (0.0-1.0) 08/27/22 09:02 Eos # (Auto) 0.1 10^3/uL (0.0-0.7) 08/27/22 09:02 Baso # (Auto) 0.0 10^3/uL (0.0-0.1) 08/27/22 09:02 Absolute Nucleated RBC 0.00 x10^3/uL 08/27/22 09:02 Nucleated RBC % 0.0 /100WBC 08/27/22 09:02 D-Dimer 393.7 ng/mL (200.0-255.0) H 08/20/22 13:10 VBG pH 7.320 (7.31-7.41) 08/20/22 13:10 VBG pCO2 63.8 mmHg (41-51) H 08/20/22 13:10 VBG pO2 46.9 mmHg (25-47) 08/20/22 13:10 VBG HCO3 32.1 mmol/L (23-28) H 08/20/22 13:10 VBG Total CO2 34.1 mmol/L (24-29) H 08/20/22 13:10 VBG O2 Saturation 82.4 % (60-80) H 08/20/22 13:10 VBG Base Excess 4.1 mmol/L (-2 - +2) H 08/20/22 13:10 Sodium 140 mmol/L (135-145) 08/27/22 09:02 Potassium 4.4 mmol/L (3.5-5.0) 08/27/22 09:02 Chloride 90 mmol/L (101-111) L 08/27/22 09:02 Carbon Dioxide 42 mmol/L (21-32) H* 08/27/22 09:02 Anion Gap 8.0 (6-13) 08/27/22 09:02 BUN 16 mg/dL (6-20) 08/27/22 09:02 Creatinine 0.6 mg/dL (0.6-1.2) 08/27/22 09:02 Estimated GFR (MDRD) 133 (>89) 08/27/22 09:02 Glucose 123 mg/dL (70-100) H 08/27/22 09:02 Lactic Acid 1.3 mmol/L (0.5-2.2) 08/20/22 13:10 Calcium 8.5 mg/dL (8.5-10.3) 08/27/22 09:02 Magnesium 2.2 mg/dL (1.7-2.8) 08/27/22 09:02 Total Bilirubin 0.3 mg/dL (0.2-1.0) 08/20/22 13:10 AST 33 IU/L (10-42) 08/20/22 13:10 ALT 24 IU/L (10-60) 08/20/22 13:10 Alkaline Phosphatase 86 IU/L (42-121) 08/20/22 13:10 Troponin I High Sens 11.7 ng/L (2.3-19.7) 08/25/22 16:37 B-Natriuretic Peptide 286 pg/mL (5-100) H 08/27/22 09:02 Total Protein 8.5 g/dL (6.7-8.2) H 08/20/22 13:10 Albumin 2.8 g/dL (3.2-5.5) L 08/27/22 09:02 Globulin 5.1 g/dL (2.1-4.2) H 08/20/22 13:10 Albumin/Globulin Ratio 0.7 (1.0-2.2) L 08/20/22 13:10 Lipase 46 U/L (22-51) 08/20/22 13:10 Urine Color YELLOW 08/20/22 16:10 Urine Clarity CLEAR (CLEAR) 08/20/22 16:10 Urine pH 5.5 PH (5.0-7.5) 08/20/22 16:10 Ur Specific [place] >=1.030 (1.002-1.030) H 08/20/22 16:10 Urine Protein NEGATIVE mg/dL (NEGATIVE) 08/20/22 16:10 Urine Glucose (UA) NEGATIVE mg/dL (NEGATIVE) 08/20/22 16:10 Urine Ketones NEGATIVE mg/dL (NEGATIVE) 08/20/22 16:10 Urine Occult Blood NEGATIVE (NEGATIVE) 08/20/22 16:10 Urine Nitrite NEGATIVE (NEGATIVE) 08/20/22 16:10 Urine Bilirubin NEGATIVE (NEGATIVE) 08/20/22 16:10 Urine Urobilinogen 0.2 (NORMAL) E.U./dL (NORMAL) 08/20/22 16:10 Ur Leukocyte Esterase NEGATIVE (NEGATIVE) 08/20/22 16:10 Ur Microscopic Review NOT INDICATED 08/20/22 16:10 Urine Culture Comments NOT INDICATED 08/20/22 16:10 Nasal Adenovirus (PCR) NOT DETECTED 08/20/22 13:52 Nasal B. parapertussis DNA (PCR) NOT DETECTED 08/20/22 13:52 Nasal Coronavir 229E PCR NOT DETECTED 08/20/22 13:52 Nasal Coronavir HKU1 PCR NOT DETECTED 08/20/22 13:52 Nasal Coronavir NL63 PCR NOT DETECTED 08/20/22 13:52 Nasal Coronavir OC43 PCR NOT DETECTED 08/20/22 13:52 Nasal Enterovir/Rhinovir PCR NOT DETECTED 08/20/22 13:52 Nasal Influenza B PCR NOT DETECTED 08/20/22 13:52 Nasal Influenza A PCR NOT DETECTED 08/20/22 13:52 Nasal Parainfluen 1 PCR NOT DETECTED 08/20/22 13:52 Nasal Parainfluen 2 PCR NOT DETECTED 08/20/22 13:52 Nasal Parainfluen 3 PCR NOT DETECTED 08/20/22 13:52 Nasal Parainfluen 4 PCR NOT DETECTED 08/20/22 13:52 Nasal RSV (PCR) NOT DETECTED 08/20/22 13:52 Nasal B.pertussis DNA PCR NOT DETECTED 08/20/22 13:52 Nasal C.pneumoniae (PCR) NOT DETECTED 08/20/22 13:52 Tony Human Metapneumo PCR NOT DETECTED 08/20/22 13:52 Nasal M.pneumoniae (PCR) NOT DETECTED 08/20/22 13:52 Nasal SARS-CoV-2 (PCR) NOT DETECTED 08/20/22 13:52 Last Dose Date Not Reportable 08/22/22 17:57 Last Dose Time Not Reportable 08/22/22 17:57 Vancomycin Trough 5.7 ug/mL (10.0-20.0) L 08/22/22 17:57 Urine Opiates Screen NEGATIVE (NEGATIVE) 08/20/22 16:10 Ur Oxycodone Screen NEGATIVE (NEGATIVE) 08/20/22 16:10 Urine Methadone Screen NEGATIVE (NEGATIVE) 08/20/22 16:10 Ur Propoxyphene Screen NEGATIVE (NEGATIVE) 08/20/22 16:10 Ur Barbiturates Screen NEGATIVE (NEGATIVE) 08/20/22 16:10 Ur Tricyclics Screen NEGATIVE (NEGATIVE) 08/20/22 16:10 Ur Phencyclidine Scrn NEGATIVE (NEGATIVE) 08/20/22 16:10 Ur Amphetamine Screen NEGATIVE (NEGATIVE) 08/20/22 16:10 U Methamphetamines Scrn NEGATIVE (NEGATIVE) 08/20/22 16:10 U Benzodiazepines Scrn NEGATIVE (NEGATIVE) 08/20/22 16:10 Urine Cocaine Screen NEGATIVE (NEGATIVE) 08/20/22 16:10 U Cannabinoids Screen NEGATIVE (NEGATIVE) 08/20/22 16:10 Ethyl Alcohol < 5.0 mg/dL 08/20/22 13:10 - Procedures Procedures: Procedures INTRODUCTION OF SERUM/TOX/VACCINE INTO MUSCLE, PERC APPROACH (06/17/21)
[2022-08-28] MEDS: cephALEXin 250 MG CAPSULE PO SCH ×4 (06:31→23:59)
[2022-08-28] MEDS: APIXABAN 5 MG TABLET PO SCH ×2 (10:12→20:31)
[2022-08-28] MEDS: NYSTATIN CREAM 15 GM TUBE TOP SCH ×2 (10:12→20:32)
[2022-08-28] MEDS: FUROSEMIDE 20 MG TABLET PO SCH (10:12)
[2022-08-28] MEDS: NYSTATIN POWDER 15 GM TOP SCH ×2 (10:12→20:32)
[2022-08-28] MEDS: MULTIVITAMIN W/MINERALS TABLET PO SCH (10:12)
[2022-08-28] MEDS: METOPROLOL SUCCINATE 50 MG TABLET PO SCH (10:12)
[2022-08-28] MEDS: DIGOXIN 125 MCG TABLET PO SCH (10:12)
[2022-08-28] MEDS: SODIUM CHLORIDE FLUSH 0.9% 10 ML SYRINGE IVP SCH ×3 (10:13→23:59)
--- NOTE | 2022-08-28 17:03 | PROVIDER PROGRESS NOTE ---
Assessment/Plan - Problem List (1) Lower extremity cellulitis Qualifiers: Laterality: unspecified laterality Qualified Code(s): L03.119 - Cellulitis of unspecified part of limb Assessment/Plan: Patient has not had any fever, and white cell count has been low not high. On p.o. Keflex since August 24. He was seen at [facility] yesterday 08/27 and the only recommendation is to leave bandage on and to be seen there agian in 1 week. Plan: Continue antibx 2. Wound L leg I viewed the wound yesterday 08/27 when the nurse opened his dressing. He has a very large irregular shaped open wound on his left posterior calf that looks like a pressure ulcer. It is partly dry and partly oozing serous vs purulent material Plan: Continue with antibiotics He had an appointment to go to [facility] yesterday. The wound was cleaned and dressed. The only recommendation is to leave bandage on and to be seen there agian in 1 week. 3. Cor pulmonale He presented as increasing leg edema, severe shortness of breath, and hypoxia on admission. This is gentleman who already has chronic lymphedema of his legs and they can get quite large. He had acute respiratory failure with hypoxia and so far my treatment has consisted mainly of diuresis. We did a CT to make sure he did not have a PE and it showed pulmonary artery enlargement, some sketchy groundglass opacities that were not severe. Plan: Cont p.o. Lasix, was resumed on August 27. We will continue to gently diurese, and give O2 4. Acute respiratory failure with hypoxia With diuresis alone, his supplemental O2 needs have decreased and was down to room air at noon. Today while speaking with me in the afternoon, he developed visibly worsening shortness of breath. I asked his PACS ADMINISTRATOR to check oxygen sat urations then, and he had dropped to 86% on room air. He has no formal diagnosis of COPD and his lung exam is more consistent with CHF but the Echo done several days ago showed cor pulmonale however the left ventricle had low normal EF of 50% and LV "diastolic function could not be assessed". Plan: We will continue with supplemental O2 but allow his sats to be 88% or above, and cont to try titrating down the O2. If he is not able to come down to room air by the time he is ready for discharge, he will need an oximetry walk test to order home O2, and his diagnosis will probably be Chronic diastolic heart failure plus Cor pulmonale. We will continue with daily oral Lasix 5. Physical deconditioning This is likely due to sedentary status and illness. Plan: Cont PT and OT Patient had agreed to placement in a SNF for continued therapy, but today he was questioning that decision for himself. He wants to speak to his brother. 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 Chronic atrial fibrillation Plan: Continue with his usual heart rate meds and anticoagulants which are keeping him stable Will check a Dig level 8. Epistaxis recurrent Yesterday 08/27 he had a tissue in his R nostril, by yesterday afternoon the tissue was gone Plan: Continue with his anticoagulant for stroke prophylaxis 9. Poor hygiene As per history, he had not showered in about a year in his past Plan: He will need increased alf care unless he can rehab to be independant. Will order a shower to be done. - Current Meds Current Meds: Current Medications Generic Name Dose Route Start Last Admin Trade Name Freq PRN Reason Stop Dose Admin Acetaminophen 650 mg 08/20/22 17:43 08/25/22 06:11 Acetaminophen 325 Mg Tablet PO 650 mg Q4HR PRN Administration Pain 1 to 4, or Fever Apixaban 5 mg 08/21/22 21:00 08/28/22 10:12 Apixaban 5 Mg Tablet PO 5 mg BID KODY Administration Cephalexin 500 mg 08/23/22 18:00 08/28/22 12:18 Cephalexin 250 Mg Capsule PO 500 mg Q6HR KODY Administration Digoxin 125 mcg 08/22/22 09:00 08/28/22 10:12 Digoxin 125 Mcg Tablet PO 125 mcg DAILY KODY Administration Furosemide 20 mg 08/25/22 09:00 08/28/22 10:12 Furosemide 20 Mg Tablet PO 20 mg DAILY KODY Administration Metoprolol Succinate 50 mg 08/22/22 09:00 08/28/22 10:12 Metoprolol Succinate 50 Mg Tablet PO 50 mg DAILY KODY Administration Multi-Ingredient Ointment 1 applic 08/23/22 12:17 08/27/22 10:00 Zinc Oxide 20% Oint 30 Gm Tube TOP 1 applic PRN PRN Administration Skin Care Multivitamins/Minerals 1 tab 08/22/22 08:00 08/28/22 10:12 Multivitamin W/Minerals Tablet PO 1 tab DAILYWM KODY Administration Nystatin 1 applic 08/20/22 23:45 08/28/22 10:12 Nystatin Cream 15 Gm Tube TOP 1 applic BID KODY Administration Nystatin 1 applic 08/20/22 23:45 08/28/22 10:12 Nystatin Powder 15 Gm TOP 1 applic BID KODY Administration Sodium Chloride 10 ml 08/20/22 17:43 08/23/22 13:40 Sodium Chloride Flush 0.9% 10 Ml Syringe IVP 10 ml PRN PRN Administration NEEDED PER PROVIDER ORDERS Sodium Chloride 10 ml 08/21/22 01:00 08/28/22 10:13 Sodium Chloride Flush 0.9% 10 Ml Syringe IVP 10 ml 0100,0900,1700 KODY Administration - Lab Result Fish Bone Diagrams: 08/27/22 09:02 08/27/22 09:02 - Additional Planning My Orders: My Active Orders 08/28/22 09:25 Miscellaenous Nursing Order [RC] QSHIFT 08/28/22 09:26 Miscellaenous Nursing Order [RC] QSHIFT 08/28/22 11:04 Shower [RC] ONCE Subjective - Subjective Patient Reports: Shortness of Breath (when talking in complete sentences or with walking in room) Objective Vital Signs: Vital Signs - 24 hr 08/27/22 08/27/22 08/28/22 23:20 23:51 07:37 Temperature 36.4 C L 36.3 C L Heart Rate [ 86 77 Brachial] Respiratory 18 20 Rate Blood Pressure 130/81 H 103/70 [Right Brachial artery] O2 Saturation 94 94 If not protocol 4 4 4 : Oxygen Flow, liters/minute 08/28/22 08/28/22 08/28/22 08:23 12:22 14:47 Temperature Heart Rate [ Brachial] Respiratory Rate Blood Pressure [Right Brachial artery] O2 Saturation 98 100 If not protocol 4 : Oxygen Flow, liters/minute 08/28/22 08/28/22 15:53 16:42 Temperature 36.5 C Heart Rate [ 70 Brachial] Respiratory 20 Rate Blood Pressure 124/84 H [Right Brachial artery] O2 Saturation 94 86 L If not protocol : Oxygen Flow, liters/minute Oxygen O2 Source [With Activity] [facility] O2 Source Room air Oxygen Flow Rate 2 I&O (Last 24 Hrs): Intake and Output Totals x24h 08/26/22 08/27/22 08/28/22 23:59 23:59 23:59 Intake Total 1470 2170 1290 Output Total 3650 4025 1450 Balance -2180 -1855 -160 General: Alert, Oriented x3 HEENT: Mucous membr. moist/pink, Other (poor dentition) Neck: Supple, Other ((+) JVD) Neuro: Alert Cardiovascular: Regular rate Respiratory: Rales Abdomen: Soft, Other (distended) Extremities: Other (2+ nonpitting edema to the knees, left foot deformity, left garcia and foot are in a bandage) - Results Results: Laboratory Results WBC 3.7 x10^3/uL (4.8-10.8) L 08/27/22 09:02 RBC 4.32 10^6/uL (4.70-6.10) L 08/27/22 09:02 Hgb 11.8 g/dL (14.0-18.0) L 08/27/22 09:02 Hct 40.5 % (42.0-52.0) L 08/27/22 09:02 MCV 93.8 fL (80.0-94.0) 08/27/22 09:02 MCH 27.3 pg (27.0-31.0) 08/27/22 09:02 MCHC 29.1 g/dL (32.0-36.0) L 08/27/22 09:02 RDW 15.9 % (12.0-15.0) H 08/27/22 09:02 Plt Count 117 10^3/uL (130-450) L 08/27/22 09:02 MPV 11.3 fL (7.4-11.4) 08/27/22 09:02 Neut # (Auto) 2.3 10^3/uL (1.5-6.6) 08/27/22 09:02 Lymph # (Auto) 1.1 10^3/uL (1.5-3.5) L 08/27/22 09:02 [place] # (Auto) 0.3 10^3/uL (0.0-1.0) 08/27/22 09:02 Eos # (Auto) 0.1 10^3/uL (0.0-0.7) 08/27/22 09:02 Baso # (Auto) 0.0 10^3/uL (0.0-0.1) 08/27/22 09:02 Absolute Nucleated RBC 0.00 x10^3/uL 08/27/22 09:02 Nucleated RBC % 0.0 /100WBC 08/27/22 09:02 D-Dimer 393.7 ng/mL (200.0-255.0) H 08/20/22 13:10 VBG pH 7.320 (7.31-7.41) 08/20/22 13:10 VBG pCO2 63.8 mmHg (41-51) H 08/20/22 13:10 VBG pO2 46.9 mmHg (25-47) 08/20/22 13:10 VBG HCO3 32.1 mmol/L (23-28) H 08/20/22 13:10 VBG Total CO2 34.1 mmol/L (24-29) H 08/20/22 13:10 VBG O2 Saturation 82.4 % (60-80) H 08/20/22 13:10 VBG Base Excess 4.1 mmol/L (-2 - +2) H 08/20/22 13:10 Sodium 140 mmol/L (135-145) 08/27/22 09:02 Potassium 4.4 mmol/L (3.5-5.0) 08/27/22 09:02 Chloride 90 mmol/L (101-111) L 08/27/22 09:02 Carbon Dioxide 42 mmol/L (21-32) H* 08/27/22 09:02 Anion Gap 8.0 (6-13) 08/27/22 09:02 BUN 16 mg/dL (6-20) 08/27/22 09:02 Creatinine 0.6 mg/dL (0.6-1.2) 08/27/22 09:02 Estimated GFR (MDRD) 133 (>89) 08/27/22 09:02 Glucose 123 mg/dL (70-100) H 08/27/22 09:02 Lactic Acid 1.3 mmol/L (0.5-2.2) 08/20/22 13:10 Calcium 8.5 mg/dL (8.5-10.3) 08/27/22 09:02 Magnesium 2.2 mg/dL (1.7-2.8) 08/27/22 09:02 Total Bilirubin 0.3 mg/dL (0.2-1.0) 08/20/22 13:10 AST 33 IU/L (10-42) 08/20/22 13:10 ALT 24 IU/L (10-60) 08/20/22 13:10 Alkaline Phosphatase 86 IU/L (42-121) 08/20/22 13:10 Troponin I High Sens 11.7 ng/L (2.3-19.7) 08/25/22 16:37 B-Natriuretic Peptide 286 pg/mL (5-100) H 08/27/22 09:02 Total Protein 8.5 g/dL (6.7-8.2) H 08/20/22 13:10 Albumin 2.8 g/dL (3.2-5.5) L 08/27/22 09:02 Globulin 5.1 g/dL (2.1-4.2) H 08/20/22 13:10 Albumin/Globulin Ratio 0.7 (1.0-2.2) L 08/20/22 13:10 Lipase 46 U/L (22-51) 08/20/22 13:10 Urine Color YELLOW 08/20/22 16:10 Urine Clarity CLEAR (CLEAR) 08/20/22 16:10 Urine pH 5.5 PH (5.0-7.5) 08/20/22 16:10 Ur Specific [place] >=1.030 (1.002-1.030) H 08/20/22 16:10 Urine Protein NEGATIVE mg/dL (NEGATIVE) 08/20/22 16:10 Urine Glucose (UA) NEGATIVE mg/dL (NEGATIVE) 08/20/22 16:10 Urine Ketones NEGATIVE mg/dL (NEGATIVE) 08/20/22 16:10 Urine Occult Blood NEGATIVE (NEGATIVE) 08/20/22 16:10 Urine Nitrite NEGATIVE (NEGATIVE) 08/20/22 16:10 Urine Bilirubin NEGATIVE (NEGATIVE) 08/20/22 16:10 Urine Urobilinogen 0.2 (NORMAL) E.U./dL (NORMAL) 08/20/22 16:10 Ur Leukocyte Esterase NEGATIVE (NEGATIVE) 08/20/22 16:10 Ur Microscopic Review NOT INDICATED 08/20/22 16:10 Urine Culture Comments NOT INDICATED 08/20/22 16:10 Nasal Adenovirus (PCR) NOT DETECTED 08/20/22 13:52 Nasal B. parapertussis DNA (PCR) NOT DETECTED 08/20/22 13:52 Nasal Coronavir 229E PCR NOT DETECTED 08/20/22 13:52 Nasal Coronavir HKU1 PCR NOT DETECTED 08/20/22 13:52 Nasal Coronavir NL63 PCR NOT DETECTED 08/20/22 13:52 Nasal Coronavir OC43 PCR NOT DETECTED 08/20/22 13:52 Nasal Enterovir/Rhinovir PCR NOT DETECTED 08/20/22 13:52 Nasal Influenza B PCR NOT DETECTED 08/20/22 13:52 Nasal Influenza A PCR NOT DETECTED 08/20/22 13:52 Nasal Parainfluen 1 PCR NOT DETECTED 08/20/22 13:52 Nasal Parainfluen 2 PCR NOT DETECTED 08/20/22 13:52 Nasal Parainfluen 3 PCR NOT DETECTED 08/20/22 13:52 Nasal Parainfluen 4 PCR NOT DETECTED 08/20/22 13:52 Nasal RSV (PCR) NOT DETECTED 08/20/22 13:52 Nasal B.pertussis DNA PCR NOT DETECTED 08/20/22 13:52 Nasal C.pneumoniae (PCR) NOT DETECTED 08/20/22 13:52 Tony Human Metapneumo PCR NOT DETECTED 08/20/22 13:52 Nasal M.pneumoniae (PCR) NOT DETECTED 08/20/22 13:52 Nasal SARS-CoV-2 (PCR) NOT DETECTED 08/20/22 13:52 Last Dose Date Not Reportable 08/22/22 17:57 Last Dose Time Not Reportable 08/22/22 17:57 Vancomycin Trough 5.7 ug/mL (10.0-20.0) L 08/22/22 17:57 Urine Opiates Screen NEGATIVE (NEGATIVE) 08/20/22 16:10 Ur Oxycodone Screen NEGATIVE (NEGATIVE) 08/20/22 16:10 Urine Methadone Screen NEGATIVE (NEGATIVE) 08/20/22 16:10 Ur Propoxyphene Screen NEGATIVE (NEGATIVE) 08/20/22 16:10 Ur Barbiturates Screen NEGATIVE (NEGATIVE) 08/20/22 16:10 Ur Tricyclics Screen NEGATIVE (NEGATIVE) 08/20/22 16:10 Ur Phencyclidine Scrn NEGATIVE (NEGATIVE) 08/20/22 16:10 Ur Amphetamine Screen NEGATIVE (NEGATIVE) 08/20/22 16:10 U Methamphetamines Scrn NEGATIVE (NEGATIVE) 08/20/22 16:10 U Benzodiazepines Scrn NEGATIVE (NEGATIVE) 08/20/22 16:10 Urine Cocaine Screen NEGATIVE (NEGATIVE) 08/20/22 16:10 U Cannabinoids Screen NEGATIVE (NEGATIVE) 08/20/22 16:10 Ethyl Alcohol < 5.0 mg/dL 08/20/22 13:10 - Procedures Procedures: Procedures INTRODUCTION OF SERUM/TOX/VACCINE INTO MUSCLE, PERC APPROACH (06/17/21)
[2022-08-28] MEDS: ACETAMINOPHEN 325 MG TABLET PO PRN (20:31)
[2022-08-29 05:38] LABS: VBG HCO3 39.4 mmol/L (23-28); VBG OXYGEN SATURATION 98.4 % (60-80); VBG PCO2 57.8 mmHg (41-51); VBG PH 7.451 (7.31-7.41); VBG PO2 112.2 mmHg (25-47); VBG TOTAL CO2 41.1 mmol/L (24-29)
[2022-08-29 05:41] LABS: BASOPHILS % (AUTO) 0.7 %; EOSINOPHILS # (AUTO) 0.1 10^3/uL (0.0-0.7); EOSINOPHILS % (AUTO) 1.9 %; HCT - HEMATOCRIT 39.7 % (42.0-52.0); HGB - HEMOGLOBIN 11.8 g/dL (14.0-18.0); LYMPHOCYTES # (AUTO) 1.3 10^3/uL (1.5-3.5); LYMPHOCYTES % (AUTO) 31.3 %; MEAN CORPUSCULAR HEMOGLOBIN 27.2 pg (27.0-31.0); MEAN CORPUSCULAR HGB CONC 29.7 g/dL (32.0-36.0); MEAN CORPUSCULAR VOLUME 91.5 fL (80.0-94.0); MEAN PLATELET VOLUME 10.4 fL (7.4-11.4); MONOCYTES # (AUTO) 0.5 10^3/uL (0.0-1.0); NEUTROPHILS # (AUTO) 2.3 10^3/uL (1.5-6.6); NEUTROPHILS % (AUTO) 54.9 %; PLT - PLATELET COUNT 126 10^3/uL (130-450); RED BLOOD COUNT 4.34 10^6/uL (4.70-6.10); RED CELL DISTRIBUTION WIDTH 15.9 % (12.0-15.0); WHITE BLOOD COUNT 4.2 x10^3/uL (4.8-10.8)
[2022-08-29] MEDS: cephALEXin 250 MG CAPSULE PO SCH ×3 (05:50→17:22)
[2022-08-29 05:54] LABS: CALCIUM 8.4 mg/dL (8.5-10.3); CREATININE 0.7 mg/dL (0.6-1.2); POTASSIUM 4.2 mmol/L (3.5-5.0)
[2022-08-29] MEDS: DIGOXIN 125 MCG TABLET PO SCH (08:30)
[2022-08-29] MEDS: FUROSEMIDE 20 MG TABLET PO SCH (08:33)
[2022-08-29] MEDS: METOPROLOL SUCCINATE 50 MG TABLET PO SCH (08:33)
[2022-08-29] MEDS: APIXABAN 5 MG TABLET PO SCH ×2 (08:34→20:32)
[2022-08-29] MEDS: MULTIVITAMIN W/MINERALS TABLET PO SCH (08:34)
[2022-08-29] MEDS: SODIUM CHLORIDE FLUSH 0.9% 10 ML SYRINGE IVP SCH ×2 (08:35→17:23)
[2022-08-29] MEDS: NYSTATIN CREAM 15 GM TUBE TOP SCH ×2 (10:28→20:32)
[2022-08-29] MEDS: NYSTATIN POWDER 15 GM TOP SCH ×2 (10:28→20:32)
--- NOTE | 2022-08-29 18:12 | PROVIDER PROGRESS NOTE ---
Assessment/Plan - Problem List (1) Lower extremity cellulitis Qualifiers: Laterality: unspecified laterality Qualified Code(s): L03.119 - Cellulitis of unspecified part of limb Assessment/Plan: Patient has not had any fever, and white cell count has been low not high. On p.o. Keflex since August 24. He was seen at [facility] [place]27 and the only recommendation is to leave bandage on and to be seen there again in 1 week. Plan: Continue antibx 2. Wound L leg I viewed the wound on 08/27 when the nurse opened his dressing. He has a very large irregular shaped open wound on his left posterior calf that looks like a pressure ulcer, not deep. It is partly dry and partly oozing serous vs purulent material Plan: Continue with antibiotics He had an appointment to go to [facility] [place]. The wound was cleaned and dressed. The only recommendation is to leave bandage on and to be seen there again in 1 week. So we are not undoing bandages. 3. Cor pulmonale He presented as increasing leg edema, severe shortness of breath, and hypoxia on admission. This is gentleman who already has chronic lymphedema of his legs and they can get quite large. He had acute respiratory failure with hypoxia and so far treatment has consisted mainly of diuresis. A chest CT was done to make sure he did not have a PE and it showed pulmonary artery enlargement, some sketchy groundglass opacities that were not severe. Plan: Cont p.o. Lasix, was resumed on August 27. We will continue to gently diurese, and give suppl O2 4. Acute respiratory failure with hypoxia With diuresis alone, his supplemental O2 needs have decreased and was down to room air at noon. Yesterday while speaking with me in the afternoon, he developed visibly worsening shortness of breath. I asked his [employer] to check oxygen saturations then, and he had dropped to 86% on room air. He has no formal diagnosis of COPD and his lung exam is more consistent with CHF but the Echo done several days ago showed cor pulmonale however the left ventricle had low normal EF of 50% and LV "diastolic function could not be assessed". Plan: We will continue with supplemental O2 but allow his sats to be 88% or above, and cont to try titrating down the O2. If he is not able to come down to room air by the time he is ready for discharge, he will need an oximetry walk test to order home O2, and his diagnosis will probably be Chronic diastolic heart failure plus Cor pulmonale. We will continue with daily oral Lasix 5. Physical deconditioning This is likely due to sedentary status and illness. Plan: Cont PT and OT Patient had agreed to placement in a SNF for continued therapy, but recently he was questioning that decision for himself. He wants to speak to his brother. 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 Chronic atrial fibrillation Plan: Continue with his usual heart rate meds and anticoagulants which are keeping him stable Will check a Dig level 8. Epistaxis recurrent On 08/27 he had a tissue in his R nostril, by the afternoon the tissue was gone Plan: Continue with his anticoagulant for stroke prophylaxis 9. Poor hygiene As per history, there was a Hx of nothaving showered in about a year in his past Plan: He will need increased usp care unless he can rehab to be independant or has bath aide plus family help Will order a shower to be done. - Current Meds Current Meds: Current Medications Generic Name Dose Route Start Last Admin Trade Name Bianca PRN Reason Stop Dose Admin Acetaminophen 650 mg 08/20/22 17:43 08/28/22 20:31 Acetaminophen 325 Mg Tablet PO 650 mg Q4HR PRN Administration Pain 1 to 4, or Fever Apixaban 5 mg 08/21/22 21:00 08/29/22 08:34 Apixaban 5 Mg Tablet PO 5 mg BID KODY Administration Cephalexin 500 mg 08/23/22 18:00 08/29/22 17:22 Cephalexin 250 Mg Capsule PO 500 mg Q6HR KODY Administration Digoxin 125 mcg 08/22/22 09:00 08/29/22 08:30 Digoxin 125 Mcg Tablet PO 125 mcg DAILY KODY Administration Furosemide 20 mg 08/25/22 09:00 08/29/22 08:33 Furosemide 20 Mg Tablet PO 20 mg DAILY KODY Administration Metoprolol Succinate 50 mg 08/22/22 09:00 08/29/22 08:33 Metoprolol Succinate 50 Mg Tablet PO 50 mg DAILY KODY Administration Multi-Ingredient Ointment 1 applic 08/23/22 12:17 08/27/22 10:00 Zinc Oxide 20% Oint 30 Gm Tube TOP 1 applic PRN PRN Administration Skin Care Multivitamins/Minerals 1 tab 08/22/22 08:00 08/29/22 08:34 Multivitamin W/Minerals Tablet PO 1 tab DAILYWM KODY Administration Nystatin 1 applic 08/20/22 23:45 08/29/22 10:28 Nystatin Cream 15 Gm Tube TOP 1 applic BID KODY Administration Nystatin 1 applic 08/20/22 23:45 08/29/22 10:28 Nystatin Powder 15 Gm TOP 1 applic BID KODY Administration Sodium Chloride 10 ml 08/20/22 17:43 08/23/22 13:40 Sodium Chloride Flush 0.9% 10 Ml Syringe IVP 10 ml PRN PRN Administration NEEDED PER PROVIDER ORDERS Sodium Chloride 10 ml 08/21/22 01:00 08/29/22 17:23 Sodium Chloride Flush 0.9% 10 Ml Syringe IVP 10 ml 0100,0900,1700 KODY Administration - Lab Result Fish Bone Diagrams: 08/29/22 05:16 08/31/22 04:52 Subjective - Subjective Patient Reports: Resting Comfortably, No Complaints, Other (Eager to walk with PT and get more independant) Objective Vital Signs: Vital Signs - 24 hr 08/28/22 08/29/22 08/29/22 21:00 00:00 03:03 Temperature 36.5 C Heart Rate [ 97 Brachial] Respiratory 20 Rate Blood Pressure 108/61 [Right Brachial artery] O2 Saturation 94 If not protocol 4 4 : Oxygen Flow, liters/minute 08/29/22 08/29/22 08/29/22 04:58 06:25 06:26 Temperature Heart Rate [ Brachial] Respiratory Rate Blood Pressure [Right Brachial artery] O2 Saturation 90 L 92 If not protocol 4 1 2 : Oxygen Flow, liters/minute 08/29/22 08/29/22 08:00 15:49 Temperature 36.4 C L 36.5 C Heart Rate [ 109 H 76 Brachial] Respiratory 20 20 Rate Blood Pressure 105/68 126/80 [Right Brachial artery] O2 Saturation 98 96 If not protocol 2 1.5 : Oxygen Flow, liters/minute Oxygen O2 Source [With Activity] HHFNC O2 Source Nasal cannula Oxygen Flow Rate 2 I&O (Last 24 Hrs): Intake and Output Totals x24h 08/27/22 08/28/22 08/29/22 23:59 23:59 23:59 Intake Total 2170 2030 780 Output Total 4025 1800 2375 Balance -1855 230 -1595 General: Alert, Oriented x3, Other (Male pattern baldness) HEENT: Atraumatic, Other (Poor dentition, missing and brown teeth) Neck: Supple, No JVD (in vertical position) Neuro: Alert, Non Focal Cardiovascular: No murmurs Respiratory: No respiratory distress (at rest on suppl O2), Wheezes, Rhonchi Abdomen: Soft, No tenderness Extremities: No clubbing, Other (L lower extrem in bandage, R has 1+ edema) - Results Results: Laboratory Results WBC 4.2 x10^3/uL (4.8-10.8) L 08/29/22 05:16 RBC 4.34 10^6/uL (4.70-6.10) L 08/29/22 05:16 Hgb 11.8 g/dL (14.0-18.0) L 08/29/22 05:16 Hct 39.7 % (42.0-52.0) L 08/29/22 05:16 MCV 91.5 fL (80.0-94.0) 08/29/22 05:16 MCH 27.2 pg (27.0-31.0) 08/29/22 05:16 MCHC 29.7 g/dL (32.0-36.0) L 08/29/22 05:16 RDW 15.9 % (12.0-15.0) H 08/29/22 05:16 Plt Count 126 10^3/uL (130-450) L 08/29/22 05:16 MPV 10.4 fL (7.4-11.4) 08/29/22 05:16 Neut # (Auto) 2.3 10^3/uL (1.5-6.6) 08/29/22 05:16 Lymph # (Auto) 1.3 10^3/uL (1.5-3.5) L 08/29/22 05:16 [place] # (Auto) 0.5 10^3/uL (0.0-1.0) 08/29/22 05:16 Eos # (Auto) 0.1 10^3/uL (0.0-0.7) 08/29/22 05:16 Baso # (Auto) 0.0 10^3/uL (0.0-0.1) 08/29/22 05:16 Absolute Nucleated RBC 0.00 x10^3/uL 08/29/22 05:16 Nucleated RBC % 0.0 /100WBC 08/29/22 05:16 D-Dimer 393.7 ng/mL (200.0-255.0) H 08/20/22 13:10 VBG pH 7.451 (7.31-7.41) H 08/29/22 05:16 VBG pCO2 57.8 mmHg (41-51) H 08/29/22 05:16 VBG pO2 112.2 mmHg (25-47) H 08/29/22 05:16 VBG HCO3 39.4 mmol/L (23-28) H 08/29/22 05:16 VBG Total CO2 41.1 mmol/L (24-29) H 08/29/22 05:16 VBG O2 Saturation 98.4 % (60-80) H 08/29/22 05:16 VBG Base Excess 13.0 mmol/L (-2 - +2) H 08/29/22 05:16 Sodium 137 mmol/L (135-145) 08/29/22 05:16 Potassium 4.2 mmol/L (3.5-5.0) 08/29/22 05:16 Chloride 92 mmol/L (101-111) L 08/29/22 05:16 Carbon Dioxide 39 mmol/L (21-32) H* 08/29/22 05:16 Anion Gap 6.0 (6-13) 08/29/22 05:16 BUN 17 mg/dL (6-20) 08/29/22 05:16 Creatinine 0.7 mg/dL (0.6-1.2) 08/29/22 05:16 Estimated GFR (MDRD) 111 (>89) 08/29/22 05:16 Glucose 102 mg/dL (70-100) H 08/29/22 05:16 Lactic Acid 1.3 mmol/L (0.5-2.2) 08/20/22 13:10 Calcium 8.4 mg/dL (8.5-10.3) L 08/29/22 05:16 Magnesium 2.0 mg/dL (1.7-2.8) 08/29/22 05:16 Total Bilirubin 0.3 mg/dL (0.2-1.0) 08/20/22 13:10 AST 33 IU/L (10-42) 08/20/22 13:10 ALT 24 IU/L (10-60) 08/20/22 13:10 Alkaline Phosphatase 86 IU/L (42-121) 08/20/22 13:10 Troponin I High Sens 11.7 ng/L (2.3-19.7) 08/25/22 16:37 B-Natriuretic Peptide 286 pg/mL (5-100) H 08/27/22 09:02 Total Protein 8.5 g/dL (6.7-8.2) H 08/20/22 13:10 Albumin 2.8 g/dL (3.2-5.5) L 08/27/22 09:02 Globulin 5.1 g/dL (2.1-4.2) H 08/20/22 13:10 Albumin/Globulin Ratio 0.7 (1.0-2.2) L 08/20/22 13:10 Lipase 46 U/L (22-51) 08/20/22 13:10 Urine Color YELLOW 08/20/22 16:10 Urine Clarity CLEAR (CLEAR) 08/20/22 16:10 Urine pH 5.5 PH (5.0-7.5) 08/20/22 16:10 Ur Specific [place] >=1.030 (1.002-1.030) H 08/20/22 16:10 Urine Protein NEGATIVE mg/dL (NEGATIVE) 08/20/22 16:10 Urine Glucose (UA) NEGATIVE mg/dL (NEGATIVE) 08/20/22 16:10 Urine Ketones NEGATIVE mg/dL (NEGATIVE) 08/20/22 16:10 Urine Occult Blood NEGATIVE (NEGATIVE) 08/20/22 16:10 Urine Nitrite NEGATIVE (NEGATIVE) 08/20/22 16:10 Urine Bilirubin NEGATIVE (NEGATIVE) 08/20/22 16:10 Urine Urobilinogen 0.2 (NORMAL) E.U./dL (NORMAL) 08/20/22 16:10 Ur Leukocyte Esterase NEGATIVE (NEGATIVE) 08/20/22 16:10 Ur Microscopic Review NOT INDICATED 08/20/22 16:10 Urine Culture Comments NOT INDICATED 08/20/22 16:10 Nasal Adenovirus (PCR) NOT DETECTED 08/20/22 13:52 Nasal B. parapertussis DNA (PCR) NOT DETECTED 08/20/22 13:52 Nasal Coronavir 229E PCR NOT DETECTED 08/20/22 13:52 Nasal Coronavir HKU1 PCR NOT DETECTED 08/20/22 13:52 Nasal Coronavir NL63 PCR NOT DETECTED 08/20/22 13:52 Nasal Coronavir OC43 PCR NOT DETECTED 08/20/22 13:52 Nasal Enterovir/Rhinovir PCR NOT DETECTED 08/20/22 13:52 Nasal Influenza B PCR NOT DETECTED 08/20/22 13:52 Nasal Influenza A PCR NOT DETECTED 08/20/22 13:52 Nasal Parainfluen 1 PCR NOT DETECTED 08/20/22 13:52 Nasal Parainfluen 2 PCR NOT DETECTED 08/20/22 13:52 Nasal Parainfluen 3 PCR NOT DETECTED 08/20/22 13:52 Nasal Parainfluen 4 PCR NOT DETECTED 08/20/22 13:52 Nasal RSV (PCR) NOT DETECTED 08/20/22 13:52 Nasal B.pertussis DNA PCR NOT DETECTED 08/20/22 13:52 Nasal C.pneumoniae (PCR) NOT DETECTED 08/20/22 13:52 Tony Human Metapneumo PCR NOT DETECTED 08/20/22 13:52 Nasal M.pneumoniae (PCR) NOT DETECTED 08/20/22 13:52 Nasal SARS-CoV-2 (PCR) NOT DETECTED 08/20/22 13:52 Last Dose Date Not Reportable 08/22/22 17:57 Last Dose Time Not Reportable 08/22/22 17:57 Vancomycin Trough 5.7 ug/mL (10.0-20.0) L 08/22/22 17:57 Urine Opiates Screen NEGATIVE (NEGATIVE) 08/20/22 16:10 Ur Oxycodone Screen NEGATIVE (NEGATIVE) 08/20/22 16:10 Urine Methadone Screen NEGATIVE (NEGATIVE) 08/20/22 16:10 Ur Propoxyphene Screen NEGATIVE (NEGATIVE) 08/20/22 16:10 Ur Barbiturates Screen NEGATIVE (NEGATIVE) 08/20/22 16:10 Ur Tricyclics Screen NEGATIVE (NEGATIVE) 08/20/22 16:10 Ur Phencyclidine Scrn NEGATIVE (NEGATIVE) 08/20/22 16:10 Ur Amphetamine Screen NEGATIVE (NEGATIVE) 08/20/22 16:10 U Methamphetamines Scrn NEGATIVE (NEGATIVE) 08/20/22 16:10 U Benzodiazepines Scrn NEGATIVE (NEGATIVE) 08/20/22 16:10 Urine Cocaine Screen NEGATIVE (NEGATIVE) 08/20/22 16:10 U Cannabinoids Screen NEGATIVE (NEGATIVE) 08/20/22 16:10 Ethyl Alcohol < 5.0 mg/dL 08/20/22 13:10 - Procedures Procedures: Procedures INTRODUCTION OF SERUM/TOX/VACCINE INTO MUSCLE, PERC APPROACH (06/17/21)
[2022-08-30] MEDS: cephALEXin 250 MG CAPSULE PO SCH ×5 (00:36→23:38)
[2022-08-30] MEDS: SODIUM CHLORIDE FLUSH 0.9% 10 ML SYRINGE IVP SCH ×4 (00:37→23:39)
[2022-08-30] MEDS: METOPROLOL SUCCINATE 50 MG TABLET PO SCH (08:54)
[2022-08-30] MEDS: APIXABAN 5 MG TABLET PO SCH ×2 (08:54→20:55)
[2022-08-30] MEDS: NYSTATIN POWDER 15 GM TOP SCH ×2 (08:54→20:56)
[2022-08-30] MEDS: DIGOXIN 125 MCG TABLET PO SCH (08:54)
[2022-08-30] MEDS: FUROSEMIDE 20 MG TABLET PO SCH (08:54)
[2022-08-30] MEDS: MULTIVITAMIN W/MINERALS TABLET PO SCH (08:54)
[2022-08-30] MEDS: NYSTATIN CREAM 15 GM TUBE TOP SCH ×2 (08:55→20:57)
[2022-08-30] MEDS: ACETAMINOPHEN 325 MG TABLET PO PRN (08:59)
--- NOTE | 2022-08-30 18:10 | PROVIDER PROGRESS NOTE ---
Assessment/Plan - Problem List (1) Lower extremity cellulitis Qualifiers: Laterality: unspecified laterality Qualified Code(s): L03.119 - Cellulitis of unspecified part of limb Assessment/Plan: Patient has not had any fever, and white cell count has been low not high. On p.o. Keflex since August 24. He was seen at [facility] on [place]/27 and the only recommendation is to leave bandage on and to be seen there again in 1 week. Plan: Continue antibx 2. Wound L leg I viewed the wound on 08/27 when the nurse opened his dressing before he went to the Wound clinic appointment. He has a very large irregular shaped open wound on his left posterior calf that looks like a pressure ulcer, not deep. It was partly dry and partly oozing serous vs purulent material Plan: Continue with antibiotics He had an appointment to go to [facility] on 08/27. The wound was cleaned and dressed. The only recommendation is to leave bandage on and to be seen there again in 1 week. 3. Cor pulmonale He presented as increasing leg edema, severe shortness of breath, and hypoxia on admission. This is gentleman who already has chronic lymphedema of his legs and they can get quite large. He had acute respiratory failure with hypoxia and so far treatment has consisted mainly of diuresis. We did a CT to make sure he did not have a PE and it showed pulmonary artery enlargement, some sketchy groundglass opacities that were not severe. Plan: Cont p.o. Lasix, was resumed on August 27. We will continue to gently diurese, and give O2 4. Acute respiratory failure with hypoxia With diuresis alone, his supplemental O2 needs have decreased and was down to room air at noon. Now while speaking he is not short of breath. He has no formal diagnosis of COPD and his lung exam is more consistent with CHF but the Echo done several days ago showed cor pulmonale however the left ventricle had low normal EF of 50% and LV "diastolic function could not be assessed". Labs were all reviewed, his CO2 had risen, suggesting CO2 retention. Plan: We will continue with supplemental O2 but, due to CO2 retention, allow his sats to be 88% or above, and cont to try titrating down the O2. If he is not able to come down to room air by the time he is ready for discharge, he will need an oximetry walk test to order home O2, and his diagnosis will probably be Chronic diastolic heart failure plus Cor pulmonale. We will continue with daily oral Lasix 5. Physical deconditioning This is likely due to sedentary status and illness. Plan: Cont PT and OT Patient had agreed to placement in a SNF for continued therapy, but recently he was questioning that decision for himself. He wants to speak to his brother. SW informed me that the brother did agree to take him back in after [facility], if no other location was found by [facility]. 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 Chronic atrial fibrillation Plan: Continue with his usual heart rate meds and anticoagulants which are keeping him stable 8. Epistaxis recurrent On 08/27 he had a tissue in his R nostril, by that afternoon the tissue was gone Plan: Continue with his anticoagulant for stroke prophylaxis 9. Poor hygiene As per history, he had not showered in about a year, in his past Plan: He will need increased care home care unless he can rehab to be independant, or have a bath aide and family help.. Ordered a shower to be done. - Current Meds Current Meds: Current Medications Generic Name Dose Route Start Last Admin Trade Name Bianca PRN Reason Stop Dose Admin Acetaminophen 650 mg 08/20/22 17:43 08/30/22 08:59 Acetaminophen 325 Mg Tablet PO 650 mg Q4HR PRN Administration Pain 1 to 4, or Fever Apixaban 5 mg 08/21/22 21:00 08/30/22 08:54 Apixaban 5 Mg Tablet PO 5 mg BID KODY Administration Cephalexin 500 mg 08/23/22 18:00 08/30/22 11:50 Cephalexin 250 Mg Capsule PO 500 mg Q6HR KODY Administration Digoxin 125 mcg 08/22/22 09:00 08/30/22 08:54 Digoxin 125 Mcg Tablet PO 125 mcg DAILY KODY Administration Furosemide 20 mg 08/25/22 09:00 08/30/22 08:54 Furosemide 20 Mg Tablet PO 20 mg DAILY KODY Administration Metoprolol Succinate 50 mg 08/22/22 09:00 08/30/22 08:54 Metoprolol Succinate 50 Mg Tablet PO 50 mg DAILY KODY Administration Multi-Ingredient Ointment 1 applic 08/23/22 12:17 08/27/22 10:00 Zinc Oxide 20% Oint 30 Gm Tube TOP 1 applic PRN PRN Administration Skin Care Multivitamins/Minerals 1 tab 08/22/22 08:00 08/30/22 08:54 Multivitamin W/Minerals Tablet PO 1 tab DAILYWM KODY Administration Nystatin 1 applic 08/20/22 23:45 08/30/22 08:55 Nystatin Cream 15 Gm Tube TOP 1 applic BID KODY Administration Nystatin 1 applic 08/20/22 23:45 08/30/22 08:54 Nystatin Powder 15 Gm TOP 1 applic BID KODY Administration Sodium Chloride 10 ml 08/20/22 17:43 08/23/22 13:40 Sodium Chloride Flush 0.9% 10 Ml Syringe IVP 10 ml PRN PRN Administration NEEDED PER PROVIDER ORDERS Sodium Chloride 10 ml 08/21/22 01:00 08/30/22 08:54 Sodium Chloride Flush 0.9% 10 Ml Syringe IVP 10 ml 0100,0900,1700 KODY Administration - Lab Result Fish Bone Diagrams: 08/29/22 05:16 08/31/22 04:52 - Additional Planning My Orders: My Active Orders 08/31/22 05:00 BMP - BASIC METABOLIC PANEL [CHEM] DAILYLAB Subjective - Subjective Patient Reports: Resting Comfortably, No Complaints Objective Vital Signs: Vital Signs - 24 hr 08/29/22 08/30/22 08/30/22 23:56 08:00 11:09 Temperature 36.4 C L 36.5 C Heart Rate [ 88 86 Brachial] Respiratory 20 18 Rate Blood Pressure 100/66 105/65 [Right Brachial artery] O2 Saturation 92 91 L 94 If not protocol 1 1 1 : Oxygen Flow, liters/minute 08/30/22 08/30/22 08/30/22 16:41 17:18 17:49 Temperature 36.4 C L Heart Rate [ 75 Brachial] Respiratory 20 Rate Blood Pressure 115/68 [Right Brachial artery] O2 Saturation 97 94 97 If not protocol : Oxygen Flow, liters/minute Oxygen O2 Source [With Activity] HHFNC O2 Source Room air Oxygen Flow Rate 2 I&O (Last 24 Hrs): Intake and Output Totals x24h 08/28/22 08/29/22 08/30/22 23:59 23:59 23:59 Intake Total 2029 1180 1440 Output Total 1800 7335 1175 Balance 230 -1395 265 General: Alert, Oriented x3 HEENT: Other (Male pattern baldness. Poor denition with missing and brown teeth.) Neck: Supple, No JVD (in upright position) Neuro: Alert, Non Focal Cardiovascular: No murmurs Respiratory: Wheezes, Other (POor air movement) Abdomen: Soft, No tenderness Extremities: No clubbing, Other (L lower extrem is bandaged, R has 1+ edema to knees) - Results Results: Laboratory Results WBC 4.2 x10^3/uL (4.8-10.8) L 08/29/22 05:16 RBC 4.34 10^6/uL (4.70-6.10) L 08/29/22 05:16 Hgb 11.8 g/dL (14.0-18.0) L 08/29/22 05:16 Hct 39.7 % (42.0-52.0) L 08/29/22 05:16 MCV 91.5 fL (80.0-94.0) 08/29/22 05:16 MCH 27.2 pg (27.0-31.0) 08/29/22 05:16 MCHC 29.7 g/dL (32.0-36.0) L 08/29/22 05:16 RDW 15.9 % (12.0-15.0) H 08/29/22 05:16 Plt Count 126 10^3/uL (130-450) L 08/29/22 05:16 MPV 10.4 fL (7.4-11.4) 08/29/22 05:16 Neut # (Auto) 2.3 10^3/uL (1.5-6.6) 08/29/22 05:16 Lymph # (Auto) 1.3 10^3/uL (1.5-3.5) L 08/29/22 05:16 [place] # (Auto) 0.5 10^3/uL (0.0-1.0) 08/29/22 05:16 Eos # (Auto) 0.1 10^3/uL (0.0-0.7) 08/29/22 05:16 Baso # (Auto) 0.0 10^3/uL (0.0-0.1) 08/29/22 05:16 Absolute Nucleated RBC 0.00 x10^3/uL 08/29/22 05:16 Nucleated RBC % 0.0 /100WBC 08/29/22 05:16 D-Dimer 393.7 ng/mL (200.0-255.0) H 08/20/22 13:10 VBG pH 7.451 (7.31-7.41) H 08/29/22 05:16 VBG pCO2 57.8 mmHg (41-51) H 08/29/22 05:16 VBG pO2 112.2 mmHg (25-47) H 08/29/22 05:16 VBG HCO3 39.4 mmol/L (23-28) H 08/29/22 05:16 VBG Total CO2 41.1 mmol/L (24-29) H 08/29/22 05:16 VBG O2 Saturation 98.4 % (60-80) H 08/29/22 05:16 VBG Base Excess 13.0 mmol/L (-2 - +2) H 08/29/22 05:16 Sodium 137 mmol/L (135-145) 08/29/22 05:16 Potassium 4.2 mmol/L (3.5-5.0) 08/29/22 05:16 Chloride 92 mmol/L (101-111) L 08/29/22 05:16 Carbon Dioxide 39 mmol/L (21-32) H* 08/29/22 05:16 Anion Gap 6.0 (6-13) 08/29/22 05:16 BUN 17 mg/dL (6-20) 08/29/22 05:16 Creatinine 0.7 mg/dL (0.6-1.2) 08/29/22 05:16 Estimated GFR (MDRD) 111 (>89) 08/29/22 05:16 Glucose 102 mg/dL (70-100) H 08/29/22 05:16 Lactic Acid 1.3 mmol/L (0.5-2.2) 08/20/22 13:10 Calcium 8.4 mg/dL (8.5-10.3) L 08/29/22 05:16 Magnesium 2.0 mg/dL (1.7-2.8) 08/29/22 05:16 Total Bilirubin 0.3 mg/dL (0.2-1.0) 08/20/22 13:10 AST 33 IU/L (10-42) 08/20/22 13:10 ALT 24 IU/L (10-60) 08/20/22 13:10 Alkaline Phosphatase 86 IU/L (42-121) 08/20/22 13:10 Troponin I High Sens 11.7 ng/L (2.3-19.7) 08/25/22 16:37 B-Natriuretic Peptide 286 pg/mL (5-100) H 08/27/22 09:02 Total Protein 8.5 g/dL (6.7-8.2) H 08/20/22 13:10 Albumin 2.8 g/dL (3.2-5.5) L 08/27/22 09:02 Globulin 5.1 g/dL (2.1-4.2) H 08/20/22 13:10 Albumin/Globulin Ratio 0.7 (1.0-2.2) L 08/20/22 13:10 Lipase 46 U/L (22-51) 08/20/22 13:10 Urine Color YELLOW 08/20/22 16:10 Urine Clarity CLEAR (CLEAR) 08/20/22 16:10 Urine pH 5.5 PH (5.0-7.5) 08/20/22 16:10 Ur Specific [place] >=1.030 (1.002-1.030) H 08/20/22 16:10 Urine Protein NEGATIVE mg/dL (NEGATIVE) 08/20/22 16:10 Urine Glucose (UA) NEGATIVE mg/dL (NEGATIVE) 08/20/22 16:10 Urine Ketones NEGATIVE mg/dL (NEGATIVE) 08/20/22 16:10 Urine Occult Blood NEGATIVE (NEGATIVE) 08/20/22 16:10 Urine Nitrite NEGATIVE (NEGATIVE) 08/20/22 16:10 Urine Bilirubin NEGATIVE (NEGATIVE) 08/20/22 16:10 Urine Urobilinogen 0.2 (NORMAL) E.U./dL (NORMAL) 08/20/22 16:10 Ur Leukocyte Esterase NEGATIVE (NEGATIVE) 08/20/22 16:10 Ur Microscopic Review NOT INDICATED 08/20/22 16:10 Urine Culture Comments NOT INDICATED 08/20/22 16:10 Nasal Adenovirus (PCR) NOT DETECTED 08/20/22 13:52 Nasal B. parapertussis DNA (PCR) NOT DETECTED 08/20/22 13:52 Nasal Coronavir 229E PCR NOT DETECTED 08/20/22 13:52 Nasal Coronavir HKU1 PCR NOT DETECTED 08/20/22 13:52 Nasal Coronavir NL63 PCR NOT DETECTED 08/20/22 13:52 Nasal Coronavir OC43 PCR NOT DETECTED 08/20/22 13:52 Nasal Enterovir/Rhinovir PCR NOT DETECTED 08/20/22 13:52 Nasal Influenza B PCR NOT DETECTED 08/20/22 13:52 Nasal Influenza A PCR NOT DETECTED 08/20/22 13:52 Nasal Parainfluen 1 PCR NOT DETECTED 08/20/22 13:52 Nasal Parainfluen 2 PCR NOT DETECTED 08/20/22 13:52 Nasal Parainfluen 3 PCR NOT DETECTED 08/20/22 13:52 Nasal Parainfluen 4 PCR NOT DETECTED 08/20/22 13:52 Nasal RSV (PCR) NOT DETECTED 08/20/22 13:52 Nasal B.pertussis DNA PCR NOT DETECTED 08/20/22 13:52 Nasal C.pneumoniae (PCR) NOT DETECTED 08/20/22 13:52 Tony Human Metapneumo PCR NOT DETECTED 08/20/22 13:52 Nasal M.pneumoniae (PCR) NOT DETECTED 08/20/22 13:52 Nasal SARS-CoV-2 (PCR) NOT DETECTED 08/20/22 13:52 Last Dose Date Not Reportable 08/22/22 17:57 Last Dose Time Not Reportable 08/22/22 17:57 Vancomycin Trough 5.7 ug/mL (10.0-20.0) L 08/22/22 17:57 Urine Opiates Screen NEGATIVE (NEGATIVE) 08/20/22 16:10 Ur Oxycodone Screen NEGATIVE (NEGATIVE) 08/20/22 16:10 Urine Methadone Screen NEGATIVE (NEGATIVE) 08/20/22 16:10 Ur Propoxyphene Screen NEGATIVE (NEGATIVE) 08/20/22 16:10 Ur Barbiturates Screen NEGATIVE (NEGATIVE) 08/20/22 16:10 Ur Tricyclics Screen NEGATIVE (NEGATIVE) 08/20/22 16:10 Ur Phencyclidine Scrn NEGATIVE (NEGATIVE) 08/20/22 16:10 Ur Amphetamine Screen NEGATIVE (NEGATIVE) 08/20/22 16:10 U Methamphetamines Scrn NEGATIVE (NEGATIVE) 08/20/22 16:10 U Benzodiazepines Scrn NEGATIVE (NEGATIVE) 08/20/22 16:10 Urine Cocaine Screen NEGATIVE (NEGATIVE) 08/20/22 16:10 U Cannabinoids Screen NEGATIVE (NEGATIVE) 08/20/22 16:10 Ethyl Alcohol < 5.0 mg/dL 08/20/22 13:10 - Procedures Procedures: Procedures INTRODUCTION OF SERUM/TOX/VACCINE INTO MUSCLE, PERC APPROACH (06/17/21)
[2022-08-31] MEDS: ACETAMINOPHEN 325 MG TABLET PO PRN (03:34)
[2022-08-31 05:18] LABS: CALCIUM 8.5 mg/dL (8.5-10.3); CREATININE 0.7 mg/dL (0.6-1.2); POTASSIUM 4.4 mmol/L (3.5-5.0)
[2022-08-31] MEDS: cephALEXin 250 MG CAPSULE PO SCH ×2 (06:02→12:12)
[2022-08-31 07:43] VITALS: BP 118/63
[2022-08-31] MEDS: NYSTATIN CREAM 15 GM TUBE TOP SCH (08:30)
[2022-08-31] MEDS: DIGOXIN 125 MCG TABLET PO SCH (08:30)
[2022-08-31] MEDS: MULTIVITAMIN W/MINERALS TABLET PO SCH (08:30)
[2022-08-31] MEDS: APIXABAN 5 MG TABLET PO SCH (08:30)
[2022-08-31] MEDS: NYSTATIN POWDER 15 GM TOP SCH (08:30)
[2022-08-31] MEDS: FUROSEMIDE 20 MG TABLET PO SCH (08:30)
[2022-08-31] MEDS: METOPROLOL SUCCINATE 50 MG TABLET PO SCH (08:30)
[2022-08-31] MEDS: SODIUM CHLORIDE FLUSH 0.9% 10 ML SYRINGE IVP SCH (08:31)
--- NOTE | 2022-08-31 13:58 | Discharge Plan ---
Discharge Plan Problem Reviewed?: Yes Disposition: Home Health Service Condition: Fair Prescriptions: cephALEXin [Keflex] 500 mg PO Q6HR #10 cap Diet: Low Sodium Activity Restrictions: Activity as Tolerated Shower Restrictions: No Driving Restrictions: Yes Assistance Devices: Walker Weight Bearing: Full Weight Instruction Topics: Heart Failure Warning Signs, Heart Failure Diet Changes Health Concerns: The patient was hospitalized due to shortness of breath from his cor pulmonale diagnosis. He also had leg swelling and cellulitis of both legs plus an open wound of the left calf. He was treated with antibiotics and needs to finish 2.5 days more of treatment. The prescription for Keflex was electronically sent to his [facility] pharmacy in [place]. He was seen at the wound clinic and gets dressing changes once a week every Friday. Patient is being discharged home with medications to continue to treat the shortness of breath and cor pulmonale. Patient was tested to see if he needs new home oxygen and he does: when at rest, he may breathe room air, but with any activity he needs to put on his oxygen via nasal cannula to be set at 3 L/min. Plan of Treatment: As above. A referral has been sent for a Home Health agency to come to the house and provide nursing care, a bath aide, Physical therapy, Occupational Therapy and a social media manager. Care Goals: Improvement in symptoms and stabilization are the goals. Assessment: This instruction sheet is provided as a reminder. Additional Instructions or Follow Up instructions: If the patient should have new or worsening symptoms, please call his Primary Care Provider for advice, or come to the ER. No Smoking: If you smoke, Please STOP! Call for help. Follow-up with: Nena Tineo MD [Primary Care Provider] -
--- NOTE | 2022-08-31 14:04 | DISCHARGE SUMMARY ---
Discharge Summary Admit Date: 08/20/22 Discharge Date: 08/31/22 Discharging Provider: Dr Ely Aguilera Primary Care Provider: Dr Nena Tineo Condition at Discharge: Fair Discharge Disposition: 06 [facility] History of Present Illness: Patient is a 71 y/o WM, a loner, prefers to spend time in his room. He comes out about twice a day to go to the bathroom, and about once a day to get his food prep. He has a caregiver that comes once a week and the caregiver forces him to take a bath, washes laundry, and change the sheets on his bed. Otherwise he can get quite smelly. He has chronic venous stasis dermatitis probably from lymphedema and has already been previously admitted for cellulitis in the past. Has been home about a year with his brother. Brother states that the patient is noncompliant with meds, follow-up care. Again he has to be forced to be clean. The brother noticed that the patient has been less and less mobile, even more than usual, for the last month or so. Unclear why. No new events. In the last week there have been times and then went to go check up on him in his bedroom because he was not coming out and they were afraid what was going on in there. He seemed to be okay. He has fallen a few times and they have had to have a lift assist to get him up. Today when he fell again, they realize that his legs were severely infected and they had him brought to the emergency room by ambulance. At the scene EMS said that his O2 sats were in the 80s and needed to be put on 2 L nasal cannula. In our emergency room the ER provider feels that there is an element of hypoxemia from either congestive heart failure or lung disease. Patient is responding to diuretics. Previous echo showed some mild pulmonary hypertension. Ejection fraction was intact. After discussion with the ER provider, I am admitting the patient for recurrent cellulitis of the legs, and treatment of his hypoxemia from presumed CHF. In discussing the case with Miguel, the patient's brother, Miguel states states that he really does not want the patient to come home. He really feels it is in the patient's best interest to be permanently placed. - HOSPITAL COURSE Hospital Course: (1) Acute respiratory failure with hypoxia With diuresis treatment alone, his supplemental O2 needs decreased and was intermittently down to room air. He has no formal diagnosis of COPD and his lung exam is more consistent with CHF but the Echo showed cor pulmonale, and the left ventricle had low normal EF of 50%, but LV "diastolic function could not be assessed". We tried to wean down supplemental O2, allowing his sats to be 88% or above. On the day of discharge, an oximetry walk test was done due to Cor pulmonale. Patient was not hypoxic at rest on room air, with O2 sats of 93%. However, with exertion on room air, his O2 sats were 87%. On 2L/min nasal cannula with exertion, his O2 sats improved to 95%. I am ordering home O2, room air when he is at rest, and set at 2L/min with exertion to treat his acute respiratory failure with hypoxia and CHF caused by Cor Pulmonale. (2) Cor pulmonale He presented with increasing leg edema, severe shortness of breath, and hypoxia on admission. This gentleman already has chronic lymphedema of his legs and they can get quite large. He had acute respiratory failure with hypoxia and treatment consisted mainly of diuresis. We did a CT chest to make sure he did not have a PE and it showed pulmonary artery enlargement, and some sketchy groundglass opacities that were not severe. He was discharged on Lasix. (3) Chronic atrial fibrillation We continued with his usual heart rate meds and anticoagulants which are keeping him stable (4) Lower extremity cellulitis Patient had bilateral redness, but no fever, and white cell count was low not high. He was on p.o. Keflex since August 24. Wound Clinic advised weekly visits. (5) Wound L leg the wound was viewed when opened before his weekly [facility] wound clinic appointment. He has a very large irregular shaped open wound on his left posterior calf that looks like a pressure ulcer, not deep, i is partly dry and partly oozing serous vs purulent material. At the last Wound Clinic appointment, the wound was cleaned and dressed. The only recommendation was to leave L lower leg bandage on, and to be seen there in 1 week. (6) Physical deconditioning This was from his usually sedentary status and illness. He participated with PT and OT. Rehab at a SNF was recommended but not approved by his Health Insurance. He was sent home to the brother and a Home Health referral was sent for PT, OT, RN, Bath AIde, and Enterprise Infrastructure Architect to check him. 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 Likely occurred due to being on anticoagulant. We continued with his anticoagulant for stroke prophylaxis (9) Poor hygiene Per his history, there was a time he had not showered in about a year. A shower was ordered. He will need increased intermediate care, thus Home Health Bath Aide was ordered. - ALLERGIES Allergies/Adverse Reactions: Allergies Allergy/AdvReac Type Severity Reaction Status Date / Time No Known Drug Allergies Allergy Verified 08/20/22 12:50 - MEDICATIONS Home Medications: Ambulatory Orders Medication Instructions Recorded Confirmed Apixaban [Eliquis] 5 mg PO BID #60 tablet 07/05/21 08/21/22 Digoxin [Lanoxin] 125 mcg PO DAILY #30 tablet 07/05/21 08/21/22 Metoprolol Succinate [Toprol Xl] 50 mg PO DAILY #30 tablet 07/05/21 08/21/22 Multivitamin W/Minerals [Theragran 1 tab PO DAILYWM #30 tablet 07/05/21 08/21/22 M] Furosemide [Lasix] 1 tab PO DAILY PRN 08/21/22 08/21/22 metroNIDAZOLE 0.75% GEL [Flagyl 1 applic TOP Q7D 08/21/22 08/21/22 Gel] cephALEXin [Keflex] 500 mg PO Q6HR #10 cap 08/31/22 - PHYSICAL EXAM AT DISCHARGE General Appearance: positive: No acute distress, Alert Eyes Bilateral: positive: Normal inspection, EOMI ENT: positive: No signs of dehydration, Other (Poor dentition, with missing and brown teeth) Neck: positive: Nml inspection, No JVD Respiratory: positive: No respiratory distress, Other (Distant breath sounds, no wheezing or rales) Cardiovascular: positive: No murmur (Distant heart sounds) Skin: positive: Warm, Dry Extremities: positive: Other (L lower extrem in compression bandage to knee, R has 1+ edema) Neurologic/Psychiatric: positive: Oriented x3, Motor nml - LABS Result Diagrams: 08/29/22 05:16 08/31/22 04:52 - DIAGNOSTIC IMAGING Diagnostic Imaging Results: Final report reviewed - FOLLOW UP Follow Up: See PCP in 1-2 weeks for a hospital follow-up visit. - TIME SPENT Time Spent in Discharge (Minutes): 40
== END 2022-08-31 15:58 | disposition home health service (06) | DRG 314 ==
LOC: EDUNIT# → ED 12:43 → MS2 17:44
PROVIDERS: ADMIT Specialist; ATTEND Internal Medicine
DX: I27.81 Cor pulmonale (chronic) (principal); R00.0 Tachycardia, unspecified; J96.01 Acute respiratory failure with hypoxia; L03.116 Cellulitis of left lower limb; L03.119 Cellulitis of unspecified part of limb; Z20.822 Contact with and (suspected) exposure to COVID-19; R44.1 Visual hallucinations; I10 Essential (primary) hypertension; R60.0 Localized edema; I48.20 Chronic atrial fibrillation, unspecified; L97.229 Non-pressure chronic ulcer of left calf with unspecified severity; L03.115 Cellulitis of right lower limb; I11.0 Hypertensive heart disease with heart failure; I50.9 Heart failure, unspecified; I87.2 Venous insufficiency (chronic) (peripheral); R46.0 Very low level of personal hygiene; R53.1 Weakness; G60.0 Hereditary motor and sensory neuropathy; R04.0 Epistaxis; Z91.81 History of falling; I27.20 Pulmonary hypertension, unspecified; Z66 Do not resuscitate; I89.0 Lymphedema, not elsewhere classified; Z87.891 Personal history of nicotine dependence; Z79.01 Long term (current) use of anticoagulants; E66.01 Morbid (severe) obesity due to excess calories; Z68.33 Body mass index [BMI] 33.0-33.9, adult; G47.33 Obstructive sleep apnea (adult) (pediatric)
CPT/HCPCS: 36415; 70450; 71045; 71275; 80048; 80053; 80202; 80306; 81003; 82040; 82803; 83605; 83690; 83735; 83880; 84484; 85025; 85379; 87040; 87633; 93005; 93306; 93970; 94761; 97116; 97162; 97166; 97530; 97535; 99284; 99285; A9270; G0480; J1650; J3370; Q9967; 80320; 81001; 87086

== ENCOUNTER 2023-05-22 13:45 | Emergency (ER) | payer MEDICARE ==
--- NOTE | 2023-05-22 14:22 | ED Physician Documentation ---
PD HPI SKIN - Stated complaint Stated Complaint: LT FOOT RED/LEAKING - Chief complaint Chief Complaint: Wound - History obtained from History obtained from: Patient - History of Present Illness Timing - onset: How many weeks ago (several days to a week of increased edema left lower leg and around ankle with redness. Some weeping of skin small sores. Has had skin infections and wounds in the past due to marked lymphedema.) Timing - duration: Weeks (1) Timing - details: Gradual onset, Still present Location: LLE (edema of both legs with some redness lower, but left one is most notably swelling/red/skin sores this week.) Quality / character: Discolored, Swelling, Draining. No: Vesicular Associated symptoms: No: Fever, Myalgias Similar symptoms before: Diagnosis (skin wound chronic infections in the past. Was in wound care weekly ending February when legs doing much better.) Review of Systems Constitutional: denies: Fever, Chills GI: denies: Nausea, Vomiting PD PAST MEDICAL HISTORY - Past Medical History Past Medical History: Yes Cardiovascular: Hypertension Respiratory: None Neuro: None Endocrine/Autoimmune: None GI: None : None HEENT: Chronic vision loss Psych: None Musculoskeletal: Other Derm: Other - Past Surgical History Past Surgical History: No - Present Medications Home Medications: Ambulatory Orders Medication Instructions Recorded Confirmed Apixaban [Eliquis] 5 mg PO BID #60 tablet 07/05/21 03/14/23 Digoxin [Lanoxin] 125 mcg PO DAILY #30 tablet 07/05/21 03/14/23 Metoprolol Succinate [Toprol Xl] 50 mg PO DAILY #30 tablet 07/05/21 03/14/23 Multivitamin W/Minerals [Theragran 1 tab PO DAILYWM #30 tablet 07/05/21 03/14/23 M] Furosemide [Lasix] 1 tab PO DAILY PRN 08/21/22 03/14/23 Doxycycline Hyclate 100 mg PO BID 7 Days #14 cap 05/22/23 Lanolin Alcohol/Mo/W.pet/[place] 1 applic TP DAILY #454 gm 05/22/23 [Eucerin Cream] Mupirocin 2% Oint [Bactroban 2% 1 applic TOP TID #15 gm 05/22/23 Oint] cephALEXin [Keflex] 500 mg PO TID #20 cap 05/22/23 - Allergies Allergies/Adverse Reactions: Allergies Allergy/AdvReac Type Severity Reaction Status Date / Time No Known Drug Allergies Allergy Verified 08/20/22 12:50 - Social History Does the pt smoke?: No Smoking Status: Never smoker Does the pt drink ETOH?: No Does the pt have substance abuse?: No - Immunizations Immunizations are current?: Yes - POLST Patient has POLST: No POLST Status: DNR PD ED PE NORMAL - Vitals Vital signs reviewed: Yes - General General: Alert and oriented X 3, Well developed/nourished - Derm Derm: Normal color, Warm and dry - Extremities Extremities: Other (left lateral gluteal area with some redness and a 2 cm ulcerative lesion to deeper skin layer, not full thickness. No purulence. ) - Neuro Neuro: No motor deficit, Other (decreased sensation both lower legs and feet. Very notable chronic skin changes both lower legs and ankles/feet. The left a nterior to lateral lower leg with skin scaling/dryness. There are several rounded 1 cm superficial ulcerations with clear weeping. Generl redness and edema as well.) Results - Vitals Vitals: Vital Signs - 24 hr 05/22/23 05/22/23 05/22/23 13:52 17:34 18:53 Temperature 37 C 36.7 C 36.6 C Heart Rate 95 85 89 Respiratory 16 18 18 Rate Blood Pressure 126/69 129/84 H 132/85 H O2 Saturation 94 96 97 Oxygen O2 Source [With Activity] [facility] O2 Source Room air - Labs Labs: Microbiology 05/22/23 14:56 Wound Culture - Preliminary Leg - Left Laboratory Tests 05/22/23 05/22/23 05/22/23 15:40 15:40 15:40 WBC 6.0 RBC 4.69 L Hgb 13.7 L Hct 43.8 MCV 93.4 MCH 29.2 MCHC 31.3 L RDW 13.5 Plt Count 127 L MPV 10.7 Neut # (Auto) 4.3 Lymph # (Auto) 1.2 L Mckinley # (Auto) 0.4 Eos # (Auto) 0.1 Baso # (Auto) 0.0 Absolute Nucleated RBC 0.00 Nucleated RBC % 0.0 Sodium 139 Potassium 4.2 Chloride 101 Carbon Dioxide 33 H Anion Gap 5.0 L BUN 19 Creatinine 0.6 Estimated GFR (MDRD) 132 Glucose 103 Lactic Acid 3.2 H* Calcium 9.7 Total Bilirubin 0.4 AST 19 ALT 14 Alkaline Phosphatase 65 Total Protein 8.1 Albumin 4.0 Globulin 4.1 Albumin/Globulin Ratio 1.0 Lipase 42 05/22/23 18:00 WBC RBC Hgb Hct MCV MCH MCHC RDW Plt Count MPV Neut # (Auto) Lymph # (Auto) Mckinley # (Auto) Eos # (Auto) Baso # (Auto) Absolute Nucleated RBC Nucleated RBC % Sodium Potassium Chloride Carbon Dioxide Anion Gap BUN Creatinine Estimated GFR (MDRD) Glucose Lactic Acid 1.5 Calcium Total Bilirubin AST ALT Alkaline Phosphatase Total Protein Albumin Globulin Albumin/Globulin Ratio Lipase PD Medical Decision Making - ED course Complexity details: reviewed results (WBC is normal. Lactic acid initial elevated to 3.2 with repeat 1.5 after some IV fluids so presume related to hydration and not sepsis. ), considered differential, d/w patient ED course: has chronic edema and now with a week of increased swelling left lower leg and ankle Has some redness in skin folds. There are several scattered 1 cm ulcerative sores. Presume staph infections. He does not look too ill. Basic labs with normal WBC. Lactate some elevated but promptly down to normal with some fluids. Will treat as cellulitis. Departure - Departure Disposition: 01 Home, Self Care Clinical Impression: Lymphedema of both lower extremities, Cellulitis of lower leg Condition: Stable Instructions: ED Infec Skin Cellulitis Follow-Up: Nena Tineo MD [Primary Care Provider] - Prescriptions: Mupirocin 2% Oint [Bactroban 2% Oint] 1 applic TOP TID #15 gm Doxycycline Hyclate 100 mg PO BID 7 Days #14 cap Lanolin Alcohol/Mo/W.pet/[place] [Eucerin Cream] 1 applic TP DAILY #454 gm cephALEXin [Keflex] 500 mg PO TID #20 cap Comments: It does look like skin infection at the areas of ulcerations and redness. We did do a culture of the weeping. This should result in likely 2 days. This will give guidance to us if we need to change or adjust the medications you are on to focus on the infection. For now I would go to antibiotics of cephalexin and doxycycline. Also cleanse the wound areas twice daily with regular soap and water and apply mupirocin antibiotic ointment to the sores. For the remainder of the skin that dry and scaly, use some skin lotion such as Eucerin or Lubriderm or such to keep it softer. Ryan wrap and elevate can be used for the left leg in particular that is more swollen. Your white count was normal. A measure of other general infection called the lactate was a bit elevated initially and has improved. Follow-up with your primary care or return to the ER if not improved well over the next 3 to 5 days. Follow-up with your primary care next week anyway for reevaluation. Return if increased redness swelling or you develop general symptoms such as aches or fevers. I sent your prescriptions to your preferred pharmacy. Forms: PCP List Discharge Date/Time: 05/22/23 19:19
[2023-05-22] MEDS ORDERED: DOXYCYCLINE 100 MG TABLET PO STA (15:12)
[2023-05-22] MEDS ORDERED: cephALEXin 250 MG CAPSULE PO STA (15:12)
[2023-05-22] MEDS ORDERED: MUPIROCIN 2% OINT 1 GM TOP STA (15:12)
[2023-05-22] MEDS ORDERED: EMOLLIENT CREAM 57 GM TUBE TOP STA (15:15)
[2023-05-22 15:48] LABS: BASOPHILS % (AUTO) 0.3 %; EOSINOPHILS # (AUTO) 0.1 10^3/uL (0.0-0.7); HCT - HEMATOCRIT 43.8 % (42.0-52.0); HGB - HEMOGLOBIN 13.7 g/dL (14.0-18.0); LYMPHOCYTES # (AUTO) 1.2 10^3/uL (1.5-3.5); LYMPHOCYTES % (AUTO) 20.5 %; MEAN CORPUSCULAR HEMOGLOBIN 29.2 pg (27.0-31.0); MEAN CORPUSCULAR HGB CONC 31.3 g/dL (32.0-36.0); MEAN CORPUSCULAR VOLUME 93.4 fL (80.0-94.0); MEAN PLATELET VOLUME 10.7 fL (7.4-11.4); MONOCYTES # (AUTO) 0.4 10^3/uL (0.0-1.0); MONOCYTES % (AUTO) 7.2 %; NEUTROPHILS # (AUTO) 4.3 10^3/uL (1.5-6.6); NEUTROPHILS % (AUTO) 70.8 %; PLT - PLATELET COUNT 127 10^3/uL (130-450); RED BLOOD COUNT 4.69 10^6/uL (4.70-6.10); RED CELL DISTRIBUTION WIDTH 13.5 % (12.0-15.0)
[2023-05-22 16:00] LABS: BILIRUBIN,TOTAL 0.4 mg/dL (0.2-1.0); CALCIUM 9.7 mg/dL (8.5-10.3); CREATININE 0.6 mg/dL (0.6-1.3); POTASSIUM 4.2 mmol/L (3.5-4.5); TOTAL PROTEIN 8.1 g/dL (6.4-8.9)
[2023-05-22] MEDS ORDERED: cefTRIAXone 1 GM VIAL IVP STA ×2 (16:15→17:16)
[2023-05-22] MEDS ORDERED: SODIUM CHLORIDE 0.9% 1,000 ML IV STA (16:15)
[2023-05-22 18:54] VITALS: BP 132/85; O2SAT 97
--- NOTE | 2023-05-24 15:37 | ED Physician Documentation ---
ED Addendum - Addendum Addendum: 05/24/23 15:37 culture reviewed, Keflex should work for both isolates.
--- NOTE | 2023-05-25 11:37 | ED Physician Documentation ---
ED Addendum - Addendum Addendum: 05/25/23 11:37 Cx today now with eterococcus as well. Called pt, can stop keflexvinicio and I sent a prescription for Augmentin 875/125 1 p.o. twice daily for 10 days to [facility] in [place]
== END 2023-05-22 19:19 | disposition home or self-care (01) ==
LOC: ED 13:45
DX: I89.0 Lymphedema, not elsewhere classified (principal); L03.116 Cellulitis of left lower limb; B95.2 Enterococcus as the cause of diseases classified elsewhere; I10 Essential (primary) hypertension; Z79.01 Long term (current) use of anticoagulants; Z79.899 Other long term (current) drug therapy
CPT/HCPCS: 36415; 80053; 83605; 83690; 85025; 87040; 87070; 87077; 87181; 87205; 96374; 99284; A9270

== ENCOUNTER 2023-07-03 17:58 | Emergency (ER) | payer MEDICARE ==
--- NOTE | 2023-07-03 18:49 | ED Physician Documentation ---
PD HPI WOUND RECHECK - Stated complaint Stated Complaint: L LEG WOUND - Chief complaint Chief Complaint: Wound - Histroy obtained from History obtained from: Patient - History of Present Illness Location: Left Lower Extremity Timing - onset: Chronic Pain level max: 0 Pain level now: 0 Associated symptoms: Redness, Swelling. No: Fever - Additional information Additional information: Patient is a 72-year-old male with a longstanding history of lymphedema/eleph antiasis. Has chronic nonhealing wounds in his legs. Had been seeing wound care until he was discharged from wound care in May. Feels like the wounds have worsened and that his skin has started to become red again. No fevers. No chills. No new trauma. He had been on antibiotics in the past which seem to help him. He is not currently on antibiotics. He is requesting antibiotics and wound care referral. Review of Systems Constitutional: denies: Fever, Chills GI: denies: Vomiting, Diarrhea PD PAST MEDICAL HISTORY - Past Medical History Past Medical History: Yes Cardiovascular: Hypertension Respiratory: None Neuro: None Endocrine/Autoimmune: None GI: None : None HEENT: Chronic vision loss Psych: None Musculoskeletal: Other Derm: Other - Past Surgical History Past Surgical History: No - Present Medications Home Medications: Ambulatory Orders Medication Instructions Recorded Confirmed Apixaban [Eliquis] 5 mg PO BID #60 tablet 07/05/21 07/03/23 Digoxin [Lanoxin] 125 mcg PO DAILY #30 tablet 07/05/21 07/03/23 Metoprolol Succinate [Toprol Xl] 50 mg PO DAILY #30 tablet 07/05/21 07/03/23 Multivitamin W/Minerals [Theragran 1 tab PO DAILYWM #30 tablet 07/05/21 07/03/23 M] Furosemide [Lasix] 1 tab PO DAILY PRN 08/21/22 07/03/23 Doxycycline Hyclate 100 mg PO BID 7 Days #14 cap 05/22/23 Lanolin Alcohol/Mo/W.pet/[place] 1 applic TP DAILY #454 gm 05/22/23 07/03/23 [Eucerin Cream] Mupirocin 2% Oint [Bactroban 2% 1 applic TOP TID #15 gm 05/22/23 07/03/23 Oint] Amox/Clav 875/125 [Augmentin] 1 each PO Q12H #20 tablet 05/25/23 Amox/Clav 875/125 [Augmentin] 1 tab PO Q12H #28 tablet 07/03/23 Apixaban [Eliquis] 1 tab ORAL BID 07/03/23 07/03/23 - Allergies Allergies/Adverse Reactions: Allergies Allergy/AdvReac Type Severity Reaction Status Date / Time No Known Drug Allergies Allergy Verified 07/03/23 18:17 - Social History Does the pt smoke?: No Smoking Status: Never smoker Does the pt drink ETOH?: No Does the pt have substance abuse?: No - Immunizations Immunizations are current?: Yes - POLST Patient has POLST: No POLST Status: DNR PD ED PE NORMAL - Vitals Vital signs reviewed: Yes - General General: Alert and oriented X 3, No acute distress - HEENT HEENT: Moist mucous membranes - Neck Neck: Supple, no meningeal sign - Cardiac Cardiac: RRR, Strong equal pulses - Respiratory Respiratory: No respiratory distress, Clear bilaterally - Derm Derm: Warm and dry - Extremities Extremities: Other - Neuro Neuro: Alert and oriented X 3 - Free text exam Free text exam: Patient was significant swelling of the bilateral lower extremities, there appears to be a chronic wound on the anterior aspect of the left lower extremity near the ankle. There are chronic deformities to the feet and ankles bilaterally. Neurovascularly intact. No purulent drainage. There is erythema to the left foot. Results - Vitals Vitals: Vital Signs - 24 hr 07/03/23 07/03/23 18:11 19:32 Temperature 37.5 C Heart Rate 111 H 108 H Respiratory 18 18 Rate Blood Pressure 123/76 143/90 H O2 Saturation 94 98 Oxygen O2 Source [With Activity] [facility] O2 Source Room air PD Medical Decision Making - ED course Complexity details: considered differential, d/w patient, d/w family ED course: Patient appears to have a recurrence of his chronic wounds on his legs and feet. No fevers. we will place him back on Augmentin. No indication for recurrent blood work at this time. No evidence of sepsis. No chills. No trauma. No falls. Recommend he attempt to go back to wound care, he may benefit from wound care at [facility] given their hyperbaric oxygen therapy and his likely poor circulation. Patient is well-appearing, nontoxic. Patient and family counseled regarding signs and symptoms for which I believe and urgent re- evaluation would be necessary. Patient with good understanding of and agreement to plan and is comfortable going home at this time This document was made in part using voice recognition software. While efforts are made to proofread this document, sound alike and grammatical errors may occur. Departure - Departure Disposition: 01 Home, Self Care Clinical Impression: Non-pressure chronic ulcer left lower leg, limited to breakdown skin Lower extremity cellulitis Qualifiers: Laterality: left Qualified Code(s): L03.116 - Cellulitis of left lower limb Condition: Good Instructions: ED Infec Skin Cellulitis Follow-Up: Nena Tineo MD [Provider Admit Priv/Credential] - Nena Tineo MD [Provider Admit Priv/Credential] - Prescriptions: Amox/Clav 875/125 [Augmentin] 1 tab PO Q12H #28 tablet Comments: [facility] [place]. Please take all antibiotics until gone. Please follow-up with your doctor for further care. I do think that you would benefit from a wound care referral. It may benefit you further to seek wound care at [facility]. They do have a hyperbaric oxygen chamber that may improve your wound healing if you are a candidate. A referral from your doctor will need to be sent in order to obtain an appointment at their. Please return if you worsen. [facility] [address] [place], [place] [id number] [address] [place] [address], [place] [address] P: [phone] F: [phone] Forms: PCP List Discharge Date/Time: 07/03/23 19:45
[2023-07-03] MEDS ORDERED: AMOX/CLAV 875 MG/125 MG TABLET PO STA (19:02)
[2023-07-03 19:39] VITALS: BP 143/90; O2SAT 98
== END 2023-07-03 19:45 | disposition home or self-care (01) ==
LOC: ED 17:58
DX: L97.311 Non-pressure chronic ulcer of right ankle limited to breakdown of skin (principal); L03.116 Cellulitis of left lower limb; I10 Essential (primary) hypertension; Z79.01 Long term (current) use of anticoagulants
CPT/HCPCS: 99282; 99284; A9270

== ENCOUNTER 2023-08-06 15:41 | Outpatient (CLI) | payer MEDICARE ==
--- NOTE | 2023-08-06 16:40 | XRAY Report ---
PROCEDURE: Calcaneus 2+V LT INDICATIONS: LEFT FOOT ANKLE OPEN WOUND TECHNIQUE: Two views of the calcaneus were acquired. COMPARISON: None. FINDINGS: Bones: No fractures or dislocations. No suspicious bony lesions. Charcot arthropathy. Soft tissues: Subcutaneous gas along the foot dorsum and along the lateral ankle. IMPRESSION: Subcutaneous gas along the lateral ankle and within the foot dorsum, suggestive of subcutaneous infec tion. No bony erosion to suggest acute osteomyelitis. Charcot arthropathy. Reviewed by: Moe Roach MD on 08/06/2023 4:39 PM PST Approved by: Moe Roach MD on 08/06/2023 4:39 PM [facility] Station ID: [id number]
--- NOTE | 2023-08-06 16:41 | XRAY Report ---
PROCEDURE: Ankle 3+V LT INDICATIONS: LEFT FOOT ANKLE OPEN WOUND TECHNIQUE: 3 views of the ankle were acquired. COMPARISON: None. FINDINGS: Bones: No fractures or dislocations. Ankle mortise is normally aligned. No suspicious bony lesions . Charcot arthropathy of the foot. Soft tissues: No tibiotalar joint effusion. Achilles tendon appears normal. Subcutaneous gas along the lateral ankle and foot dorsum. IMPRESSION: Subcutaneous gas along the lateral ankle and foot dorsum, suggestive of infection. Message was left with ordering provider's office at time of dictation. Reviewed by: Moe Roach MD on 08/06/2023 4:40 PM PST Approved by: Moe Roach MD on 08/06/2023 4:40 PM PST Station ID: [id number]
== END 2023-08-06 15:42 | disposition home or self-care (01) ==
LOC: DI 15:41
PROVIDERS: ATTEND Family Medicine
DX: M14.672 Charcot's joint, left ankle and foot (principal)

== ENCOUNTER 2023-08-29 10:26 | Emergency (ER) | payer MEDICARE ==
[2023-08-29 11:29] LABS: BASOPHILS % (AUTO) 0.6 %; EOSINOPHILS # (AUTO) 0.1 10^3/uL (0.0-0.7); EOSINOPHILS % (AUTO) 1.7 %; HCT - HEMATOCRIT 42.3 % (42.0-52.0); HGB - HEMOGLOBIN 12.9 g/dL (14.0-18.0); LYMPHOCYTES # (AUTO) 1.8 10^3/uL (1.5-3.5); LYMPHOCYTES % (AUTO) 33.8 %; MEAN CORPUSCULAR HEMOGLOBIN 28.7 pg (27.0-31.0); MEAN CORPUSCULAR HGB CONC 30.5 g/dL (32.0-36.0); MEAN CORPUSCULAR VOLUME 94.2 fL (80.0-94.0); MEAN PLATELET VOLUME 10.1 fL (7.4-11.4); MONOCYTES # (AUTO) 0.4 10^3/uL (0.0-1.0); MONOCYTES % (AUTO) 8.3 %; NEUTROPHILS % (AUTO) 55.4 %; PLT - PLATELET COUNT 166 10^3/uL (130-450); RED BLOOD COUNT 4.49 10^6/uL (4.70-6.10); RED CELL DISTRIBUTION WIDTH 14.3 % (12.0-15.0); WHITE BLOOD COUNT 5.3 x10^3/uL (4.8-10.8)
[2023-08-29 11:55] LABS: ALBUMIN 3.4 g/dL (3.2-5.5); ALBUMIN/GLOBULIN RATIO 0.7 (1.0-2.2); BILIRUBIN,TOTAL 0.5 mg/dL (0.2-1.0); CALCIUM 9.4 mg/dL (8.5-10.3); CREATININE 0.6 mg/dL (0.6-1.3); CRP HIGH SENSITIVITY 37.78 mg/L; POTASSIUM 4.3 mmol/L (3.5-4.5); TOTAL PROTEIN 8.1 g/dL (6.4-8.9)
--- NOTE | 2023-08-29 12:01 | XRAY Report ---
PROCEDURE: Foot 1-2V LT INDICATIONS: osteo/infection TECHNIQUE: 2 views of the foot were acquired. COMPARISON: None. FINDINGS: Bones: No fractures or dislocations. No suspicious bony lesions. Charcot arthropathy. No bony erosi on. Hammertoe deformities of the second through fifth rays. Soft tissues: No tibiotalar joint effusion. Achilles tendon appears normal. IMPRESSION: No bony erosion. If there remains a high clinical concern for osteomyelitis, consider MRI. Reviewed by: Moe Roach MD on 08/29/2023 11:59 AM PDT Approved by: Moe Roach MD on 08/29/2023 11:59 AM PDT Station ID: [id number]
[2023-08-29] MEDS: CEFEPIME 2 GM in SODIUM CHLORIDE 0.9% MINIBAG 100 ML IV STA (13:02)
[2023-08-29] MEDS: VANCOMYCIN INJ 2 GM in SODIUM CHLORIDE 0.9% 500 ML IV STA (13:38)
--- NOTE | 2023-08-29 13:56 | ED Physician Documentation ---
History of Present Illness - Stated complaint Stated Complaint: SENT BY DOC - Chief complaint Chief Complaint: General - History obtained from History obtained from: Patient, Other (Dr. Patiño - wound care) - Additonal information Additional information: Patient is a 72-year-old male with a history of lymphedema, chronic atrial fibrillation on Eliquis presenting for evaluation of worsening wounds to the left foot. He has been followed by the wound care clinic with recent MRI demonstrating areas of abscess and osteomyelitis. Per wound care physician, Dr. Patiño he was having difficulty in getting the patient to a specialist as our orthopedic surgeon felt that he was too complex for a CAH. He has been on numerous recent antibiotics including Levaquin, amoxicillin, doxycycline without improvement. Today he was seen at the wound care clinic and noted to have further worsening with additional ulceration and track present. MRI 08/13/2023 IMPRESSION: 1.Small areas of skin ulceration at the anteromedial aspect of the hindfoot. A linear track filled with fluid and gas is seen in the medial subcutaneous tissues measuring up to 9 cm in length. There is a separate 2.9 cm collection of fluid and gas anterior to the hindfoot. These are suspicious for small subcutaneous abscesses. Diffuse nonspecific soft tissue edema and skin thickening throughout the lower leg. 2.Foci of cortical irregularity at the plantar medial aspect of the talar neck is suspicious for multifocal osteomyelitis. 3.Severe arthritic deformity with lateral subluxation and angulation of the calcaneus and chronic degenerative changes and osseous remodeling at the articulation between the distal fibula and calcaneus. Superimposed degenerative changes are present throughout the ankle an d hindfoot. 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 Review of Systems Constitutional: denies: Fever Cardiac: denies: Chest pain / pressure Respiratory: denies: Dyspnea GI: denies: Abdominal Pain PD PAST MEDICAL HISTORY - Past Medical History Past Medical History: Yes Cardiovascular: Hypertension Respiratory: None Neuro: None Endocrine/Autoimmune: None GI: None : None HEENT: Chronic vision loss Psych: None Musculoskeletal: Other Derm: Other - Past Surgical History Past Surgical History: No - Present Medications Home Medications: Ambulatory Orders Medication Instructions Recorded Confirmed Apixaban [Eliquis] 5 mg PO BID #60 tablet 07/05/21 07/31/23 Digoxin [Lanoxin] 125 mcg PO DAILY #30 tablet 07/05/21 07/31/23 Metoprolol Succinate [Toprol Xl] 50 mg PO DAILY #30 tablet 07/05/21 07/31/23 Multivitamin W/Minerals [Theragran 1 tab PO DAILYWM #30 tablet 07/05/21 07/31/23 M] Furosemide [Lasix] 1 tab PO DAILY PRN 08/21/22 07/31/23 Lanolin Alcohol/Mo/W.pet/[place] 1 applic TP DAILY #454 gm 05/22/23 07/31/23 [Eucerin Cream] Mupirocin 2% Oint [Bactroban 2% 1 applic TOP TID #15 gm 05/22/23 07/31/23 Oint] levoFLOXacin [Levofloxacin] 750 mg PO DAILY 10 Days #10 tablet 07/30/23 07/31/23 Amox/Clav 875/125 [Augmentin 1 tablet PO Q12H 14 Days #28 tablet 08/06/23 875/125 Tab] Doxycycline Monohydrate 100 mg PO BID 14 Days #28 cap 08/11/23 - Allergies Allergies/Adverse Reactions: Allergies Allergy/AdvReac Type Severity Reaction Status Date / Time No Known Drug Allergies Allergy Verified 08/29/23 10:59 - Social History Does the pt smoke?: No Smoking Status: Never smoker Does the pt drink ETOH?: No Does the pt have substance abuse?: No - Immunizations Immunizations are current?: Yes - POLST Patient has POLST: No POLST Status: DNR PD ED PE NORMAL - General General: Alert and oriented X 3, No acute distress, Well developed/nourished - HEENT HEENT: Atraumatic, Moist mucous membranes, Pharynx benign - Neck Neck: Supple, no meningeal sign - Cardiac Cardiac: RRR - Respiratory Respiratory: No respiratory distress - Abdomen Abdomen: Normal bowel sounds, Soft, Non tender, Non distended - Extremities Extremities: Other (Lymphedema; L>R; redness to foot extending to mid L garcia; multiple open wounds with serous and purulent drainage) Results - Vitals Vitals: Vital Signs - 24 hr 08/29/23 08/29/23 08/29/23 10:52 11:25 13:00 Temperature 36.3 C L Heart Rate 88 91 67 Respiratory 15 20 18 Rate Blood Pressure 123/89 H 129/97 H 114/70 O2 Saturation 95 97 97 If not protocol 2 : Oxygen Flow, liters/minute 08/29/23 08/29/23 08/29/23 15:00 17:00 19:00 Temperature 36.9 C Heart Rate 86 96 86 Respiratory 18 16 16 Rate Blood Pressure 126/84 H 129/90 H 130/88 H O2 Saturation 98 94 94 If not protocol 2 2 : Oxygen Flow, liters/minute Oxygen O2 Source [With Activity] HHFNC O2 Source Room air - Labs Labs: Microbiology 08/29/23 13:44 Wound Culture - Preliminary Foot - Left Laboratory Tests 08/29/23 08/29/23 08/29/23 11:19 11:19 11:19 WBC 5.3 RBC 4.49 L Hgb 12.9 L Hct 42.3 MCV 94.2 H MCH 28.7 MCHC 30.5 L RDW 14.3 Plt Count 166 MPV 10.1 Neut # (Auto) 3.0 Lymph # (Auto) 1.8 [place] # (Auto) 0.4 Eos # (Auto) 0.1 Baso # (Auto) 0.0 Absolute Nucleated RBC 0.00 Nucleated RBC % 0.0 ESR 37 H Sodium 138 Potassium 4.3 Chloride 99 L Carbon Dioxide 33 H Anion Gap 6.0 BUN 13 Creatinine 0.6 Estimated GFR (MDRD) 132 Glucose 94 Calcium 9.4 Total Bilirubin 0.5 AST 16 ALT 9 L Alkaline Phosphatase 56 C-Reactive Protein C-React Prot High Sens 37.78 Total Protein 8.1 Albumin 3.4 Globulin 4.7 H Albumin/Globulin Ratio 0.7 L Lipase 22 08/29/23 11:19 WBC RBC Hgb Hct MCV MCH MCHC RDW Plt Count MPV Neut # (Auto) Lymph # (Auto) [place] # (Auto) Eos # (Auto) Baso # (Auto) Absolute Nucleated RBC Nucleated RBC % ESR Sodium Potassium Chloride Carbon Dioxide Anion Gap BUN Creatinine Estimated GFR (MDRD) Glucose Calcium Total Bilirubin AST ALT Alkaline Phosphatase C-Reactive Protein 3.9 H C-React Prot High Sens Total Protein Albumin Globulin Albumin/Globulin Ratio Lipase PD Medical Decision Making - ED course Complexity details: reviewed results, re-evaluated patient, d/w patient, d/w family (Brother - Miguel) ED course: Patient is a 72-year-old male presenting for evaluation of worsening infection to the left foot. Patient has recently been followed by the wound care clinic with [facility] despite use of p.o. antibiotics. He recently did have an outpatient MRI demonstrating signs of osteomyelitis and multiple areas of abscess in the left foot. New wound noted today. Patient is afebrile with stable vital signs. CBC, chemistry, ESR and crp Were obtained and reviewed. X- ray which I reviewed was not clear for osteomyelitis but limited. ESR and CRP are elevated. Patient started on vancomycin and cefepime. He does have a history on some prior cultures for Pseudomonas. I did send wound culture as well as blood cultures. We do not have orthopedic surgery coverage at our hospital over the weekend and additionally Dr. Patel in the past did try to refer the patient to our local orthopedist who felt that this case was too complicated for critical access hospital. Thus we have reached out to area facilities for transfer. I did speak with the hospitalist at [facility] and they have agreed to accept the patient. I did speak to the patient's brother to relay this plan to him as well. 1604 - D/W Dr. Jimenez (, Hospitalist) - Accepts pt in transfer. Departure - Departure Disposition: 02 Transfer Acute Care Hosp Clinical Impression: Left leg cellulitis, Osteomyelitis of left foot, Abscess of left foot Condition: Fair Forms: PCP List Discharge Date/Time: 08/29/23 19:40
[2023-08-29 17:13] VITALS: O2SAT 94
[2023-08-29 19:17] VITALS: BP 130/88
== END 2023-08-29 19:40 | disposition short-term general hospital (02) ==
LOC: ED 10:26
DX: L02.612 Cutaneous abscess of left foot (principal); L03.116 Cellulitis of left lower limb; M86.9 Osteomyelitis, unspecified; I10 Essential (primary) hypertension; I48.91 Unspecified atrial fibrillation; Z79.01 Long term (current) use of anticoagulants
CPT/HCPCS: 36415; 73620; 80053; 83690; 85025; 85651; 86140; 86141; 87040; 87070; 87077; 87181; 87205; 96365; 96366; 96367; 99285; J3370